=== PATIENT | female | born 1965 | race Caucasian/White ===

== ENCOUNTER 2020-04-25 12:09 | Outpatient (REF) | payer MEDICARE, MEDICAID, SELFPAY ==
[2020-04-25 15:55] LABS: CT PCR NOT DETECTED (Not Detect.); NG PCR NOT DETECTED (Not Detect.)
[2020-04-26 09:39] LABS: HIV AB/AG Nonreactive (Nonreactive); HIV Num 1 0.05 S/CO (0.00-0.99)
== END 2020-04-25 12:10 | disposition home or self-care (01) ==
LOC: HO.HMGCLDS 12:09
PROVIDERS: Visit Provider Urology
DX: R30.0 Dysuria (principal); Z11.3 Encounter for screening for infections with a predominantly sexual mode of transmission
CPT/HCPCS: 87389; 87491; 87591

== ENCOUNTER 2020-10-18 13:38 | Outpatient (REF) | payer MEDICARE, MEDICAID, SELFPAY ==
[2020-10-18 17:02] LABS: Alanine Aminotransferase 13 U/L (0-31); Albumin Level 4.7 g/dL (3.5-5.0); Alkaline Phosphatase 106 U/L (39-117); Aspartate Amino Transferase 14 U/L (5-31); Bilirubin Direct < 0.2 mg/dL (0.0-0.5); Bilirubin Total 0.5 mg/dL (0.0-1.0); Total Protein 7.2 g/dL (6.5-8.0)
== END 2020-10-18 13:39 | disposition home or self-care (01) ==
LOC: HO.HMGCLDS 13:38
PROVIDERS: PCP Physician Assistant; Visit Provider Dermatology
DX: L20.84 Intrinsic (allergic) eczema (principal); L82.1 Other seborrheic keratosis; B35.1 Tinea unguium
CPT/HCPCS: 36415; 80076

== ENCOUNTER 2020-10-31 12:54 | Outpatient (REF) | payer MEDICARE, MEDICAID, SELFPAY ==
[2020-10-31 14:14] LABS: MANUAL DIFF FLAG NO
[2020-10-31 14:25] LABS: Basophils Percent Auto 0.2 % (0-2); Eosinophils Absolute Auto 0.2 X10*3/uL (0.0-0.4); Eosinophils Percent Auto 1.1 % (0-4); Hematocrit 41.8 % (37-47); Hemoglobin 13.8 g/dl (12.0-16.0); Imm Gran Abs Auto 0.06 X10*3/uL (0.00-0.03); Imm Gran Pct Auto 0.5 % (0.0-0.4); Lymphocytes Absolute Auto 3.1 X10*3/uL (1.2-4.9); Lymphocytes Percent Auto 23.6 % (20-40); Mean Corpuscular Hemoglobin 32.5 pg (27.0-33.0); Mean Corpuscular Volume 98.6 fL (80-98); Mean Platelet Volume 9.4 fL (9.4-12.3); Monocytes Absolute Auto 0.7 X10*3/uL (0.1-1.2); Monocytes Percent Auto 5.5 % (2-11); Neutrophils Absolute Auto 9.2 X10*3/uL (2.0-8.3); Neutrophils Percent Auto 69.1 % (45-73); Platelet Count 323 X10*3/uL (160-400); Red Blood Count 4.24 X10*6/uL (4.20-5.50); Red Cell Distribution Width 12.2 % (11.0-16.0); White Blood Count 13.3 X10*3/uL (4.8-10.8)
[2020-10-31 14:30] LABS: Alanine Aminotransferase 13 U/L (0-31); Aspartate Amino Transferase 15 U/L (5-31)
== END 2020-10-31 12:55 | disposition home or self-care (01) ==
LOC: HO.HMGCLDS 12:54
PROVIDERS: PCP Physician Assistant; Visit Provider Dermatology
DX: B35.1 Tinea unguium (principal); Z79.899 Other long term (current) drug therapy
CPT/HCPCS: 36415; 84450; 84460; 85025

== ENCOUNTER 2021-01-29 09:45 | Outpatient (REF) | payer MEDICARE, MEDICAID, SELFPAY | END 2021-01-29 09:46 | disposition home or self-care (01) | LOC: HO.LAB 09:45 | PROVIDERS: PCP Physician Assistant; Visit Provider Internal Medicine | DX: Z20.822 Contact with and (suspected) exposure to COVID-19 (principal) | CPT/HCPCS: C9803; U0003; U0005 ==

== ENCOUNTER 2021-03-28 12:34 | Outpatient (REF) | payer MEDICARE, MEDICAID, SELFPAY ==
[2021-03-28 14:15] LABS: Anion Gap 17 (12-20); Blood Urea Nitrogen 18 mg/dL (9-16); Calcium 10.3 mg/dL (8.4-10.2); Carbon Dioxide 22 mmol/L (22-29); Chloride 107 mmol/L (96-108); Estimated Glomerular Filt Rate 56; Potassium 4.8 mmol/L (3.3-5.1); Sodium 141 mmol/L (135-145)
== END 2021-03-28 12:35 | disposition home or self-care (01) ==
LOC: HO.HMGCLDS 12:34
PROVIDERS: PCP Physician Assistant; Visit Provider Internal Medicine
DX: Z13.89 Encounter for screening for other disorder (principal)
CPT/HCPCS: 36415; 80051; 82310; 82565; 84520

== ENCOUNTER 2021-07-10 07:46 | Outpatient (REF) | payer MEDICARE, MEDICAID, SELFPAY ==
[2021-07-10 09:53] LABS: Binax Internal Control QC Valid; Binax Now Covid-19 Ag Negative (Negative)
[2021-07-11 07:42] LABS: HBsAGNum1 0.25 S/CO (0.00-0.99); Hepatitis B Surface Antigen Negative (Negative); ~HepC Num1 0.06 S/CO (0.00-0.79); ~Hepatitis C Antibody Nonreactive (Nonreactive)
[2021-07-12 20:17] LABS: TS Negative Control Passed; TS Panel A 0; TS Panel B 0; TS Positive Control Passed; TSpotTB Negative (Negative)
== END 2021-07-10 07:47 | disposition home or self-care (01) ==
LOC: HO.HMGCLDS 07:46
PROVIDERS: Absent Provider Nurse Practitioner Family; PCP Physician Assistant; Visit Provider Dermatology
DX: R05.9 Cough, unspecified (principal); R52 Pain, unspecified; R43.2 Parageusia; L30.1 Dyshidrosis [pompholyx]; B35.1 Tinea unguium
CPT/HCPCS: 36415; 86481; 86803; 87340

== ENCOUNTER 2022-11-29 16:51 | Emergency (ER) | payer MEDICARE, MEDICAID, SELFPAY ==
[2022-11-29 17:20] VITALS: BP 109/80; PULSE 100; RESP 18; TEMP 36.8; O2SAT 99; BMI 29.0
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
--- NOTE | 2022-11-29 17:29 | PC.NURSE ---
eval and dc by pit
== END 2022-11-29 17:34 | disposition home or self-care (01) ==
LOC: HO.ED 17:32
PROVIDERS: Emergency Provider Emergency Medicine; PCP Physician Assistant Medical
DX: T25.011A Burn of unspecified degree of right ankle, initial encounter (principal); T23.052A Burn of unspecified degree of left palm, initial encounter; T23.051A Burn of unspecified degree of right palm, initial encounter; T20.00XA Burn of unspecified degree of head, face, and neck, unspecified site, initial encounter; X08.8XXA Exposure to other specified smoke, fire and flames, initial encounter; Y93.9 Activity, unspecified; Y92.9 Unspecified place or not applicable; Y99.9 Unspecified external cause status
CPT/HCPCS: 99282

== ENCOUNTER 2024-03-25 13:19 | Emergency (ER) | payer OTHER, MEDICAID, SELFPAY ==
--- NOTE | ~2024-03-25 | CT_ITS ---
EXAMINATION: CT HEAD WITHOUT CONTRAST CT CERVICAL SPINE WITHOUT CONTRAST CLINICAL INFORMATION: Trauma. Fall. Pain. COMPARISON: None. TECHNIQUE: Imaging was performed from the skull base to vertex without intravenous administration of contrast. In addition, helical noncontrast CT imaging was acquired through the cervical spine and source images were reviewed along with axial reconstructions and sagittal and coronal MPRs. [This CT examination was performed using dose optimization techniques as appropriate, variously including the following: *Automated exposure control *Adjustment of mA and/or kV according to patient size (this includes techniques or standardized protocols for targeted exams where dose is matched to indication/reason for exam; i.e. extremities or head) *Use of iterative reconstruction technique] DLP: 975 mGy-cm FINDINGS: HEAD: No intracranial mass, hemorrhage, or midline shift is visualized. The ventricles and sulci are proportional. No extra-axial collections are identified. The paranasal sinuses and mastoid air cells are well aerated. CERVICAL SPINE: There is no evidence of acute cervical spine fracture. Vertebral bodies remain normal in height. Cervical vertebrae have normal alignment. There is multilevel degenerative spondylosis of the cervical spine with disc height narrowing and endplate spurs and facet joint arthrosis. Nonspecific 8mm osteosclerotic lesion in the posterior right C3 vertebrae without cortical bone destruction. No pre- or paravertebral soft tissue abnormality is identified. Limited assessment of the lung apices is unremarkable. CT/CT cervical spine wo IV con IMPRESSION: 1. No acute intracranial pathology. 2. No CT evidence of acute cervical spine fracture or traumatic subluxation. 3. Nonspecific 8 mm osteosclerotic lesion in the posterior right C3 vertebrae without cortical bone destruction. Electronically signed by: Torsten Cordova MD 03/25/2024 03:41 PM EDT
--- NOTE | ~2024-03-25 | CT_ITS ---
EXAMINATION: CT HEAD WITHOUT CONTRAST CT CERVICAL SPINE WITHOUT CONTRAST CLINICAL INFORMATION: Trauma. Fall. Pain. COMPARISON: None. TECHNIQUE: Imaging was performed from the skull base to vertex without intravenous administration of contrast. In addition, helical noncontrast CT imaging was acquired through the cervical spine and source images were reviewed along with axial reconstructions and sagittal and coronal MPRs. [This CT examination was performed using dose optimization techniques as appropriate, variously including the following: *Automated exposure control *Adjustment of mA and/or kV according to patient size (this includes techniques or standardized protocols for targeted exams where dose is matched to indication/reason for exam; i.e. extremities or head) *Use of iterative reconstruction technique] DLP: 975 mGy-cm FINDINGS: HEAD: No intracranial mass, hemorrhage, or midline shift is visualized. The ventricles and sulci are proportional. No extra-axial collections are identified. The paranasal sinuses and mastoid air cells are well aerated. CERVICAL SPINE: There is no evidence of acute cervical spine fracture. Vertebral bodies remain normal in height. Cervical vertebrae have normal alignment. There is multilevel degenerative spondylosis of the cervical spine with disc height narrowing and endplate spurs and facet joint arthrosis. Nonspecific 8mm osteosclerotic lesion in the posterior right C3 vertebrae without cortical bone destruction. No pre- or paravertebral soft tissue abnormality is identified. Limited assessment of the lung apices is unremarkable. CT/CT head/brain wo IV con IMPRESSION: 1. No acute intracranial pathology. 2. No CT evidence of acute cervical spine fracture or traumatic subluxation. 3. Nonspecific 8 mm osteosclerotic lesion in the posterior right C3 vertebrae without cortical bone destruction. Electronically signed by: Torsten Cordova MD 03/25/2024 03:41 PM EDT
[2024-03-25 13:47] VITALS: BP 126/86; PULSE 106; RESP 16; TEMP 36.9; O2SAT 96; BMI 28.8
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
[2024-03-25 14:07] VITALS: BP 130/64; PULSE 92; RESP 19; TEMP 37.4; O2SAT 94
[2024-03-25] MEDS: Ondansetron ODT 4 MG TAB.RAPDIS TRANSLINGU (14:41)
[2024-03-25 14:44] LABS: MANUAL DIFF FLAG NO
[2024-03-25 14:48] LABS: Basophils Absolute Auto 0.1 X10*3/uL (0.0-0.2); Basophils Percent Auto 0.7 % (0-2); Eosinophils Absolute Auto 0.1 X10*3/uL (0.0-0.4); Eosinophils Percent Auto 0.7 % (0-4); Hematocrit 39.1 % (37.0-47.0); Hemoglobin 13.4 g/dl (12.0-16.0); Imm Gran Abs Auto 0.02 X10*3/uL (0.00-0.03); Imm Gran Pct Auto 0.2 % (0.0-0.4); Lymphocytes Absolute Auto 2.7 X10*3/uL (1.2-4.9); Lymphocytes Percent Auto 30.2 % (20-40); Mean Corpuscular HGB Conc 34.3 g/dl (31.0-35.0); Mean Corpuscular Hemoglobin 34.8 pg (27.0-33.0); Mean Corpuscular Volume 101.6 fL (80.0-98.0); Mean Platelet Volume 8.3 fL (9.4-12.3); Monocytes Absolute Auto 0.5 X10*3/uL (0.1-1.2); Monocytes Percent Auto 5.7 % (2-11); Neutrophils Absolute Auto 5.5 x10*3/uL (2.0-8.3); Neutrophils Percent Auto 62.5 % (45-73); Platelet Count 252 X10*3/uL (160-400); Red Blood Count 3.85 X10*6/uL (4.20-5.50); Red Cell Distribution Width 12.7 % (11.0-16.0); White Blood Count 8.8 X10*3/uL (4.8-10.8)
[2024-03-25 14:57] LABS: INTERNATIONAL NORM RATIO 0.8 (0.9-1.1); Prothrombin Time 8.9 SEC (10.9-12.4)
[2024-03-25 15:08] LABS: Alanine Aminotransferase 16 U/L (0-31); Albumin Level 4.2 g/dL (3.5-5.0); Alkaline Phosphatase 99 U/L (39-117); Anion Gap 15 (12-20); Aspartate Amino Transferase 23 U/L (5-31); Bilirubin Total 0.2 mg/dL (0.0-1.0); Blood Urea Nitrogen 27 mg/dL (9-16); Calcium 9.6 mg/dL (8.4-10.2); Carbon Dioxide 25 mmol/L (22-29); Chloride 105 mmol/L (96-108); Creatinine Clr Calc Pharmacy 71.4; Estimated Glomerular Filt Rate > 60; Glucose Random 85 mg/dL (60-115); Lipase 29 U/L (8-78); Potassium 4.2 mmol/L (3.3-5.1); Sodium 141 mmol/L (135-145); Total Protein 7.2 g/dL (6.5-8.0)
[2024-03-25 16:13] VITALS: BP 130/64; PULSE 92; RESP 19; TEMP 37.4; O2SAT 94
[2024-03-25 16:23] VITALS: BP 130/64; PULSE 92; RESP 19; TEMP 37.4; O2SAT 94
== END 2024-03-25 16:24 | disposition home or self-care (01) ==
PROVIDERS: Physician Assistant; Emergency Provider Emergency Medicine; PCP Physician Assistant
DX: S09.90XA Unspecified injury of head, initial encounter (principal); R51.9 Headache, unspecified; M54.2 Cervicalgia; R10.2 Pelvic and perineal pain; W01.10XA Fall on same level from slipping, tripping and stumbling with subsequent striking against unspecified object, initial encounter; Y93.01 Activity, walking, marching and hiking; Y92.002 Bathroom of unspecified non-institutional (private) residence as the place of occurrence of the external cause; Y99.8 Other external cause status; Z79.899 Other long term (current) drug therapy
CPT/HCPCS: 36415; 70450; 72125; 80053; 83690; 85025; 85610; 85730; 99283; 99284

== ENCOUNTER 2024-06-07 05:16 | Inpatient (IN) | payer MEDICARE, SELFPAY ==
--- NOTE | 2024-06-07 | ECG_ITS ---
Test Reason : withdrawal Blood Pressure : / mmHG Vent. Rate : 094 BPM Atrial Rate : 094 BPM P-R Int : 164 ms QRS Dur : 086 ms QT Int : 374 ms P-R-T Axes : 069 062 067 degrees QTc Int : 467 ms Normal sinus rhythm Normal ECG When compared with ECG of 04-NOV-2016 15:20, No significant change was found Referred By: Generic ED Physician Electronically Signed By:ANITA RICE MD
--- NOTE | ~2024-06-07 | CT_ITS ---
EXAMINATION: CT ABDOMEN AND PELVIS WITHOUT CONTRAST CLINICAL INFORMATION: Abdominal pain COMPARISON: None available. TECHNIQUE: Multidetector volumetric imaging was performed from the superior aspect of the liver through the pubic symphysis. Sagittal and coronal reformatted images were obtained on the technologist's workstation. This CT examination was performed using dose optimization techniques as appropriate, variously including the following: *Automated exposure control *Adjustment of mA and/or kV according to patient size (this includes techniques or standardized protocols for targeted exams where dose is matched to indication/reason for exam; i.e. extremities or head) *Use of iterative reconstruction technique DLP: 565 mGy-cm FINDINGS: LUNG BASES: The visualized lung bases are unremarkable. LIVER, GALLBLADDER, AND BILIARY TREE: The liver is normal in size, shape, and attenuation. No focal hepatic lesion or biliary ductal dilatation is present. The gallbladder is surgically absent. PANCREAS: Unremarkable. SPLEEN: Unremarkable. ADRENAL GLANDS: 1.4 cm low-density mass in the left adrenal gland. KIDNEYS AND URETERS: The kidneys are normal in size. Punctate calyceal stones in the left kidney. No hydronephrosis. No hydroureter. BLADDER: Unremarkable. GASTROINTESTINAL TRACT: The small and large bowel are unremarkable. The appendix is unremarkable. ABDOMINAL WALL: No significant hernia is appreciated. LYMPH NODES: Normal. VASCULAR: Unremarkable. PELVIC VISCERA: Unremarkable. OSSEOUS STRUCTURES: Age indeterminate superior endplate deformity at L2. Facet arthropathy most pronounced in the lower lumbar spine. CT/CT abdomen pelvis wo IV con IMPRESSION: 1. No acute findings in the abdomen or pelvis. 2. Age indeterminate superior endplate deformity at L2. Correlate for point tenderness. 3. There is a 1.4 cm low-density mass in the left adrenal gland. Recommend further evaluation with adrenal protocol CT or MRI. Fleischner guidelines were followed. Electronically signed by: Dung Baig MD 06/07/2024 11:49 AM [facility]
[2024-06-07 05:23] VITALS: BP 140/88; PULSE 110; O2SAT 97
[2024-06-07 05:32] VITALS: BP 135/91; PULSE 100; RESP 20; TEMP 36.8; O2SAT 95
[2024-06-07 05:44] VITALS: BMI 27.4
[2024-06-07 05:48] LABS: MANUAL DIFF FLAG NO
[2024-06-07 05:52] LABS: Basophils Percent Auto 0.4 % (0-2); Eosinophils Percent Auto 0.4 % (0-4); Hematocrit 39.6 % (37.0-47.0); Hemoglobin 14.1 g/dl (12.0-16.0); Imm Gran Abs Auto 0.02 X10*3/uL (0.00-0.03); Imm Gran Pct Auto 0.3 % (0.0-0.4); Lymphocytes Absolute Auto 1.7 X10*3/uL (1.2-4.9); Mean Corpuscular HGB Conc 35.6 g/dl (31.0-35.0); Mean Corpuscular Hemoglobin 34.6 pg (27.0-33.0); Mean Corpuscular Volume 97.3 fL (80.0-98.0); Mean Platelet Volume 8.5 fL (9.4-12.3); Monocytes Absolute Auto 0.4 X10*3/uL (0.1-1.2); Monocytes Percent Auto 5.9 % (2-11); Neutrophils Absolute Auto 5.1 x10*3/uL (2.0-8.3); Platelet Count 205 X10*3/uL (160-400); Red Blood Count 4.07 X10*6/uL (4.20-5.50); Red Cell Distribution Width 12.4 % (11.0-16.0); White Blood Count 7.3 X10*3/uL (4.8-10.8)
[2024-06-07 06:06] LABS: Alanine Aminotransferase 52 U/L (0-31); Albumin Level 4.1 g/dL (3.5-5.0); Alkaline Phosphatase 90 U/L (39-117); Anion Gap 20 (12-20); Aspartate Amino Transferase 81 U/L (5-31); Bilirubin Total 0.7 mg/dL (0.0-1.0); Blood Urea Nitrogen 18 mg/dL (9-16); Calcium 8.7 mg/dL (8.4-10.2); Carbon Dioxide 21 mmol/L (22-29); Chloride 102 mmol/L (96-108); Creatinine Clr Calc Pharmacy 61.5; Estimated Glomerular Filt Rate 51; Glucose Random 103 mg/dL (60-115); INTERNATIONAL NORM RATIO 0.9 (0.9-1.1); Lipase 29 U/L (8-78); Magnesium 1.7 mg/dL (1.6-2.6); Potassium 3.3 mmol/L (3.3-5.1); Prothrombin Time 10.3 SEC (10.9-12.4); Sodium 140 mmol/L (135-145); Total Protein 6.9 g/dL (6.5-8.0)
[2024-06-07 06:14] LABS: Troponin-I High Sensitivity 16.7 ng/L (<3.5-17.0)
[2024-06-07] MEDS: Thiamine HCL 100 MG TABLET PO (06:24)
[2024-06-07] MEDS: LORazepam 2 MG/ML VIAL IVPUSH (06:24)
[2024-06-07] MEDS: ondansetron HCL 4 MG/2 ML VIAL IVPUSH (06:24)
[2024-06-07] MEDS: Famotidine/PF 20 MG/2 ML VIAL IVPUSH (06:24)
[2024-06-07] MEDS: 0.9 % Sodium Chloride 1,000 ML 999 ML IV (06:26)
[2024-06-07 06:31] LABS: Ethanol 139 mg/dL
--- NOTE | 2024-06-07 06:35 | PC.NURSE ---
pt up to bedside commode for diarrhea episode.
--- NOTE | 2024-06-07 06:37 | ED.GENADULT ---
HPI - General Adult General Chief complaint: ETOH/Substance Use Stated complaint: detox Time Seen by Provider: 06/07/24 06:37 Source: patient and EMS Mode of arrival: EMS Limitations: no limitations History of Present Illness ED Provider: Anastasia Draper PA-C HPI narrative: Patient is a 58 year old assigned female at with a history of alcohol abuse and recent cholecystectomy presenting to the emergency department today with nausea, vomiting, diarrhea, increased anxiousness, and chest tightness secondary to alcohol withdrawal. Patient states that over the last 7 days she has been attempting to withdrawal from alcohol. Patient states that after having her gallbladder removed she was not informed that she can't drink alcohol and she is currently a daily drinker. Patient states that she is never going to drink again and her symptoms have largely resolved. Patient denies ever having alcohol withdrawal seizures. Patient denies any dizziness, lightheadedness, abdominal pain, fever, chills, blurry vision, double vision, loss of vision, difficulty breathing, shortness of breath, back pain, night sweats, pain with urination, increased urinary frequency, increased urinary urgency, blood in her urine or stool, syncope or a near syncopal episode, recent trauma or falls, bowel incontinence, bladder incontinence, or any other complaints at this time. Onset (ago): day(s) Relieving factors: none Exacerbating factors: none Associated symptoms: chest pain and nausea/vomiting Treatments prior to arrival: none Related Data Home Medications ?Medication ?Instructions ?Recorded ?Confirmed cyanocobalamin (vitamin B-12) 1,000 mcg PO DAILY 07/10/21 1,000 mcg tablet thiamine HCl (vitamin B1) 50 mg 0 mg PO 07/10/21 tablet diazepam 10 mg tablet See Rx Instructions .Route 06/07/24 .COMPLEX PRN Interstitial cystisis lorazepam 2 mg tablet 2 mg PO BID PRN anxiety 06/07/24 tramadol 50 mg tablet 50 mg PO QID 06/07/24 Allergies Allergy/AdvReac Type Severity Reaction Status Date / Time aspirin [ASA] Allergy Mild STOMACH Verified 06/07/24 05:53 UPSET cephalexin Allergy Mild Gastrointestinal Verified 06/07/24 05:53 Upset latex [LATEX] Allergy Mild RASH Verified 06/07/24 05:53 morphine [MORPHINE] Allergy Mild RASH, Verified 06/07/24 05:53 swelling, redness Sulfa (Sulfonamide Allergy Mild RASH, Verified 06/07/24 05:53 Antibiotics) swelling, [SULFA (SULFONAMIDE redness ANTIBIOTICS)] terbinafine Allergy Mild Nausea and Verified 06/07/24 05:53 Vomiting azithromycin Allergy Rash Verified 06/07/24 05:53 clonazepam [From Klonopin] AdvReac Mild Gastrointestinal Verified 06/07/24 05:53 Upset metformin AdvReac Constipatio Verified 06/07/24 05:53 n Latex Allergy Unknown swelling, Uncoded 03/25/24 13:59 redness Review of Systems Constitutional: Constitutional: Reports no additional constitutional complaints, Denies chills, Denies fever(s) and Denies night sweats Eyes: Eyes: Reports no additional eye complaints, Denies blurry vision, Denies change in vision, Denies diplopia, Denies eye discharge, Denies loss of vision and Denies eye pain ENT: Denies dizziness Cardiovascular: Cardiovascular: Reports no additional cardiovascular complaints, Reports chest pain, Denies lightheadedness, Denies Loss of Consciousness and Denies dyspnea Respiratory: Respiratory: Reports no additional respiratory complaints and Denies dyspnea Gastrointestinal: Gastrointestinal: Reports no additional gastrointestinal complaints, Denies abdominal pain, Denies melena, Denies hematochezia, Denies change in bowel habits, Denies change in stool character, Reports diarrhea, Reports nausea and Reports vomiting Genitourinary: Genitourinary: Denies hematuria, Denies urinary frequency, Denies dysuria, Denies urinary incontinence, Denies urinary hesitancy and Denies urinary urgency Musculoskeletal: Musculoskeletal: Reports no additional musculoskeletal complaints, Denies numbness and Denies tingling Neurologic: Denies dizziness, Denies loss of vision, Denies numbness and Denies tingling Psychiatric: Psychiatric: Reports no additional psychiatric complaints Endocrine: Endocrine: Reports no additional endocrine complaints Hematologic/Lymphatic: Hematologic/Lymphatic: Reports no additional hematologic/lymphatic complaints Allergic/Immunologic: Allergic/Immunologic: Reports no additional allergic/immunologic complaints PMFSH Past Medical History Attestation statement: The following information was validated with the patient. Source: old records reviewed and nursing notes reviewed Medical History (Updated 06/07/24 @ 11:01 by TEODORA Ricci) EtOH dependence Social History Social History Alcohol intake: current Alcohol intake frequency: 3 or more drinks per day Alcohol type: hard liquor Patient Tobacco Use Status: Former Tobacco user Use of substances other than those prescribed or required for medical reasons: No Advance Directives: No Advance Directives Information Provided: Yes Do you have a plan to hurt others: No Plan Patient : No Physical Exam ED Vital Signs: Vital Signs - 24 hr 06/07/24 05:32 06/07/24 10:12 Temperature 98.3 F 98.1 F Pulse Rate 100 100 Respiratory Rate 20 20 Blood Pressure 135/91 H 109/77 Pulse Oximetry 95 96 Oxygen Delivery Method Room Air Room Air BMI result Body Mass Index 27.4 Const General: cooperative, no acute distress, alert and awake Nutritional Appearance: well nourished Orientation/consciousness: patient oriented x3 Limitations: no limitations HENMT Head: Yes normal to inspection and Yes atraumatic Ears: hearing grossly normal bilaterally and external ears normal General nose exam: Normal external nose present, no nasal discharge noted and no epistaxis Face and sinus: Yes normal facial exam, No abrasion and No laceration Mouth: Normal oral and palatal mucosa present, no drooling and no muffled voice Eyes General: appearance normal, both eyes and all related structures Periorbital: periorbital findings normal Eyelids: Yes eyelids normal Conjunctivae: conjunctivae normal Pupils: Equal, round and reactive pupils present EOM: EOMs intact bilaterally Neck Neck: Yes normal visual inspection, Yes full ROM and Yes no lymphadenopathy Chest Chest palpation & inspection: normal inspection of the chest Resp Effort & Inspection: normal respiratory effort and able to speak in complete sentences GI Inspection: Yes normal to inspection Neuro General: patient oriented x3 and moves all extremities Cranial nerves: Yes Equal, round and reactive pupils present Cognition (Neuro): normal cognition Extrem General: Yes normal to inspection, Yes full ROM and Yes capillary refill normal Psych Appearance: grossly normal Mental Status: mental status grossly normal Affect: normal affect Attitude: cooperative Thought process: Normal thought process present Thought content: Normal thought content present Insight: Good insight present (Psych) Medications Administered Discontinued Medications Generic Name Dose Route Start Last Admin Trade Name Freq PRN Reason Stop Dose Admin Chlordiazepoxide HCl 100 mg 06/07/24 07:47 06/07/24 07:59 Chlordiazepoxide Hcl 25 Mg Capsule PO 06/07/24 07:48 100 mg ONCE ONE Administration Famotidine 20 mg 06/07/24 06:11 06/07/24 06:24 Famotidine/Pf 20 Mg/2 Ml Vial IVPUSH 06/07/24 06:12 20 mg ONCE ONE Administration Sodium Chloride 1,000 mls @ 999 mls/hr 06/07/24 06:11 06/07/24 07:40 Ns IV 06/07/24 07:11 Infused .Q1H1M ONE Infusion Lactated Ringer's 1,000 mls @ 999 mls/hr 06/07/24 09:30 06/07/24 10:14 Lr IV 06/07/24 10:30 999 mls/hr .Q1H1M JO-ANN Administration Lorazepam 2 mg 06/07/24 06:11 06/07/24 06:24 Lorazepam 2 Mg/Ml Vial IVPUSH 06/07/24 06:12 2 mg ONCE ONE Administration Ondansetron HCl 4 mg 06/07/24 06:11 06/07/24 06:24 Ondansetron Hcl 4 Mg/2 Ml Vial IVPUSH 06/07/24 06:12 4 mg ONCE ONE Administration Phenobarbital Sodium 256 mg 06/07/24 10:00 06/07/24 10:15 Phenobarbital Sodium 130 Mg/Ml Im Once IM 06/07/24 10:01 256 mg ONCE ONE Administration Protocol Thiamine HCl 100 mg 06/07/24 06:12 06/07/24 06:24 Thiamine Hcl 100 Mg Tablet PO 06/07/24 06:13 100 mg ONCE ONE Administration Medical Decision Making Medical Decision Making MDM Narrative: Patient is a 58 year old assigned female at with a history of alcohol abuse and recent cholecystectomy presenting to the emergency department today with nausea, vomiting, diarrhea, increased anxiousness, and chest tightness secondary to alcohol withdrawal. Patient's physical exam was as noted in the physical exam portion of this note. Patient's blood work was unremarkable. Patient's EKG was unremarkable. I explained my physical exam findings as well as all test results to the patient. I answered all questions asked by the patient. Patient received received multiple medications for her withdrawal symptoms including librium and ativan however, the patient's symptoms persisted. Patient was started on phenobarb protocol. I spoke with the hospitalist team who agreed to admission for alcohol withdrawal. Patient verbalized agreement and understanding with this treatment plan and admission. Differential Diagnosis Differential Diagnoses: The differential diagnosis associated with the presentation includes Alcohol withdrawal Alcohol abuse Admission/Observation Consideration of admission/observation: Escalation of care including admission/observation considered Patient admitted. Consult Healthcare Provider Management of the patient was discussed with: Hospitalist (agreed to admission as noted in the MDM Rationale portion of this note.) Lab Data [facility] Lab Attestation statement: I reviewed the patient's lab results. My interpretation of these results are in the MDM Rationale portion of this note. 06/07/24 05:38 06/07/24 05:38 Labs: Lab Results 06/07/24 06/07/24 Range/Units 05:38 07:30 WBC 7.3 (4.8-10.8) X10*3/uL RBC 4.07 L (4.20-5.50) X10*6/uL Hgb 14.1 (12.0-16.0) g/dl Hct 39.6 (37.0-47.0) % MCV 97.3 (80.0-98.0) fL MCH 34.6 H (27.0-33.0) pg MCHC 35.6 H (31.0-35.0) g/dl RDW 12.4 (11.0-16.0) % Plt Count 205 (160-400) X10*3/uL MPV 8.5 L (9.4-12.3) fL Immature Gran % (Auto) 0.3 (0.0-0.4) % Neut % (Auto) 70.0 (45-73) % Lymph % (Auto) 23.0 (20-40) % [place] % (Auto) 5.9 (2-11) % Eos % (Auto) 0.4 (0-4) % Baso % (Auto) 0.4 (0-2) % Lymph # (Auto) 1.7 (1.2-4.9) X10*3/uL [place] # (Auto) 0.4 (0.1-1.2) X10*3/uL Eos # (Auto) 0.0 (0.0-0.4) X10*3/uL Baso # (Auto) 0.0 (0.0-0.2) X10*3/uL Abs Immat Gran (auto) 0.02 (0.00-0.03) X10*3/uL Absolute Neuts (auto) 5.1 (2.0-8.3) x10*3/uL Absolute Nucleated RBC 0.000 (0.0-0.012) X10*3/uL Nucleated RBC % (auto) 0.0 (0.0-0.2) /100WBC Hold Purple Top SEE NOTE PT 10.3 L (10.9-12.4) SEC INR 0.9 (0.9-1.1) Sodium 140 (135-145) mmol/L Potassium 3.3 D (3.3-5.1) mmol/L Chloride 102 (96-108) mmol/L Carbon Dioxide 21 L (22-29) mmol/L Anion Gap 20 (12-20) BUN 18 H (9-16) mg/dL Creatinine 1.09 (0.5-1.4) mg/dL Estim Creat Clear Calc 61.5 Estimated GFR 51 Random Glucose 103 (60-115) mg/dL Calcium 8.7 D (8.4-10.2) mg/dL Magnesium 1.7 (1.6-2.6) mg/dL Total Bilirubin 0.7 (0.0-1.0) mg/dL AST 81 H (5-31) U/L ALT 52 H (0-31) U/L Alkaline Phosphatase 90 (39-117) U/L Troponin I High Sens 16.7 16.5 (<3.5-17.0) ng/L Total Protein 6.9 (6.5-8.0) g/dL Albumin 4.1 (3.5-5.0) g/dL Lipase 29 (8-78) U/L Ethyl Alcohol 139 mg/dL Independent Interpretation I performed an independent interpretation of an: EKG Interpretation: Vent. Rate: 094 BPM Atrial Rate: 094 BPM P-R Int: 164 ms QRS Dur: 086 ms QT Int: 374 ms P-R-T Axes: 069 062 067 degrees QTc Int: 467 ms Normal sinus rhythm Normal ECG When compared with ECG of 04-NOV-2016 15:20, No significant change was found Referred By: Generic ED Physician Electronically Signed By:ERICK KIRKLAND MD Dictated By: Erick Kirkland MD Signed By: Electronically signed by Erick Kirkland MD 06/07/24 [id number] Independent Historian Clinical information obtained from an independent historian. History obtained from or confirmed by: EMS (EMS provided additional history and confirmed the history provided by the patient.) Critical Care Time Critical Care Time Critical Care Time: Yes Total Critical Care Time: 42 Attestation: I spent 42 minutes of Critical Care Time with this patient. This does not include time spent on separately reported billable procedures. Discharge Plan Discharge Clinical Impression: EtOH dependence, Alcohol withdrawal syndrome Patient Disposition: Admitted As Inpatient
--- NOTE | 2024-06-07 07:10 | PC.NURSE ---
Resumed care of pt at 0700. Pt resting in bed quietly, a/ox4, respirations even and unlabored, no increased wob/sob noted, normal sinus on laboratory monitor, HR- 90s. 1L NS running per AUG, plan for consult to addiction medicine. Call soler within reach, all needs met at this time.
[2024-06-07 07:59] LABS: Troponin-I High Sensitivity 16.5 ng/L (<3.5-17.0)
[2024-06-07] MEDS: chlordiazePOXIDE HCl 25 MG CAPSULE 100 MG PO (07:59)
--- NOTE | 2024-06-07 09:57 | MHC.RECOVRN ---
Briefly met with pt in ED17 after consult placed to Addiction Medicine for alcohol use. Pt has presented to the ED reporting alcohol withdrawal, nausea/vomiting/diarrhea, tremors, anxiety, and chest tightness. Pt has been attempting to decrease the amount of alcohol she drinks over the past 7 days. Pt laying in bed, awake, alert, easily engages in conversation, however, reports diarrhea and abdominal discomfort and needed to end interview. Pt did report 1-2 pints [employer] daily. Pt reports cholecystectomy on April 16 and had abstained for a month for surgery. Pt reports she was not informed she could not drink alcohol after her surgery so resumed drinking. Pt reports longest period of abstinence was 2 years, unsure when. Currently, pt visibly uncomfortable and requesting to meet at a later time. Discussed with ED provider, plan for pt to be admitted.
[2024-06-07 10:12] VITALS: BP 109/77; PULSE 100; RESP 20; TEMP 36.7; O2SAT 96
[2024-06-07] MEDS: Lactated Ringers 1,000 ML 999 ML IV (10:14)
[2024-06-07] MEDS: PHENobarbitaL sodium 130 MG/ML IM ONCE 256 MG IM (10:15)
--- NOTE | 2024-06-07 10:29 | PM.IMHP ---
History of Present Illness Date of Service: 06/07/24 Chief Complaint: withdrawal, abd pain 58F PMH severe anxiety, etoh dependence, presented with withdrawal symptoms and abd pain. Patient reports epigastric pain, inability to tolerate p.o.. Was trying to titrate herself off alcohol but has not been able to keep anything down. Started to feel withdrawal symptoms and panic so called EMS. In ED found to have ciwa of 7, elevated transaminases. Review of Systems Review of Systems: Yes all other systems are reviewed and are negative [facility] Medical History (Updated 06/07/24 @ 10:31 by Anthony Hsu MD) EtOH dependence Social History Alcohol intake: current Alcohol intake frequency: 3 or more drinks per day Alcohol type: hard liquor Patient Tobacco Use Status: Former Tobacco user Use of substances other than those prescribed or required for medical reasons: No Advance Directives: No Advance Directives Information Provided: Yes Do you have a plan to hurt others: No Plan Patient : No Meds Allergies Allergy/AdvReac Type Severity Reaction Status Date / Time aspirin [ASA] Allergy Mild STOMACH Verified 06/07/24 05:53 UPSET cephalexin Allergy Mild Gastrointestinal Verified 06/07/24 05:53 Upset latex [LATEX] Allergy Mild RASH Verified 06/07/24 05:53 morphine [MORPHINE] Allergy Mild RASH, Verified 06/07/24 05:53 swelling, redness Sulfa (Sulfonamide Allergy Mild RASH, Verified 06/07/24 05:53 Antibiotics) swelling, [SULFA (SULFONAMIDE redness ANTIBIOTICS)] terbinafine Allergy Mild Nausea and Verified 06/07/24 05:53 Vomiting azithromycin Allergy Rash Verified 06/07/24 05:53 clonazepam [From Klonopin] AdvReac Mild Gastrointestinal Verified 06/07/24 05:53 Upset metformin AdvReac Constipatio Verified 06/07/24 05:53 n Latex Allergy Unknown swelling, Uncoded 03/25/24 13:59 redness Active Medications: Current Medications Lactated Ringer's (Lr) 1,000 mls @ 999 mls/hr IV .Q1H1M JO-ANN Stop: 06/07/24 10:30 Last Admin: 06/07/24 10:14 Dose: 999 mls/hr Pharmacy Consult (Consult Rx Etoh Phenob Im/Po) 1 each MISCELLANE ONCE PRN; Protocol PRN Reason: Consult order Phenobarbital (Phenobarbital 15 Mg Tablet) 45 mg PO BID JO-ANN; Protocol Stop: 06/09/24 21:01 Phenobarbital (Phenobarbital 30 Mg Tablet) 30 mg PO BID JO-ANN; Protocol Stop: 06/11/24 21:01 Phenobarbital (Phenobarbital 30 Mg Tablet) 30 mg PO DAILY JO-ANN; Protocol Stop: 06/13/24 09:01 Phenobarbital Sodium (Phenobarbital Sodium 130 Mg/Ml Vial Im Q3hx2) 192 mg IM Q3H JO-ANN; Protocol Stop: 06/07/24 16:01 Home Medications ?Medication ?Instructions ?Recorded ?Confirmed ?Last Taken ?Type cyanocobalamin (vitamin B-12) 1,000 mcg PO DAILY 07/10/21 Unknown History 1,000 mcg tablet folic acid 1 mg tablet 1 mg PO DAILY 07/10/21 Unknown History thiamine HCl (vitamin B1) 50 mg 0 mg PO 07/10/21 Unknown History tablet atorvastatin 10 mg tablet 10 mg PO BEDTIME 06/07/24 Unknown History diazepam 10 mg tablet See Rx Instructions .Route 06/07/24 Unknown History .COMPLEX PRN Interstitial cystisis lorazepam 2 mg tablet 2 mg PO BID PRN anxiety 06/07/24 Unknown History metformin 500 mg tablet,extended 500 mg PO QPM 06/07/24 Unknown History release 24 hr ondansetron HCl 4 mg tablet 4 mg PO Q8H 06/07/24 Unknown History pantoprazole 40 mg tablet,delayed 40 mg PO BID 06/07/24 Unknown History release scopolamine base 1 mg over 3 days 1 patch topical Q48H 06/07/24 Unknown History transdermal patch tramadol 50 mg tablet 50 mg PO QID 06/07/24 Unknown History Physical Exam Vital Signs and Narrative: Vital Signs: Last Vital Signs Temp 98.1 F 06/07/24 10:12 Pulse 100 06/07/24 10:12 Resp 20 06/07/24 10:12 BP 109/77 06/07/24 10:12 Pulse Ox 96 06/07/24 10:12 O2 Del Method Room Air 06/07/24 10:12 BMI result Body Mass Index 27.4 General: AO X 3, tremulous Resp: CTA bilateral, no accessory muscles used CVS: S1,S2,RRR GI: soft, non tender, non distended Neuro: motor grossly intact, alert Results Labs 12/09/24 05:38 06/07/24 05:38 Labs: Laboratory Results - last 24 hr 06/07/24 06/07/24 05:38 07:30 MCV 97.3 MCH 34.6 H MCHC 35.6 H RDW 12.4 Plt Count 205 MPV 8.5 L Immature Gran % (Auto) 0.3 Neut % (Auto) 70.0 Lymph % (Auto) 23.0 [place] % (Auto) 5.9 Eos % (Auto) 0.4 Baso % (Auto) 0.4 Lymph # (Auto) 1.7 [place] # (Auto) 0.4 Eos # (Auto) 0.0 Baso # (Auto) 0.0 Abs Immat Gran (auto) 0.02 Absolute Neuts (auto) 5.1 Absolute Nucleated RBC 0.000 Nucleated RBC % (auto) 0.0 Hold Purple Top SEE NOTE PT 10.3 L INR 0.9 Anion Gap 20 Estim Creat Clear Calc 61.5 Estimated GFR 51 Random Glucose 103 Calcium 8.7 D Magnesium 1.7 Total Bilirubin 0.7 AST 81 H ALT 52 H Alkaline Phosphatase 90 Troponin I High Sens 16.7 16.5 Total Protein 6.9 Albumin 4.1 Lipase 29 Ethyl Alcohol 139 Assessment and Plan (1) EtOH dependence: Status: Acute Plan 58F PMH severe anxiety, etoh dependence, presented with withdrawal symptoms and abd pain Alcohol dependence with withdrawal Phenobarbital, CIWA Addiction eval Abdominal pain Suspect alcoholic gastritis Continue IV PPI Check CT abdomen DVT prophylaxis with Lovenox Full Code Patient with severe withdrawal symptoms therefore expected require at least 2 midnights inpatient Quality Stroke Does the patient have a stroke diagnosis?: No VTE Prior VTE?: No VTE Risk Level:: Medical - moderate - high VTE Device Contraindication: Treatment Not Indicated VTE Drug Contraindication: N/A - Med Ordered
--- NOTE | 2024-06-07 11:06 | PHA.MEDREC ---
Addendum entered by Mario Jones 06/07/24 11:20: reviewed Original Note: Pharmacy Consult ? Medication Reconciliation Pharmacy has completed the medication reconciliation. Spoke to patient to confirm med list. Patent had a list of medications with her. Patient states she is no longer taking Atorvastatin 10 mg (gave her red spots all over body and itchy), Metformin 500 mg (made her very constipated), Zofran 4 mg, Pantoprazole 40 mg , Scopolamine patch ( never started, didn't go on vacation) and Vitamin B1 50 mg. patient has some vitamin on her list that are non formulary I left off med rec Vitamin K2 Gummies, Elderbarry gummies, Turmeric 500 mg, Vitamin E 450 mg , Odorless Garlic extract 1000 mg
[2024-06-07] MEDS: Enoxaparin Sodium 40 MG/0.4 ML SYRINGE SUBCUT (11:37)
[2024-06-07] MEDS: Pantoprazole Sodium 40 MG/10 ML VIAL IVPUSH (11:37)
[2024-06-07] MEDS: PHENobarbitaL sodium 130 MG/ML VIAL IM Q3Hx2 192 MG IM ×2 (13:27→17:24)
[2024-06-07 18:09] VITALS: BP 120/89; PULSE 98; RESP 18; TEMP 36.9; O2SAT 99
[2024-06-07] MEDS: 0.9 % Sodium Chloride Flush 3 ML SYRINGE IVFLUSH ×2 (18:11→21:05)
[2024-06-07 20:00] VITALS: BP 138/77; PULSE 73; RESP 14; TEMP 36.6; O2SAT 97
[2024-06-07] MEDS: traMADoL HCL 50 MG TABLET PO (21:01)
[2024-06-07] MEDS: Melatonin 3 MG TABLET 6 MG PO (21:01)
[2024-06-07] MEDS: Loperamide HCl 2 MG CAPSULE 4 MG PO (21:03)
[2024-06-08] VITALS (8 sets, daily range): BP systolic 112–154; BP diastolic 68–89; PULSE 61–90; RESP 14–20; TEMP 36–37.3; O2SAT 94–98
[2024-06-08] MEDS: Pantoprazole Sodium 40 MG/10 ML VIAL IVPUSH (06:27)
[2024-06-08 07:52] LABS: Hematocrit 35.5 % (37.0-47.0); Hemoglobin 12.1 g/dl (12.0-16.0); Mean Corpuscular HGB Conc 34.1 g/dl (31.0-35.0); Mean Corpuscular Hemoglobin 33.8 pg (27.0-33.0); Mean Corpuscular Volume 99.2 fL (80.0-98.0); Mean Platelet Volume 9.3 fL (9.4-12.3); Platelet Count 152 X10*3/uL (160-400); Red Blood Count 3.58 X10*6/uL (4.20-5.50); Red Cell Distribution Width 12.2 % (11.0-16.0); White Blood Count 6.9 X10*3/uL (4.8-10.8)
[2024-06-08 08:33] LABS: Anion Gap 14 (12-20); Blood Urea Nitrogen 19 mg/dL (9-16); Calcium 8.7 mg/dL (8.4-10.2); Carbon Dioxide 26 mmol/L (22-29); Chloride 103 mmol/L (96-108); Creatinine Clr Calc Pharmacy 88.2; Estimated Glomerular Filt Rate > 60; Glucose Random 100 mg/dL (60-115); Magnesium 1.5 mg/dL (1.6-2.6); Potassium 3.1 mmol/L (3.3-5.1); Sodium 140 mmol/L (135-145)
[2024-06-08] MEDS: Cholecalciferol (Vitamin D3) 25 MCG TABLET 50 MCG PO (09:44)
[2024-06-08] MEDS: PHENobarbitaL 15 MG TABLET 45 MG PO ×2 (09:44→19:31)
[2024-06-08] MEDS: traMADoL HCL 50 MG TABLET PO ×4 (09:45→19:32)
[2024-06-08] MEDS: 0.9 % Sodium Chloride Flush 3 ML SYRINGE IVFLUSH ×3 (09:45→19:32)
[2024-06-08] MEDS: Multivitamin TABLET 1 TAB PO (09:45)
[2024-06-08] MEDS: Magnesium Oxide 400 MG TABLET PO (09:45)
[2024-06-08] MEDS: Cyanocobalamin (Vitamin B-12) 1,000 MCG TABLET 1000 MCG PO (09:45)
--- NOTE | 2024-06-08 09:56 | MHC.RECOVRN ---
AUDIT-C Brief Intervention Pt had positive screen for unhealthy alcohol use on admission, subsequently met with t/w to discuss alcohol use and recovery supports/options. This mortgage loan underwriter met with patient to discuss current alcohol use and concerns related to increased risk of alcohol related problems.? Pt reports 1-2 pints [employer] daily since choleycystectomy in March 2024. Discussed how alcohol use has impacted health, including negative impact on mental health and overall physical wellbeing. Withdrawal History: denies history of withdrawal seizures Treatment History: denies, has been to AA but does not find it helpful Supports:? strong family support including daughter Discussed risk reduction strategies including drinking below the recommended limit. Provided pt with written resources including information on inpatient and outpatient treatment, HETAL, harm reduction, and recovery coaching. Pt plans to review resources and discuss HETAL with PCP. Pt provided with t/w contact information if questions or concerns arise. Denies other questions or concerns at this time.?
[2024-06-08] MEDS: Loperamide HCl 2 MG CAPSULE 4 MG PO (10:38)
[2024-06-08] MEDS: Potassium Chloride ER 20 MEQ TAB.ER.PRT 40 MEQ PO (10:39)
[2024-06-08] MEDS: Enoxaparin Sodium 40 MG/0.4 ML SYRINGE SUBCUT (10:39)
[2024-06-08] MEDS: Magnesium Sulfate/D5W 1 GM/100 ML PIGGYBACK IV (10:47)
[2024-06-08 12:54] LABS: CDiff Gene PCR NEGATIVE (Negative)
--- NOTE | 2024-06-08 12:58 | P.PNIM_ITS ---
Subjective Subjective Date of Service: 06/08/24 Interval History: withdrawal, abd pain hypokalemia,hypomagnesemia Review of Systems anxious abd pain improving Physical Exam 2 Vital Signs: Vital Signs: Last Vital Signs Temp 98.7 F 06/08/24 11:52 Pulse 90 06/08/24 11:52 Resp 20 06/08/24 11:52 BP 127/81 06/08/24 11:52 Pulse Ox 98 06/08/24 11:52 O2 Del Method Room Air 06/08/24 11:52 BMI result Body Mass Index 27.4 Appearance: Alert.? Oriented X3.anxious cvs: rrr, [id number] . res: clear to auscultation . abd: no rebound or guarding ,nt, bs present. ext pulses present , no cyanosis . neuro: axo3 , nonfocal. Objective Data Active Medications Acetaminophen (Acetaminophen 325 Mg Tablet) 650 mg PO Q6H PRN PRN Reason: Pain, Mild (Pain Scale 1-3), fever or headache Calcium Carbonate (Calcium Carbonate 750 Mg Tab.Chew) 750 mg PO Q4H PRN PRN Reason: Heartburn Cyanocobalamin (Cyanocobalamin (Vitamin B-12) 1,000 Mcg Tablet) 1,000 mcg PO DAILY [facility] Last Admin: 06/08/24 09:45 Dose: 1,000 mcg Documented By: BLAKE Diazepam (Diazepam 5 Mg Tablet) 10 mg VAGINAL DAILY PRN PRN Reason: Interstitial cystisis Enoxaparin Sodium (Enoxaparin Sodium 40 Mg/0.4 Ml Syringe) 40 mg SUBCUT Q24H [facility] Last Admin: 06/08/24 10:39 Dose: 40 mg Documented By: GRADY Loperamide HCl (Loperamide Hcl 2 Mg Capsule) 4 mg PO Q6H PRN PRN Reason: Diarrhea Last Admin: 06/08/24 10:38 Dose: 4 mg Documented By: GRADY Magnesium Hydroxide (Milk Of Magnesia 30 Ml Oral.Susp) 30 ml PO DAILY PRN PRN Reason: Constipation Magnesium Oxide (Magnesium Oxide 400 Mg Tablet) 400 mg PO DAILY [facility] Last Admin: 06/08/24 09:45 Dose: 400 mg Documented By: BLAKE Melatonin (Melatonin 3 Mg Tablet) 6 mg PO BEDTIME PRN PRN Reason: Insomnia Last Admin: 06/07/24 21:01 Dose: 6 mg Documented By: MATILDE Multivitamins/Vitamin C (Multivitamin Tablet) 1 tab PO DAILY [facility] Last Admin: 06/08/24 09:45 Dose: 1 tab Documented By: BLAKE Pantoprazole Sodium (Pantoprazole Sodium 40 Mg/10 Ml Vial) 40 mg IVPUSH DAILY@0630 [facility] Last Admin: 06/08/24 06:27 Dose: 40 mg Documented By: MATILDE Pharmacy Consult (Consult Rx Etoh Phenob Im/Po) 1 each MISCELLANE ONCE PRN; Protocol PRN Reason: Consult order Phenobarbital (Phenobarbital 15 Mg Tablet) 45 mg PO BID [facility]; Protocol Stop: 06/09/24 21:01 Last Admin: 06/08/24 09:44 Dose: 45 mg Documented By: BLAKE Phenobarbital (Phenobarbital 30 Mg Tablet) 30 mg PO BID [facility]; Protocol Stop: 06/11/24 21:01 Phenobarbital (Phenobarbital 30 Mg Tablet) 30 mg PO DAILY [facility]; Protocol Stop: 06/13/24 09:01 Sodium Chloride (0.9 % Sodium Chloride Flush 3 Ml Syringe) 3 ml IVFLUSH QSHIFT [facility] Last Admin: 06/08/24 09:45 Dose: 3 ml Documented By: BLAKE Tramadol HCl (Tramadol Hcl 50 Mg Tablet) 50 mg PO QID [facility] Last Admin: 06/08/24 09:45 Dose: 50 mg Documented By: BLAKE Vitamin D (Cholecalciferol (Vitamin D3) 25 Mcg Tablet) 50 mcg PO DAILY [facility] Last Admin: 06/08/24 09:44 Dose: 50 mcg Documented By: BLAKE Labs 06/08/24 07:21 06/08/24 07:21 Labs: Laboratory Results - last 24 hr 06/08/24 06/08/24 07:21 10:32 MCV 99.2 H MCH 33.8 H MCHC 34.1 RDW 12.2 Plt Count 152 L D MPV 9.3 L Absolute Nucleated RBC 0.000 Nucleated RBC % (auto) 0.0 Anion Gap 14 Estim Creat Clear Calc 88.2 Estimated GFR > 60 Random Glucose 100 Calcium 8.7 Magnesium 1.5 L C. difficile Tox B Gene NEGATIVE Assessment and Plan (1) Alcohol withdrawal syndrome: Status: Acute Plan 58F PMH severe anxiety, etoh dependence, presented with withdrawal symptoms and abd pain Alcohol dependence with withdrawal Phenobarbital, CIWA Addiction eval Abdominal pain Suspect alcoholic gastritis Continue IV PPI CT abdomen-No acute findings in the abdomen or pelvis. hypokalemia,hypomagnesemia : added po and iv replacements DVT prophylaxis with Lovenox Full Code Patient with severe withdrawal symptoms : moniter on phenobarbital,also need close monitering renal function/electrolytes. Quality Stroke Does the patient have a stroke diagnosis?: No VTE Prior VTE?: No VTE Risk Level:: Medical - moderate - high VTE Device Contraindication: Treatment Not Indicated VTE Drug Contraindication: N/A - Med Ordered
--- NOTE | 2024-06-08 15:05 | MHC.CM.PN ---
IMM 06/08. Pt self-care, lives alone at home. Pts daughter/HCP will transport her home at discharge. PCP: Jordan ARAIZA
[2024-06-08] MEDS: Melatonin 3 MG TABLET 6 MG PO (22:30)
[2024-06-09] MEDS: diphenhydrAMINE HCL 25 MG CAPSULE 50 MG PO (03:11)
[2024-06-09 03:22] VITALS: BP 125/93; PULSE 69; RESP 16; TEMP 36.3; O2SAT 97
[2024-06-09] MEDS: Pantoprazole Sodium 40 MG/10 ML VIAL IVPUSH (06:27)
[2024-06-09 07:27] VITALS: BP 137/82; PULSE 58; RESP 18; TEMP 36.4; O2SAT 96
[2024-06-09 08:21] LABS: Anion Gap 15 (12-20); Blood Urea Nitrogen 17 mg/dL (9-16); Calcium 9.7 mg/dL (8.4-10.2); Carbon Dioxide 26 mmol/L (22-29); Chloride 105 mmol/L (96-108); Creatinine Clr Calc Pharmacy 93.1; Estimated Glomerular Filt Rate > 60; Glucose Random 103 mg/dL (60-115); Magnesium 1.8 mg/dL (1.6-2.6); Potassium 3.8 mmol/L (3.3-5.1); Sodium 142 mmol/L (135-145)
[2024-06-09] MEDS: Magnesium Oxide 400 MG TABLET PO (08:37)
[2024-06-09] MEDS: Multivitamin TABLET 1 TAB PO (08:38)
[2024-06-09] MEDS: Cyanocobalamin (Vitamin B-12) 1,000 MCG TABLET 1000 MCG PO (08:38)
[2024-06-09] MEDS: Cholecalciferol (Vitamin D3) 25 MCG TABLET 50 MCG PO (08:38)
[2024-06-09] MEDS: PHENobarbitaL 15 MG TABLET 45 MG PO (08:38)
[2024-06-09] MEDS: PHENobarbitaL 30 MG TABLET 90 MG PO (08:38)
[2024-06-09] MEDS: 0.9 % Sodium Chloride Flush 3 ML SYRINGE IVFLUSH (08:39)
[2024-06-09] MEDS: traMADoL HCL 50 MG TABLET PO (08:39)
--- NOTE | 2024-06-09 10:13 | MHC.CM.PN ---
Patient has been medically cleared for dc to home today, self care.Last IMM addressed yesterday.
--- NOTE | 2024-06-09 10:19 | P.DS_ITS ---
DS: Providers Provider Date of Service: 06/09/24 Date of admission: 06/07/24 10:28 Date of discharge: 06/09/24 Primary care physician: TEODORA Sewell Consults: 06/07/24 06:42 Addiction Medicine Stat Consulting Provider: Addiction Covering Reason for consultation: alcohol abuse Attending physician on discharge: Theresa Sanford Discharging clinician: Theresa Sanford DS: Diagnosis Discharge Diagnosis (1) Alcohol withdrawal syndrome: Status: Acute DS: Summary Hospital Course Hospital Course: HPI:58F PMH severe anxiety, etoh dependence, presented with withdrawal symptoms and abd pain. Patient reports epigastric pain, inability to tolerate p.o.. Was trying to titrate herself off alcohol but has not been able to keep anything down. Started to feel withdrawal symptoms and panic so called EMS. In ED found to have ciwa of 7, elevated transaminases. Hospital course: alcohol withdrawals -started on phenobarbital protocol,ciwa -seems improved with phenobarbital.added prn clonidine. abd pain likely sec to alcoholic gastritis -improved with ppi. ct abd negative . switched to po ppi. mild elevates lft's likely due to alcohol use. hypokalemia and hypomagnesemia -likely sec to dec po intake and alcohol use - strongly advised to abstain from alocohol.given limited potassium supply . moniter bmp and magnesium levels outpatient in [address] abd incidental finding:Age indeterminate superior endplate deformity at L2.no point tenderness. There is a 1.4 cm low-density mass in the left adrenal gland. Recommend further evaluation with adrenal protocol CT or MRI outpatient. above is discussed with patient she prefers to do further workup outpatient with pcp. plan: Patient was strongly advised to abstain from alcohol, recovery team given her information also. potassium 8 meq po dialy 3 days supply give, continue home magnesium. moniter bmp and lft's outpatient. omeprazole 20 mg po daily further workup for above incidental ct abd finding as above is outpatient. Above management discussed with the patient detail length she understand and in agreement with the above plan, time spent 40 minute. Time Attestation Total time managing care of this patient today: 40 mintues. Discharge Coordination Time (in mins): 40 min Quality: Safe Use of Opioids Does Pt have an Active Cancer Diagnosis on the Problem List?: No Quality: Stroke Does the patient have a stroke diagnosis?: No Physical Exam Vital Signs: Vital Signs: Last Vital Signs Temp 97.6 F 06/09/24 07:27 Pulse 58 06/09/24 07:27 Resp 18 06/09/24 07:27 BP 137/82 06/09/24 07:27 Pulse Ox 96 06/09/24 07:27 O2 Del Method Room Air 06/09/24 07:27 BMI result Body Mass Index 27.4 Appearance: Alert.? Oriented X3.anxious cvs: rrr, [id number] . res: clear to auscultation . abd: no rebound or guarding ,nt, bs present. ext pulses present , no cyanosis . neuro: axo3 , nonfocal. DS: Data Data Completed and Pending Labs on day of discharge: Laboratory Results - last 24 hr 06/08/24 06/09/24 10:32 07:55 Sodium 142 Potassium 3.8 D Chloride 105 Carbon Dioxide 26 Anion Gap 15 BUN 17 H Creatinine 0.72 Estim Creat Clear Calc 93.1 Estimated GFR > 60 Random Glucose 103 Calcium 9.7 D Magnesium 1.8 C. difficile Tox B Gene NEGATIVE Imaging Chest x-ray: Radiologist's impression: ITS Impressions Abdomen/Pelvis CT 06/07/24 10:38 IMPRESSION: 1. No acute findings in the abdomen or pelvis. 2. Age indeterminate superior endplate deformity at L2. Correlate for point tenderness. 3. There is a 1.4 cm low-density mass in the left adrenal gland. Recommend further evaluation with adrenal protocol CT or MRI. Fleischner guidelines were followed. Electronically signed by: Dung Baig MD 06/07/2024 11:49 AM [facility] [place] Discharge Anticipated Discharge Date/Time: 06/09/24 09:57 Patient Disposition: Home, Self-Care Discharge Diagnosis: alcohol withdrawals ,hypokalemia, possible left adrenal mass Referrals: Jordan Kay PA [Primary Care Provider] - 1 Week Discharge Medications: New clonidine HCl 0.1 mg tablet 0.05 mg PO BID PRN (Reason: anxiety) Qty: 20 0RF omeprazole 20 mg capsule,delayed release(DR/EC) 20 mg PO DAILY Qty: 30 0RF potassium chloride 8 mEq capsule, extended release 8 meq PO DAILY Qty: 3 0RF Continued tramadol 50 mg tablet 50 mg PO QID lorazepam 2 mg tablet 2 mg PO BID PRN (Reason: anxiety) diazepam 10 mg tablet See Rx Instructions .ROUTE .COMPLEX PRN (Reason: Interstitial cystisis) Rx Instructions: PLACE 1 TABLET INTRA-VAGINALLY ONCE DAILY NEEDED FOR INTERSTITIAL CYSTISIS folic acid 400 mcg Tablet 0.4 mg PO DAILY niacin 500 mg Tablet 500 mg PO DAILY magnesium 250 mg Tablet 500 mg PO DAILY cholecalciferol (vitamin D3) [Vitamin D3] 50 mcg (2,000 unit) Tablet 50 mcg PO DAILY Centrum Adult 50 Plus 80 mcg Tablet,Chewable 1 tab PO DAILY cyanocobalamin (vitamin B-12) 1,000 mcg tablet 1,000 mcg PO DAILY Discharge Orders: Discharge Order (Routine); Ordered 06/09/24 Ordered By: Theresa Sanford Diet: Advance to usual diet Activity on Discharge: As tolerated Stand Alone Forms: Patient Portal Discharge page Print Language: Kiswahili Care Plan Goals: alcohol withdrawals ,hypokalemia,hypomagnesemia Health Concerns: alcohol withdrawals -seems improved with phenobarbital.added prn clonidine. hypokalemia and hypomagnesemia -likely sec to dec po intake and alcohol use - strongly advised to abstain from alocohol.given limited potassium supply . moniter bmp and magnesium levels outpatient in 1 week with pcp. Age indeterminate superior endplate deformity at L2.no point tenderness. There is a 1.4 cm low-density mass in the left adrenal gland. Recommend further evaluation with adrenal protocol CT or MRI outpatient. Plan of Treatment: as above. Assessment: as above. Discharge Date/Time: 06/09/24 11:00
[2024-06-09 10:39] LABS: Adenovirus F 40/41 Not Detected (Not Detect.); Astrovirus Not Detected (Not Detect.); Campylobacter Not Detected (Not Detect.); Cryptosporidium Not Detected (Not Detect.); Cyclospora cayetanensis Not Detected (Not Detect.); E. coli EAEC Not Detected (Not Detect.); E. coli EPEC Not Detected (Not Detect.); E. coli ETEC Not Detected (Not Detect.); E. coli STEC Not Detected (Not Detect.); Entamoeba histolytica Not Detected (Not Detect.); Giardia lamblia Not Detected (Not Detect.); Norovirus GI/GII Not Detected (Not Detect.); Plesiomonas shigelloides Not Detected (Not Detect.); Rotavirus A Not Detected (Not Detect.); Salmonella Not Detected (Not Detect.); Sapovirus Not Detected (Not Detect.); Shigella sp./EIEC Not Detected (Not Detect.); Vibrio Not Detected (Not Detect.); Vibrio Cholerae Not Detected (Not Detect.); Yersinia enterocolitica Not Detected (Not Detect.)
== END 2024-06-09 11:00 | disposition home or self-care (01) | DRG 392 ==
LOC: HO.ED 06:43 → HO.EDOVER 10:33 → HO.IMC 19:13
PROVIDERS: Internal Medicine; Physician Assistant Medical; Admitting Provider Internal Medicine; Emergency Provider Emergency Medicine; PCP Physician Assistant; Visit Provider Internal Medicine
DX: K29.20 Alcoholic gastritis without bleeding (principal); F10.239 Alcohol dependence with withdrawal, unspecified; F17.210 Nicotine dependence, cigarettes, uncomplicated; Y90.6 Blood alcohol level of 120-199 mg/100 ml; E87.6 Hypokalemia; E83.42 Hypomagnesemia; Z71.6 Tobacco abuse counseling; Z71.41 Alcohol abuse counseling and surveillance of alcoholic; Z79.899 Other long term (current) drug therapy
CPT/HCPCS: 36415; 74176; 80048; 80053; 80307; 83690; 83735; 84484; 85025; 85027; 85610; 87493; 87507; 93005; 99285; J1650; J2060; J2405; J2470; J2560; J3475; J7120

== ENCOUNTER → 2024-06-07 05:55 | Outpatient (BNV) | payer OTHER, SELFPAY | PROVIDERS: Emergency Provider Emergency Medicine; PCP Physician Assistant; Visit Provider Internal Medicine Cardiovascular Disease | DX: F10.130 Alcohol abuse with withdrawal, uncomplicated (principal) | CPT/HCPCS: 93010 ==

== ENCOUNTER → 2024-06-07 10:28 | Outpatient (BNV) | payer OTHER, SELFPAY | PROVIDERS: Admitting Provider Internal Medicine; Emergency Provider Emergency Medicine; PCP Physician Assistant; Visit Provider Internal Medicine | DX: R10.13 Epigastric pain (principal); F10.230 Alcohol dependence with withdrawal, uncomplicated | CPT/HCPCS: 99223; 99232; 99239 ==

== ENCOUNTER 2024-06-23 15:05 | Emergency (ER) | payer MEDICARE, SELFPAY ==
--- NOTE | ~2024-06-23 | CT_ITS ---
EXAMINATION: CT HEAD WITHOUT CONTRAST CT FACIAL BONES WITHOUT CONTRAST CT CERVICAL SPINE WITHOUT CONTRAST CLINICAL INFORMATION: Fall COMPARISON: CT head and cervical spine 03/25/2024. TECHNIQUE: Contiguous axial imaging was performed from the skull base to vertex without intravenous administration of contrast. Contiguous axial imaging of the facial bones and cervical spine was also performed without intravenous administration of contrast. Coronal and sagittal reformats were obtained at the acquisition workstation. DLP: 1319 mGy-cm FINDINGS: Head: There is no evidence of acute intracranial hemorrhage or edematous territorial infarction. Higgins-white matter differentiation is preserved. Proportional prominence of the ventricles and cortical sulci. No significant chronic microangiopathy. No abnormal mass effect or midline shift. No acute extra-axial fluid collections. Prominence of extra-axial spaces along the frontoparietal convexities. No displaced calvarial fractures. Small right parietal scalp hematoma.The mastoid air cells are clear. Facial bones: Remote deformities of the nasal bones. Nasal septum is mildly deviated to the right. No displaced acute maxillofacial fractures. Mild mucosal thickening involving the ethmoid air cells and the left compartment of sphenoid sinus. The remaining paranasal sinuses appear clear. The orbital rim appears intact. The extraocular muscles, globes and optic nerves are intact bilaterally. Bilateral temporomandibular joints are intact. Streak artifacts from dental fillings. No acute soft tissue abnormality. Cervical Spine: No acute fracture involving the cervical spine. The atlantooccipital and atlantoaxial articulations remain well aligned. Straightening of the normal cervical lordosis. The cervical vertebral bodies demonstrate normal height. Similar mild retrolisthesis of C5 over C6. Multilevel spondylosis with endplate osteophytes, intervertebral disc space narrowing and endplate sclerosis most pronounced at C5-C6. At C5-C6, there is disc osteophyte complex with uncovertebral hypertrophy and facet arthropathy resulting in moderate spinal canal stenosis, moderate to severe right and severe left foraminal stenosis. Multilevel facet arthropathy. Stable sclerotic lesion at right aspect of C3 vertebral body. There is no prevertebral soft tissue swelling. The thyroid gland and remaining cervical soft tissues are within normal limits. The lung apices demonstrate biapical scarring CT/CT cervical spine wo IV con IMPRESSION: 1. No acute intracranial pathology. Small right parietal scalp hematoma. 2. Remote deformities of the nasal bones. No acute displaced maxillofacial fractures. 3. No acute fracture involving the cervical spine. Multilevel cervical spondylosis, most pronounced at C5-C6. Stable sclerotic lesion along the right aspect of C3 vertebral body. Electronically signed by: Hunter Schneider MD 06/23/2024 06:17 PM CAMILLE BARRETO
[2024-06-23 15:16] VITALS: BP 124/75; PULSE 94; RESP 18; TEMP 36.3; O2SAT 95; BMI 27.7
--- NOTE | 2024-06-23 15:19 | ED.GENADULT ---
HPI - General Adult General Chief complaint: Fall Stated complaint: fall to face/etoh Time Seen by Provider: 06/23/24 15:27 Source: patient and family Mode of arrival: ambulatory Limitations: other (Intoxicated) History of Present Illness ED Provider: TEODORA Mckeon HPI narrative: This is a 58-year-old female history of alcohol abuse, alcohol withdrawal syndrome presenting to the emergency department status post fall, she reports she had 10 shots, 10 beers, and tripped, falling onto her couch she did have a head strike and she did lose consciousness. Since then has been having blurred vision and headaches. No preceding symptoms to fall. She reports after the fall she is having severe neck pain. After the fall she did ambulate into her daughter's car to come to the hospital with assistance. She reports severe midline neck pain. She is not interested in rehab or speaking to care team. Denies pain elsewhere. She reports she drinks about 750 ml of hard liquor daily. She denies chest pain, shortness of breath, fevers, chills, nausea, vomiting, abdominal pain. Not on thinners Related Data Home Medications ?Medication ?Instructions ?Recorded ?Confirmed cyanocobalamin (vitamin B-12) 1,000 mcg PO DAILY 07/10/21 06/07/24 1,000 mcg tablet cholecalciferol (vitamin D3) 50 50 mcg PO DAILY 06/07/24 06/07/24 mcg (2,000 unit) tablet (Vitamin D3) diazepam 10 mg tablet See Rx Instructions .Route 06/07/24 06/07/24 .COMPLEX PRN Interstitial cystisis folic acid 400 mcg tablet 0.4 mg PO DAILY 06/07/24 06/07/24 lorazepam 2 mg tablet 2 mg PO BID PRN anxiety 06/07/24 06/07/24 magnesium 250 mg tablet 500 mg PO DAILY 06/07/24 06/07/24 multivitamin with minerals-folic 1 tab PO DAILY 06/07/24 06/07/24 acid 80 mcg chewable tablet (Centrum Adult 50 Plus) niacin 500 mg tablet 500 mg PO DAILY 06/07/24 06/07/24 tramadol 50 mg tablet 50 mg PO QID 06/07/24 06/07/24 Previous Rx's ?Medication ?Instructions ?Recorded clonidine HCl 0.1 mg tablet 0.05 mg (1/2 x 0.1 mg) PO BID PRN 06/09/24 anxiety #20 tabs omeprazole 20 mg capsule,delayed 20 mg PO DAILY #30 caps 06/09/24 release potassium chloride 8 mEq 8 meq PO DAILY #3 caps 06/09/24 capsule,extended release acetaminophen 325 mg tablet 650 mg (2 x 325 mg) PO Q6H PRN 06/23/24 (Tylenol) fever or pain #30 tabs lidocaine 5 % topical patch 1 patch topical DAILY PRN pain #15 06/23/24 ea Allergies Allergy/AdvReac Type Severity Reaction Status Date / Time aspirin [ASA] Allergy Mild STOMACH Verified 06/23/24 15:19 UPSET cephalexin Allergy Mild Gastrointestinal Verified 06/23/24 15:19 Upset latex [LATEX] Allergy Mild RASH Verified 06/23/24 15:19 morphine [MORPHINE] Allergy Mild RASH, Verified 06/23/24 15:19 swelling, redness Sulfa (Sulfonamide Allergy Mild RASH, Verified 06/23/24 15:19 Antibiotics) swelling, [SULFA (SULFONAMIDE redness ANTIBIOTICS)] terbinafine Allergy Mild Nausea and Verified 06/23/24 15:19 Vomiting azithromycin Allergy Rash Verified 06/23/24 15:19 clonazepam [From Klonopin] AdvReac Mild Gastrointestinal Verified 06/23/24 15:19 Upset metformin AdvReac Constipatio Verified 06/23/24 15:19 n Latex Allergy Unknown swelling, Uncoded 06/23/24 15:19 redness Review of Systems Review of Systems: Yes all other systems are reviewed and are negative PMFSH Past Medical History Attestation statement: The following information was validated with the patient. Source: old records reviewed and nursing notes reviewed Medical History EtOH dependence Social History Social History Household Members: None Housing: Apartment Housing Other:: multi family home on third floor Do you presently have visiting nurse or other home services: No Alcohol intake: current Alcohol intake frequency: 3 or more drinks per day Alcohol type: beer and hard liquor Comment: Pt refusing assistance ambulating to BR. Steady on observation Patient Tobacco Use Status: Current everyday Tobacco user Tobacco use type: Cigarette Cigarette Packs Per Day: 0.25 Cigarettes Per Day: 5.0 Years Smoked: 20 Smoked in Last 30 Days: Yes Second Hand Smoke Exposure: Yes Use of substances other than those prescribed or required for medical reasons: No Advance Directives: No Advance Directives Information Provided: No Do you have a plan to hurt others: No Plan Patient : No service: No Physical Exam ED Vital Signs: Vital Signs - 24 hr 06/23/24 15:16 06/23/24 16:11 06/23/24 16:11 Temperature 97.3 F 98.3 F 97.3 F Pulse Rate 94 90 94 Respiratory Rate 18 16 18 Blood Pressure 124/75 123/91 H 124/75 Pulse Oximetry 95 95 95 Oxygen Delivery Method Room Air Room Air 06/23/24 16:23 Temperature Pulse Rate Respiratory Rate 16 Blood Pressure Pulse Oximetry Oxygen Delivery Method BMI result Body Mass Index 27.7 vss Appearance: Alert.? Oriented X3.? No acute distress.? Head: Normocephalic, atraumatic, no step-offs or deformities. Evident deformity to nose, left nares with dried blood and ecchymosis. No signs of nasal/septal hematoma Eyes: Pupils equal, round and reactive to light.? Extraocular movements intact and pain-free. Neck: Normal inspection.? Midline tenderness around C3-C4. In cervical collar. CVS: Normal heart rate and rhythm.? Pulses normal.? Respiratory: No respiratory distress.? Breath sounds normal.? Abdomen: Soft and nontender.? Skin: Skin warm and dry.? Normal skin color.? Normal skin turgor.? Extremities: No lower extremity edema.? No calf ttp. 5/5 strength to bilateral upper and lower extremities. Normal hand corrugator helper bilaterally. Normal [id number], [id number]. Back: No midline tenderness, no C-spine tenderness, full range of motion, no CVA tenderness bilaterally Neuro: Oriented X 3.? No motor deficit.? No sensory deficit. CN 2-12 intact Course Course Course Narrative: RME: 58-year-old female history of alcohol abuse presents to ED for fall after drinking. Patient states neck pain and facial pain. Positive for left facial tenderness on palpation and cervical spine tenderness. Patient to be brought to the main ED. labs imaging ordered Reevaluation(s) Reevaluation #1: CBC unremarkable, elevated MCV likely secondary to chronic alcohol abuse. Chemistry with no acute findings needing intervention. Troponin negative. Coags normal. Ethanol 295 consistent with acute alcohol intoxication. CT head no acute intracranial pathology small right parietal scalp hematoma. Remote deformities of nasal bone. No acute displaced maxillofacial fractures. No acute fractures involving the cervical spine multilevel cervical spondylosis most pronounced 5 through 6, stable sclerotic lesion along the right aspect of C3 vertebral body will have her follow up with PCP in regards to this. Will discharge patient home with strict return precautions educated her on post concussive syndrome. Educated patient on diagnosis and treatment plan, answered all question, patient verbalizes understanding. At this time patient will be discharged home, advised to return with new or worsening symptoms. Educated on worrisome signs and symptoms and when to return. At this time I feel comfortable discharge home. Time: 18:26 Medications Administered Discontinued Medications Generic Name Dose Route Start Last Admin Trade Name Tonja PRN Reason Stop Dose Admin Fentanyl 50 mcg 06/23/24 16:09 06/23/24 16:23 Fentanyl Citrate/Pf 100 Mcg/2 Ml Vial IVPUSH 06/23/24 16:10 50 mcg ONCE ONE Administration Protocol Ketorolac Tromethamine 30 mg 06/23/24 18:22 06/23/24 18:47 Ketorolac Tromethamine 15 Mg/Ml Vial IM 06/23/24 18:23 30 mg ONCE ONE Administration Medical Decision Making Medical Decision Making [facility] Narrative: 58-year-old female presents status post fall with headache, neck pain status post drinking. Physical exam she does have a deformity noted to her nose particularly the left side of the nares appears deformed, with ecchymosis and blood within the nares. No signs of trauma to chest, abdomen or pelvis. She does have midline neck pain around C3-C4 and she is in a cervical collar for precaution. Will rule out traumatic injury to head, neck, facial bones. Fall likely mechanical. Unlikely ACS, PE. Will rule out intracranial hemorrhage, metabolic derangements. There is no signs of trauma to chest, abdomen or pelvis. Plan labs, imaging Differential Diagnosis Differential Diagnoses: The differential diagnosis associated with the presentation includes (Will rule out traumatic injury to head, neck, facial bones. Fall likely mechanical. Unlikely ACS, PE. Will rule out intracranial hemorrhage, metabolic derangements.) Admission/Observation Consideration of admission/observation: Escalation of care including admission/observation considered (Possible) Lab Data [facility] Lab Attestation statement: I reviewed the patient's lab results. 06/23/24 15:54 06/23/24 15:54 Labs: Lab Results 06/23/24 Range/Units 15:54 WBC 8.5 (4.8-10.8) X10*3/uL RBC 3.75 L (4.20-5.50) X10*6/uL Hgb 13.0 (12.0-16.0) g/dl Hct 37.6 (37.0-47.0) % MCV 100.3 H (80.0-98.0) fL MCH 34.7 H (27.0-33.0) pg MCHC 34.6 (31.0-35.0) g/dl RDW 12.7 (11.0-16.0) % Plt Count 349 D (160-400) X10*3/uL MPV 8.3 L (9.4-12.3) fL Immature Gran % (Auto) 0.4 (0.0-0.4) % Neut % (Auto) 60.4 (45-73) % Lymph % (Auto) 32.7 (20-40) % [place] % (Auto) 5.2 (2-11) % Eos % (Auto) 0.5 (0-4) % Baso % (Auto) 0.8 (0-2) % Lymph # (Auto) 2.8 (1.2-4.9) X10*3/uL [place] # (Auto) 0.4 (0.1-1.2) X10*3/uL Eos # (Auto) 0.0 (0.0-0.4) X10*3/uL Baso # (Auto) 0.1 (0.0-0.2) X10*3/uL Abs Immat Gran (auto) 0.03 (0.00-0.03) X10*3/uL Absolute Neuts (auto) 5.2 (2.0-8.3) x10*3/uL Absolute Nucleated RBC 0.000 (0.0-0.012) X10*3/uL Nucleated RBC % (auto) 0.0 (0.0-0.2) /100WBC PT 9.7 L (10.9-12.4) SEC INR 0.8 L (0.9-1.1) APTT 24.3 L (26.0-36.8) SEC Sodium 141 (135-145) mmol/L Potassium 4.1 (3.3-5.1) mmol/L Chloride 103 (96-108) mmol/L Carbon Dioxide 26 (22-29) mmol/L Anion Gap 16 (12-20) BUN 20 H (9-16) mg/dL Creatinine 0.77 (0.5-1.4) mg/dL Estim Creat Clear Calc 84.7 Estimated GFR > 60 Random Glucose 107 (60-115) mg/dL Calcium 8.9 D (8.4-10.2) mg/dL Total Bilirubin 0.1 (0.0-1.0) mg/dL AST 48 H (5-31) U/L ALT 39 H (0-31) U/L Alkaline Phosphatase 97 (39-117) U/L Troponin I High Sens < 2.7 D (<3.5-17.0) ng/L Total Protein 7.2 (6.5-8.0) g/dL Albumin 4.3 (3.5-5.0) g/dL Ethyl Alcohol 295 mg/dL Independent Interpretation I performed an independent interpretation of an: EKG and Plain X-Ray Radiology Impression Discussion of test interpretation with radiology: I have reviewed the radiologist's reading. Independent Historian Clinical information obtained from an independent historian. History obtained from or confirmed by: Other (daughter) External Record Review External record reviewed: Inpatient record, Office record, Outpatient record, Prior outpatient labs, Prior outpatient radiology, Primary care record and Outside ED record Chronic Conditions Patient?s care impacted by: Other (see hpi ) Critical Care Time Critical Care Time Critical Care Time: Yes Total Critical Care Time: 35 Attestation: I attest to this time spent taking care of the patient, obtaining history, physical, reviewing labs, imaging, treatment of patients condition +/- specialist/hospitalist consult Discharge Plan Discharge Clinical Impression: EtOH dependence, Concussion with loss of consciousness, Alcohol intoxication, Neck pain Patient Disposition: Home, Self-Care Instructions: Concussion (ED), Alcohol Intoxication (ED), Abuse of Alcohol (DC), Alcohol Withdrawal (ED), Post Concussion Syndrome (ED), Alcohol Dependence (ED), Neck Pain (ED) Additional Instructions: Take your medications as prescribed. If you were prescribed antibiotics today, it is important that you take your medication to their entirety, do not skip any doses, do not finish them early. Follow-up with your primary care provider this week. Return to the emergency department with new or worsening symptoms. Such as fevers, chills, chest pain, shortness of breath, nausea, vomiting, dizziness, headache, vision changes, lethargy In case of emergency call 911 CT/CT cervical spine wo IV con IMPRESSION: 1. No acute intracranial pathology. Small right parietal scalp hematoma. 2. Remote deformities of the nasal bones. No acute displaced maxillofacial fractures. 3. No acute fracture involving the cervical spine. Multilevel cervical spondylosis, most pronounced at C5-C6. Stable sclerotic lesion along the right aspect of C3 vertebral body. Sclerotic lesion noted on C3, please follow-up with your PCP in regards to this he may need referral to a specialist. Prescriptions: New acetaminophen [Tylenol] 325 mg tablet 650 mg PO Q6H PRN (Reason: fever or pain) Qty: 30 0RF lidocaine 5 % adhesive patch,medicated 1 patch topical DAILY PRN (Reason: pain) Qty: 15 0RF Rx Instructions: leave on most painful area for up to 12 hrs No Action tramadol 50 mg tablet 50 mg PO QID lorazepam 2 mg tablet 2 mg PO BID PRN (Reason: anxiety) diazepam 10 mg tablet See Rx Instructions .ROUTE .COMPLEX PRN (Reason: Interstitial cystisis) Rx Instructions: PLACE 1 TABLET INTRA-VAGINALLY ONCE DAILY NEEDED FOR INTERSTITIAL CYSTISIS folic acid 400 mcg Tablet 0.4 mg PO DAILY niacin 500 mg Tablet 500 mg PO DAILY magnesium 250 mg Tablet 500 mg PO DAILY cholecalciferol (vitamin D3) [Vitamin D3] 50 mcg (2,000 unit) Tablet 50 mcg PO DAILY Centrum Adult 50 Plus 80 mcg Tablet,Chewable 1 tab PO DAILY clonidine HCl 0.1 mg tablet 0.05 mg PO BID PRN (Reason: anxiety) Qty: 20 0RF omeprazole 20 mg capsule,delayed release(DR/EC) 20 mg PO DAILY Qty: 30 0RF potassium chloride 8 mEq capsule, extended release 8 meq PO DAILY Qty: 3 0RF cyanocobalamin (vitamin B-12) 1,000 mcg tablet 1,000 mcg PO DAILY Referrals: Jordan Kay PA [Primary Care Provider] - 2 days Stand Alone Forms: Work/School Release Print Language: Romansh
[2024-06-23 15:57] LABS: MANUAL DIFF FLAG NO
[2024-06-23 16:03] LABS: Basophils Absolute Auto 0.1 X10*3/uL (0.0-0.2); Basophils Percent Auto 0.8 % (0-2); Eosinophils Percent Auto 0.5 % (0-4); Hematocrit 37.6 % (37.0-47.0); Imm Gran Abs Auto 0.03 X10*3/uL (0.00-0.03); Imm Gran Pct Auto 0.4 % (0.0-0.4); Lymphocytes Absolute Auto 2.8 X10*3/uL (1.2-4.9); Lymphocytes Percent Auto 32.7 % (20-40); Mean Corpuscular HGB Conc 34.6 g/dl (31.0-35.0); Mean Corpuscular Hemoglobin 34.7 pg (27.0-33.0); Mean Corpuscular Volume 100.3 fL (80.0-98.0); Mean Platelet Volume 8.3 fL (9.4-12.3); Monocytes Absolute Auto 0.4 X10*3/uL (0.1-1.2); Monocytes Percent Auto 5.2 % (2-11); Neutrophils Absolute Auto 5.2 x10*3/uL (2.0-8.3); Neutrophils Percent Auto 60.4 % (45-73); Platelet Count 349 X10*3/uL (160-400); Red Blood Count 3.75 X10*6/uL (4.20-5.50); Red Cell Distribution Width 12.7 % (11.0-16.0); White Blood Count 8.5 X10*3/uL (4.8-10.8)
[2024-06-23 16:08] LABS: INTERNATIONAL NORM RATIO 0.8 (0.9-1.1); Prothrombin Time 9.7 SEC (10.9-12.4)
[2024-06-23 16:10] LABS: Partial Thromboplastin Time 24.3 SEC (26.0-36.8)
[2024-06-23 16:11] VITALS: BP 123/91; BP 124/75; PULSE 90; PULSE 94; RESP 16; RESP 18; TEMP 36.3; TEMP 36.8; O2SAT 95
--- NOTE | 2024-06-23 16:15 | ECG_ITS ---
Test Reason : fall Blood Pressure : / mmHG Vent. Rate : 088 BPM Atrial Rate : 088 BPM P-R Int : 178 ms QRS Dur : 094 ms QT Int : 372 ms P-R-T Axes : 064 050 059 degrees QTc Int : 450 ms Normal sinus rhythm Normal ECG When compared with ECG of 07-JUN-2024 05:55, No significant change was found Referred By: Braden Mckeon Electronically Signed By:Ankit Mason
[2024-06-23 16:21] LABS: Alanine Aminotransferase 39 U/L (0-31); Albumin Level 4.3 g/dL (3.5-5.0); Anion Gap 16 (12-20); Aspartate Amino Transferase 48 U/L (5-31); Bilirubin Total 0.1 mg/dL (0.0-1.0); Blood Urea Nitrogen 20 mg/dL (9-16); Calcium 8.9 mg/dL (8.4-10.2); Carbon Dioxide 26 mmol/L (22-29); Chloride 103 mmol/L (96-108); Creatinine Clr Calc Pharmacy 84.7; Estimated Glomerular Filt Rate > 60; Ethanol 295 mg/dL; Glucose Random 107 mg/dL (60-115); Potassium 4.1 mmol/L (3.3-5.1); Sodium 141 mmol/L (135-145); Total Protein 7.2 g/dL (6.5-8.0)
[2024-06-23 16:23] VITALS: RESP 16
[2024-06-23] MEDS: fentaNYL citrate/PF 100 MCG/2 ML VIAL 50 MCG IVPUSH (16:23)
[2024-06-23 16:49] LABS: Alkaline Phosphatase 97 U/L (39-117)
[2024-06-23 17:42] LABS: Troponin-I High Sensitivity < 2.7 ng/L (<3.5-17.0)
[2024-06-23] MEDS: Ketorolac Tromethamine 15 MG/ML VIAL 30 MG IM (18:47)
[2024-06-23 19:02] VITALS: BP 123/80; PULSE 104; RESP 16; TEMP 36.7; O2SAT 100
== END 2024-06-23 19:03 | disposition home or self-care (01) ==
PROVIDERS: Physician Assistant; Emergency Provider Emergency Medicine; PCP Physician Assistant
DX: F10.229 Alcohol dependence with intoxication, unspecified (principal); Y90.8 Blood alcohol level of 240 mg/100 ml or more; S06.0XAA Concussion with loss of consciousness status unknown, initial encounter; W01.190A Fall on same level from slipping, tripping and stumbling with subsequent striking against furniture, initial encounter; M54.2 Cervicalgia; R79.1 Abnormal coagulation profile; H53.8 Other visual disturbances; R51.9 Headache, unspecified; F17.210 Nicotine dependence, cigarettes, uncomplicated; Y93.9 Activity, unspecified; Y99.9 Unspecified external cause status; Y92.009 Unspecified place in unspecified non-institutional (private) residence as the place of occurrence of the external cause; Z79.899 Other long term (current) drug therapy
CPT/HCPCS: 36415; 70450; 70486; 72125; 80053; 80307; 84484; 85025; 85610; 85730; 93005; 96372; 96374; 99285; J1885; J3010

== ENCOUNTER → 2024-06-23 16:15 | Outpatient (BNV) | payer MEDICARE, SELFPAY | PROVIDERS: Emergency Provider Emergency Medicine; PCP Physician Assistant; Visit Provider Internal Medicine Cardiovascular Disease | DX: F10.130 Alcohol abuse with withdrawal, uncomplicated (principal) | CPT/HCPCS: 93010 ==

== ENCOUNTER 2024-06-25 06:54 | Emergency (ER) | payer MEDICARE, SELFPAY ==
--- NOTE | 2024-06-25 07:12 | ECG_ITS ---
Test Reason : ETOH Blood Pressure : / mmHG Vent. Rate : 091 BPM Atrial Rate : 091 BPM P-R Int : 166 ms QRS Dur : 084 ms QT Int : 370 ms P-R-T Axes : 067 052 064 degrees QTc Int : 455 ms Normal sinus rhythm Normal ECG When compared with ECG of 23-JUN-2024 16:25, No significant change was found Referred By: Generic ED Physician Electronically Signed By:ANITA RICE MD
[2024-06-25 07:13] VITALS: BP 147/97; PULSE 94; RESP 18; TEMP 36.7; O2SAT 95; BMI 28.4
--- NOTE | 2024-06-25 07:27 | ED_ITS ---
HPI - General Adult General Chief complaint: General Medical Stated complaint: ETOH withdrawl & concussion since as Day Time Seen by Provider: 06/25/24 07:19 Source: patient and EMS Limitations: no limitations History of Present Illness HPI narrative: This is a 58 years old patient with history of alcohol abuse presented to the emergency department with a chief complaint of alcohol withdrawal syndrome she states she not had any drink since . She was seen in the ED on she underwent head CT C-spine and facial CT all negative she was intoxicated that day. Onset (ago): day(s) (1) Radiation: non-radiation Severity: mild Relieving factors: none Exacerbating factors: none Associated symptoms: confusion and chest pain Related Data Home Medications ?Medication ?Instructions ?Recorded ?Confirmed cyanocobalamin (vitamin B-12) 1,000 mcg PO DAILY 07/10/21 06/07/24 1,000 mcg tablet cholecalciferol (vitamin D3) 50 50 mcg PO DAILY 06/07/24 06/07/24 mcg (2,000 unit) tablet (Vitamin D3) diazepam 10 mg tablet See Rx Instructions .Route 06/07/24 06/07/24 .COMPLEX PRN Interstitial cystisis folic acid 400 mcg tablet 0.4 mg PO DAILY 06/07/24 06/07/24 lorazepam 2 mg tablet 2 mg PO BID PRN anxiety 06/07/24 06/07/24 magnesium 250 mg tablet 500 mg PO DAILY 06/07/24 06/07/24 multivitamin with minerals-folic 1 tab PO DAILY 06/07/24 06/07/24 acid 80 mcg chewable tablet (Centrum Adult 50 Plus) niacin 500 mg tablet 500 mg PO DAILY 06/07/24 06/07/24 tramadol 50 mg tablet 50 mg PO QID 06/07/24 06/07/24 Previous Rx's ?Medication ?Instructions ?Recorded clonidine HCl 0.1 mg tablet 0.05 mg (1/2 x 0.1 mg) PO BID PRN 06/09/24 anxiety #20 tabs omeprazole 20 mg capsule,delayed 20 mg PO DAILY #30 caps 06/09/24 release potassium chloride 8 mEq 8 meq PO DAILY #3 caps 06/09/24 capsule,extended release acetaminophen 325 mg tablet 650 mg (2 x 325 mg) PO Q6H PRN 06/23/24 (Tylenol) fever or pain #30 tabs lidocaine 5 % topical patch 1 patch topical DAILY PRN pain #15 06/23/24 ea chlordiazepoxide HCl 25 mg capsule 25 mg PO BID PRN anxiety #10 caps 06/25/24 Allergies Allergy/AdvReac Type Severity Reaction Status Date / Time aspirin [ASA] Allergy Mild STOMACH Verified 06/25/24 07:15 UPSET cephalexin Allergy Mild Gastrointestinal Verified 06/25/24 07:15 Upset latex [LATEX] Allergy Mild RASH Verified 06/25/24 07:15 morphine [MORPHINE] Allergy Mild RASH, Verified 06/25/24 07:15 swelling, redness Sulfa (Sulfonamide Allergy Mild RASH, Verified 06/25/24 07:15 Antibiotics) swelling, [SULFA (SULFONAMIDE redness ANTIBIOTICS)] terbinafine Allergy Mild Nausea and Verified 06/25/24 07:15 Vomiting azithromycin Allergy Rash Verified 06/25/24 07:15 clonazepam [From Klonopin] AdvReac Mild Gastrointestinal Verified 06/25/24 07:15 Upset metformin AdvReac Constipatio Verified 06/25/24 07:15 n Latex Allergy Unknown swelling, Uncoded 06/23/24 15:19 redness Review of Systems 2 Constitutional: Constitutional: Reports no additional constitutional complaints Gastrointestinal: Gastrointestinal: Reports diarrhea Integumentary/Breasts: Skin/Breast: Reports system reviewed and no additional complaints, except as docu [facility] Past Medical History Attestation statement: The following information was validated with the patient. [facility] Narrative: Alcohol abuse , anxiety, depression Medical History EtOH dependence Social History Social History Household Members: None Housing: Apartment Housing Other:: multi family home on third floor Do you presently have visiting nurse or other home services: No Alcohol intake: current Alcohol intake frequency: 3 or more drinks per day Alcohol type: hard liquor Comment: Pt refusing assistance ambulating to BR. Steady on observation Patient Tobacco Use Status: Current everyday Tobacco user Tobacco use type: Cigarette Cigarette Packs Per Day: 0.25 Cigarettes Per Day: 5.0 Years Smoked: 20 Second Hand Smoke Exposure: Yes Advance Directives: No Advance Directives Information Provided: Yes Do you have a plan to hurt others: No Plan service: No Physical Exam ED Vital Signs: Vital Signs - 24 hr 06/25/24 07:13 06/25/24 08:28 06/25/24 10:13 Temperature 98.0 F 98.0 F 97.6 F Pulse Rate 94 84 94 Respiratory Rate 18 18 20 Blood Pressure 147/97 H 130/86 151/81 H Pulse Oximetry 95 98 96 Oxygen Delivery Method Room Air Room Air Room Air 06/25/24 13:58 Temperature 97.9 F Pulse Rate 98 Respiratory Rate 16 Blood Pressure 142/92 H Pulse Oximetry 99 Oxygen Delivery Method Room Air BMI result Body Mass Index 28.4 Anxious appearing Const General: cooperative and no acute distress Nutritional Appearance: average body habitus Orientation/consciousness: patient oriented x3 Limitations: no limitations HENMT Head: Yes normal to inspection General nose exam: Normal external nose present Face and sinus: Yes normal facial exam Mouth: Normal oral and palatal mucosa present Throat: Yes posterior oropharynx normal Neck Neck: Yes normal visual inspection, Yes full ROM and Yes no lymphadenopathy Chest Chest palpation & inspection: normal inspection of the chest Resp Effort & Inspection: normal respiratory effort and able to speak in complete sentences Auscultation: clear to auscultation bilaterally Cardio Jugular venous distension: no JVD Rate: regular rate Rhythm: regular rhythm GI Inspection: Yes normal to inspection Percussion: Yes normal to percussion Skin General skin exam: no rashes or lesions noted, elasticity normal and turgor normal Lesions: no lesions Rashes: no rashes Wounds: no wounds Neuro General: patient oriented x3 Extrem General: Yes normal to inspection, Yes full ROM and Yes capillary refill normal Course Reevaluation(s) Reevaluation #1: Seen by care team patient refused detox at this point we will discharge her home she is feeling much better no vomiting vital signs stable Time: 13:40 Medications Administered Discontinued Medications Generic Name Dose Route Start Last Admin Trade Name Freq PRN Reason Stop Dose Admin Chlordiazepoxide HCl 50 mg 06/25/24 10:09 06/25/24 10:16 Chlordiazepoxide Hcl 25 Mg Capsule PO 06/25/24 10:10 50 mg ONCE ONE Administration Sodium Chloride 1,000 mls @ 999 mls/hr 06/25/24 07:30 06/25/24 09:40 Ns IVCONT 06/25/24 08:30 Infused .Q1H1M JO-ANN Infusion Lorazepam 1 mg 06/25/24 07:24 06/25/24 07:58 Lorazepam 2 Mg/Ml Vial IVPUSH 06/25/24 07:25 1 mg ONCE ONE Administration Medical Decision Making Medical Decision Making [facility] Narrative: Patient presented complaining of alcohol withdrawal symptoms we will place an IV administer IV fluid benzodiazepine Differential Diagnosis Differential Diagnoses: The differential diagnosis associated with the presentation includes Alcohol withdrawal/dehydration/hypokalemia hypomagnesemia Admission/Observation Consideration of admission/observation: Escalation of care including admission/observation considered Consult Healthcare Provider Management of the patient was discussed with: Behavioral Health Provider Lab Data [facility] Lab Attestation statement: I reviewed the patient's lab results. 06/25/24 07:46 06/25/24 07:46 Labs: Lab Results 06/25/24 06/25/24 Range/Units 07:46 08:46 WBC 9.0 (4.8-10.8) X10*3/uL RBC 3.72 L (4.20-5.50) X10*6/uL Hgb 12.7 (12.0-16.0) g/dl Hct 36.7 L (37.0-47.0) % MCV 98.7 H (80.0-98.0) fL MCH 34.1 H (27.0-33.0) pg MCHC 34.6 (31.0-35.0) g/dl RDW 12.3 (11.0-16.0) % Plt Count 293 (160-400) X10*3/uL MPV 8.4 L (9.4-12.3) fL Immature Gran % (Auto) 0.2 (0.0-0.4) % Neut % (Auto) 73.7 H (45-73) % Lymph % (Auto) 19.2 L (20-40) % [place] % (Auto) 6.3 (2-11) % Eos % (Auto) 0.2 (0-4) % Baso % (Auto) 0.4 (0-2) % Lymph # (Auto) 1.7 (1.2-4.9) X10*3/uL [place] # (Auto) 0.6 (0.1-1.2) X10*3/uL Eos # (Auto) 0.0 (0.0-0.4) X10*3/uL Baso # (Auto) 0.0 (0.0-0.2) X10*3/uL Abs Immat Gran (auto) 0.02 (0.00-0.03) X10*3/uL Absolute Neuts (auto) 6.6 (2.0-8.3) x10*3/uL Absolute Nucleated RBC 0.000 (0.0-0.012) X10*3/uL Nucleated RBC % (auto) 0.0 (0.0-0.2) /100WBC Sodium 139 (135-145) mmol/L Potassium 3.8 (3.3-5.1) mmol/L Chloride 100 (96-108) mmol/L Carbon Dioxide 26 (22-29) mmol/L Anion Gap 17 (12-20) BUN 14 (9-16) mg/dL Creatinine 0.73 (0.5-1.4) mg/dL Estim Creat Clear Calc 90.4 Estimated GFR > 60 Random Glucose 112 (60-115) mg/dL Calcium 9.4 (8.4-10.2) mg/dL Magnesium 1.8 (1.6-2.6) mg/dL Total Bilirubin 0.5 (0.0-1.0) mg/dL AST 33 H (5-31) U/L ALT 31 (0-31) U/L Alkaline Phosphatase 106 (39-117) U/L Troponin I High Sens 3.2 (<3.5-17.0) ng/L Total Protein 7.2 (6.5-8.0) g/dL Albumin 4.4 (3.5-5.0) g/dL Urine Color Yellow Urine Appearance Clear Urine pH 6.5 (5.0-9.0) Ur Specific [place] 1.010 (1.005-1.025) Urine Protein Trace (Neg-Trace) mg/dL Urine Glucose (UA) Negative (Negative) mg/dL Urine Ketones Negative (Negative) mg/dL Urine Blood Small (1+) H (Negative) Urine Nitrite Negative (Negative) Ur Leukocyte Esterase Negative (Negative) Urine RBC 6-10 H (0-2) /HPF Urine WBC 0-5 (0-5) /HPF Ur Squamous Epith Cells 0-2 (0-2) /HPF Urine Bacteria None Seen (None Seen) Hyaline Casts 0-2 (0-2) /LPF Ethyl Alcohol < 10 mg/dL Independent Interpretation I performed an independent interpretation of an: EKG Interpretation: Sinus rhythm rate [address]-T changes no ischemic External Record Review External record reviewed: Inpatient record Chronic Conditions Patient?s care impacted by: Other (alcoholism) Discharge Plan Discharge Clinical Impression: Alcohol withdrawal syndrome Qualifiers: Complication of substance-induced condition: uncomplicated Qualified Code(s): F 10930 - Alcohol use, unspecified with withdrawal, uncomplicated Patient Disposition: Home, Self-Care Instructions: Abuse of Alcohol (DC) Prescriptions: New chlordiazepoxide HCl 25 mg capsule 25 mg PO BID PRN (Reason: anxiety) Qty: 10 0RF No Action tramadol 50 mg tablet 50 mg PO QID lorazepam 2 mg tablet 2 mg PO BID PRN (Reason: anxiety) diazepam 10 mg tablet See Rx Instructions .ROUTE .COMPLEX PRN (Reason: Interstitial cystisis) Rx Instructions: PLACE 1 TABLET INTRA-VAGINALLY ONCE DAILY NEEDED FOR INTERSTITIAL CYSTISIS folic acid 400 mcg Tablet 0.4 mg PO DAILY niacin 500 mg Tablet 500 mg PO DAILY magnesium 250 mg Tablet 500 mg PO DAILY cholecalciferol (vitamin D3) [Vitamin D3] 50 mcg (2,000 unit) Tablet 50 mcg PO DAILY Centrum Adult 50 Plus 80 mcg Tablet,Chewable 1 tab PO DAILY clonidine HCl 0.1 mg tablet 0.05 mg PO BID PRN (Reason: anxiety) Qty: 20 0RF omeprazole 20 mg capsule,delayed release(DR/EC) 20 mg PO DAILY Qty: 30 0RF potassium chloride 8 mEq capsule, extended release 8 meq PO DAILY Qty: 3 0RF acetaminophen [Tylenol] 325 mg tablet 650 mg PO Q6H PRN (Reason: fever or pain) Qty: 30 0RF lidocaine 5 % adhesive patch,medicated 1 patch topical DAILY PRN (Reason: pain) Qty: 15 0RF Rx Instructions: leave on most painful area for up to 12 hrs cyanocobalamin (vitamin B-12) 1,000 mcg tablet 1,000 mcg PO DAILY Referrals: Joradn Kay PA [Primary Care Provider] - 3 days Interventions: ED Discharge Assessment Last Done: 06/25/24 13:58 Discharge Date/Time: 06/25/24 13:59 Print Language: Luxembourgish
[2024-06-25 07:50] LABS: MANUAL DIFF FLAG NO
[2024-06-25 07:54] LABS: Basophils Percent Auto 0.4 % (0-2); Eosinophils Percent Auto 0.2 % (0-4); Hematocrit 36.7 % (37.0-47.0); Hemoglobin 12.7 g/dl (12.0-16.0); Imm Gran Abs Auto 0.02 X10*3/uL (0.00-0.03); Imm Gran Pct Auto 0.2 % (0.0-0.4); Lymphocytes Absolute Auto 1.7 X10*3/uL (1.2-4.9); Lymphocytes Percent Auto 19.2 % (20-40); Mean Corpuscular HGB Conc 34.6 g/dl (31.0-35.0); Mean Corpuscular Hemoglobin 34.1 pg (27.0-33.0); Mean Corpuscular Volume 98.7 fL (80.0-98.0); Mean Platelet Volume 8.4 fL (9.4-12.3); Monocytes Absolute Auto 0.6 X10*3/uL (0.1-1.2); Monocytes Percent Auto 6.3 % (2-11); Neutrophils Absolute Auto 6.6 x10*3/uL (2.0-8.3); Neutrophils Percent Auto 73.7 % (45-73); Platelet Count 293 X10*3/uL (160-400); Red Blood Count 3.72 X10*6/uL (4.20-5.50); Red Cell Distribution Width 12.3 % (11.0-16.0)
[2024-06-25] MEDS: 0.9 % Sodium Chloride 1,000 ML 999 ML IVCONT (07:56)
[2024-06-25] MEDS: LORazepam 2 MG/ML VIAL 1 MG IVPUSH (07:58)
[2024-06-25 08:08] LABS: Alanine Aminotransferase 31 U/L (0-31); Albumin Level 4.4 g/dL (3.5-5.0); Alkaline Phosphatase 106 U/L (39-117); Anion Gap 17 (12-20); Aspartate Amino Transferase 33 U/L (5-31); Bilirubin Total 0.5 mg/dL (0.0-1.0); Blood Urea Nitrogen 14 mg/dL (9-16); Calcium 9.4 mg/dL (8.4-10.2); Carbon Dioxide 26 mmol/L (22-29); Chloride 100 mmol/L (96-108); Creatinine Clr Calc Pharmacy 90.4; Estimated Glomerular Filt Rate > 60; Ethanol < 10 mg/dL; Glucose Random 112 mg/dL (60-115); Magnesium 1.8 mg/dL (1.6-2.6); Potassium 3.8 mmol/L (3.3-5.1); Sodium 139 mmol/L (135-145); Total Protein 7.2 g/dL (6.5-8.0)
[2024-06-25 08:15] LABS: Troponin-I High Sensitivity 3.2 ng/L (<3.5-17.0)
[2024-06-25 08:28] VITALS: BP 130/86; PULSE 84; RESP 18; TEMP 36.7; O2SAT 98
[2024-06-25 09:02] LABS: Appearance Urine Clear; Color Urine Yellow; Glucose Urine UA Negative (Negative); Leukocyte Esterase Urine Negative (Negative); Nitrite Urine Negative (Negative); PH 6.5 (5.0-9.0); UMIC TRIGGER UACC YES; Urine Blood Small (1+) (Negative); Urine Ketones Negative (Negative); Urine Protein Trace mg/dL (Neg-Trace)
[2024-06-25 09:07] LABS: Bacteria Urine None Seen (None Seen); Hyaline Casts Urine 0-2 /LPF (0-2); Squamous Epithelial Cell Urine 0-2 /HPF (0-2); WBC Urine 0-5 /HPF (0-5)
--- NOTE | 2024-06-25 09:41 | PC.NURSE ---
ambulating independently to the bathroom, IV fluids have infused. requesting more medications for alcohol withdrawal, currently scoring low on CIWA. remains alert and oriented. awaiting recovery team. requesting to be admitted for alcohol withdrawal.
[2024-06-25 10:13] VITALS: BP 151/81; PULSE 94; RESP 20; TEMP 36.4; O2SAT 96
[2024-06-25] MEDS: chlordiazePOXIDE HCl 25 MG CAPSULE 50 MG PO (10:16)
--- NOTE | 2024-06-25 12:38 | MHC.RECOVSUP ---
Garnetter Note Patient seen in ED Consult requested for?ATS referral Current substance use reported by patient: ETOH? Plan:? Patient declined ATS referral, said she has no time to go to detox, she has appointments.
[2024-06-25 13:58] VITALS: BP 142/92; PULSE 98; RESP 16; TEMP 36.6; O2SAT 99
== END 2024-06-25 13:59 | disposition home or self-care (01) ==
PROVIDERS: Emergency Provider Emergency Medicine; PCP Physician Assistant
DX: F10.239 Alcohol dependence with withdrawal, unspecified (principal); R07.89 Other chest pain; R41.0 Disorientation, unspecified; F17.210 Nicotine dependence, cigarettes, uncomplicated; R11.0 Nausea; Z79.899 Other long term (current) drug therapy; Z51.81 Encounter for therapeutic drug level monitoring; Z71.41 Alcohol abuse counseling and surveillance of alcoholic
CPT/HCPCS: 36415; 80053; 80307; 81001; 81003; 83735; 84484; 85025; 93005; 96361; 96374; 99284; 99285; J2060

== ENCOUNTER → 2024-06-25 07:12 | Outpatient (BNV) | payer MEDICARE, SELFPAY | PROVIDERS: Emergency Provider Emergency Medicine; PCP Physician Assistant; Visit Provider Internal Medicine Cardiovascular Disease | DX: F10.130 Alcohol abuse with withdrawal, uncomplicated (principal) | CPT/HCPCS: 93010 ==

== ENCOUNTER 2024-09-01 00:54 | Emergency (ER) | payer MEDICARE, MEDICAID, SELFPAY ==
[2024-09-01 01:01] VITALS: BP 105/73; PULSE 95; RESP 21; TEMP 36.6; O2SAT 95
[2024-09-01 01:02] VITALS: BP 105/73; BP 134/84; PULSE 94; PULSE 95; RESP 20; TEMP 36.6; O2SAT 94; O2SAT 97; BMI 29.0
--- NOTE | 2024-09-01 01:10 | ECG_ITS ---
Test Reason : DYSPNEA Blood Pressure : */* mmHG Vent. Rate : 93 BPM Atrial Rate : 93 BPM P-R Int : 160 ms QRS Dur : 92 ms QT Int : 372 ms P-R-T Axes : 56 27 56 degrees QTcB Int : 462 ms Normal sinus rhythm Possible Left atrial enlargement Cannot rule out Anterior infarct , age undetermined Abnormal ECG When compared with ECG of 25-Jun-2024 07:17, Minimal criteria for Anterior infarct are now Present T wave inversion now evident in Anterior leads Referred By: Ivette Gill Electronically Signed By: ANITA RICE MD
--- NOTE | 2024-09-01 01:34 | ED.ALCOHOL ---
HPI - Alcohol General Chief Complaint: ETOH/Substance Use Stated Complaint: ETOH Time Seen by Provider: 09/01/24 01:33 Source: patient and EMS Mode of arrival: EMS Limitations: other (Intoxicated) History of Present Illness ED Provider: Dr. Ivette Gill HPI narrative: Patient comes to the emergency room via ambulance. Patient states that she drank 4-1/2 pt today. Patient admits that she drinks alcohol heavily daily. Patient states that she drank alcohol about 1/2 hour prior to arriving to the emergency room. Patient requesting detox Related Data Home Medications ?Medication ?Instructions ?Recorded ?Confirmed cyanocobalamin (vitamin B-12) 1,000 mcg PO DAILY 07/10/21 06/07/24 1,000 mcg tablet cholecalciferol (vitamin D3) 50 50 mcg PO DAILY 06/07/24 06/07/24 mcg (2,000 unit) tablet (Vitamin D3) diazepam 10 mg tablet See Rx Instructions .Route 06/07/24 06/07/24 .COMPLEX PRN Interstitial cystisis folic acid 400 mcg tablet 0.4 mg PO DAILY 06/07/24 06/07/24 lorazepam 2 mg tablet 2 mg PO BID PRN anxiety 06/07/24 06/07/24 magnesium 250 mg tablet 500 mg PO DAILY 06/07/24 06/07/24 multivitamin with minerals-folic 1 tab PO DAILY 06/07/24 06/07/24 acid 80 mcg chewable tablet (Centrum Adult 50 Plus) niacin 500 mg tablet 500 mg PO DAILY 06/07/24 06/07/24 tramadol 50 mg tablet 50 mg PO QID 06/07/24 06/07/24 Previous Rx's ?Medication ?Instructions ?Recorded clonidine HCl 0.1 mg tablet 0.05 mg (1/2 x 0.1 mg) PO BID PRN 06/09/24 anxiety #20 tabs omeprazole 20 mg capsule,delayed 20 mg PO DAILY #30 caps 06/09/24 release potassium chloride 8 mEq 8 meq PO DAILY #3 caps 06/09/24 capsule,extended release acetaminophen 325 mg tablet 650 mg (2 x 325 mg) PO Q6H PRN 06/23/24 (Tylenol) fever or pain #30 tabs lidocaine 5 % topical patch 1 patch topical DAILY PRN pain #15 06/23/24 ea chlordiazepoxide HCl 25 mg capsule 25 mg PO BID PRN anxiety #10 caps 06/25/24 Allergies Allergy/AdvReac Type Severity Reaction Status Date / Time aspirin [ASA] Allergy Mild STOMACH Verified 09/01/24 01:15 UPSET cephalexin Allergy Mild Gastrointestinal Verified 06/25/24 07:15 Upset latex [LATEX] Allergy Mild RASH Verified 06/25/24 07:15 morphine [MORPHINE] Allergy Mild RASH, Verified 06/25/24 07:15 swelling, redness Sulfa (Sulfonamide Allergy Mild RASH, Verified 06/25/24 07:15 Antibiotics) swelling, [SULFA (SULFONAMIDE redness ANTIBIOTICS)] terbinafine Allergy Mild Nausea and Verified 06/25/24 07:15 Vomiting azithromycin Allergy Rash Verified 06/25/24 07:15 clonazepam [From Klonopin] AdvReac Mild Gastrointestinal Verified 06/25/24 07:15 Upset metformin AdvReac Constipatio Verified 06/25/24 07:15 n Latex Allergy Unknown swelling, Uncoded 06/23/24 15:19 redness Review of Systems Review of Systems: Constitutional : No Weight loss, No Fever, No Chills, No Night Sweats, No Fatigue, No Malaise ENT/Mouth : No Hearing loss, No Ear Pain, No Nasal Congestion, No Sinus Pain, No Hoarseness, No sore throat, No Rhinorrhea, No Swallowing Difficulty Eyes: No Eye Pain, No Swelling, No Redness, No Foreign Body, No Discharge, No Vision Changes Cardiovascular : No Chest Pain, No SOB, No Dyspnea on Exertion, No Orthopnea, No Edema, No Palpitations Respiratory : No Cough, No Sputum, No Wheezing, No Smoke Exposure, No Dyspnea Gastrointestinal : No Nausea, No Vomiting, No Diarrhea, No Constipation, No abdominal Pain, No Hematochezia, No Melena Genitourinary : no irregular bleeding, No Dysuria, No Urinary Frequency, No Hematuria, No Urinary Incontinence, No Urgency, No Flank Pain, No Urinary Flow Changes, No Hesitancy Musculoskeletal : No joint pain, No Myalgias, No Joint Swelling Skin : No Skin Lesions, No rash Neuro : No Weakness, No Numbness, No Paresthesias, No Loss of Consciousness, No Dizziness, No Headache Psych : No Anxiety/Panic, No Depression, No SI/HI/AH/VH, patient admits to alcohol abuse Heme/Lymph: No Bruising, No Bleeding,No Lymphadenopathy Endocrine : No Polyuria, No Polydipsia, No Temperature Intolerance [facility] Past Medical History Medical History EtOH dependence Social History Social History Household Members: None Housing: Apartment Housing Other:: multi family home on third floor Do you presently have visiting nurse or other home services: No Alcohol intake: current Alcohol intake frequency: 3 or more drinks per day Alcohol type: hard liquor Comment: Pt refusing assistance ambulating to BR. Steady on observation Patient Tobacco Use Status: Current everyday Tobacco user Tobacco use type: Cigarette Cigarette Packs Per Day: 0.25 Cigarettes Per Day: 5.0 Years Smoked: 20 Second Hand Smoke Exposure: Yes Advance Directives: No Advance Directives Information Provided: Yes Do you have a plan to hurt others: No Plan service: No Physical Exam ED Vital Signs: Vital Signs - 24 hr 09/01/24 01:01 09/01/24 01:02 09/01/24 03:33 Temperature 97.9 F 97.8 F 98.3 F Pulse Rate 95 95 96 Respiratory Rate 21 H 20 21 H Blood Pressure 105/73 105/73 111/72 Pulse Oximetry 95 94 92 Oxygen Delivery Method Room Air Room Air Room Air 09/01/24 06:43 Temperature Pulse Rate 100 Respiratory Rate 17 Blood Pressure 104/58 L Pulse Oximetry 93 Oxygen Delivery Method Room Air BMI result Body Mass Index 29.0 Const Other: Appearance: Alert. Oriented X3. No acute distress. Eyes: Pupils equal, round and reactive to light. ENT: Pharynx normal. Neck: Normal inspection. Neck supple. No lymph nodes noted. No crepitus CVS: Normal heart rate and rhythm. Pulses normal. Normal S1 and S2 Respiratory: No respiratory distress. Breath sounds normal. No Wheezing. No rales Abdomen: Soft and nontender. No rigidity. No distention. Skin: Skin warm and dry. Normal skin color. Normal skin turgor. Extremities: No lower extremity edema. No Lacerations. No Rash Neuro: Oriented X 3. No motor deficit. No sensory deficit. Moving all extremities. No slurred speech. CN 2 through 12 grossly intact Psych: calm, cooperative, tearful cheerful Course Course Course Narrative: Patient very anxious, given 2 mg p.o. Ativan patient's labs pending Medical Decision Making Medical Decision Making MDM Narrative: Patient complaining of nausea gave him p.o. Zofran Significant abnormality in patient's hematology and chemistry, patient has chronically small amount of blood in the urine, no UTI.. Toxicology positive for benzodiazepines, THC in alcohol Consult with recovery team pending Differential Diagnosis Differential Diagnoses: The differential diagnosis associated with the presentation includes (Alcohol abuse, alcohol intoxication, depression) Admission/Observation Consideration of admission/observation: Escalation of care including admission/observation considered (Patient waiting to be seen by the care team to determine disposition, patient requesting detox) Lab Data [facility] Lab Attestation statement: I reviewed the patient's lab results. 09/01/24 01:53 09/01/24 01:53 Labs: Lab Results 09/01/24 09/01/24 Range/Units 01:53 03:15 WBC 8.3 (4.8-10.8) X10*3/uL RBC 4.00 L (4.20-5.50) X10*6/uL Hgb 13.7 (12.0-16.0) g/dl Hct 39.0 (37.0-47.0) % MCV 97.5 (80.0-98.0) fL MCH 34.3 H (27.0-33.0) pg MCHC 35.1 H (31.0-35.0) g/dl RDW 13.0 (11.0-16.0) % Plt Count 242 (160-400) X10*3/uL MPV 8.5 L (9.4-12.3) fL Immature Gran % (Auto) 0.2 (0.0-0.4) % Neut % (Auto) 66.7 (45-73) % Lymph % (Auto) 25.5 (20-40) % [place] % (Auto) 7.0 (2-11) % Eos % (Auto) 0.1 (0-4) % Baso % (Auto) 0.5 (0-2) % Lymph # (Auto) 2.1 (1.2-4.9) X10*3/uL [place] # (Auto) 0.6 (0.1-1.2) X10*3/uL Eos # (Auto) 0.0 (0.0-0.4) X10*3/uL Baso # (Auto) 0.0 (0.0-0.2) X10*3/uL Abs Immat Gran (auto) 0.02 (0.00-0.03) X10*3/uL Absolute Neuts (auto) 5.5 (2.0-8.3) x10*3/uL Absolute Nucleated RBC 0.000 (0.0-0.012) X10*3/uL Nucleated RBC % (auto) 0.0 (0.0-0.2) /100WBC Sodium 141 (135-145) mmol/L Potassium 3.9 (3.3-5.1) mmol/L Chloride 105 (96-108) mmol/L Carbon Dioxide 21 L (22-29) mmol/L Anion Gap 19 (12-20) BUN 27 H (9-16) mg/dL Creatinine 0.75 (0.5-1.4) mg/dL Estim Creat Clear Calc 88.7 Estimated GFR > 60 Random Glucose 97 (60-115) mg/dL Calcium 8.9 (8.4-10.2) mg/dL Magnesium 1.9 (1.6-2.6) mg/dL Total Bilirubin 0.7 (0.0-1.0) mg/dL Direct Bilirubin 0.2 (0.0-0.5) mg/dL AST 49 H (5-31) U/L ALT 32 H (0-31) U/L Alkaline Phosphatase 95 (39-117) U/L Total Protein 7.4 (6.5-8.0) g/dL Albumin 4.3 (3.5-5.0) g/dL Urine Color Yellow Urine Appearance Clear Urine pH 6.0 (5.0-9.0) Ur Specific [place] 1.020 (1.005-1.025) Urine Protein 30 (1+) H (Neg-Trace) mg/dL Urine Glucose (UA) Negative (Negative) mg/dL Urine Ketones Negative (Negative) mg/dL Urine Blood Moderate (2+) H (Negative) Urine Nitrite Negative (Negative) Ur Leukocyte Esterase Negative (Negative) Urine RBC 3-5 H (0-2) /HPF Urine WBC 0-5 (0-5) /HPF Ur Squamous Epith Cells 3-5 (0-2) /HPF Urine Bacteria None Seen (None Seen) Hyaline Casts 3-5 (0-2) /LPF Urine Opiates Screen Not Detected (Not Detect) Ur Buprenorphine Scrn Not Detected (Not Detect) ng/mL Ur Oxycodone Screen Not Detected (Not Detect) ng/mL Urine Methadone Screen Not Detected (Not Detect) ng/mL Urine Fentanyl Screen Not Detected (Not Detect) Ur Barbiturates Screen Not Detected (Not Detect) Ur Phencyclidine Scrn Not Detected (Not Detect) Ur Amphetamines Screen Not Detected (Not Detect) U Benzodiazepines Scrn POSITIVE H (Not Detect) Urine Cocaine Screen Not Detected (Not Detect) U Marijuana (THC) Screen POSITIVE H (Not Detect) Ethyl Alcohol 261 mg/dL Medications Administered Discontinued Medications Generic Name Dose Route Start Last Admin Trade Name Freq PRN Reason Stop Dose Admin Lorazepam 2 mg 09/01/24 01:40 09/01/24 02:37 Lorazepam 1 Mg Tablet PO 09/01/24 01:41 2 mg ONCE ONE Administration Ondansetron HCl 4 mg 09/01/24 01:42 09/01/24 02:37 Ondansetron Odt 4 Mg Tab.Rapdis TRANSLINGU 09/01/24 01:43 4 mg ONCE ONE Administration Critical Care Time Critical Care Time Critical Care Time: Yes Total Critical Care Time: 35 Attestation: I have personally provided critical care time. Time includes review of lab data, radiology results, discussion with consultants, and monitoring for potential decompensation. Intervention performed as documented. Discharge Plan Discharge Clinical Impression: EtOH dependence Patient Disposition: Still a Patient Instructions: Abuse of Alcohol (ED), Alcohol Dependence (ED) Additional Instructions: Please follow-up with your primary care physician tomorrow. If you have any worsening or new symptoms, please return to the emergency room or call 911 Prescriptions: No Action tramadol 50 mg tablet 50 mg PO QID lorazepam 2 mg tablet 2 mg PO BID PRN (Reason: anxiety) diazepam 10 mg tablet See Rx Instructions .ROUTE .COMPLEX PRN (Reason: Interstitial cystisis) Rx Instructions: PLACE 1 TABLET INTRA-VAGINALLY ONCE DAILY NEEDED FOR INTERSTITIAL CYSTISIS folic acid 400 mcg Tablet 0.4 mg PO DAILY niacin 500 mg Tablet 500 mg PO DAILY magnesium 250 mg Tablet 500 mg PO DAILY cholecalciferol (vitamin D3) [Vitamin D3] 50 mcg (2,000 unit) Tablet 50 mcg PO DAILY Centrum Adult 50 Plus 80 mcg Tablet,Chewable 1 tab PO DAILY clonidine HCl 0.1 mg tablet 0.05 mg PO BID PRN (Reason: anxiety) Qty: 20 0RF omeprazole 20 mg capsule,delayed release(DR/EC) 20 mg PO DAILY Qty: 30 0RF potassium chloride 8 mEq capsule, extended release 8 meq PO DAILY Qty: 3 0RF acetaminophen [Tylenol] 325 mg tablet 650 mg PO Q6H PRN (Reason: fever or pain) Qty: 30 0RF lidocaine 5 % adhesive patch,medicated 1 patch topical DAILY PRN (Reason: pain) Qty: 15 0RF Rx Instructions: leave on most painful area for up to 12 hrs chlordiazepoxide HCl 25 mg capsule 25 mg PO BID PRN (Reason: anxiety) Qty: 10 0RF cyanocobalamin (vitamin B-12) 1,000 mcg tablet 1,000 mcg PO DAILY Print Language: Martiniquais
[2024-09-01 01:57] LABS: MANUAL DIFF FLAG NO
[2024-09-01 02:05] LABS: Basophils Percent Auto 0.5 % (0-2); Eosinophils Percent Auto 0.1 % (0-4); Hemoglobin 13.7 g/dl (12.0-16.0); Imm Gran Abs Auto 0.02 X10*3/uL (0.00-0.03); Imm Gran Pct Auto 0.2 % (0.0-0.4); Lymphocytes Absolute Auto 2.1 X10*3/uL (1.2-4.9); Lymphocytes Percent Auto 25.5 % (20-40); Mean Corpuscular HGB Conc 35.1 g/dl (31.0-35.0); Mean Corpuscular Hemoglobin 34.3 pg (27.0-33.0); Mean Corpuscular Volume 97.5 fL (80.0-98.0); Mean Platelet Volume 8.5 fL (9.4-12.3); Monocytes Absolute Auto 0.6 X10*3/uL (0.1-1.2); Neutrophils Absolute Auto 5.5 x10*3/uL (2.0-8.3); Neutrophils Percent Auto 66.7 % (45-73); Platelet Count 242 X10*3/uL (160-400); White Blood Count 8.3 X10*3/uL (4.8-10.8)
[2024-09-01 02:12] LABS: Ethanol 261 mg/dL
[2024-09-01 02:21] LABS: Alanine Aminotransferase 32 U/L (0-31); Albumin Level 4.3 g/dL (3.5-5.0); Alkaline Phosphatase 95 U/L (39-117); Anion Gap 19 (12-20); Aspartate Amino Transferase 49 U/L (5-31); Bilirubin Direct 0.2 mg/dL (0.0-0.5); Bilirubin Total 0.7 mg/dL (0.0-1.0); Blood Urea Nitrogen 27 mg/dL (9-16); Calcium 8.9 mg/dL (8.4-10.2); Carbon Dioxide 21 mmol/L (22-29); Chloride 105 mmol/L (96-108); Creatinine Clr Calc Pharmacy 88.7; Estimated Glomerular Filt Rate > 60; Glucose Random 97 mg/dL (60-115); Magnesium 1.9 mg/dL (1.6-2.6); Potassium 3.9 mmol/L (3.3-5.1); Sodium 141 mmol/L (135-145); Total Protein 7.4 g/dL (6.5-8.0)
[2024-09-01] MEDS: Ondansetron ODT 4 MG TAB.RAPDIS TRANSLINGU (02:37)
[2024-09-01] MEDS: LORazepam 1 MG TABLET 2 MG PO (02:37)
[2024-09-01 03:20] LABS: Appearance Urine Clear; Color Urine Yellow; Glucose Urine UA Negative (Negative); Leukocyte Esterase Urine Negative (Negative); Nitrite Urine Negative (Negative); UMIC TRIGGER UACC YES; Urine Blood Moderate (2+) (Negative); Urine Ketones Negative (Negative); Urine Protein 30 (1+) mg/dL (Neg-Trace)
[2024-09-01 03:29] LABS: Bacteria Urine None Seen (None Seen); WBC Urine 0-5 /HPF (0-5)
[2024-09-01 03:31] LABS: Amphetamine Screen Urine Not Detected (Not Detect); Barbiturates, Urine Not Detected (Not Detect); Benzodiazepines Screen Urine POSITIVE (Not Detect); Buprenorphine Scr Not Detected (Not Detect); Cannabinoid Screen Urine POSITIVE (Not Detect); Cocaine Screen Urine Not Detected (Not Detect); Fentanyl, urine Not Detected (Not Detect); Methadone Screen, Urine Not Detected (Not Detect); Opiate Screen Urine Not Detected (Not Detect); Oxycodone Screen Urine Not Detected (Not Detect); Phencyclidine Screen Urine Not Detected (Not Detect)
[2024-09-01 03:33] VITALS: BP 111/72; PULSE 96; RESP 21; TEMP 36.8; O2SAT 92
[2024-09-01 06:43] VITALS: BP 104/58; PULSE 100; RESP 17; O2SAT 93
--- NOTE | 2024-09-01 07:03 | PC.NURSE ---
Pt reported having some Increased heart pain . Provider made aware and no further testing was ordered.
[2024-09-01] MEDS: chlordiazePOXIDE HCl 25 MG CAPSULE 100 MG PO (09:27)
--- NOTE | 2024-09-01 09:34 | MHC.CARE ---
CARE team met with patient per ED provider request as no recovery service available today in ED. Patient was given multiple community resources and currently declined detox. Patient reported she is seeking medication assistance for withdrawals. CARE team referred patient to [facility] [place] and requested education be provided to patient and treatment explored with patient. ED provider notified.
[2024-09-01 09:38] VITALS: BP 115/65; PULSE 98; RESP 17; TEMP 36.3; O2SAT 95
== END 2024-09-01 09:39 | disposition home or self-care (01) ==
PROVIDERS: Emergency Provider Emergency Medicine; PCP Physician Assistant
DX: F10.229 Alcohol dependence with intoxication, unspecified (principal); Y90.8 Blood alcohol level of 240 mg/100 ml or more
CPT/HCPCS: 36415; 80048; 80076; 80307; 81001; 83735; 85025; 93005; 99283; 99284

== ENCOUNTER → 2024-09-01 01:10 | Outpatient (BNV) | payer MEDICARE, MEDICAID, SELFPAY | PROVIDERS: Emergency Provider Emergency Medicine; PCP Physician Assistant; Visit Provider Internal Medicine Cardiovascular Disease | DX: R94.31 Abnormal electrocardiogram [ECG] [EKG] (principal); R06.00 Dyspnea, unspecified | CPT/HCPCS: 93010 ==

== ENCOUNTER 2025-01-24 09:32 | Inpatient (IN) | payer MEDICARE, MEDICAID, SELFPAY ==
--- NOTE | ~2025-01-24 | CT_ITS ---
EXAMINATION: CT ABDOMEN AND PELVIS WITHOUT AND WITH CONTRAST CLINICAL INFORMATION: Abdominal pain, ethanol use disorder, COMPARISON: June 07, 2024 TECHNIQUE: Multidetector volumetric imaging was performed of the abdomen and pelvis before and after the IV administration of 80 mL of Omnipaque 300 intravenous contrast. Sagittal and coronal reformatted images were obtained on the technologist's workstation. This CT examination was performed using dose optimization techniques as appropriate, variously including the following: *Automated exposure control *Adjustment of mA and/or kV according to patient size (this includes techniques or standardized protocols for targeted exams where dose is matched to indication/reason for exam; i.e. extremities or head) *Use of iterative reconstruction technique FINDINGS: LUNG BASES: The visualized lung bases are unremarkable. LIVER, GALLBLADDER, AND BILIARY TREE: The liver is normal in size, shape, and attenuation. No focal hepatic lesion or biliary ductal dilatation is present. Gallbladder surgically absent. There are clips in the gallbladder fossa. Extrahepatic bile duct is mildly prominent PANCREAS: Unremarkable SPLEEN: Unremarkable ADRENAL GLANDS: 13 mm left adrenal nodule measured -10 Hounsfield units on precontrast with the benign lipid rich adrenal adenoma. Right adrenal gland is unremarkable. KIDNEYS AND URETERS: There are at least 3 punctate calcifications in the left kidneys are present small nonobstructing stones. BLADDER: Decompressed and not well demonstrated. GASTROINTESTINAL TRACT: There are scattered high density material within the proximal small bowel on pre and post contrast images consistent with ingested flocculent material rather than extravasated contrast. No intraluminal contrast extravasation is clearly evident. The distal duodenum and proximal jejunum are borderline dilated with air-fluid levels in a similar plane. There is a gradual transition to decompressed small bowel. There is also moderate gas in the colon, mostly in the nondependent colon. A normal appendix is identified. ABDOMINAL WALL: No significant hernia is appreciated. LYMPH NODES: Normal VASCULAR: Mild multifocal vascular calcifications are present. PELVIC VISCERA: Uterus surgically absent. Adnexa are unremarkable. There is no ascites. OSSEOUS STRUCTURES: Moderate chronic superior endplate fracture of L2 is stable. CT/CT gi bleed abd pel wo/w IVcon IMPRESSION: Distal duodenum and proximal jejunum are borderline dilated with air-fluid levels all within a single plain. There is a gradual transition to more decompressed bowel most consistent with a paralytic ileus. There is flocculent high density material within the small bowel lumen that mild to moderately limits the examination. No definite intraluminal contrast extravasation was evident. There is a lipid rich adrenal adenoma on the left, benign Fleischner guidelines were followed. Electronically signed by: Kp Jennings MD 01/24/2025 03:07 PM EDT RP
[2025-01-24 09:49] VITALS: BP 135/80; PULSE 94; RESP 18; TEMP 36.2; O2SAT 98; BMI 27.4
[2025-01-24 10:10] LABS: MANUAL DIFF FLAG NO
[2025-01-24 10:13] LABS: Hematocrit 41.2 % (37.0-47.0); Hemoglobin 13.9 g/dl (12.0-16.0); Imm Gran Abs Auto 0.02 X10*3/uL (0.00-0.03); Imm Gran Pct Auto 0.2 % (0.0-0.4); Lymphocytes Absolute Auto 2.3 X10*3/uL (1.2-4.9); Mean Corpuscular HGB Conc 33.7 g/dl (31.0-35.0); Mean Corpuscular Hemoglobin 32.7 pg (27.0-33.0); Mean Corpuscular Volume 96.9 fL (80.0-98.0); NRBC Abs Auto 0.000 X10*3/uL (0.0-0.012); NRBC Pct Auto 0.0 /100WBC (0.0-0.2); Platelet Count 271 X10*3/uL (160-400); Red Blood Count 4.25 X10*6/uL (4.20-5.50); White Blood Count 8.7 X10*3/uL (4.8-10.8)
[2025-01-24 10:38] LABS: Alanine Aminotransferase 16 U/L (0-31); Albumin Level 4.8 g/dL (3.5-5.0); Alkaline Phosphatase 104 U/L (39-117); Anion Gap 14 (12-20); Aspartate Amino Transferase 22 U/L (5-31); Blood Urea Nitrogen 23 mg/dL (9-16); Calcium 9.9 mg/dL (8.4-10.2); Carbon Dioxide 29 mmol/L (22-29); Chloride 103 mmol/L (96-108); Creatinine Clr Calc Pharmacy 72.8; Estimated Glomerular Filt Rate > 60; Potassium 5.5 mmol/L (3.3-5.1); Sodium 140 mmol/L (135-145); Total Protein 7.9 g/dL (6.5-8.0)
--- NOTE | 2025-01-24 11:09 | ED.GENADULT ---
HPI - General Adult General Chief complaint: Abdominal Pain Stated complaint: black stools Time Seen by Provider: 01/24/25 11:08 Source: patient Mode of arrival: ambulatory Limitations: no limitations History of Present Illness ED Provider: Tino Sorto PA-C HPI narrative: 59-year-old female with medical history of alcohol use disorder in remission, chronic interstitial cystitis, IBS, presents to the ED today due to 4 weeks of abdominal pain and bloating. Patient reports diffuse dull abdominal pain, bloating, increased flatulence over the past 4 weeks that is worse after meals. Patient states 1 week after onset of abdominal pain she began to experience watery diarrhea that has now evolved into a solid dark tarry stool. Patient states last bowel movement was this morning, has been passing flatus. Patient states she called her PCP office who encouraged her come to the ED for further evaluation due to the dark tarry stools. Patient states she has been eating multiple small meals a day to control the pain and abdominal bloating after eating with intermittent nausea. Patient reports the abdominal pain is intermittently epigastric, that travels with an intermittent burning sensation to her chest. Denies shortness of breath, vomiting, dizziness, lightheadedness, urinary symptoms MD complaint: abd pain with dark stool Related Data Home Medications ?Medication ?Instructions ?Recorded ?Confirmed cyanocobalamin (vitamin B-12) 1,000 mcg PO DAILY 07/10/21 06/07/24 1,000 mcg tablet cholecalciferol (vitamin D3) 50 50 mcg PO DAILY 06/07/24 06/07/24 mcg (2,000 unit) tablet (Vitamin D3) diazepam 10 mg tablet See Rx Instructions .Route 06/07/24 06/07/24 .COMPLEX PRN Interstitial cystisis folic acid 400 mcg tablet 0.4 mg PO DAILY 06/07/24 06/07/24 lorazepam 2 mg tablet 2 mg PO BID PRN anxiety 06/07/24 06/07/24 magnesium 250 mg tablet 500 mg PO DAILY 06/07/24 06/07/24 multivitamin with minerals-folic 1 tab PO DAILY 06/07/24 06/07/24 acid 80 mcg chewable tablet (Centrum Adult 50 Plus) niacin 500 mg tablet 500 mg PO DAILY 06/07/24 06/07/24 tramadol 50 mg tablet 50 mg PO QID 06/07/24 06/07/24 bupropion HCl 150 mg tablet,12 hr 150 mg PO 01/24/25 sustained-release ezetimibe 10 mg tablet 10 mg PO DAILY 01/24/25 Previous Rx's ?Medication ?Instructions ?Recorded clonidine HCl 0.1 mg tablet 0.05 mg (1/2 x 0.1 mg) PO BID PRN 06/09/24 anxiety #20 tabs omeprazole 20 mg capsule,delayed 20 mg PO DAILY #30 caps 06/09/24 release potassium chloride 8 mEq 8 meq PO DAILY #3 caps 06/09/24 capsule,extended release acetaminophen 325 mg tablet 650 mg (2 x 325 mg) PO Q6H PRN 06/23/24 (Tylenol) fever or pain #30 tabs lidocaine 5 % topical patch 1 patch topical DAILY PRN pain #15 06/23/24 ea chlordiazepoxide HCl 25 mg capsule 25 mg PO BID PRN anxiety #10 caps 06/25/24 Allergies Allergy/AdvReac Type Severity Reaction Status Date / Time aspirin (ASA) Allergy Mild STOMACH Verified 01/24/25 09:50 UPSET cephalexin Allergy Mild Gastrointestinal Verified 01/24/25 09:50 Upset latex (LATEX) Allergy Mild RASH Verified 01/24/25 09:50 morphine (MORPHINE) Allergy Mild RASH, Verified 01/24/25 09:50 swelling, redness Sulfa (Sulfonamide Allergy Mild RASH, Verified 01/24/25 09:50 Antibiotics) (SULFA swelling, (SULFONAMIDE ANTIBIOTICS)) redness terbinafine Allergy Mild Nausea and Verified 01/24/25 09:50 Vomiting azithromycin Allergy Rash Verified 01/24/25 09:50 clonazepam (From Klonopin) AdvReac Mild Gastrointestinal Verified 01/24/25 09:50 Upset metformin AdvReac Constipatio Verified 01/24/25 09:50 n Latex Allergy Unknown swelling, Uncoded 01/24/25 09:50 redness Review of Systems Review of Systems: CONST: Negative for fever, body aches and chills. HENT: Negative for neck pain/stiffness, headache, congestion, sore throat, swelling. EYES: Negative for discharge/pain or vision changes. RESP: Negative for cough/hemoptysis and shortness of breath. CV: Negative chest pain, difficulty breathing, palpitations. ABD: Negative vomiting. POS abd pain, nausea : Negative increase frequency, dysuria, blood in urine or stool. POS dark, tarry stool MUSC: Negative for muscle aches, edema. SKIN: Negative rash, lesions/sores. NEURO: Negative headache, dizziness, weakness. Yes all other systems are reviewed and are negative [facility], [facility] Past Medical History Attestation statement: The following information was validated with the patient. Source: old records reviewed and nursing notes reviewed Medical History EtOH dependence Social History Social History Household Members: None Housing: Apartment Housing Other:: multi family home on third floor Do you presently have visiting nurse or other home services: No Alcohol intake: current Alcohol intake frequency: other Alcohol type: hard liquor Comment: Pt refusing assistance ambulating to BR. Steady on observation Patient Tobacco Use Status: Current everyday Tobacco user Tobacco use type: Cigarette Cigarette Packs Per Day: 0.25 Cigarettes Per Day: 5.0 Years Smoked: 20 Second Hand Smoke Exposure: Yes Substance Use Type: Marijuana Advance Directives: No Advance Directives Information Provided: Yes service: No Physical Exam ED Vital Signs: Vital Signs - 24 hr 01/24/25 09:49 01/24/25 11:45 01/24/25 14:30 Temperature 97.1 F 97.2 F 98.1 F Pulse Rate 94 82 79 Respiratory Rate 18 18 18 Blood Pressure 135/80 117/68 134/81 Pulse Oximetry 98 99 95 Oxygen Delivery Method Room Air Room Air Room Air 01/24/25 16:10 Temperature 98.1 F Pulse Rate 72 Respiratory Rate 18 Blood Pressure 149/82 H Pulse Oximetry 95 Oxygen Delivery Method Room Air BMI result Body Mass Index 27.4 GENERAL APPEARANCE: ?AxOx3, generally well-appearing, no acute distress. HEENT: ?NC, AT. MMM. EOMI, clear conjunctiva, oropharynx clear. NECK: ?Supple without lymphadenopathy.? No stiffness or restricted ROM. HEART:? Normal rate and regular rhythm, normal S1/S2, no m/r/g LUNGS:? CTAB, moving air well. No crackles or wheezes are heard. ABDOMEN: ?Soft, no rigidity, no guarding, diffusely tender throughout abdomen, normoactive bowel sounds in all 4 quadrants, no overlying skin changes, no Lamb's/Turners ecchymosis BACK: Mild L sided CVAT to percussion, no obvious deformity. EXTREMITIES: ?Without cyanosis, clubbing or edema. NEUROLOGICAL: ?Grossly nonfocal. Alert and oriented, moving all 4 extremities. Observed to ambulate with normal gait. Skin: ?Warm and dry without any rash. Medications Administered Discontinued Medications Generic Name Dose Route Start Last Admin Trade Name Edgarq PRN Reason Stop Dose Admin Diazepam 5 mg 01/24/25 16:16 01/24/25 16:20 Diazepam 10 Mg/2 Ml Cartridge IVPUSH 01/24/25 16:17 5 mg STAT STA Administration Hydromorphone HCl 0.5 mg 01/24/25 12:35 01/24/25 13:02 Hydromorphone Hcl 0.5 Mg/0.5 Ml Syringe IVPUSH 01/24/25 12:36 0.5 mg ONCE ONE Administration Protocol Hydromorphone HCl 0.5 mg 01/24/25 15:57 01/24/25 16:19 Hydromorphone Hcl 0.5 Mg/0.5 Ml Syringe IVPUSH 01/24/25 15:58 0.5 mg ONCE ONE Administration Protocol Lactated Ringer's 1,000 mls @ 999 mls/hr 01/24/25 11:13 01/24/25 14:35 Lr IV 01/24/25 12:13 Infused .Q1H1M ONE Infusion Ondansetron HCl 4 mg 01/24/25 09:54 01/24/25 10:14 Ondansetron Odt 4 Mg Tab.Rapdis TRANSLINGU 01/24/25 09:55 4 mg ONCE ONE Administration Sodium Zirconium Cyclosilicate 10 gm 01/24/25 11:13 01/24/25 13:03 Sodium Zirconium Cyclosilicate 10 Gm Powd.Pack PO 01/24/25 11:14 10 gm ONCE ONE Administration Medical Decision Making Medical Decision Making MDM Narrative: 59-year-old female with medical history of alcohol use disorder in remission, chronic interstitial cystitis, IBS, presents to the ED today due to 4 weeks of abdominal pain and bloating. Patient reports diffuse dull abdominal pain, bloating, increased flatulence over the past 4 weeks that is worse after meals. Patient states 1 week after onset of abdominal pain she began to experience watery diarrhea that has now evolved into a solid dark tarry stool. Patient states last bowel movement was this morning, has been passing flatus. Patient states she called her PCP office who encouraged her come to the ED for further evaluation due to the dark tarry stools. Patient states she has been eating multiple small meals a day to control the pain and abdominal bloating after eating with intermittent nausea. Patient reports the abdominal pain is intermittently epigastric, that travels with an intermittent burning sensation to her chest. VSS, normotensive at 117/68, pulse rate 82 beats per minute, oral temperature 97.2?, 99% on room air. Physical exam reveals abdomen soft, no rigidity, no guarding, diffusely tender throughout abdomen, normoactive bowel sounds in all 4 quadrants, no overlying skin changes, no Lamb's/Turners ecchymosis. Occult blood stool at bedside negative when solution applied, no gross blood, clots, visualized on residual stool after exam. EKG reveals normal sinus rhythm with sinus arrhythmia, no ST elevation/depression, T-wave abnormalities initial troponin undetectable <2.7- less likely ACS Labs reveal hyperkalemia 5.5, H and H stable 13.9/41.2, all other labs WNL. UA without evidence of infection, does reveal 3-5 urine RBCs. We will obtain CT abdomen with and without contrast for GI bleed protocol, evaluation of acute abdomen, observe for nephrolithiasis. Patient reporting pain 8/10, with allergy of morphine will medicate with 0.5mg of IV dilaudid Course 13:17- patient received 0.5 mg IV Dilaudid for pain management, IV fluids, 10 g Lokelma to address hyperkalemia. Awaiting CT abdomen results. Differential Diagnosis Differential Diagnoses: The differential diagnosis associated with the presentation includes ACS PUD perforated ulcer gastritis nephrolithiasis Admission/Observation Consideration of admission/observation: Escalation of care including admission/observation considered Lab Data MDM Lab Attestation statement: I reviewed the patient's lab results. 01/24/25 10:04 01/24/25 10:04 Labs: Lab Results 01/24/25 01/24/25 01/24/25 Range/Units 10:04 11:30 12:28 WBC 8.7 (4.8-10.8) X10*3/uL RBC 4.25 (4.20-5.50) X10*6/uL Hgb 13.9 (12.0-16.0) g/dl Hct 41.2 (37.0-47.0) % MCV 96.9 (80.0-98.0) fL MCH 32.7 (27.0-33.0) pg MCHC 33.7 (31.0-35.0) g/dl RDW 14.2 (11.0-16.0) % Plt Count 271 (160-400) X10*3/uL MPV 8.6 L (9.4-12.3) fL Immature Gran % (Auto) 0.2 (0.0-0.4) % Neut % (Auto) 65.8 (45-73) % Lymph % (Auto) 25.9 (20-40) % Bond % (Auto) 6.5 (2-11) % Eos % (Auto) 1.0 (0-4) % Baso % (Auto) 0.6 (0-2) % Lymph # (Auto) 2.3 (1.2-4.9) X10*3/uL Bond # (Auto) 0.6 (0.1-1.2) X10*3/uL Eos # (Auto) 0.1 (0.0-0.4) X10*3/uL Baso # (Auto) 0.1 (0.0-0.2) X10*3/uL Abs Immat Gran (auto) 0.02 (0.00-0.03) X10*3/uL Absolute Neuts (auto) 5.8 (2.0-8.3) x10*3/uL Absolute Nucleated RBC 0.000 (0.0-0.012) X10*3/uL Nucleated RBC % (auto) 0.0 (0.0-0.2) /100WBC Sodium 140 (135-145) mmol/L Potassium 5.5 H D (3.3-5.1) mmol/L Chloride 103 (96-108) mmol/L Carbon Dioxide 29 (22-29) mmol/L Anion Gap 14 (12-20) BUN 23 H (9-16) mg/dL Creatinine 0.88 (0.5-1.4) mg/dL Estim Creat Clear Calc 72.8 Estimated GFR > 60 Random Glucose 111 (60-115) mg/dL Calcium 9.9 D (8.4-10.2) mg/dL Total Bilirubin 0.3 (0.0-1.0) mg/dL Direct Bilirubin 0.1 (0.0-0.5) mg/dL AST 22 (5-31) U/L ALT 16 (0-31) U/L Alkaline Phosphatase 104 (39-117) U/L Troponin I High Sens < 2.7 (<3.5-17.0) ng/L Total Protein 7.9 (6.5-8.0) g/dL Albumin 4.8 (3.5-5.0) g/dL Urine Color Yellow Urine Appearance Clear Urine pH 6.5 (5.0-9.0) Ur Specific [place] 1.010 (1.005-1.025) Urine Protein Negative (Neg-Trace) mg/dL Urine Glucose (UA) Negative (Negative) mg/dL Urine Ketones Negative (Negative) mg/dL Urine Blood Trace H (Negative) Urine Nitrite Negative (Negative) Ur Leukocyte Esterase Negative (Negative) Urine RBC 3-5 H (0-2) /HPF Urine WBC 0-5 (0-5) /HPF Ur Squamous Epith Cells 0-2 (0-2) /HPF Urine Bacteria None Seen (None Seen) Hyaline Casts 0-2 (0-2) /LPF Stool Occult Blood Cancelled 01/24/25 Range/Units 17:26 WBC (4.8-10.8) X10*3/uL RBC (4.20-5.50) X10*6/uL Hgb (12.0-16.0) g/dl Hct (37.0-47.0) % MCV (80.0-98.0) fL MCH (27.0-33.0) pg MCHC (31.0-35.0) g/dl RDW (11.0-16.0) % Plt Count (160-400) X10*3/uL MPV (9.4-12.3) fL Immature Gran % (Auto) (0.0-0.4) % Neut % (Auto) (45-73) % Lymph % (Auto) (20-40) % Bond % (Auto) (2-11) % Eos % (Auto) (0-4) % Baso % (Auto) (0-2) % Lymph # (Auto) (1.2-4.9) X10*3/uL Bond # (Auto) (0.1-1.2) X10*3/uL Eos # (Auto) (0.0-0.4) X10*3/uL Baso # (Auto) (0.0-0.2) X10*3/uL Abs Immat Gran (auto) (0.00-0.03) X10*3/uL Absolute Neuts (auto) (2.0-8.3) x10*3/uL Absolute Nucleated RBC (0.0-0.012) X10*3/uL Nucleated RBC % (auto) (0.0-0.2) /100WBC Sodium (135-145) mmol/L Potassium (3.3-5.1) mmol/L Chloride (96-108) mmol/L Carbon Dioxide (22-29) mmol/L Anion Gap (12-20) BUN (9-16) mg/dL Creatinine (0.5-1.4) mg/dL Estim Creat Clear Calc Estimated GFR Random Glucose (60-115) mg/dL Calcium (8.4-10.2) mg/dL Total Bilirubin (0.0-1.0) mg/dL Direct Bilirubin (0.0-0.5) mg/dL AST (5-31) U/L ALT (0-31) U/L Alkaline Phosphatase (39-117) U/L Troponin I High Sens (<3.5-17.0) ng/L Total Protein (6.5-8.0) g/dL Albumin (3.5-5.0) g/dL Urine Color Urine Appearance Urine pH (5.0-9.0) Ur Specific [place] (1.005-1.025) Urine Protein (Neg-Trace) mg/dL Urine Glucose (UA) (Negative) mg/dL Urine Ketones (Negative) mg/dL Urine Blood (Negative) Urine Nitrite (Negative) Ur Leukocyte Esterase (Negative) Urine RBC (0-2) /HPF Urine WBC (0-5) /HPF Ur Squamous Epith Cells (0-2) /HPF Urine Bacteria (None Seen) Hyaline Casts (0-2) /LPF Stool Occult Blood NEGATIVE Independent Interpretation I performed an independent interpretation of an: EKG Interpretation: I personally interpreted the EKG which shows normal sinus rhythm with sinus arrhythmia, without ST elevation/depression or T-wave abnormalities Vent. Rate : 72 BPM Atrial Rate : 72 BPM P-R Int : 190 ms QRS Dur : 88 ms QT Int : 410 ms P-R-T Axes : 66 59 72 degrees QTcB Int : 448 ms Normal sinus rhythm with sinus arrhythmia Normal ECG When compared with ECG of 01-Sep-2024 01:10, Minimal criteria for Anterior infarct are no longer Present T wave inversion no longer evident in Anterior leads Radiology Impression Discussion of test interpretation with radiology: I have reviewed the radiologist's reading. Radiologist Impression: CT abdomen/pelvis External Record Review External record reviewed: Inpatient record, Office record and Outpatient record Chronic Conditions Patient?s care impacted by: Other (IBS, alcohol use disorder in remission) Critical Care Time Critical Care Time Total Critical Care Time: 63 Attestation: I personally provided 63 minutes of critical care time for this patient, exclusive of separately billable procedures and time spent by other providers. This time was required for the management of bowel ileus, hyperkalemia, and included initial evaluation of frequent reassessments, review and interpretation of diagnostic studies, coordination and communication with consultants and nursing staff, ongoing documentation and complex medical decision-making. Discharge Plan Discharge Clinical Impression: Ileus, Acute hyperkalemia Patient Disposition: Admitted As Inpatient Print Language: Sinhala
--- NOTE | 2025-01-24 11:13 | ECG_ITS ---
Test Reason : abdominal pain Blood Pressure : */* mmHG Vent. Rate : 72 BPM Atrial Rate : 72 BPM P-R Int : 190 ms QRS Dur : 88 ms QT Int : 410 ms P-R-T Axes : 66 59 72 degrees QTcB Int : 448 ms Normal sinus rhythm with sinus arrhythmia Normal ECG When compared with ECG of 01-Sep-2024 01:10, Minimal criteria for Anterior infarct are no longer Present T wave inversion no longer evident in Anterior leads Referred By: Macario Jiménez Electronically Signed By: ANITA RICE MD
--- NOTE | 2025-01-24 11:17 | MHC.EDTECH ---
Addendum entered by Lori Lipscomb 01/24/25 11:18: I charted on 15 instead of 14 Original Note: Patient was repositioned and changed
[2025-01-24 11:45] VITALS: BP 117/68; PULSE 82; RESP 18; TEMP 36.2; O2SAT 99
[2025-01-24 11:59] LABS: Troponin-I High Sensitivity < 2.7 ng/L (<3.5-17.0)
[2025-01-24 12:03] LABS: Appearance Urine Clear; Glucose Urine UA Negative (Negative); PH 6.5 (5.0-9.0); Specific Gravity - Urine 1.010 (1.005-1.025); UMIC TRIGGER UACC YES
--- OUTSIDE RECORDS SUMMARY | 2025-01-24 12:49 | XMS_ITS | Clinical Summary ---
Author Organization [facility] Address [address] [place] [phone] Phone Care Team Providers Care Knitting Teacher Name Role Phone Jordan Kay Primary Care Provider [phone] Social History Tobacco Use Types Packs/Day Years Used Date Smoking Tobacco: Every Day Smokeless Tobacco: Never Comments Unknown Sex and Gender Information Value Date Recorded Sex Assigned at Female 07/05/2024 12:30 PM EST Legal Sex Female 9:04 PM EST Gender Identity Female 07/05/2024 12:30 PM EST Sexual Orientation Straight 07/05/2024 12 :30 PM EST Obstetrics History Plan of Treatment Health Maintenance Due Date Last Done Comments Breast Cancer Screening 1965 Hepatitis A Vaccines (1 of 2 - Risk 2-dose series) 10/04/1982 Zoster Vaccines (1 of 2) 10/04/1982 Cervical Cancer Screening: Pap Smear 10/04/1984 Pneumococcal Vaccine: 50+ Years (3 of 3 - PCV) 02/10/2017 02/11/2016, 01/30/2010 COVID-19 Vaccine (3 - Pfizer risk series) 11/02/2021 2021, 09/06/2021 Colorectal Cancer Screening: Colonoscopy 06/01/2022 HIV Screening 06/01/2022 Medicare Annual Wellness Visit 06/01/2022 Social Influencers of Health Screening 06/01/2022 Hepatitis B Vaccines (1 of 3 - Risk 3-dose series) 2023 RSV Immunization Adult Patients (1 - Risk 60-74 years 1-dose series) 2023 Depression Screening 06/30/2024 Hypertension/CHF/CAD Annual BMP Blood Test 07/05/2024 12/28/2022 Influenza Vaccine (#1) 2025 DTaP,Tdap,and Td Vaccines (4 - Td or Tdap) 02/02/2027 02/02/2017, 09/14/2015, 08/13/2005 Cholesterol Screening (Lipid Panel) 12/24/2029 12/24/2024, 12/24/2024, 11/10/2023, Additional history exists Hepatitis C Screening Completed 03/14/2021, 018 HIB Vaccines Aged Out No longer eligi ble based on patient's age to complete this topic HPV Vaccines Aged Out No longer eligi ble based on patient's age to complete this topic IPV Vaccines Aged Out No longer eligi ble based on patient's age to complete this topic MMR Vaccines Aged Out No longer eligi ble based on patient's age to complete this topic Meningococcal ACWY Vaccine Aged Out N o longer eligible based on patient's age to complete this topic Meningococcal B Vaccine Aged Out No l onger eligible based on patient's age to complete this topic RSV Immunization Patients Under 20 months Aged Out No longer eligible based on patient's age to complete this topic Varicella Vaccines Aged Out No longer eligible based on patient's age to complete this topic Insurance MEDICARE MEDICAID - [place] Care Teams Knitting Teacher Relationship Specialty Start Date End Date Jordan Kay PA [address] [place] [phone] PCP - General Internal Medicine 05/25/19
--- OUTSIDE RECORDS SUMMARY | 2025-01-24 12:49 | XMS_ITS | Data Portability ---
Author Organization TEODORA Cardona [facility] Address [address] [place] [address] Assessment No assessment recorded. Plan of Treatment Reminders Order Date Submit Date Provider Last Modified By Organization Details Last Modified Time Details Appointments None recorded. Lab rapid flu (A+B) 2022 023 [place] [id number] _[facility], [address] [place] [address], [phone], 3 12:14:20 rapid SARS CoV 2 Ag, QL IA, respiratory specimen 2022 023 [email or web address] [facility], [address] [place] [address], [phone], 12:14:20 Referral None recorded. Procedures None recorded. Surgeries None recorded. Imaging None recorded. Medication Orders None recorded. Patient TargetsNo targets recorded. Patient Instructions Encounter Date Encounter Id Patient Instructions Last Modified By Organization Details Last Modified Time 07/16/2022 [id number] diarrhea: care instructions [email or web address] Not available 07/16/2022 12:14:20 gastroenteritis: care instructions [email or web address] Not available 07/16/2022 12:14:20 Reason for Referral None Reported. Results Created Date Observation Date Name Description Value Unit Range Abnormal Flag Note LastModifiedBy Organization Detail LastModifiedTime 07/16/19 23 07/16/2022 rapid flu (A+B) Unknown Analyte Normal = Negati ve Not Available [facility] [address] [place] [address], [phone], 07/16/2022 11:41:04 07/16/19 23 07/16/2022 rapid flu (A+B) Unknown Analyte Normal = Negati ve Not Available [address] [address] [place], [address], 07/16/2022 11:41:04 07/16/19 23 07/16/2022 rapid flu (A+B) Unknown Analyte negati ve Not Available [address], [place], [address], 07/16/2022 11:41:04 07/16/19 23 07/16/2022 rapid flu (A+B) Unknown Analyte negati ve Not Available [address] [place] [address], [phone], 07/16/2022 11:41:04 07/16/19 23 07/16/2022 rapid SARS CoV 2 Ag, QL IA, respi rator y speci men Unknown Analyte Normal =Negat agus Not Available [address] [place] [address], [place], [phone], 07/16/2022 11:41:21 07/16/19 23 07/16/2022 rapid SARS CoV 2 Ag, QL IA, respi rator y speci men Unknown Analyte negati ve Not Available [address] [place] [address] [place], [phone], 07/16/2022 11:41:21 Result Notes None recorded. Problems Name Problem SNOMED Code Status Onset Date Resolution Date Notes Provider Name and Address Organization Details Recorded Time Anxiety 15970033 Active 2022 MARIJA lowe PA - [facility] 11:31:24 Chronic interstitial cystitis 353502813 Active 2022 MARIJA lowe PA - [facility] 11:32:02 Problem Notes None recorded. Procedures Surgical History Date Name Laterality Status Provider Name and Address Organization Details Recorded Time excision of bilateral breasts completed MARIJA PRAVEEN PA - [facility] 07/16/2022 11:34:38 hysterectomy completed MARIJA CHINGTEAU PA - [facility] 07/16/2022 11:35:00 Colonoscopy & polypectomy completed MARIJA PRAVEEN PA - [facility] 07/16/2022 11:35:40 Imaging Results None recorded. Procedure Notes None recorded. Medical Equipment None Reported. Allergies Allergen ID Allergen Name Allergen Category Reaction Reaction Severity Criticality Documentation Date Start Date Code Code System Note Provider Name and Address Organization Details Recorded Time 917443 latex environme nt,medica tion rash Not available Not available 07/16/2022 34955 91 RxNorm MARIJA PRAVEEN null, PA - [facility] 3 11:54:38 059096 azithromy lorena medicatio n Not available Not available Not available 07/16/2022 04060 RxNorm MARIJA PRAVEEN null, PA - [facility] 3 11:55:24 126221 aspirin medicatio n Not available Not available Not available 07/16/2022 1191 RxNorm MARIJA PRAVEEN null, PA - [facility] 3 11:55:32 663609 cephalexi n medicatio n Not available Not available Not available 07/16/2022 2231 RxNorm MARIJA PRAVEEN null, PA - [facility] 3 11:55:44 896146 morphine medicatio n rash Not available Not available 07/16/2022 7052 RxNorm MARIJA PRAVEEN null, PA - [facility] 3 11:55:57 650073 naltrexon e medicatio n Not available Not available Not available 07/16/2022 7243 RxNorm MARIJA PRAVEEN null, PA - [facility] 3 11:56:12 659080 Substance with sulfonami de structure and antibacte rial mechanism of action (substanc e) medicatio n swelling Not available Not available 07/16/2022 76402 8003 SNOMED MARIJA PRAVEEN null, PA - [facility] 3 11:56:27 833416 terbinafi ne medicatio n Not available Not available Not available 07/16/2022 67955 RxNorm MARIJA PRAVEEN null, PA - [facility] 3 11:56:41 517448 methotrex ate medicatio n vomiting Not available Not available 07/16/2022 6851 RxNorm MARIJA PRAVEEN null, PA - [facility] 3 11:57:07 508274 oxycodone medicatio n other Not available Not available 07/16/2022 7804 RxNorm MARIJA PRAVEEN null, PA - [facility] 3 11:57:24 Medications Name Sig Start Date Stop Date Status Note LastModified by Organization Details LastModified Time celecoxib 200 mg capsule TAKE 1 CAPSULE BY MOUTH TWICE A DAY active Not Available Not Available No t Available Anti-Diarrh eal (loperamide ) 2 mg tablet TAKE 1 TABLET BY MOUTH 4 TIMES DAILY NEEDED FOR DIARRHEA. 07/16 completed Not Available Not Available Not Available ibuprofen 800 mg tablet TAKE 1 TABLET BY MOUTH 3 (THREE) TIMES DAILY NEEDED FOR FEVER, HEADACHES OR PAIN 07/16 completed Not Available Not Available Not Available promethazin e 12.5 mg tablet TAKE 1 TABLET BY MOUTH EVERY 6 (SIX) HOURS NEEDED FOR NAUSEA OR NAUSEA/VO MITING 07/16 completed Not Available Not Available Not Available cyanocobala min (vit B-12) 1,000 mcg tablet TAKE 1 TABLET BY MOUTH EVERY DAY 07/16 completed Not Available Not Available Not Available thiamine HCl (vitamin B1) 100 mg tablet TAKE 1 TABLET BY MOUTH EVERY DAY 07/16 completed Not Available Not Available Not Available peg-electro lyte solution 420 gram oral solution PLEASE SEE ATTACHED FOR DETAILED DIRECTION S 07/16 completed Not Available Not Available Not Available tramadol 50 mg tablet TAKE 1 TABLET BY MOUTH EVERY 6 HOURS NEW INS NEW YEAR REQS 1ST FILL 7 DAYS active Not Available Not Available No t Available ondansetron 8 mg disintegrat ing tablet TAKE 1 TABLET BY MOUTH 2 (TWO) TIMES DAILY NEEDED FOR NAUSEA 07/16 completed Not Available Not Available Not Available methotrexat e sodium 2.5 mg tablet TAKE 4 TABLETS ON FRIDAY OF EACH WEEK. 07/16 completed Not Available Not Available Not Available topiramate 25 mg sprinkle capsule TAKE 3 CAPSULES BY MOUTH EVERY DAY active Not Available Not Available No t Available lorazepam 2 mg tablet TAKE 1 TABLET BY MOUTH TWICE A DAY NEEDED FOR ANXIETY active Not Available Not Available No t Available calcitriol 0.5 mcg capsule TAKE 1 CAPSULE BY MOUTH ONCE DAILY active Not Available Not Available No t Available betamethaso ne, augmented 0.05 % topical ointment APPLY TWICE DAILY TO AFFECTED AREA ON FEET NEEDED 07/16 completed Not Available Not Available Not Available Tussin DM 10 mg-100 mg/5 mL oral liquid TAKE 5 ML BY MOUTH EVERY 4 TO 6 (FOUR TO SIX) HOURS NEEDED FOR COUGH OR CONGESTIO N 07/16 completed Not Available Not Available Not Available lorazepam 1 mg tablet TAKE 1 TO 2 TABLETS BY MOUTH TWICE A DAY active Not Available Not Available No t Available diazepam 10 mg tablet TAKE 1 TABLET INTRA-VAG INALLY EVERY DAY NEEDED active Not Available Not Available No t Available ondansetron 4 mg disintegrat ing tablet TAKE 1 TABLET BY MOUTH EVERY 8 HOURS NEEDED FOR NAUSEA AND VOMITING 07/16 completed Not Available Not Available Not Available topiramate 100 mg tablet TAKE 1 TABLET BY MOUTH TWICE A DAY active Not Available Not Available No t Available doxycycline hyclate 100 mg tablet TAKE 1 TABLET BY MOUTH TWICE A DAY 07/16 completed Not Available Not Available Not Available thiamine HCl (vitamin B1) 50 mg tablet TAKE 1 TABLET BY MOUTH TWICE A DAY 07/16 completed Not Available Not Available Not Available Ventolin HFA 90 mcg/actuati on aerosol inhaler INHALE 2 PUFFS INTO THE LUNGS EVERY 4 HOURS NEEDED FOR SHORTNESS OF BREATH OR WHEEZING 07/16 completed Not Available Not Available Not Available acamprosate 333 mg tablet,carmel yed release TAKE 2 TABLETS BY MOUTH THREE TIMES A DAY 07/16 completed Not Available Not Available Not Available Vitamin B-1 (mononitrat e) 100 mg tablet TAKE 1 TABLET BY MOUTH EVERY DAY active Not Available Not Available No t Available Dupixent 300 mg/2 mL subcutaneou s pen injector Inject by subcutane ous route. active Not Available Not Available No t Available Spectravite Women 50 Plus 8 mg iron-400 mcg-50 mcg tablet TAKE 1 TABLET BY MOUTH EVERY DAY active Not Available Not Available No t Available vitamin B12 2,500 mcg-folic acid 400 mcg disintegrat ing tablet Take by oral route. active Not Available Not Available No t Available Vitals Date Recorded Oxygen saturation Oxygen saturation in Arterial blood by Pulse oximetry Heart rate Respiratory rate Body temperature Body weight Body mass index (BMI) Body height Systolic And Diastolic Provider Name and Address Organization Details Last Updated DateTime 3 96 % 96 % 105 /min 16 /min 97.9 [degF] 58939.5 1 g 30.5 kg/m2 170.18 cm 120/82 mm[Hg] MARIJA MORTON PA - [facility] 3 11:39:27 Social History None recorded. Functional Status Question Answer Note LastModified by Organization D etails LastModified Time Do you or have you ever used any other forms of tobacco or nicotine? No Information not available 07/16/2022 Are you currently employed? Yes Information not available 07/16/2022 Mental Status None recorded. Family History Nothing Reported. Medical History No medical history recorded. Gynecological HistoryNo gynecological history recorded. Obstetrics History GPAL:G 0 P 0 0 0 0 Immunizations Vaccine Type Date Status Note Provider Nam e and Address Organization Details Recorded Time COVID-19, mRNA, LNP-S, PF, 30 mcg/0.3 mL dose, rajendra-sucrose 2021 completed MARIJA MORTON null, PA - [facility] 07/16/2022 11:27:45 COVID-19, mRNA, LNP-S, PF, 30 mcg/0.3 mL dose, rajendra-sucrose 09/06/2021 completed MARIJA MORTON null, PA - [facility] 07/16/2022 11:27:46 Past Encounters Encounter ID Performer Location Encounter Start Date Encounter Closed Date Diagnosis/Indication Diagnosis SNOMED-CT Code Diagnosis ICD10 Code Diagnosis Note [id number] [place] [address] [address] 07/16/2022 09:56:52 07/16/2022 12:20:36 Viral gastroenteritis 290908909 A08.4 improving Health Concerns Section Related Observation LastModified by Organization Detai ls LastModified Time None Recorded Concern Status LastModified by Organization Details LastModified Time None Recorded Advance Directives Directive None Recorded Payers Insurance Date Sequence Insurance Name Policy Number Policy Barrios Covered Member ID Barrios Member ID Guarantor Name 09/16/2022 2 [place] [facility] Yoselin Gonzalez [id number] Yoselin Gonzalez 09/16/2022 1 [place] [employer] Yoselin Gonzalez [id number] Yoselin Gonzalez OBGyn Episode No OBEpisode recorded.
--- OUTSIDE RECORDS SUMMARY | 2025-01-24 12:49 | XMS_ITS | Clinical Summary ---
Author Organization [facility] Address [address] [facility] [place] [address] Care Team Providers Care Anesthesiologist/Physician Name Role Phone Jordan Kay Primary Care Provider [phone] Source Comments PLEASE NOTE, if this patient is a minor, it may be UNLAWFUL to discuss sensitive information that is contained in these records (such as FAMILY PLANNING, MENTAL HEALTH or SUBSTANCE ABUSE) with the minor patient's parent or other person without the patient's specific authorization.[facility] Allergies Active Allergy Reactions Criticality Noted Date Comments Aspirin Other (See Comments) 05/20/2019 Upset stomach Atorvastatin Hives 12/25/2023 Azithromycin 02/13/2021 Cephalexin Rash,Nausea Only High 05/20/2019 Ezetimibe Nausea and Vomiting 01/06/2025 Latex Rash High 05/20/2019 Methotrexate 01/15/2024 Other Reaction(s): vomiting Morphine Hives High 09/19/2017 Naltrexone Other (See Comments) 05/20/2019 Feels ill Sulfa (Sulfonamide Antibiotics) Swelling High 05/20/2019 Sulfur Hives High 09/19/2017 Terbinafine Nausea Only 04/06/2021 Feel sick Medications albuterol sulfate 90 mcg/actuation inhalerIndications :bronchospasm prevention Inhale 2 Puffs into the lungs every 4 (four) hours as needed for shortness of breath or wheezing Indications: bronchospasm prevention 18 g 12/15/19 22 Active cyanocobalamin, vitamin B-12, 1,000 mcg tabletIndications: Malnutrition, unspecified type (CMS & HHS-HCC) TAKE 1 TABLET BY MOUTH EVERY DAY 90 Tablet 1 02/13/20 22 Active topiramate (TOPAMAX) 100 mg tablet Take 100 mg by mouth 09/22/19 22 Active methotrexate sodium 2.5 mg tablet 02/12/20 22 Active DUPIXENT PEN 300 mg/2 mL pnij 02/21/20 22 Active pantoprazole (PROTONIX) 20 mg EC tablet Take 20 mg by mouth 03/24/20 21 Active VITAMIN B-1, MONONITRATE, 100 mg tabIndications:Mal nutrition, unspecified type (CMS & HHS-HCC) TAKE 1 TABLET BY MOUTH EVERY DAY 30 Tablet 2 03/11/20 22 Active traMADoL (ULTRAM) 50 mg tablet Take 50 mg by mouth every 6 (six) hours 03/14/20 22 Active SPECTRAVITE WOMEN 50 PLUS 8 mg iron-400 mcg-300 mcg tabIndications:COV ID-19,Interstitial cystitis (chronic) without hematuria TAKE 1 TABLET BY MOUTH EVERY DAY 90 Tablet 2 11/01/19 23 Active calcitrioL (ROCALTROL) 0.5 mcg capsuleIndications :Vitamin D deficiency TAKE 1 CAPSULE BY MOUTH ONCE DAILY 90 Capsule 2 01/02/20 23 Active dicyclomine (BENTYL) 20 mg tablet Take 20 mg by mouth 12/29/19 23 Active hydrOXYzine pamoate (VISTARIL) 50 mg capsule 12/30/19 23 Active cloNIDine (CATAPRES) 0.1 mg tablet 01/21/20 23 Active traZODone (DESYREL) 50 mg tablet 01/01/20 23 Active cyclobenzaprine (FLEXERIL) 10 mg tablet 01/14/20 23 Active risankizumab-rzaa (SKYRIZI) 150 mg/mL pnij Inject into the skin 03/26/20 23 Active TAZORAC 0.05 % crea APPLY TO AFFECTED AREAS TWICE DAILY, MAY REPEAT NEEDED 02/21/20 23 Active naloxone (NARCAN) 4 mg/actuation nasal spray Place 1 [place] into the nostril(s) as needed for opioid reversal (Overdose) 1 Each 04/29/20 23 Active nicotine (NICOTROL) 10 mg inhaler Inhale 1 Puff into the lungs as needed for smoking cessation (every 2 hours as needed) for up to 21 days 168 Each 1 05/01/20 23 Active clotrimazole-betam ethasone (LOTRISONE) 1-0.05 % creamIndications:S eborrheic dermatitis APPLY TOPICALLY TWICE A DAY 15 g 2 09/01/19 24 Active semaglutide (OZEMPIC) 0.25 mg or 0.5 mg (2 mg/3 mL) pen injectorIndication s:Obesity without serious comorbidity, unspecified classification, unspecified obesity type,Prediabetes Inject 0.25 mg into the skin once a week Week 1 through week 4 : 0.25 mg once weekly. Week 5 through week 8: 0.5 mg once weekly. Week 9 through week 12: 1 mg once weekly. Week 13 through week 16: 1.7 mg once weekly. 6 mL 1 09/16/19 24 Active metFORMIN XR (GLUCOPHAGE-XR) 500 mg 24 hr tabletIndications: Prediabetes Take 1 Tablet by mouth once daily with dinner 90 Tablet 1 09/19/19 24 Active blood sugar diagnostic (BLOOD GLUCOSE TEST) stripsIndications: Class 1 obesity Use to test blood sugar once daily. (OneTouch Ultra) 100 Each 3 10/08/19 24 Active lancets 33 gaugeIndications:C lass 1 obesity Use to test blood sugar once daily. (OneTouch Delica 33G) 100 Each 10/08/19 24 Active alcohol swabsIndications:C lass 1 obesity Use to test blood sugar once daily. 100 Each 10/08/19 24 Active blood-glucose meter (ONETOUCH ULTRA2 METER) monitoring kitIndications:Cla ss 1 obesity USE TO TEST BLOOD SUGAR ONCE DAILY. 1 Each 10/10/19 24 Active LORazepam (ATIVAN) 2 mg tabletIndications: Anxiety TAKE 1 TABLET BY MOUTH TWICE A DAY NEEDED FOR ANXIETY 60 Tablet 3 01/13/20 24 Active thiamine mononitrate (VITAMIN B-1, MONONITRATE,) tablet Take 1 Tablet by mouth once daily Active tirzepatide, weight loss, (ZEPBOUND) 2.5 mg/0.5 mL pnijIndications:Ob esity without serious comorbidity, unspecified classification, unspecified obesity type,Prediabetes INJECT 2.5 MG INTO THE SKIN ONCE A WEEK *NOT COVERED* 2 mL 1 01/20/20 24 Active ELDERBERRY Take 350 mg by mouth 02/19/20 24 Active garlic 1,000 mg cap 0 Refills, Maintenance, 02/19/24 13:16:00 EDT, Partial fill upon patient request if the prescription is for a schedule II opioid drug. 02/19/20 24 Active Y1-QI-C1-copper-Zn -Baikal-jenn 250 mg-500 mcg- 4.5 mg-1.4 mg tab Take by mouth 02/19/20 24 Active cholecalciferol (VITAMIN D3) 50 mcg (2,000 unit) capsule Take 50 mcg by mouth 02/19/20 24 Active cyanocobalamin/fol ic acid (VITAMIN P37-HEEFT ACID) 2,500-400 mcg TbDi Take by oral route. Active LORazepam (ATIVAN) 2 mg tabletIndications: Anxiety,Alcohol withdrawal syndrome without complication ([facility]) TAKE 1 TABLET BY MOUTH TWICE A DAY NEEDED FOR ANXIETY 60 Tablet 04/05/20 24 Active scopolamine (TRANSDERM-SCOP) 1 mg over [address] 1 PATCH ONTO THE SKIN EVERY THIRD DAY (EVERY 72 HOURS) 10 Patch 1 06/11/20 24 Active ondansetron ODT (ZOFRAN-ODT) 4 mg disintegrating tablet Take 1 Tablet by mouth every 8 (eight) hours as needed for nausea 21 Tablet 08/25/19 25 Active LORazepam (ATIVAN) 2 mg tabletIndications: Anxiety TAKE 1 TABLET BY MOUTH TWICE A DAY NEEDED FOR ANXIETY 60 Tablet 1 10/05/19 25 Active buPROPion SR (WELLBUTRIN SR) 150 mg 12 hr tabletIndications: Encounter for smoking cessation counseling TAKE 1 TABLET BY MOUHT ONCE DAILY FOR 3 DAYS THEN INCREASE TO 1 TABLET 2 TIMES DAILY. 180 Tablet 3 11/16/19 25 Active diazePAM (VALIUM) 10 mg tabletIndications: Chronic interstitial cystitis INSERT 1 TABLET VAGINALLY ONCE DAILY NEEDED FOR INTERSTITIAL CYSTISIS. 30 Tablet 2 11/24/19 25 Active LORazepam (ATIVAN) 2 mg tabletIndications: Anxiety TAKE 1 TABLET BY MOUTH TWICE A DAY NEEDED FOR ANXIETY. 60 Tablet 1 11/24/19 25 Active ezetimibe (ZETIA) 10 mg tabletIndications: Hyperlipidemia, unspecified hyperlipidemia type Take 1 Tablet by mouth once daily. 90 Tablet 1 12/31/19 25 025 Discontin ued(Cance lled) Active Problems Problem Noted Date Diagnosed Date Rheumatoid arthritis ([facility]) 03/30/2024 Prediabetes 03/30/2024 Psoriasis with arthropathy ([facility]) 03/30 Generalized anxiety disorder 10/29/2023 Alcohol use disorder 10/29/2023 H/O: hysterectomy 01/27/2023 History of bladder suspension procedure 01/28/20 23 Class 1 obesity 05/14/2022 History of cystopexy 05/14/2022 Migraine 05/14/2022 Premenstrual tension syndrome 05/14/2022 Status post hysterectomy 05/14/2022 Tubular adenoma of colon 2021 Overview (03/20/2022): repeat screening colonoscopy in 2024 repeat screening colonoscopy in 2024 Anxiety 08/13/2021 Disease due to severe acute respiratory syndrome coronavirus 2 (SARS-CoV-2) 08/03/2021 Overview (08/28/2021): Problem added by Discern Expert Absence of breast 07/28/2021 Atypical lobular hyperplasia (ALH) of breast IBS (irritable bowel syndrome) 07/28/2021 Alcohol abuse 03/14/2021 Aching headache 05/25/2019 Atypical mole syndrome 05/25/2019 Hypertension secondary to EtOH abuse 06/19/2018 History of breast cancer 06/19/2018 Overview (06/19/2018): Followed by Dr. Ko Elizalde History of prolonged Q-T interval on ECG 018 Overview (06/19/2018): Avoid QT prolonging drugs Fatty liver 04/18/2018 Overview (05/20/2019): Fatty liver on abd CT 05/10/19 noted, decreased from prior examination 04/18/18. Alcohol withdrawal syndrome without complication (CMS & HHS-HCC) 09/19/2017 Overview (01/30/2018): Admitted to [facility] 01/21/18-01/23/18 for alcohol withdrawal. Alcohol-induced chronic pancreatitis (CMS & HHS- HCC) 09/19/2017 Interstitial cystitis 09/19/2017 Resolved Problems Problem Noted Date Diagnosed Date Resolved Date Rhinitis 05/14/2022 06/13/2022 Drug-seeking behavior 06/19/20182021 Encounters Date Type Department Care Team Description 12/30/2024 11:00 AM EDT Office Visit [address] [address] Paz Rose NP from Last 3 Months Immunizations Immunization Administration Dates Next Due PFIZER COVID VACCINE, PURPLE CAP, 12+ 2021 ,09/06/2021 PNEUMOCOCCAL POLYSACCHARIDE PPV23 (Pneumovax 23) 02/11/2016,01/30/2010 TDAP 02/02/2017,09/14/2015 Td (adult) unspecified 08/13/2005 Social History Tobacco Use Types Packs/Day Years Used Date Smoking Tobacco: Some Days Cigarettes Smokeless Tobacco: Never Tobacco Cessation:Ready to Q uit: Yes; Counseling Given: Not Answered Comments:stop 3 weeks ago Alcohol Use Standard Drinks/Week Comments Not Currently 0 (1 standard drink = 0.6 oz pur e alcohol) Social Connections Answer Date Recorded Connectedness 1 09/11/2023 Financial Resource Strain Answer Date R ecorded Financial Resource Strain 1 2023 Stress Answer Date Recorded Stress 1 09/11/2023 Food Insecurity Answer Date Recorded Food 1 09/11/2023 Transportation Needs Answer Date Record ed Transportation 1 09/11/2023 Housing Stability Answer Date Recorded Housing 1 09/11/2023 Safety and Environment Answer Date Mehdi rded Safety 1 09/11/2023 Utilities Answer Date Recorded Utilities 1 09/11/2023 Employment Answer Date Recorded Employment 0 02/19/2019 Comments No Sex and Gender Information Value Date Recorded Sex Assigned at Female 09/19/2017 8:30 AM PDT Legal Sex Female 6:27 AM PST Gender Identity Female 09/19/2017 8:30 AM PDT Sexual Orientation Straight 09/19/2017 8: 30 AM PDT Last Filed Vital Signs Vital Sign Reading Time Taken Comments Blood Pressure 116/81 12/30/2024 10:37 AM EDT Pulse 93 12/30/2024 10:37 AM EDT Temperature 36.8 C (98.3 F) 12/30/2024 10:37 AM EDT Respiratory Rate 16 12/30/2024 10:37 AM EDT Oxygen Saturation 96% 06/28/2024 11:19 AM EST Inhaled Oxygen Concentration - - Weight 80.4 kg (177 lb 3.2 oz) 12/30/2024 10:37 AM EDT Height 170.2 cm (5' 7 ) 06/28/2024 11:19 AM EST Body Mass Index 27.75 06/28/2024 11:19 AM EST Plan of Treatment Health Maintenance Due Date Last Done Comments Medicare Annual Wellness Visit 10/04/1981 Imm-Zoster, Recombinant (1 of 2) 10/04/1982 CT Colonography 10/04/2008 Fecal DNA 10/04/2008 Flexible Sigmoidoscopy 10/04/2008 Imm-Pneumococcal 50+ (3 of 3 - PCV) 02/10/2017 02/11/2016, 01/30/2010 FIT/gFOBT 02/13/2019 02/13/2018, 01/28, 02/02/2018 Sws-WFEIJ-05 (3 - Pfizer ris k series) 11/02/2021 2021, 09/06/2021 Urine Drug Screen 03/14/2022 03/14/2021, , 03/14/2021, Additional history exists Diabetes Screening 02/17/2025 02/18/2024, 0 11/10/2023, 11/10/2023, Additional history exists Tobacco Cessation Counseling (#1) 11/15/2025 08/25/2024, 03/20/2022, 03/08/2021, Additional history exists Anxiety Screening 12/30/2025 12/30/2024 Colonoscopy 10/02/2026 10/02/2021, 10/02/2021 Colorectal Cancer Screening 10/02/2026 Imm-DTaP/Tdap/Td (4 - Td or Tdap) 02/02/2027 02/02/2017, 01/02/2017, 09/14/2015, Additional history exists Lipid Screening 12/25/2027 12/24/2024, 10/28, 04/06/2021, Additional history exists Breast Cancer Screening (Mammogram) Discontinued 02/02/2018 HIV Screening Completed 03/14/2021, 11/28/2017 Hepatitis C Screening Completed 03/14/2021, 018 Alcohol and Drug Screen Completed 12/31/19, 09/11/2023, 04/29/2023, Additional history exists Depression Annual Screen Completed 12/30/2024 Imm-Influenza Discontinued Goals Goal Patient Goal Type Associated Problems Recent Progress Patient-Stated? Author Blood Pressure < 130/80 Blood Pressure Hypertension secondary to EtOH abuse 116/81(2024 10:37 AM EDT) No Warren Downs, PharmD Procedures Procedure Name Priority Date/Time Associated Diagnosis Comments LIPID PANEL Routine 12/24/2024 8:38 AM EDT Alcohol-induced chronic pancreatitis (CMS & HHS-HCC) Alcohol withdrawal syndrome without complication (CMS & HHS-HCC) Fatty liver Class 1 obesity Prediabetes HEPATIC FUNCTION PANEL Routine 12/24/2024 8:38 AM EDT Alcohol-induced chronic pancreatitis (CMS & HHS-HCC) Alcohol withdrawal syndrome without complication (CMS & HHS-HCC) Fatty liver Class 1 obesity Prediabetes REFERRAL SCANNED DOCUMENT 10/29/2024 3:00 AM EDT HEMOGLOBIN GLYCOSYLATED A1C Routine 02/18/2024 11:41 AM EDT Blood sugar increased REFERRAL FOR COLONOSCOPY Routine 10/02/2021 3:00 AM EDT Blood in stool Encounter for colorectal cancer screening DRUG MONITORING, OPIATES EXPANDED, QUANTITATIVE, URINE Routine 03/14/2021 12:21 PM EDT Alcohol withdrawal syndrome without complication (HCC-CMS) HIV 1/2 AG & AB W/RFLX (4TH GEN) Routine 03/14/2021 11:51 AM EDT Alcohol abuse HEPATITIS C AB W/RFLX HCV RNA, QT, RT PCR Routine 03/14/2021 11:51 AM EDT Alcohol abuse FECAL OCCULT BLOOD HEMOCCULT X3, RUDDY LYNNE (POCT) Routine 02/13/2018 4:42 PM EDT Routine adult health maintenance from Last 3 Months or Most Recently Relevant to Health Maintenance Results * HEPATIC FUNCTION PANEL Routine (12/24/2024 8:38 AM EDT) Pathologist [facility] PROTEIN, TOTAL 7.2 6.1 - 8.1 g/dL [facility] ALBUMIN 4.5 3.6 - 5.1 g/dL [facility] GLOBULIN 2.7 1.9 - 3.7 g/dL (calc) [facility] ALBUMIN/GLOBULIN RATIO 1.7 1.0 - 2.5 (calc) [facility] BILIRUBIN, TOTAL 0.4 0.2 - 1.2 mg/dL [facility] BILIRUBIN, DIRECT 0.1 0.0 - 0.2 mg/dL [facility] BILIRUBIN, INDIRECT 0.3 0.2 - 1.2 mg/dL (calc) [facility] ALKALINE PHOSPHATASE 88 37 - 153 U/L [facility] AST 14 10 - 35 U/L [facility] ALT 13 6 - 29 U/L [facility] Blood Blood / Unknown 12/24/2024 8 :38 AM EDT 12/24/2024 8:38 AM EDT Jordan ARAIZA LAB - BLOOD DRAW Edited Result - Final [facility] [address] [address], [employer] [address] [address] * (ABNORMAL) LIPID PANEL Routine (12/24/2024 8:38 AM EDT) CHOLESTEROL, TOTAL 266(H) <200 mg/dL [facility] HDL CHOLESTEROL 72 > OR = 50 mg/dL [facility] TRIGLYCERIDES 190(H) <150 mg/dL [facility] LDL-CHOLESTEROL 159(H) 99 mg/dL (calc) [facility] Comment: Reference range: <100 Desirable range <100 mg/dL for primary prevention; <70 mg/dL for patients with CHD or diabetic patients with > or = 2 CHD risk factors. LDL-C is now calculated using the [place] calculation, which is a validated novel method providing better accuracy than the Friedewald equation in the estimation of LDL-C. Xander GIBBONS et al. RICKIE. 2013;310(19): 7640-7546 (http://education.SpongeFish.LOOKSIMA/faq/YCQ601) CHOL/HDLC RATIO 3.7 <5.0 (calc) [facility] NON-HDL CHOLESTEROL 194(H) <130 mg/dL (calc) [facility] Comment: For patients with diabetes plus 1 major ASCVD risk factor, treating to a non-HDL-C goal of <100 mg/dL (LDL-C of <70 mg/dL) is considered a therapeutic option. Blood Blood / Unknown 12/24/2024 8 :38 AM EDT 12/24/2024 8:38 AM EDT us Jordan ARAIZA LAB - BLOOD DRAW Final Result [employer] [address] [place] [id number], [facility] [address] [place] [phone] * REFERRAL SCANNED DOCUMENT (10/29/2024 3:00 AM EDT) 10/29/2024 3:00 AM EDT us Jordan ARAIZA SCAN REFERRAL Final Result * HEMOGLOBIN GLYCOSYLATED A1C (02/18/2024 11:41 AM EDT) HEMOGLOBIN A1C 5.5 <5.7 % of total Hgb [facility] Comment: For the purpose of screening for the presence of diabetes: <5.7% Consistent with the absence of diabetes 5.7-6.4% Consistent with increased risk for diabetes (prediabetes) > or =6.5% Consistent with diabetes This assay result is consistent with a decreased risk of diabetes. Currently, no consensus exists regarding use of hemoglobin A1c for diagnosis of diabetes in children. According to [place] Diabetes Association (ADA) guidelines, hemoglobin A1c <7.0% represents optimal control in non- diabetic patients. Different metrics may apply to specific patient populations. Standards of Medical Care in Diabetes(ADA). Blood Blood / Unknown 02/18/2024 1 1:41 AM EDT 02/18/2024 11:42 AM EDT us Jordan ARAIZA LAB - BLOOD DRAW Final Result Performing Organization Address [facility] Co de Phone Number [facility] [address] [address], [employer] [address] [address] * REFERRAL FOR COLONOSCOPY (10/02/2021 3:00 AM EDT) 10/02/2021 3:00 AM EDT Jordan ARAIZA REFERRAL Edited Result - Final * DRUG MONITORING, OPIATES EXPANDED, QUANTITATIVE, URINE (03/14/2021 12:21 PM EDT) Pathologist [facility] CODEINE NEGATIVE <50 [facility] [place] [employer] HYDROCODONE NEGATIVE <50 [facility] HYDROMORPHONE NEGATIVE <50 [facility] MORPHINE NEGATIVE <50 [employer] [facility] NORHYDROCODONE NEGATIVE <50 [facility] [place] [employer] Comments See Note [facility] Comment:See LDT Notes NOROXYCODONE NEGATIVE <50 [facility] OXYCODONE NEGATIVE <50 [facility] OXYMORPHONE NEGATIVE <50 [facility] Oxycodone Comments See Note Q [facility] [employer] Comment:See LDT Notes Urine Urine specimen / Unknown 03/14/2021 12:21 PM EDT 03/14/2021 10:37 PM EDT Katia Lemus APRN LAB URINE AMBULATORY Final Res ult Performing Organization Address [facility]/ZIP Co de Phone Number [phone] [facility] [address] [address], [employer] [address] [address] * HEPATITIS C AB W/RFLX HCV RNA, QT, RT PCR (03/14/2021 11:51 AM EDT) HEPATITIS C ANTIBODY NON-REACT EMERITA NON-REACT EMERITA [employer] [facility] SIGNAL TO CUT-OFF 0.01 <1.00 [facility] Comment: HCV antibody was non-reactive. There is no laboratory evidence of HCV infection. In most cases, no further action is required. However, if recent HCV exposure is suspected, a test for HCV RNA (test code 39729) is suggested. For additional information please refer to http://Voxa.ITN/faq/KMB85x7 (This link is being provided for informational/ educational purposes only.) Blood Blood / Unknown 03/14/2021 1 1:51 AM EDT 03/14/2021 11:52 AM EDT Katia Lemus APRN LAB - BLOOD DRAW Final Result Performing Organization Address City/[facility]/ZIP Co de Phone Number [facility] [address] [address], [facility] [address] [address] * HIV 1/2 AG & AB W/RFLX (4TH GEN) (03/14/2021 11:51 AM EDT) [facility] HIV AG/AB, 4TH GEN NON-REAC TIVE NON-REAC TIVE [facility] Comment: HIV-1 antigen and HIV-1/HIV-2 antibodies were not detected. There is no laboratory evidence of HIV infection. PLEASE NOTE: This information has been disclosed to you from records whose confidentiality may be protected by state law. If your state requires such protection, then the state law prohibits you from making any further disclosure of the information without the specific written consent of the person to whom it pertains, or as otherwise permitted by law. A general authorization for the release of medical or other information is NOT sufficient for this purpose. For additional information please refer to http://Voxa.Kenandy.LOOKSIMA/faq/WWQ297 (This link is being provided for informational/ educational purposes only.) The performance of this assay has not been clinically validated in patients less than 2 years old. Blood Blood / Unknown 03/14/2021 1 1:51 AM EDT 03/14/2021 11:52 AM EDT Katia Lemus HOP [facility]ORTER LAB - BLOOD DRAW Final Result [facility] [address] [facility] [address] [place] [address], [facility] [place] [facility] [address] [address] * STOOL OCCULT BLOOD (POCT) (02/13/2018 4:42 PM EDT) FECAL OCCULT BLOOD NEGATIVE NEGATIVE [facility] POCT FECAL OCCULT BLOOD #2 NEGATIVE NEGATIVE [facility]CT FECAL OCCULT BLOOD #3 NEGATIVE NEGATIVE [facility] POCT Stool specimen (specimen) Stool specimen / Unknown 02/13/2018 4:42 PM EDT Jordan ARAIZA LAB - BLOOD DRAW Final Result [facility] POCT from Last 3 Months or Most Recently Relevant to Health Maintenance Insurance [place]IC[place] - [place] Care Teams Anesthesiologist/Physician Relationship Specialty Start Date End Date Jordan Kay PA [address] [place] [address] PCP - General Internal Medicine 08/19/17
[2025-01-24] MEDS: Lactated Ringers 1,000 ML 999 ML IV (13:02)
[2025-01-24 14:30] VITALS: BP 134/81; PULSE 79; RESP 18; TEMP 36.7; O2SAT 95
[2025-01-24 16:10] VITALS: BP 149/82; PULSE 72; RESP 18; TEMP 36.7; O2SAT 95
[2025-01-24] MEDS: diazePAM 10 MG/2 ML CARTRIDGE 5 MG IVPUSH (16:20)
--- NOTE | 2025-01-24 17:16 | PM.IMHP ---
History of Present Illness Date of Service: 01/24/25 Chief Complaint: Abdominal pain This has a 59-year-old female with pertinent history of alcohol use disorder in remission, chronic interstitial cystitis, irritable bowel syndrome, mood disorder, mixed hyperlipidemia, gastroesophageal reflux disease who presents to the emergency department for evaluation of abdominal pain. The patient states she has had epigastric abdominal pain for the last 4 weeks which has been progressive, worse after p.o. intake, nonradiating. She also developed associated black stools, 2 episodes a day. Patient called her PCP's office who advised the patient to come to the ER. Does report intermittent nausea and symptoms of gastroesophageal reflux disease. No fever, chills, chest pain, palpitations, shortness of breath, changes in urinary or bowel habits. In the emergency department, imaging concerning for ileus. Review of Systems Constitutional: Constitutional: Reports fatigue and Reports malaise Cardiovascular: Cardiovascular: Reports no additional cardiovascular complaints Respiratory: Respiratory: Reports no additional respiratory complaints Gastrointestinal: Gastrointestinal: Reports abdominal pain Genitourinary: Genitourinary: Reports no additional female genitourinary complaints Endocrine: Endocrine: Reports fatigue [facility] Medical History EtOH dependence Pertinent family history: No family history of early CAD Social History Household Members: None Housing: Apartment Housing Other:: multi family home on third floor Do you presently have visiting nurse or other home services: No Alcohol intake: current Alcohol intake frequency: other Alcohol type: hard liquor Comment: Pt refusing assistance ambulating to BR. Steady on observation Patient Tobacco Use Status: Current everyday Tobacco user Tobacco use type: Cigarette Cigarette Packs Per Day: 0.25 Cigarettes Per Day: 5.0 Years Smoked: 20 Second Hand Smoke Exposure: Yes Substance Use Type: Marijuana Advance Directives: No Advance Directives Information Provided: Yes service: No Meds Allergies Allergy/AdvReac Type Severity Reaction Status Date / Time aspirin (ASA) Allergy Mild STOMACH Verified 01/24/25 09:50 UPSET cephalexin Allergy Mild Gastrointestinal Verified 01/24/25 09:50 Upset latex (LATEX) Allergy Mild RASH Verified 01/24/25 09:50 morphine (MORPHINE) Allergy Mild RASH, Verified 01/24/25 09:50 swelling, redness Sulfa (Sulfonamide Allergy Mild RASH, Verified 01/24/25 09:50 Antibiotics) (SULFA swelling, (SULFONAMIDE ANTIBIOTICS)) redness terbinafine Allergy Mild Nausea and Verified 01/24/25 09:50 Vomiting azithromycin Allergy Rash Verified 01/24/25 09:50 clonazepam (From Klonopin) AdvReac Mild Gastrointestinal Verified 01/24/25 09:50 Upset metformin AdvReac Constipatio Verified 01/24/25 09:50 n Latex Allergy Unknown swelling, Uncoded 01/24/25 09:50 redness Home Medications ?Medication ?Instructions ?Recorded ?Confirmed ?Last Taken ?Type cyanocobalamin (vitamin B-12) 1,000 mcg PO DAILY 07/10/21 06/07/24 06/06/24 History 1,000 mcg tablet cholecalciferol (vitamin D3) 50 50 mcg PO DAILY 06/07/24 06/07/24 Unknown History mcg (2,000 unit) tablet (Vitamin D3) diazepam 10 mg tablet See Rx Instructions .Route 06/07/24 06/07/24 06/06/24 History .COMPLEX PRN Interstitial cystisis folic acid 400 mcg tablet 0.4 mg PO DAILY 06/07/24 06/07/24 Unknown History lorazepam 2 mg tablet 2 mg PO BID PRN anxiety 06/07/24 06/07/24 06/06/24 History magnesium 250 mg tablet 500 mg PO DAILY 06/07/24 06/07/24 Unknown History multivitamin with minerals-folic 1 tab PO DAILY 06/07/24 06/07/24 Unknown History acid 80 mcg chewable tablet (Centrum Adult 50 Plus) niacin 500 mg tablet 500 mg PO DAILY 06/07/24 06/07/24 Unknown History tramadol 50 mg tablet 50 mg PO QID 06/07/24 06/07/24 06/06/24 History bupropion HCl 150 mg tablet,12 hr 150 mg PO 01/24/25 Unknown History sustained-release ezetimibe 10 mg tablet 10 mg PO DAILY 01/24/25 Unknown History Physical Exam Vital Signs and Narrative: Vital Signs: Last Vital Signs Temp 98.1 F 01/24/25 16:10 Pulse 72 01/24/25 16:10 Resp 18 01/24/25 16:10 BP 149/82 H 01/24/25 16:10 Pulse Ox 95 01/24/25 16:10 O2 Del Method Room Air 01/24/25 16:10 BMI result Body Mass Index 27.4 Middle-aged female lying in bed in no distress Neck supple, no JVD Regular rate and rhythm, S1-S2 heard Regular breath sounds bilaterally, no wheezing or crackles appreciated Abdomen with mild epigastric tenderness, no guarding, no rigidity Patient is awake, alert and oriented to self, place, time and person ; no focal motor deficit Psych: Normal mood No pedal edema Results Labs 01/24/25 10:04 01/24/25 10:04 Labs: Laboratory Results - last 24 hr 01/24/25 01/24/25 01/24/25 10:04 11:30 12:28 MCV 96.9 MCH 32.7 MCHC 33.7 RDW 14.2 Plt Count 271 MPV 8.6 L Immature Gran % (Auto) 0.2 Neut % (Auto) 65.8 Lymph % (Auto) 25.9 [place] % (Auto) 6.5 Eos % (Auto) 1.0 Baso % (Auto) 0.6 Lymph # (Auto) 2.3 [place] # (Auto) 0.6 Eos # (Auto) 0.1 Baso # (Auto) 0.1 Abs Immat Gran (auto) 0.02 Absolute Neuts (auto) 5.8 Absolute Nucleated RBC 0.000 Nucleated RBC % (auto) 0.0 Anion Gap 14 Estim Creat Clear Calc 72.8 Estimated GFR > 60 Random Glucose 111 Calcium 9.9 D Total Bilirubin 0.3 Direct Bilirubin 0.1 AST 22 ALT 16 Alkaline Phosphatase 104 Total Protein 7.9 Albumin 4.8 Urine Color Yellow Urine Appearance Clear Urine pH 6.5 Ur Specific [place] 1.010 Urine Protein Negative Urine Glucose (UA) Negative Urine Ketones Negative Urine Blood Trace H Urine Nitrite Negative Ur Leukocyte Esterase Negative Urine RBC 3-5 H Urine WBC 0-5 Ur Squamous Epith Cells 0-2 Urine Bacteria None Seen Hyaline Casts 0-2 Stool Occult Blood Cancelled Imaging Radiologist's Impressions: Impressions Abdomen/Pelvis CT 01/24/25 13:10 IMPRESSION: Distal duodenum and proximal jejunum are borderline dilated with air-fluid levels all within a single plain. There is a gradual transition to more decompressed bowel most consistent with a paralytic ileus. There is flocculent high density material within the small bowel lumen that mild to moderately limits the examination. No definite intraluminal contrast extravasation was evident. There is a lipid rich adrenal adenoma on the left, benign Fleischner guidelines were followed. Electronically signed by: Kp Jennings MD 01/24/2025 03:07 PM EDT RP Assessment and Plan (1) Abdominal pain: Status: Acute Plan This has a 59-year-old female with pertinent history of alcohol use disorder in remission, chronic interstitial cystitis, irritable bowel syndrome, mood disorder, mixed hyperlipidemia, gastroesophageal reflux disease who presents to the emergency department for evaluation of abdominal pain. #. Abdominal pain with dark stools: Will admit patient and keep her NPO. Initiated IV Protonix. Gastroenterology consult. H&H stable. #. Ileus: NPO for bowel rest. Continue IV crystalloid resuscitation. Check magnesium. Encourage early ambulation and reduced opiates. Not actively vomiting #. Alcohol use disorder: In remission #. Mood disorder: Continue home mood stabilizers once med rec is complete Med rec pending DVT prophylaxis: SCDs Full code Admit as inpatient and will require two night minimum hospital stay for evaluation of abdominal pain with dark stools, management of ileus (as above), which is not possible in a lesser acute setting. Quality Stroke Does the patient have a stroke diagnosis?: No VTE Prior VTE?: No VTE Risk Level:: Medical - moderate - high VTE Device Contraindication: Treatment Not Indicated VTE Drug Contraindication: N/A - Med Ordered
[2025-01-24 17:33] LABS: OBS Int Ctl Valid YES; OBS1 NEGATIVE (NEGATIVE)
[2025-01-24] MEDS: Lactated Ringers 1,000 ML 100 ML IVCONT (18:42)
[2025-01-24 19:00] LABS: Magnesium 2.0 mg/dL (1.6-2.6)
[2025-01-24 19:14] VITALS: BP 140/87; PULSE 77; RESP 16; TEMP 36.6; O2SAT 96
--- NOTE | 2025-01-24 20:19 | PHA.MEDREC ---
Addendum entered by Ines Manzanares [facility] 01/24/25 21:11: REVIEWED BY PHARMACIST Original Note: Pharmacy Consult ? Medication Reconciliation Pharmacy has completed the medication reconciliation. Spoke with pt and she was able to confirm her medications. Pt confirmed she no longer takes the Ezetimibe, stating when she started it a few weeks ago pt took one dose and got violently sick from it.
--- NOTE | 2025-01-24 20:43 | PM.CNGS ---
History of Present Illness Consult details Consult date: 01/24/25 Narrative: 59-year-old female with pertinent history of alcohol use disorder in remission, chronic interstitial cystitis, irritable bowel syndrome, mood disorder, mixed hyperlipidemia, gastroesophageal reflux disease who presents to the emergency department for evaluation of abdominal pain. The patient states she has had epigastric abdominal pain for the last 4 weeks which has been progressive, worse after p.o. intake, nonradiating. She also developed associated black stools, 2 episodes a day. Patient called her PCP's office who advised the patient to come to the ER. Does report intermittent nausea and symptoms of gastroesophageal reflux disease. No fever, chills, chest pain, palpitations, shortness of breath, changes in urinary or bowel habits. Patient has had her gallbladder removed couple years ago although she says that the pain that she is having feels a little bit like her gallbladder. She denies drinking saying that she quit drinking alcohol a little while ago. She complains that her abdomen is more bloated than normal. She has been burping a little bit. She denies taking any aspirin or NSAIDs but does say that she was taking Tylenol for arthritis which may have some type of NSAID adjuvant. She says she has never had black tarry stool before. Apparently here in the emergency room guaiac of the stools were negative. H&H is stable. Review of Systems Review of Systems: Yes all other systems are reviewed and are negative PMFSH Past Medical History Medical History EtOH dependence Social History Social History Household Members: None Housing: Apartment Housing Other:: multi family home on third floor Do you presently have visiting nurse or other home services: No Alcohol intake: current Alcohol intake frequency: other Alcohol type: hard liquor Comment: Pt refusing assistance ambulating to BR. Steady on observation Patient Tobacco Use Status: Current everyday Tobacco user Tobacco use type: Cigarette Cigarette Packs Per Day: 0.25 Cigarettes Per Day: 5.0 Years Smoked: 20 Second Hand Smoke Exposure: Yes Substance Use Type: Marijuana Advance Directives: No Advance Directives Information Provided: Yes service: No Meds Allergies Allergy/AdvReac Type Severity Reaction Status Date / Time aspirin (ASA) Allergy Mild STOMACH Verified 01/24/25 09:50 UPSET cephalexin Allergy Mild Gastrointestinal Verified 01/24/25 09:50 Upset latex (LATEX) Allergy Mild RASH Verified 01/24/25 09:50 morphine (MORPHINE) Allergy Mild RASH, Verified 01/24/25 09:50 swelling, redness Sulfa (Sulfonamide Allergy Mild RASH, Verified 01/24/25 09:50 Antibiotics) (SULFA swelling, (SULFONAMIDE ANTIBIOTICS)) redness terbinafine Allergy Mild Nausea and Verified 01/24/25 09:50 Vomiting azithromycin Allergy Rash Verified 01/24/25 09:50 clonazepam (From Klonopin) AdvReac Mild Gastrointestinal Verified 01/24/25 09:50 Upset metformin AdvReac Constipatio Verified 01/24/25 09:50 n Latex Allergy Unknown swelling, Uncoded 01/24/25 09:50 redness Active Medications: Current Medications Acetaminophen (Acetaminophen 325 Mg Tablet) 650 mg PO Q6H PRN PRN Reason: Pain, Mild 1-3,fever,headache Calcium Carbonate (Calcium Carbonate 750 Mg Tab.Chew) 750 mg PO Q4H PRN PRN Reason: Heartburn Lactated Ringer's (Lr) 1,000 mls @ 100 mls/hr IVCONT .Q10H [facility] Stop: 01/25/25 04:29 Last Admin: 01/24/25 18:42 Dose: 100 mls/hr Magnesium Hydroxide (Milk Of Magnesia 30 Ml Oral.Susp) 30 ml PO DAILY PRN PRN Reason: Constipation Melatonin (Melatonin 3 Mg Tablet) 6 mg PO BEDTIME PRN PRN Reason: Insomnia Ondansetron HCl (Ondansetron Hcl 4 Mg/2 Ml Vial) 4 mg IVPUSH Q8H PRN PRN Reason: Nausea and Vomiting Pantoprazole Sodium (Pantoprazole Sodium 40 Mg/10 Ml Vial) 40 mg IVPUSH BID@0630,1630 [facility] Sodium Chloride (0.9 % Sodium Chloride Flush 3 Ml Syringe) 3 ml IVFLUSH QSHIFT [facility] Home Medications ?Medication ?Instructions ?Recorded ?Confirmed ?Last Taken ?Type cyanocobalamin (vitamin B-12) 1,000 mcg PO DAILY 07/10/21 01/24/25 01/24/25 History 1,000 mcg tablet cholecalciferol (vitamin D3) 50 50 mcg PO DAILY 06/07/24 01/24/25 01/24/25 History mcg (2,000 unit) tablet (Vitamin D3) diazepam 10 mg tablet See Rx Instructions .Route 06/07/24 01/24/25 01/24/25 History .COMPLEX PRN Interstitial cystisis folic acid 400 mcg tablet 0.4 mg PO DAILY 06/07/24 01/24/25 01/24/25 History lorazepam 2 mg tablet 2 mg PO BID PRN anxiety 06/07/24 01/24/25 01/24/25 History tramadol 50 mg tablet 50 mg PO QID 06/07/24 01/24/25 01/24/25 History acetaminophen 650 mg 650 mg PO Q8H PRN Pain 01/24/25 01/24/25 Unknown History tablet,extended release calcitriol 0.5 mcg capsule 0.5 mcg PO DAILY 01/24/25 01/24/25 01/24/25 History lysine 1,000 mg tablet 1,000 mg PO DAILY 01/24/25 01/24/25 01/24/25 History magnesium citrate,mag oxide 250 mg 500 mg PO DAILY 01/24/25 01/24/25 01/24/25 History capsule melatonin 10 mg tablet 10 mg PO BEDTIME 01/24/25 01/24/25 01/23/25 History multivit,Ca,min-iron 8 mg-folic 1 tab PO DAILY 01/24/25 01/24/25 01/24/25 History acid 200 mcg-lycopene 600 mcg tablet (Men's Daily Multivitamin) vitamin E (dl, acetate) 450 mg 450 mg PO DAILY 01/24/25 01/24/25 01/24/25 History (1,000 unit) capsule zinc acetate 50 mg (zinc) capsule 50 mg PO DAILY 01/24/25 01/24/25 01/24/25 History Physical Exam Vital Signs: Vital Signs: Last Vital Signs Temp 97.8 F 01/24/25 19:14 Pulse 77 01/24/25 19:14 Resp 16 01/24/25 19:14 BP 140/87 H 01/24/25 19:14 Pulse Ox 96 01/24/25 19:14 O2 Del Method Room Air 01/24/25 19:14 BMI result Body Mass Index 27.4 Const: General: cooperative, healthy appearing, comfortable and no acute distress Orientation/consciousness: patient oriented x3 Resp: Effort & Inspection: normal respiratory effort Auscultation: clear to auscultation bilaterally Cardio: Rate: regular rate Rhythm: regular rhythm GI: Other: Abdomen is soft distended a little tender in the epigastric to left lower quadrant with some mild guarding no rebound no peritoneal signs normal bowel sounds no hernias noted Inspection: Yes normal to inspection Skin: Other: Nonicteric Neuro: General: patient oriented x3 Results Labs 01/24/25 10:04 01/24/25 10:04 Labs: Abnormal lab results 01/24/25 01/24/25 Range/Units 10:04 11:30 MPV 8.6 L (9.4-12.3) fL Potassium 5.5 H D (3.3-5.1) mmol/L BUN 23 H (9-16) mg/dL Urine Blood Trace H (Negative) Urine RBC 3-5 H (0-2) /HPF Short CBC 01/24/25 Range/Units 10:04 WBC 8.7 (4.8-10.8) X10*3/uL Hgb 13.9 (12.0-16.0) g/dl Hct 41.2 (37.0-47.0) % Plt Count 271 (160-400) X10*3/uL BMP 01/24/25 10:04 Sodium 140 Potassium 5.5 H D Chloride 103 Carbon Dioxide 29 BUN 23 H Creatinine 0.88 Calcium 9.9 D Liver Function 01/24/25 Range/Units 10:04 Total Bilirubin 0.3 (0.0-1.0) mg/dL Direct Bilirubin 0.1 (0.0-0.5) mg/dL AST 22 (5-31) U/L ALT 16 (0-31) U/L Alkaline Phosphatase 104 (39-117) U/L Albumin 4.8 (3.5-5.0) g/dL Urine 01/24/25 Range/Units 11:30 Urine Color Yellow Urine Appearance Clear Urine pH 6.5 (5.0-9.0) Ur Specific [place] 1.010 (1.005-1.025) Urine Protein Negative (Neg-Trace) mg/dL Urine Glucose (UA) Negative (Negative) mg/dL All other labs normal. Imaging Abdomen CT scan report/results: report reviewed and image reviewed CT scan - pelvis: report reviewed and image reviewed Additional studies: Patient: Yoselin Gonzalez MR#: [id number] : 1965 Acct:[id number] Age/Sex: 59 / F ADM Date: 01/24/25 Loc: HO.ED Attending Dr: Ordering Physician: Macario Jiménez PA-C Date of Service: 01/24/25 Procedure(s): CT gi bleed abd pel wo/w IVcon Accession Number(s): [id number] cc: Macario Jiménez PA-C; EUN LAMBERT Report Number: [id number]: Total DLP = 1870.00 mGy-cm EXAMINATION: CT ABDOMEN AND PELVIS WITHOUT AND WITH CONTRAST CLINICAL INFORMATION: Abdominal pain, ethanol use disorder, COMPARISON: June 07, 2024 TECHNIQUE: Multidetector volumetric imaging was performed of the abdomen and pelvis before and after the IV administration of 80 mL of Omnipaque 300 intravenous contrast. Sagittal and coronal reformatted images were obtained on the technologist's workstation. This CT examination was performed using dose optimization techniques as appropriate, variously including the following: *Automated exposure control *Adjustment of mA and/or kV according to patient size (this includes techniques or standardized protocols for targeted exams where dose is matched to indication/reason for exam; i.e. extremities or head) *Use of iterative reconstruction technique FINDINGS: LUNG BASES: The visualized lung bases are unremarkable. LIVER, GALLBLADDER, AND BILIARY TREE: The liver is normal in size, shape, and attenuation. No focal hepatic lesion or biliary ductal dilatation is present. Gallbladder surgically absent. There are clips in the gallbladder fossa. Extrahepatic bile duct is mildly prominent PANCREAS: Unremarkable SPLEEN: Unremarkable ADRENAL GLANDS: 13 mm left adrenal nodule measured -10 Hounsfield units on precontrast with the benign lipid rich adrenal adenoma. Right adrenal gland is unremarkable. KIDNEYS AND URETERS: There are at least 3 punctate calcifications in the left kidneys are present small nonobstructing stones. BLADDER: Decompressed and not well demonstrated. GASTROINTESTINAL TRACT: There are scattered high density material within the proximal small bowel on pre and post contrast images consistent with ingested flocculent material rather than extravasated contrast. No intraluminal contrast extravasation is clearly evident. The distal duodenum and proximal jejunum are borderline dilated with air-fluid levels in a similar plane. There is a gradual transition to decompressed small bowel. There is also moderate gas in the colon, mostly in the nondependent colon. A normal appendix is identified. ABDOMINAL WALL: No significant hernia is appreciated. LYMPH NODES: Normal VASCULAR: Mild multifocal vascular calcifications are present. PELVIC VISCERA: Uterus surgically absent. Adnexa are unremarkable. There is no ascites. OSSEOUS STRUCTURES: Moderate chronic superior endplate fracture of L2 is stable. CT/CT gi bleed abd pel wo/w IVcon IMPRESSION: Distal duodenum and proximal jejunum are borderline dilated with air-fluid levels all within a single plain. There is a gradual transition to more decompressed bowel most consistent with a paralytic ileus. There is flocculent high density material within the small bowel lumen that mild to moderately limits the examination. No definite intraluminal contrast extravasation was evident. There is a lipid rich adrenal adenoma on the left, benign Fleischner guidelines were followed. Electronically signed by: Kp Jennings MD 01/24/2025 03:07 PM EDT RP Dictated By: Kp Jennings MD Signed By: <Electronically signed by Kp Jennings MD in OV> 01/24/25 1507 DD/ 1310 TD/TT: 01/24/25 1434 Technology Training Associate: Assessment and Plan (1) Ileus: Status: Acute Plan 59-year-old female with abdominal pain now with some abdominal distention and black tarry stools question etiology labs have been stable. At this point no evidence of any intra-abdominal pathology requiring surgery. Rule out upper and lower GI bleed. Medical team admitting and following labs. We will follow with you Procedures Date of Service Date of Service: 01/24/25
[2025-01-24 21:12] VITALS: BP 134/94; PULSE 66; RESP 18; TEMP 36.1; O2SAT 98
[2025-01-24 21:37] VITALS: BMI 29.7
[2025-01-25 04:00] VITALS: BP 121/72; PULSE 76; RESP 18; TEMP 36.7; O2SAT 96
[2025-01-25] MEDS: Lactated Ringers 1,000 ML 80 ML IVCONT ×2 (05:36→17:31)
[2025-01-25 06:03] LABS: MANUAL DIFF FLAG NO
[2025-01-25 06:16] LABS: Hematocrit 38.6 % (37.0-47.0); Hemoglobin 12.7 g/dl (12.0-16.0); Imm Gran Abs Auto 0.01 X10*3/uL (0.00-0.03); Imm Gran Pct Auto 0.2 % (0.0-0.4); Lymphocytes Absolute Auto 1.5 X10*3/uL (1.2-4.9); Mean Corpuscular HGB Conc 32.9 g/dl (31.0-35.0); Mean Corpuscular Hemoglobin 31.9 pg (27.0-33.0); Mean Corpuscular Volume 97.0 fL (80.0-98.0); NRBC Abs Auto 0.000 X10*3/uL (0.0-0.012); NRBC Pct Auto 0.0 /100WBC (0.0-0.2); Platelet Count 234 X10*3/uL (160-400); Red Blood Count 3.98 X10*6/uL (4.20-5.50); White Blood Count 6.6 X10*3/uL (4.8-10.8)
[2025-01-25 06:33] LABS: Anion Gap 12 (12-20); Blood Urea Nitrogen 14 mg/dL (9-16); Calcium 9.0 mg/dL (8.4-10.2); Carbon Dioxide 28 mmol/L (22-29); Chloride 106 mmol/L (96-108); Creatinine Clr Calc Pharmacy 93.8; Estimated Glomerular Filt Rate > 60; Potassium 3.9 mmol/L (3.3-5.1); Sodium 142 mmol/L (135-145)
[2025-01-25 06:42] VITALS: BP 133/83; PULSE 75; RESP 16; TEMP 36.6; O2SAT 98
--- NOTE | 2025-01-25 10:16 | P.PNIM_ITS ---
Subjective Subjective Date of Service: 01/25/25 Interval History: No more episodes of black stools overnight. Minimal abdominal discomfort Constitutional Constitutional: Reports fatigue and Reports malaise Cardiovascular Cardiovascular: Reports no additional cardiovascular complaints Respiratory Respiratory: Reports no additional respiratory complaints Gastrointestinal Gastrointestinal: Reports abdominal pain Endocrine Endocrine: Reports fatigue Physical Exam 2 Vital Signs: Vital Signs: Last Vital Signs Temp 98 F 01/25/25 06:42 Pulse 75 01/25/25 06:42 Resp 16 01/25/25 06:42 BP 133/83 01/25/25 06:42 Pulse Ox 98 01/25/25 06:42 O2 Del Method Room Air 01/25/25 06:42 BMI result Body Mass Index 29.7 Middle-aged female lying in bed in no distress Neck supple, no JVD Regular rate and rhythm, S1-S2 heard Regular breath sounds bilaterally, no wheezing or crackles appreciated Abdomen with mild epigastric tenderness, no guarding, no rigidity Patient is awake, alert and oriented to self, place, time and person ; no focal motor deficit Psych: Normal mood No pedal edema Objective Data Active Medications Acetaminophen (Acetaminophen 325 Mg Tablet) 650 mg PO Q6H PRN PRN Reason: Pain, Mild 1-3,fever,headache Calcium Carbonate (Calcium Carbonate 750 Mg Tab.Chew) 750 mg PO Q4H PRN PRN Reason: Heartburn Hydromorphone HCl (Hydromorphone Hcl 0.5 Mg/0.5 Ml Syringe) 0.5 mg IVPUSH Q4H PRN; Protocol PRN Reason: Pain, Severe (Pain Scale 7-10) Last Admin: 01/25/25 09:03 Dose: 0.5 mg Documented By: CARLOS Lactated Ringer's (Lr) 1,000 mls @ 80 mls/hr IVCONT .[id number] JO-ANN Last Admin: 01/25/25 05:36 Dose: 80 mls/hr Documented By: VENKAT Lorazepam (Lorazepam 1 Mg Tablet) 2 mg PO BID PRN PRN Reason: Anxiety Last Admin: 01/25/25 04:02 Dose: 2 mg Documented By: VENKAT Comments: per pt takes 1st dose of medication at 5AM Magnesium Hydroxide (Milk Of Magnesia 30 Ml Oral.Susp) 30 ml PO DAILY PRN PRN Reason: Constipation Melatonin (Melatonin 3 Mg Tablet) 6 mg PO BEDTIME PRN PRN Reason: Insomnia Ondansetron HCl (Ondansetron Hcl 4 Mg/2 Ml Vial) 4 mg IVPUSH Q8H PRN PRN Reason: Nausea and Vomiting Last Admin: 01/25/25 04:09 Dose: 4 mg Documented By: VENKAT Pantoprazole Sodium (Pantoprazole Sodium 40 Mg/10 Ml Vial) 40 mg IVPUSH BID@0630,1630 [facility] Last Admin: 01/25/25 05:45 Dose: 40 mg Documented By: VENKAT Sodium Chloride (0.9 % Sodium Chloride Flush 3 Ml Syringe) 3 ml IVFLUSH QSHIFT [facility] Last Admin: 01/25/25 07:13 Dose: Not Given Documented By: CARLOS Non-Admin Reason: IV Running Tramadol HCl (Tramadol Hcl 50 Mg Tablet) 50 mg PO QID [facility] Last Admin: 01/25/25 04:03 Dose: 50 mg Documented By: VENKAT Comments: per pt takes 1st dose of medication at 5AM Labs 01/25/25 05:36 01/25/25 05:36 Labs: Laboratory Results - last 24 hr 01/24/25 01/24/25 01/24/25 10:04 11:30 12:28 MCV MCH MCHC RDW Plt Count MPV Immature Gran % (Auto) Neut % (Auto) Lymph % (Auto) [place] % (Auto) Eos % (Auto) Baso % (Auto) Lymph # (Auto) [place] # (Auto) Eos # (Auto) Baso # (Auto) Abs Immat Gran (auto) Absolute Neuts (auto) Absolute Nucleated RBC Nucleated RBC % (auto) Anion Gap 14 Estim Creat Clear Calc 72.8 Estimated GFR > 60 Random Glucose 111 Calcium 9.9 D Magnesium 2.0 Total Bilirubin 0.3 Direct Bilirubin 0.1 AST 22 ALT 16 Alkaline Phosphatase 104 Total Protein 7.9 Albumin 4.8 Urine Color Yellow Urine Appearance Clear Urine pH 6.5 Ur Specific [place] 1.010 Urine Protein Negative Urine Glucose (UA) Negative Urine Ketones Negative Urine Blood Trace H Urine Nitrite Negative Ur Leukocyte Esterase Negative Urine RBC 3-5 H Urine WBC 0-5 Ur Squamous Epith Cells 0-2 Urine Bacteria None Seen Hyaline Casts 0-2 Stool Occult Blood Cancelled 01/24/25 01/25/25 17:26 05:36 MCV 97.0 MCH 31.9 MCHC 32.9 RDW 14.2 Plt Count 234 MPV 8.8 L Immature Gran % (Auto) 0.2 Neut % (Auto) 67.3 Lymph % (Auto) 21.9 [place] % (Auto) 8.3 Eos % (Auto) 1.8 Baso % (Auto) 0.5 Lymph # (Auto) 1.5 [place] # (Auto) 0.6 Eos # (Auto) 0.1 Baso # (Auto) 0.0 Abs Immat Gran (auto) 0.01 Absolute Neuts (auto) 4.5 Absolute Nucleated RBC 0.000 Nucleated RBC % (auto) 0.0 Anion Gap 12 Estim Creat Clear Calc 93.8 Estimated GFR > 60 Random Glucose 99 Calcium 9.0 D Magnesium Total Bilirubin Direct Bilirubin AST ALT Alkaline Phosphatase Total Protein Albumin Urine Color Urine Appearance Urine pH Ur Specific [place] Urine Protein Urine Glucose (UA) Urine Ketones Urine Blood Urine Nitrite Ur Leukocyte Esterase Urine RBC Urine WBC Ur Squamous Epith Cells Urine Bacteria Hyaline Casts Stool Occult Blood NEGATIVE Assessment and Plan (1) Abdominal pain: Status: Acute (2) Ileus: Status: Acute Plan This has a 59-year-old female with pertinent history of alcohol use disorder in remission, chronic interstitial cystitis, irritable bowel syndrome, mood disorder, mixed hyperlipidemia, gastroesophageal reflux disease who presents to the emergency department for evaluation of abdominal pain. #. Abdominal pain with dark stools: NPO. Initiated IV Protonix. Gastroenterology consult pending. H&H stable. #. Ileus: NPO for bowel rest. Continue IV crystalloid resuscitation. Check magnesium. Encourage early ambulation and reduced opiates. General surgery on board #. Alcohol use disorder: In remission #. Mood disorder: Continue home mood stabilizers once she is no longer NPO DVT prophylaxis: SCDs Full code Reason for continued hospitalization: evaluation of abdominal pain with dark stools, management of ileus Quality Stroke Does the patient have a stroke diagnosis?: No VTE Prior VTE?: No VTE Risk Level:: Medical - moderate - high VTE Device Contraindication: Treatment Not Indicated VTE Drug Contraindication: N/A - Med Ordered
--- NOTE | 2025-01-25 12:49 | PM.PNGS ---
Subjective Subjective Date of Service: 01/25/25 <Fuad Aviles PA-C - Last Filed: 01/25/25 14:19> 01/25/25 <Codie Ho MD - Last Filed: 01/25/25 19:06> Interval history: patient continues to have pain in the upper abdomen. has continued dark stools. Gi consult pending . Still feels bloated. passing gas and stools <Fuad Aviles PA-C - Last Filed: 01/25/25 14:19> Physical Exam Vital Signs: Vital Signs: Last Vital Signs Temp 98 F 01/25/25 06:42 Pulse 75 01/25/25 06:42 Resp 16 01/25/25 06:42 BP 133/83 01/25/25 06:42 Pulse Ox 98 01/25/25 06:42 O2 Del Method Room Air 01/25/25 06:42 BMI result Body Mass Index 29.7 <Fuad Aviles PA-C - Last Filed: 01/25/25 14:19> Const: General: comfortable and no acute distress <Fuad Aviles PA-C - Last Filed: 01/25/25 14:19> Orientation/consciousness: patient oriented x3 <Fuad Aviles PA-C - Last Filed: 01/25/25 14:19> GI: Inspection: Yes normal to inspection and No distended <Fuad Aviles PA-C - Last Filed: 01/25/25 14:19> Palpation (GI): Soft to palpation, Tenderness to palpation present (GI) (epigastric) in the epigastrum, in the LUQ and in the RUQ, no guarding and not rigid <Fuad Aviles PA-C - Last Filed: 01/25/25 14:19> Neuro: General: patient oriented x3 <LINN Boyer Last Filed: 01/25/25 14:19> Objective Data Active Medications Acetaminophen (Acetaminophen 325 Mg Tablet) 650 mg PO Q6H PRN PRN Reason: Pain, Mild 1-3,fever,headache Calcium Carbonate (Calcium Carbonate 750 Mg Tab.Chew) 750 mg PO Q4H PRN PRN Reason: Heartburn Hydromorphone HCl (Hydromorphone Hcl 0.5 Mg/0.5 Ml Syringe) 0.5 mg IVPUSH Q4H PRN; Protocol PRN Reason: Pain, Severe (Pain Scale 7-10) Last Admin: 01/25/25 09:03 Dose: 0.5 mg Documented By: CARLOS Lactated Ringer's (Lr) 1,000 mls @ 80 mls/hr IVCONT .[id number] [facility] Last Admin: 01/25/25 05:36 Dose: 80 mls/hr Documented By: VENKAT Lorazepam (Lorazepam 1 Mg Tablet) 2 mg PO BID PRN PRN Reason: Anxiety Last Admin: 01/25/25 04:02 Dose: 2 mg Documented By: VENKAT Comments: per pt takes 1st dose of medication at 5AM Magnesium Hydroxide (Milk Of Magnesia 30 Ml Oral.Susp) 30 ml PO DAILY PRN PRN Reason: Constipation Melatonin (Melatonin 3 Mg Tablet) 6 mg PO BEDTIME PRN PRN Reason: Insomnia Ondansetron HCl (Ondansetron Hcl 4 Mg/2 Ml Vial) 4 mg IVPUSH Q8H PRN PRN Reason: Nausea and Vomiting Last Admin: 01/25/25 04:09 Dose: 4 mg Documented By: VENKAT Pantoprazole Sodium (Pantoprazole Sodium 40 Mg/10 Ml Vial) 40 mg IVPUSH BID@0630,1630 [facility] Last Admin: 01/25/25 05:45 Dose: 40 mg Documented By: VENKAT Sodium Chloride (0.9 % Sodium Chloride Flush 3 Ml Syringe) 3 ml IVFLUSH QSHIFT [facility] Last Admin: 01/25/25 07:13 Dose: Not Given Documented By: CARLOS Non-Admin Reason: IV Running Tramadol HCl (Tramadol Hcl 50 Mg Tablet) 50 mg PO QID [facility] Last Admin: 01/25/25 04:03 Dose: 50 mg Documented By: VENKAT Comments: per pt takes 1st dose of medication at 5AM <Fuad Aviles PA-C - Last Filed: 01/25/25 14:19> Labs CBC & Chem 7: 01/25/25 05:36 01/25/25 05:36 <Fuad Aviles PA-C - Last Filed: 01/25/25 14:19> Labs: Laboratory Results - last 24 hr 01/24/25 01/24/25 01/24/25 10:04 12:28 17:26 MCV MCH MCHC RDW Plt Count MPV Immature Gran % (Auto) Neut % (Auto) Lymph % (Auto) [place] % (Auto) Eos % (Auto) Baso % (Auto) Lymph # (Auto) [place] # (Auto) Eos # (Auto) Baso # (Auto) Abs Immat Gran (auto) Absolute Neuts (auto) Absolute Nucleated RBC Nucleated RBC % (auto) Anion Gap Estim Creat Clear Calc Estimated GFR Random Glucose Calcium Magnesium 2.0 Stool Occult Blood Cancelled NEGATIVE 01/25/25 05:36 MCV 97.0 MCH 31.9 MCHC 32.9 RDW 14.2 Plt Count 234 MPV 8.8 L Immature Gran % (Auto) 0.2 Neut % (Auto) 67.3 Lymph % (Auto) 21.9 [place] % (Auto) 8.3 Eos % (Auto) 1.8 Baso % (Auto) 0.5 Lymph # (Auto) 1.5 [place] # (Auto) 0.6 Eos # (Auto) 0.1 Baso # (Auto) 0.0 Abs Immat Gran (auto) 0.01 Absolute Neuts (auto) 4.5 Absolute Nucleated RBC 0.000 Nucleated RBC % (auto) 0.0 Anion Gap 12 Estim Creat Clear Calc 93.8 Estimated GFR > 60 Random Glucose 99 Calcium 9.0 D Magnesium Stool Occult Blood <Fuad Aviles PA-C - Last Filed: 01/25/25 14:19> Procedures Date of Service Date of Service: 01/25/25 <Fuad Aviles PA-C - Last Filed: 01/25/25 14:19> 01/25/25 <Codie Ho MD - Last Filed: 01/25/25 19:06> Progress Note: A&P Assessment and plan (1) Ileus: Status: Acute <Fuad Aviles PA-C - Last Filed: 01/25/25 14:19> (2) Abdominal pain: Status: Acute <Fuad Aviles PA-C - Last Filed: 01/25/25 14:19> Assessment and Plan: 59 year old female admitted for upper GI bleed, illeus. H&H currently stable, Gi consult pending. Patient has continued upper abdominal pain, mild nausea. Passing dark stools. Still feels bloated. She is currently non obstructed, passing gas and stool. No current plan for surgical intervention. Would expect patient to have upper endoscopy this admission. would keep NPO for now until GI consult ambulation as tolerated. serial abdominal exams will continue to follow during this admission <Fuad Aviles PA-C - Last Filed: 01/25/25 14:19> 59 year old female admitted for upper GI bleed, illeus. H&H currently stable, Gi consult pending. Patient has continued upper abdominal pain, mild nausea. Passing dark stools. Still feels bloated. She is currently non obstructed, passing gas and stool. No current plan for surgical intervention. Would expect patient to have upper endoscopy this admission. would keep NPO for now until GI consult ambulation as tolerated. serial abdominal exams will continue to follow during this admission Patient is seen and examined independently still complaining of some crampy abdominal pain but passing gas abdomen is soft not as tender there is no evidence of any obstruction would advance her diet H&H is stable. GI to see and determine whether they may want to carry the upper EGD at least during this admission. <Codie Ho MD - Last Filed: 01/25/25 19:06> Time Spent With Patient Time: Total time managing care of this patient today ____ minutes. <Fuad Aviles PA-C - Last Filed: 01/25/25 14:19> Quality Stroke Does the patient have a stroke diagnosis?: No <Fuad Aviles PA-C - Last Filed: 01/25/25 14:19> VTE Prior VTE?: No <Fuad Aviles PA-C - Last Filed: 01/25/25 14:19> VTE Risk Level:: Medical - moderate - high <Fuad Aviles PA-C - Last Filed: 01/25/25 14:19> VTE Device Contraindication: Treatment Not Indicated <Fuad Aviles PA-C - Last Filed: 01/25/25 14:19> VTE Drug Contraindication: N/A - Med Ordered <Fuad Aviles PA-C - Last Filed: 01/25/25 14:19>
[2025-01-25 16:00] VITALS: BP 123/94; PULSE 81; RESP 18; TEMP 36.2; O2SAT 95
--- NOTE | 2025-01-25 16:12 | MHC.CM.PN ---
IMM delivered. Patient lives in an apartment alone. Functionally independent. Denies use of services or DME. PCP Edmond ARAIZA @ [facility] Reports she has an HCP naming her daughter, Lilian, as HCA. Copy requested. DP: Goal is home, self care, family transport. CM will continue to follow.
[2025-01-25 19:38] VITALS: BP 141/77; PULSE 87; RESP 20; TEMP 36.4; O2SAT 96
[2025-01-25] MEDS: 0.9 % Sodium Chloride Flush 3 ML SYRINGE IVFLUSH (20:19)
[2025-01-26] VITALS (14 sets, daily range): BP systolic 115–158; BP diastolic 58–90; PULSE 65–94; RESP 12–18; TEMP 36.2–37.1; O2SAT 93–98; BMI 28.2
[2025-01-26] MEDS: Milk of Magnesia 30 ML ORAL.SUSP PO ×2 (00:09→23:09)
--- NOTE | 2025-01-26 03:02 | CONS_ITS ---
DATE OF SERVICE: 01/25/2025 REFERRING PHYSICIAN: Dr. Woodard REASON FOR CONSULTATION: Abdominal pain. HISTORY OF PRESENT ILLNESS: The patient is a pleasant 59-year-old woman who was admitted to the hospital after presenting to the emergency department with complaints of abdominal pain. She describes symptoms over a 4-week period prior to admission when she developed a gastroenteritis type picture and when she had nausea, vomiting, and diarrhea and she has had crampy abdominal pain, bloating and black stools that have been sticky, but not frankly melenic. She was advised to come to the emergency department for evaluation after talking to her primary care doctor and underwent laboratory testing and imaging, which are reviewed. On admission, her hematocrit was 41 and has remained stable at 38 today. Chemistries are reviewed and have basically been stable. Hemoccult testing was negative for occult blood and imaging including CT scanning of the abdomen and pelvis showed changes consistent with paralytic ileus. There was borderline dilation of the distal duodenum and proximal jejunum, but no evidence of bowel obstruction. She denies any prior history of peptic ulcer disease. She does not use NSAIDs and does not drink alcohol to excess. She does smoke. She reports previously undergoing both upper endoscopy and colonoscopy with the GI provider in [place]. She has a history of colon polyps and is scheduled for colonoscopy in May of this year. She believes her upper endoscopy showed no significant findings, but was unsure of the date. PAST MEDICAL HISTORY: 1. Alcohol abuse in the past. 2. Interstitial cystitis. 3. Irritable bowel syndrome. 4. Mood disorder. 5. Hyperlipidemia. 6. Gastroesophageal reflux disease. She takes Tums p.r.n. for this and is not on a PPI regularly. CURRENT MEDICATIONS: List is reviewed in the chart. ALLERGIES: THERE ARE MULTIPLE MEDICATION ALLERGIES THAT ARE REVIEWED. FAMILY HISTORY: This is negative for GI malignancy. SOCIAL HISTORY: She does smoke. She denies alcohol use because of a history of dependence and does not use intravenous drugs, but does use marijuana regularly. REVIEW OF SYSTEMS: SKIN: No pruritus. HEENT: Negative. CARDIOPULMONARY: No shortness of breath or chest pain. GASTROINTESTINAL: As above. GENITOURINARY: Negative. NEUROPSYCHIATRIC: Negative. PHYSICAL EXAMINATION: GENERAL: Shows a pleasant female, lying comfortably in bed. She complains of abdominal pain, but appears quite comfortable. VITAL SIGNS: Reviewed in the electronic medical record and are stable. SKIN: Anicteric. HEENT: Shows no scleral icterus. NECK: Without lymphadenopathy or thyromegaly. LUNGS: Clear. HEART: Shows a regular rate and rhythm. S1, S2. No murmur. ABDOMEN: Soft. There is some mild epigastric tenderness to palpation, but no guarding or rebound. Bowel sounds are present. No organomegaly is noted. EXTREMITIES: Without edema. Laboratory data including imaging studies and chemistries as well as other testing are reviewed. IMPRESSION: Abdominal pain, some of her symptoms could be related to the ileus described on the CT scan. She also has irritable bowel syndrome and I have prescribed dicyclomine 20 mg 4 times daily to see if this helps any of her symptoms. She will undergo upper endoscopy tomorrow for further evaluation and she does not take anything that would cause dark stools such as iron or Pepto-Bismol and does not appear to be actively GI bleeding as evidence by her stable hematocrit. She is aware of risks and benefits and agrees to proceed. I agree with treating her with pantoprazole intravenously for the time being. She can have clear liquids today and n.p.o. after midnight for her procedure. Thanks for asking me to see her. I will follow her in the hospital with you. MD REJI Henson/RABIA / [id number] MTDD
[2025-01-26] MEDS: Lactated Ringers 1,000 ML 80 ML IVCONT (06:08)
[2025-01-26 06:28] LABS: MANUAL DIFF FLAG NO
[2025-01-26 06:36] LABS: Hematocrit 39.3 % (37.0-47.0); Hemoglobin 13.6 g/dl (12.0-16.0); Imm Gran Abs Auto 0.02 X10*3/uL (0.00-0.03); Imm Gran Pct Auto 0.3 % (0.0-0.4); Lymphocytes Absolute Auto 1.5 X10*3/uL (1.2-4.9); Mean Corpuscular HGB Conc 34.6 g/dl (31.0-35.0); Mean Corpuscular Hemoglobin 33.0 pg (27.0-33.0); Mean Corpuscular Volume 95.4 fL (80.0-98.0); NRBC Abs Auto 0.000 X10*3/uL (0.0-0.012); NRBC Pct Auto 0.0 /100WBC (0.0-0.2); Platelet Count 233 X10*3/uL (160-400); Red Blood Count 4.12 X10*6/uL (4.20-5.50); White Blood Count 6.5 X10*3/uL (4.8-10.8)
--- NOTE | 2025-01-26 08:06 | P.PNGS_ITS ---
Subjective Subjective Date of Service: 01/26/25 <Fuad Aviles PA-C - Last Filed: 01/26/25 10:16> 01/26/25 <Luis A Wood MD - Last Filed: 01/26/25 14:05> Patient reports: no new complaints <LINN Boyer Last Filed: 01/26/25 10:16> Interval history: no acute changes from yesterday. Mostly left abdominal pain well controlled with meds, but as they wear off she feels more pain and bloating, continues to pass gas, no BM. patient having upper EGD this afternoon <Fuad Aviles PA-C - Last Filed: 01/26/25 10:16> Physical Exam 2 Vital Signs: Vital Signs: Last Vital Signs Temp 97.9 F 01/26/25 06:54 Pulse 74 01/26/25 06:54 Resp 16 01/26/25 06:54 BP 118/58 L 01/26/25 06:54 Pulse Ox 95 01/26/25 06:54 O2 Del Method Room Air 01/26/25 06:54 BMI result Body Mass Index 29.7 <Fuad Aviles PA-C - Last Filed: 01/26/25 10:16> Const: General: comfortable and no acute distress <LINN Boyer Last Filed: 01/26/25 10:16> Orientation/consciousness: patient oriented x3 <Fuad Aviles PA-C - Last Filed: 01/26/25 10:16> Resp: Effort & Inspection: normal respiratory effort and able to speak in complete sentences <Fuad Aviles PA-C - Last Filed: 01/26/25 10:16> GI: Inspection: Yes distended (mild) <LINN Boyer Last Filed: 01/26/25 10:16> Palpation (GI): Soft to palpation, not firm, Tenderness to palpation present (GI) in the LLQ, no guarding and not rigid <LINN Boyer Last Filed: 01/26/25 10:16> Percussion: Yes normal to percussion <LINN Boyer Last Filed: 01/26/25 10:16> Neuro: General: patient oriented x3 <Fuad Aviles PA-C - Last Filed: 01/26/25 10:16> Objective Data Active Medications Acetaminophen (Acetaminophen 325 Mg Tablet) 650 mg PO Q6H PRN PRN Reason: Pain, Mild 1-3,fever,headache Calcium Carbonate (Calcium Carbonate 750 Mg Tab.Chew) 750 mg PO Q4H PRN PRN Reason: Heartburn Dicyclomine HCl (Dicyclomine Hcl 10 Mg Capsule) 20 mg PO QIDACHS REPLACED BY [facility] Last Admin: 01/25/25 20:18 Dose: 20 mg Documented By: JEANNIE Hydromorphone HCl (Hydromorphone Hcl 0.5 Mg/0.5 Ml Syringe) 0.5 mg IVPUSH Q4H PRN; Protocol PRN Reason: Pain, Severe (Pain Scale 7-10) Last Admin: 01/26/25 06:07 Dose: 0.5 mg Documented By: KEN Lactated Ringer's (Lr) 1,000 mls @ 80 mls/hr IVCONT .[id number] REPLACED BY [facility] Last Admin: 01/26/25 06:08 Dose: 80 mls/hr Documented By: KEN Lorazepam (Lorazepam 1 Mg Tablet) 2 mg PO BID PRN PRN Reason: Anxiety Last Admin: 01/26/25 06:06 Dose: 2 mg Documented By: KEN Magnesium Hydroxide (Milk Of Magnesia 30 Ml Oral.Susp) 30 ml PO DAILY PRN PRN Reason: Constipation Last Admin: 01/26/25 00:09 Dose: 30 ml Documented By: KEN Melatonin (Melatonin 3 Mg Tablet) 6 mg PO BEDTIME PRN PRN Reason: Insomnia Ondansetron HCl (Ondansetron Hcl 4 Mg/2 Ml Vial) 4 mg IVPUSH Q8H PRN PRN Reason: Nausea and Vomiting Last Admin: 01/25/25 04:09 Dose: 4 mg Documented By: VENKAT Pantoprazole Sodium (Pantoprazole Sodium 40 Mg/10 Ml Vial) 40 mg IVPUSH BID@0630,1630 REPLACED BY [facility] Last Admin: 01/26/25 06:07 Dose: 40 mg Documented By: KEN Sodium Chloride (0.9 % Sodium Chloride Flush 3 Ml Syringe) 3 ml IVFLUSH QSHIFT REPLACED BY [facility] Last Admin: 01/25/25 20:19 Dose: 3 ml Documented By: JEANNIE Tramadol HCl (Tramadol Hcl 50 Mg Tablet) 50 mg PO QID JO-ANN Last Admin: 01/25/25 20:18 Dose: 50 mg Documented By: JEANNIE <Fuad Aviles PA-C - Last Filed: 01/26/25 10:16> Labs CBC & Chem 7: 01/26/25 05:58 01/25/25 05:36 <Fuad Aviles PA-C - Last Filed: 01/26/25 10:16> Labs: Laboratory Results - last 24 hr 01/26/25 05:58 MCV 95.4 MCH 33.0 MCHC 34.6 RDW 13.9 Plt Count 233 MPV 9.0 L Immature Gran % (Auto) 0.3 Neut % (Auto) 67.0 Lymph % (Auto) 23.6 [place] % (Auto) 8.3 Eos % (Auto) 0.6 Baso % (Auto) 0.2 Lymph # (Auto) 1.5 [place] # (Auto) 0.5 Eos # (Auto) 0.0 Baso # (Auto) 0.0 Abs Immat Gran (auto) 0.02 Absolute Neuts (auto) 4.4 Absolute Nucleated RBC 0.000 Nucleated RBC % (auto) 0.0 <Fuad Aviles PA-C - Last Filed: 01/26/25 10:16> Procedures Date of Service Date of Service: 01/26/25 <Fuad Aviles PA-C - Last Filed: 01/26/25 10:16> 01/26/25 <Luis A Wood MD - Last Filed: 01/26/25 14:05> Progress Note: A&P Assessment and plan (1) Ileus: Status: Acute <Fuad Aviles PA-C - Last Filed: 01/26/25 10:16> (2) Abdominal pain: Status: Acute <Fuad Aviles PA-C - Last Filed: 01/26/25 10:16> Assessment and Plan: 59 year old female admitted for upper GI bleed, illeus. H&H currently stable, Gi consult pending. Patient has continued upper abdominal pain, mild nausea. Has not passed more stools. Still feels bloated. She is currently non obstructed, passing gas. No current plan for surgical intervention. Patient having EDG this afternoon Diet as tolerated after EGD ambulation as tolerated. serial abdominal exams will continue to follow during this admission <Fuad Aviles PA-C - Last Filed: 01/26/25 10:16> 59 year old female admitted for upper GI bleed, illeus. H&H currently stable, Gi consult pending. Patient has continued upper abdominal pain, mild nausea. Has not passed more stools. Still feels bloated. She is currently non obstructed, passing gas. No current plan for surgical intervention. Patient having EDG this afternoon Diet as tolerated after EGD ambulation as tolerated. serial abdominal exams will continue to follow during this admission Hemodynamically stable and H/H stable Awaiting EGD Agree with the above assessment and plan. <Luis A Wood MD - Last Filed: 01/26/25 14:05> Time Spent With Patient Time: Total time managing care of this patient today ____ minutes. <Fuad Aviles PA-C - Last Filed: 01/26/25 10:16> Quality Stroke Does the patient have a stroke diagnosis?: No <Fuad Aviles PA-C - Last Filed: 01/26/25 10:16> VTE Prior VTE?: No <Fuad Aviles PA-C - Last Filed: 01/26/25 10:16> VTE Risk Level:: Medical - moderate - high <Fuad Aviles PA-C - Last Filed: 01/26/25 10:16> VTE Device Contraindication: Treatment Not Indicated <Fuad Aviles PA-C - Last Filed: 01/26/25 10:16> VTE Drug Contraindication: N/A - Med Ordered <Fuad Aviles PA-C - Last Filed: 01/26/25 10:16>
--- NOTE | 2025-01-26 08:21 | HO.ANESPROP2 ---
HPI - Anesthesia Eval Consult details Narrative: 59 yr old female for upper endoscopy. No recent illness No CP/SOB with moderate exercise Follows reguarly with PCP [place] [facility], last visit 12/2024 On tramadolqid for interstitial cystiis s/p right TKR at [facility] 09/[place]- anesthesia went well PMF Active Problems Active Problems: All Active Problems Abdominal pain (Acute) Acute hyperkalemia (Acute) Ileus (Acute) Alcohol withdrawal syndrome (Acute) EtOH dependence (Acute) Past Medical History Medical History EtOH dependence Family History Family history of problems with anesthesia: No Surgical History History of Problems with Anesthesia: No Social History Social History Household Members: None Housing: House Housing Other:: multi family home on third floor Do you presently have visiting nurse or other home services: No Alcohol intake: current Alcohol intake frequency: other Alcohol type: hard liquor Comment: Pt refusing assistance ambulating to BR. Steady on observation Patient Tobacco Use Status: Current everyday Tobacco user Tobacco use type: Cigarette Cigarette Packs Per Day: 0.25 Cigarettes Per Day: 6 Years Smoked: 20 Second Hand Smoke Exposure: No Substance Use Type: Marijuana service: No Meds Allergies Allergy/AdvReac Type Severity Reaction Status Date / Time aspirin (ASA) Allergy Mild STOMACH Verified 01/24/25 09:50 UPSET cephalexin Allergy Mild Gastrointestinal Verified 01/24/25 09:50 Upset latex (LATEX) Allergy Mild RASH Verified 01/24/25 09:50 morphine (MORPHINE) Allergy Mild RASH, Verified 01/24/25 09:50 swelling, redness Sulfa (Sulfonamide Allergy Mild RASH, Verified 01/24/25 09:50 Antibiotics) (SULFA swelling, (SULFONAMIDE ANTIBIOTICS)) redness terbinafine Allergy Mild Nausea and Verified 01/24/25 09:50 Vomiting azithromycin Allergy Rash Verified 01/24/25 09:50 clonazepam (From Klonopin) AdvReac Mild Gastrointestinal Verified 01/24/25 09:50 Upset metformin AdvReac Constipatio Verified 01/24/25 09:50 n Latex Allergy Unknown swelling, Uncoded 01/24/25 09:50 redness Active Medications: Current Medications Acetaminophen (Acetaminophen 325 Mg Tablet) 650 mg PO Q6H PRN PRN Reason: Pain, Mild 1-3,fever,headache Calcium Carbonate (Calcium Carbonate 750 Mg Tab.Chew) 750 mg PO Q4H PRN PRN Reason: Heartburn Dicyclomine HCl (Dicyclomine Hcl 10 Mg Capsule) 20 mg PO QIDACHS [facility] Last Admin: 01/25/25 20:18 Dose: 20 mg Hydromorphone HCl (Hydromorphone Hcl 0.5 Mg/0.5 Ml Syringe) 0.5 mg IVPUSH Q4H PRN; Protocol PRN Reason: Pain, Severe (Pain Scale 7-10) Last Admin: 01/26/25 06:07 Dose: 0.5 mg Lactated Ringer's (Lr) 1,000 mls @ 80 mls/hr IVCONT .[id number] [facility] Last Admin: 01/26/25 06:08 Dose: 80 mls/hr Lorazepam (Lorazepam 1 Mg Tablet) 2 mg PO BID PRN PRN Reason: Anxiety Last Admin: 01/26/25 06:06 Dose: 2 mg Magnesium Hydroxide (Milk Of Magnesia 30 Ml Oral.Susp) 30 ml PO DAILY PRN PRN Reason: Constipation Last Admin: 01/26/25 00:09 Dose: 30 ml Melatonin (Melatonin 3 Mg Tablet) 6 mg PO BEDTIME PRN PRN Reason: Insomnia Ondansetron HCl (Ondansetron Hcl 4 Mg/2 Ml Vial) 4 mg IVPUSH Q8H PRN PRN Reason: Nausea and Vomiting Last Admin: 01/25/25 04:09 Dose: 4 mg Pantoprazole Sodium (Pantoprazole Sodium 40 Mg/10 Ml Vial) 40 mg IVPUSH BID@0630,1630 [facility] Last Admin: 01/26/25 06:07 Dose: 40 mg Sodium Chloride (0.9 % Sodium Chloride Flush 3 Ml Syringe) 3 ml IVFLUSH QSHIFT [facility] Last Admin: 01/25/25 20:19 Dose: 3 ml Tramadol HCl (Tramadol Hcl 50 Mg Tablet) 50 mg PO QID [facility] Last Admin: 01/25/25 20:18 Dose: 50 mg Home Medications ?Medication ?Instructions ?Recorded ?Confirmed ?Last Taken ?Type cyanocobalamin (vitamin B-12) 1,000 mcg PO DAILY 07/10/21 01/24/25 01/24/25 History 1,000 mcg tablet cholecalciferol (vitamin D3) 50 50 mcg PO DAILY 06/07/24 01/24/25 01/24/25 History mcg (2,000 unit) tablet (Vitamin D3) diazepam 10 mg tablet See Rx Instructions .Route 06/07/24 01/24/25 01/24/25 History .COMPLEX PRN Interstitial cystisis folic acid 400 mcg tablet 0.4 mg PO DAILY 06/07/24 01/24/25 01/24/25 History lorazepam 2 mg tablet 2 mg PO BID PRN anxiety 06/07/24 01/24/25 01/24/25 History tramadol 50 mg tablet 50 mg PO QID 06/07/24 01/24/25 01/24/25 History acetaminophen 650 mg 650 mg PO Q8H PRN Pain 01/24/25 01/24/25 Unknown History tablet,extended release calcitriol 0.5 mcg capsule 0.5 mcg PO DAILY 01/24/25 01/24/25 01/24/25 History lysine 1,000 mg tablet 1,000 mg PO DAILY 01/24/25 01/24/25 01/24/25 History magnesium citrate,mag oxide 250 mg 500 mg PO DAILY 01/24/25 01/24/25 01/24/25 History capsule melatonin 10 mg tablet 10 mg PO BEDTIME 01/24/25 01/24/25 01/23/25 History multivit,Ca,min-iron 8 mg-folic 1 tab PO DAILY 01/24/25 01/24/25 01/24/25 History acid 200 mcg-lycopene 600 mcg tablet (Men's Daily Multivitamin) vitamin E (dl, acetate) 450 mg 450 mg PO DAILY 01/24/25 01/24/25 01/24/25 History (1,000 unit) capsule zinc acetate 50 mg (zinc) capsule 50 mg PO DAILY 01/24/25 01/24/25 01/24/25 History Exam Height,Weight and Vital Signs: Height 5 ft 7 in Weight 86.1 kg Last Vital Signs Temp 97.9 F 01/26/25 06:54 Pulse 74 01/26/25 06:54 Resp 16 01/26/25 06:54 BP 118/58 L 01/26/25 06:54 Pulse Ox 95 01/26/25 06:54 O2 Del Method Room Air 01/26/25 06:54 Pertinent Lab Results Pertinent Lab Results: Laboratory Tests 01/24/25 01/24/25 01/24/25 10:04 11:30 12:28 WBC 8.7 RBC 4.25 Hgb 13.9 Hct 41.2 MCV 96.9 MCH 32.7 MCHC 33.7 RDW 14.2 Plt Count 271 MPV 8.6 L Immature Gran % (Auto) 0.2 Neut % (Auto) 65.8 Lymph % (Auto) 25.9 [place] % (Auto) 6.5 Eos % (Auto) 1.0 Baso % (Auto) 0.6 Lymph # (Auto) 2.3 [place] # (Auto) 0.6 Eos # (Auto) 0.1 Baso # (Auto) 0.1 Abs Immat Gran (auto) 0.02 Absolute Neuts (auto) 5.8 Absolute Nucleated RBC 0.000 Nucleated RBC % (auto) 0.0 Sodium 140 Potassium 5.5 H D Chloride 103 Carbon Dioxide 29 Anion Gap 14 BUN 23 H Creatinine 0.88 Estim Creat Clear Calc 72.8 Estimated GFR > 60 Random Glucose 111 Calcium 9.9 D Magnesium 2.0 Total Bilirubin 0.3 Direct Bilirubin 0.1 AST 22 ALT 16 Alkaline Phosphatase 104 Troponin I High Sens < 2.7 Total Protein 7.9 Albumin 4.8 Urine Color Yellow Urine Appearance Clear Urine pH 6.5 Ur Specific [place] 1.010 Urine Protein Negative Urine Glucose (UA) Negative Urine Ketones Negative Urine Blood Trace H Urine Nitrite Negative Ur Leukocyte Esterase Negative Urine RBC 3-5 H Urine WBC 0-5 Ur Squamous Epith Cells 0-2 Urine Bacteria None Seen Hyaline Casts 0-2 Stool Occult Blood Cancelled 01/24/25 01/25/25 01/26/25 17:26 05:36 05:58 WBC 6.6 6.5 RBC 3.98 L 4.12 L Hgb 12.7 13.6 Hct 38.6 39.3 MCV 97.0 95.4 MCH 31.9 33.0 MCHC 32.9 34.6 RDW 14.2 13.9 Plt Count 234 233 MPV 8.8 L 9.0 L Immature Gran % (Auto) 0.2 0.3 Neut % (Auto) 67.3 67.0 Lymph % (Auto) 21.9 23.6 [place] % (Auto) 8.3 8.3 Eos % (Auto) 1.8 0.6 Baso % (Auto) 0.5 0.2 Lymph # (Auto) 1.5 1.5 [place] # (Auto) 0.6 0.5 Eos # (Auto) 0.1 0.0 Baso # (Auto) 0.0 0.0 Abs Immat Gran (auto) 0.01 0.02 Absolute Neuts (auto) 4.5 4.4 Absolute Nucleated RBC 0.000 0.000 Nucleated RBC % (auto) 0.0 0.0 Sodium 142 Potassium 3.9 D Chloride 106 Carbon Dioxide 28 Anion Gap 12 BUN 14 Creatinine 0.71 Estim Creat Clear Calc 93.8 Estimated GFR > 60 Random Glucose 99 Calcium 9.0 D Magnesium Total Bilirubin Direct Bilirubin AST ALT Alkaline Phosphatase Troponin I High Sens Total Protein Albumin Urine Color Urine Appearance Urine pH Ur Specific [place] Urine Protein Urine Glucose (UA) Urine Ketones Urine Blood Urine Nitrite Ur Leukocyte Esterase Urine RBC Urine WBC Ur Squamous Epith Cells Urine Bacteria Hyaline Casts Stool Occult Blood NEGATIVE Narrative Narrative: EKG 12/2024 Vent. Rate : 72 BPM Atrial Rate : 72 BPM P-R Int : 190 ms QRS Dur : 88 ms QT Int : 410 ms P-R-T Axes : 66 59 72 degrees QTcB Int : 448 ms Normal sinus rhythm with sinus arrhythmia Normal ECG When compared with ECG of 01-Sep-2024 01:10, Minimal criteria for Anterior infarct are no longer Present T wave inversion no longer evident in Anterior leads Airway Neck ROM: Full Loose/Missing/Broken Teeth: No and Lower (left molar implant) Heart: RRR Lungs: CTAB Assessment and Plan Final Anesthetic Review Family History of Problems with Anesthesia: No History of Problems with Anesthesia: No
--- NOTE | 2025-01-26 09:54 | HO.PM.IMPN ---
Subjective Subjective Date of Service: 01/26/25 Interval History: No significant nursing events overnight. Patient without additional black-colored stools. EGD this afternoon. Constitutional Constitutional: Reports fatigue and Reports malaise Cardiovascular Cardiovascular: Reports no additional cardiovascular complaints Respiratory Respiratory: Reports no additional respiratory complaints Gastrointestinal Gastrointestinal: Reports abdominal pain Endocrine Endocrine: Reports fatigue Physical Exam Exam: Exam: Middle-aged female lying in bed in no distress Neck supple, no JVD Regular rate and rhythm, S1-S2 heard Regular breath sounds bilaterally, no wheezing or crackles appreciated Abdomen with mild epigastric tenderness, no guarding, no rigidity Patient is awake, alert and oriented to self, place, time and person ; no focal motor deficit Psych: Normal mood No pedal edema Vital Signs: Vital Signs: Last Vital Signs Temp 97.9 F 01/26/25 06:54 Pulse 74 01/26/25 06:54 Resp 16 01/26/25 06:54 BP 118/58 L 01/26/25 06:54 Pulse Ox 95 01/26/25 06:54 O2 Del Method Room Air 01/26/25 06:54 BMI result Body Mass Index 29.7 Objective Data Active Medications Acetaminophen (Acetaminophen 325 Mg Tablet) 650 mg PO Q6H PRN PRN Reason: Pain, Mild 1-3,fever,headache Calcium Carbonate (Calcium Carbonate 750 Mg Tab.Chew) 750 mg PO Q4H PRN PRN Reason: Heartburn Dicyclomine HCl (Dicyclomine Hcl 10 Mg Capsule) 20 mg PO QIDACHS [facility] Last Admin: 01/26/25 09:02 Dose: 20 mg Documented By: EARLINE Hydromorphone HCl (Hydromorphone Hcl 0.5 Mg/0.5 Ml Syringe) 0.5 mg IVPUSH Q4H PRN; Protocol PRN Reason: Pain, Severe (Pain Scale 7-10) Last Admin: 01/26/25 06:07 Dose: 0.5 mg Documented By: KEN Lactated Ringer's (Lr) 1,000 mls @ 80 mls/hr IVCONT .[id number] [facility] Last Admin: 01/26/25 06:08 Dose: 80 mls/hr Documented By: KEN Lorazepam (Lorazepam 1 Mg Tablet) 2 mg PO BID PRN PRN Reason: Anxiety Last Admin: 01/26/25 06:06 Dose: 2 mg Documented By: KEN Magnesium Hydroxide (Milk Of Magnesia 30 Ml Oral.Susp) 30 ml PO DAILY PRN PRN Reason: Constipation Last Admin: 01/26/25 00:09 Dose: 30 ml Documented By: KEN Melatonin (Melatonin 3 Mg Tablet) 6 mg PO BEDTIME PRN PRN Reason: Insomnia Ondansetron HCl (Ondansetron Hcl 4 Mg/2 Ml Vial) 4 mg IVPUSH Q8H PRN PRN Reason: Nausea and Vomiting Last Admin: 01/25/25 04:09 Dose: 4 mg Documented By: VENKAT Pantoprazole Sodium (Pantoprazole Sodium 40 Mg/10 Ml Vial) 40 mg IVPUSH BID@0630,1630 [facility] Last Admin: 01/26/25 06:07 Dose: 40 mg Documented By: KEN Sodium Chloride (0.9 % Sodium Chloride Flush 3 Ml Syringe) 3 ml IVFLUSH QSHIFT [facility] Last Admin: 01/26/25 09:05 Dose: Not Given Documented By: EARLINE Non-Admin Reason: IV Running Tramadol HCl (Tramadol Hcl 50 Mg Tablet) 50 mg PO QID [facility] Last Admin: 01/26/25 09:02 Dose: 50 mg Documented By: EARLINE Labs 01/26/25 05:58 01/25/25 05:36 Labs: Laboratory Results - last 24 hr 01/26/25 05:58 MCV 95.4 MCH 33.0 MCHC 34.6 RDW 13.9 Plt Count 233 MPV 9.0 L Immature Gran % (Auto) 0.3 Neut % (Auto) 67.0 Lymph % (Auto) 23.6 [place] % (Auto) 8.3 Eos % (Auto) 0.6 Baso % (Auto) 0.2 Lymph # (Auto) 1.5 [place] # (Auto) 0.5 Eos # (Auto) 0.0 Baso # (Auto) 0.0 Abs Immat Gran (auto) 0.02 Absolute Neuts (auto) 4.4 Absolute Nucleated RBC 0.000 Nucleated RBC % (auto) 0.0 Assessment and Plan (1) Abdominal pain: Status: Acute (2) Ileus: Status: Acute Plan This has a 59-year-old female with pertinent history of alcohol use disorder in remission, chronic interstitial cystitis, irritable bowel syndrome, mood disorder, mixed hyperlipidemia, gastroesophageal reflux disease who presents to the emergency department for evaluation of abdominal pain. #. Abdominal pain with dark stools: NPO. Initiated IV Protonix. Plan for EGD this afternoon. H&H stable. #. Ileus: NPO for bowel rest. Continue IV crystalloid resuscitation. Encourage early ambulation and reduced opiates. General surgery on board #. Alcohol use disorder: In remission #. Mood disorder: Continue home mood stabilizers once she is no longer NPO DVT prophylaxis: SCDs Full code Reason for continued hospitalization: evaluation of abdominal pain with dark stools, management of ileus, EGD this afternoon Quality Stroke Does the patient have a stroke diagnosis?: No VTE Prior VTE?: No VTE Risk Level:: Medical - moderate - high VTE Device Contraindication: Treatment Not Indicated VTE Drug Contraindication: N/A - Med Ordered
--- NOTE | 2025-01-26 10:28 | MHC.CM.PN ---
Patient not medically cleared for this time, awaiting EGD. Anticipate home self care. CM will continue to follow.
--- NOTE | 2025-01-26 11:57 | PC.NURSE ---
Patient off unit for procedure
[2025-01-26] MEDS: Lactated Ringers 1,000 ML 100 ML IVCONT (13:13)
--- NOTE | 2025-01-26 13:14 | HO.ANESPROP2 ---
[facility] Active Problems Active Problems: All Active Problems (Updated 01/24/25 @ 18:13 by Kwame Woodard MD) Abdominal pain (Acute) Acute hyperkalemia (Acute) Ileus (Acute) Alcohol withdrawal syndrome (Acute) EtOH dependence (Acute) Past Medical History Medical History EtOH dependence Functional capacity: independent ambulation Family History Family history of problems with anesthesia: No Surgical History History of Problems with Anesthesia: No Social History Social History Household Members: None Household Members Other:: lives alone Housing: House Housing Other:: multi family home on third floor Are you a primary caretaker grounds to a significant other at home: No Do you presently have visiting nurse or other home services: No Alcohol intake: current Alcohol intake frequency: other Alcohol type: hard liquor Comment: Pt refusing assistance ambulating to BR. Steady on observation Patient Tobacco Use Status: Current everyday Tobacco user Tobacco use type: Cigarette Cigarette Packs Per Day: 0.25 Cigarettes Per Day: 7 Years Smoked: 20 Second Hand Smoke Exposure: No Substance Use Type: Marijuana service: No Meds Allergies Allergy/AdvReac Type Severity Reaction Status Date / Time aspirin (ASA) Allergy Mild STOMACH Verified 01/24/25 09:50 UPSET cephalexin Allergy Mild Gastrointestinal Verified 01/24/25 09:50 Upset latex (LATEX) Allergy Mild RASH Verified 01/24/25 09:50 morphine (MORPHINE) Allergy Mild RASH, Verified 01/24/25 09:50 swelling, redness Sulfa (Sulfonamide Allergy Mild RASH, Verified 01/24/25 09:50 Antibiotics) (SULFA swelling, (SULFONAMIDE ANTIBIOTICS)) redness terbinafine Allergy Mild Nausea and Verified 01/24/25 09:50 Vomiting azithromycin Allergy Rash Verified 01/24/25 09:50 clonazepam (From Klonopin) AdvReac Mild Gastrointestinal Verified 01/24/25 09:50 Upset metformin AdvReac Constipatio Verified 01/24/25 09:50 n Latex Allergy Unknown swelling, Uncoded 01/24/25 09:50 redness Active Medications: Current Medications Acetaminophen (Acetaminophen 325 Mg Tablet) 650 mg PO Q6H PRN PRN Reason: Pain, Mild 1-3,fever,headache Calcium Carbonate (Calcium Carbonate 750 Mg Tab.Chew) 750 mg PO Q4H PRN PRN Reason: Heartburn Dicyclomine HCl (Dicyclomine Hcl 10 Mg Capsule) 20 mg PO QIDACHS [facility] Last Admin: 01/26/25 12:47 Dose: Not Given Hydromorphone HCl (Hydromorphone Hcl 0.5 Mg/0.5 Ml Syringe) 0.5 mg IVPUSH Q4H PRN; Protocol PRN Reason: Pain, Severe (Pain Scale 7-10) Last Admin: 01/26/25 10:08 Dose: 0.5 mg Lactated Ringer's (Lr) 1,000 mls @ 80 mls/hr IVCONT .[id number] [facility] Last Infusion: 01/26/25 11:56 Dose: Infused Lactated Ringer's (Lr) 1,000 mls @ 100 mls/hr IVCONT .Q10H [facility] Last Admin: 01/26/25 13:13 Dose: 100 mls/hr Lorazepam (Lorazepam 1 Mg Tablet) 2 mg PO BID PRN PRN Reason: Anxiety Last Admin: 01/26/25 06:06 Dose: 2 mg Magnesium Hydroxide (Milk Of Magnesia 30 Ml Oral.Susp) 30 ml PO DAILY PRN PRN Reason: Constipation Last Admin: 01/26/25 00:09 Dose: 30 ml Melatonin (Melatonin 3 Mg Tablet) 6 mg PO BEDTIME PRN PRN Reason: Insomnia Ondansetron HCl (Ondansetron Hcl 4 Mg/2 Ml Vial) 4 mg IVPUSH Q8H PRN PRN Reason: Nausea and Vomiting Last Admin: 01/26/25 10:14 Dose: 4 mg Pantoprazole Sodium (Pantoprazole Sodium 40 Mg/10 Ml Vial) 40 mg IVPUSH BID@0630,1630 [facility] Last Admin: 01/26/25 06:07 Dose: 40 mg Sodium Chloride (0.9 % Sodium Chloride Flush 3 Ml Syringe) 3 ml IVFLUSH QSHIFT [facility] Last Admin: 01/26/25 09:05 Dose: Not Given Tramadol HCl (Tramadol Hcl 50 Mg Tablet) 50 mg PO QID [facility] Last Admin: 01/26/25 09:02 Dose: 50 mg Home Medications ?Medication ?Instructions ?Recorded ?Confirmed ?Last Taken ?Type cyanocobalamin (vitamin B-12) 1,000 mcg PO DAILY 07/10/21 01/24/25 01/24/25 History 1,000 mcg tablet cholecalciferol (vitamin D3) 50 50 mcg PO DAILY 06/07/24 01/24/25 01/24/25 History mcg (2,000 unit) tablet (Vitamin D3) diazepam 10 mg tablet See Rx Instructions .Route 06/07/24 01/24/25 01/24/25 History .COMPLEX PRN Interstitial cystisis folic acid 400 mcg tablet 0.4 mg PO DAILY 06/07/24 01/24/25 01/24/25 History lorazepam 2 mg tablet 2 mg PO BID PRN anxiety 06/07/24 01/24/25 01/24/25 History tramadol 50 mg tablet 50 mg PO QID 06/07/24 01/24/25 01/24/25 History acetaminophen 650 mg 650 mg PO Q8H PRN Pain 01/24/25 01/24/25 Unknown History tablet,extended release calcitriol 0.5 mcg capsule 0.5 mcg PO DAILY 01/24/25 01/24/25 01/24/25 History lysine 1,000 mg tablet 1,000 mg PO DAILY 01/24/25 01/24/25 01/24/25 History magnesium citrate,mag oxide 250 mg 500 mg PO DAILY 01/24/25 01/24/25 01/24/25 History capsule melatonin 10 mg tablet 10 mg PO BEDTIME 01/24/25 01/24/25 01/23/25 History multivit,Ca,min-iron 8 mg-folic 1 tab PO DAILY 01/24/25 01/24/25 01/24/25 History acid 200 mcg-lycopene 600 mcg tablet (Men's Daily Multivitamin) vitamin E (dl, acetate) 450 mg 450 mg PO DAILY 01/24/25 01/24/25 01/24/25 History (1,000 unit) capsule zinc acetate 50 mg (zinc) capsule 50 mg PO DAILY 01/24/25 01/24/25 01/24/25 History Exam Height,Weight and Vital Signs: Height 5 ft 7 in Weight 81.647 kg Last Vital Signs Temp 98.8 F 01/26/25 13:08 Pulse 65 01/26/25 13:08 Resp 16 01/26/25 13:08 BP 124/85 01/26/25 13:08 Pulse Ox 96 01/26/25 13:08 O2 Del Method Room Air 01/26/25 13:08 Pertinent Lab Results Pertinent Lab Results: Laboratory Tests 01/24/25 01/24/25 01/24/25 10:04 11:30 12:28 WBC 8.7 RBC 4.25 Hgb 13.9 Hct 41.2 MCV 96.9 MCH 32.7 MCHC 33.7 RDW 14.2 Plt Count 271 MPV 8.6 L Immature Gran % (Auto) 0.2 Neut % (Auto) 65.8 Lymph % (Auto) 25.9 [place] % (Auto) 6.5 Eos % (Auto) 1.0 Baso % (Auto) 0.6 Lymph # (Auto) 2.3 [place] # (Auto) 0.6 Eos # (Auto) 0.1 Baso # (Auto) 0.1 Abs Immat Gran (auto) 0.02 Absolute Neuts (auto) 5.8 Absolute Nucleated RBC 0.000 Nucleated RBC % (auto) 0.0 Sodium 140 Potassium 5.5 H D Chloride 103 Carbon Dioxide 29 Anion Gap 14 BUN 23 H Creatinine 0.88 Estim Creat Clear Calc 72.8 Estimated GFR > 60 Random Glucose 111 Calcium 9.9 D Magnesium 2.0 Total Bilirubin 0.3 Direct Bilirubin 0.1 AST 22 ALT 16 Alkaline Phosphatase 104 Troponin I High Sens < 2.7 Total Protein 7.9 Albumin 4.8 Urine Color Yellow Urine Appearance Clear Urine pH 6.5 Ur Specific [place] 1.010 Urine Protein Negative Urine Glucose (UA) Negative Urine Ketones Negative Urine Blood Trace H Urine Nitrite Negative Ur Leukocyte Esterase Negative Urine RBC 3-5 H Urine WBC 0-5 Ur Squamous Epith Cells 0-2 Urine Bacteria None Seen Hyaline Casts 0-2 Stool Occult Blood Cancelled 01/24/25 01/25/25 01/26/25 17:26 05:36 05:58 WBC 6.6 6.5 RBC 3.98 L 4.12 L Hgb 12.7 13.6 Hct 38.6 39.3 MCV 97.0 95.4 MCH 31.9 33.0 MCHC 32.9 34.6 RDW 14.2 13.9 Plt Count 234 233 MPV 8.8 L 9.0 L Immature Gran % (Auto) 0.2 0.3 Neut % (Auto) 67.3 67.0 Lymph % (Auto) 21.9 23.6 [place] % (Auto) 8.3 8.3 Eos % (Auto) 1.8 0.6 Baso % (Auto) 0.5 0.2 Lymph # (Auto) 1.5 1.5 [place] # (Auto) 0.6 0.5 Eos # (Auto) 0.1 0.0 Baso # (Auto) 0.0 0.0 Abs Immat Gran (auto) 0.01 0.02 Absolute Neuts (auto) 4.5 4.4 Absolute Nucleated RBC 0.000 0.000 Nucleated RBC % (auto) 0.0 0.0 Sodium 142 Potassium 3.9 D Chloride 106 Carbon Dioxide 28 Anion Gap 12 BUN 14 Creatinine 0.71 Estim Creat Clear Calc 93.8 Estimated GFR > 60 Random Glucose 99 Calcium 9.0 D Magnesium Total Bilirubin Direct Bilirubin AST ALT Alkaline Phosphatase Troponin I High Sens Total Protein Albumin Urine Color Urine Appearance Urine pH Ur Specific [place] Urine Protein Urine Glucose (UA) Urine Ketones Urine Blood Urine Nitrite Ur Leukocyte Esterase Urine RBC Urine WBC Ur Squamous Epith Cells Urine Bacteria Hyaline Casts Stool Occult Blood NEGATIVE Airway Mallampati Class: II TM Dist: >3cm Neck ROM: Full Heart: RRR Lungs: CTA Assessment and Plan Assessment Anesthesia Assessment: Anesthesia Plan Discussed Final Anesthetic Review Family History of Problems with Anesthesia: No History of Problems with Anesthesia: No NPO: Yes ASA Class: II Final Preanesthetic Review: Meds/Allgs Chart Reviewed, Consent Obtained/Reviewed and Anes Risks/Benef Reviewed Patient Risk: Low Procedure Risk: Low Anesthetic Plan Anesthetic Plan: MAC: Disposition: Standard PACU
--- NOTE | 2025-01-26 14:15 | P.EN_ITS ---
Event Note Date of Service: 01/26/25 Event Note: EGD is normal Biopsies taken continue duniayl f/u for outpat colon with [facility] as planned. Time Spent With Patient Time: Total time managing care of this patient today ____ minutes.
--- NOTE | 2025-01-26 14:16 | PM.OP ---
Brief Operative Note Date of Service: 01/26/25 Pre-op diagnosis: abd pain Post-op diagnosis: same Surgeon: Joe Wilkerson MD Anesthesia: MAC Was an Rapid Transit Operator used for this Procedure?: No Estimated blood loss (mL): 4 Pathology: other Condition: stable
--- NOTE | 2025-01-26 14:17 | HO.POSTANES ---
Post Anesthesia Evaluation Post Anesthesia Evaluation Date of Service: 01/26/25 Vital Signs: Vital Signs Temp Pulse Resp BP Pulse Ox O2 Del Method 01/26/25 13:08 98.8 F 65 16 124/85 96 Room Air 01/26/25 10:08 12 01/26/25 06:54 97.9 F 74 16 118/58 L 95 Room Air 01/26/25 06:08 77 18 137/71 01/26/25 03:26 98.4 F 72 18 124/75 94 Room Air Anesthesia: Monitored Mental Status: Awake Pain Control: Satisfactory Nausea/Vomiting: None Hydration: Adequate Anesthesia-Related Issues: No Anes. Related Issues
--- NOTE | 2025-01-26 14:50 | PC.NURSE ---
Patient returned from Procedure.
[2025-01-26] MEDS: 0.9 % Sodium Chloride Flush 3 ML SYRINGE IVFLUSH ×2 (16:41→23:11)
--- NOTE | 2025-01-26 22:12 | PC.NURSE ---
Assumed care of patient at 1915. A&Ox4. Patient resting comfortably in bed. VSS. No signs or symptoms of distress noted. Patient verbalizing needs. Bed in low position. Call soler within reach. Evening medications and PRN pain management discussed. Verbalized understanding. Care transferred to oncoming JOAQUÍN Dia. Safe-start shift assessment completed.
--- NOTE | 2025-01-27 01:14 | OP_ITS ---
DATE OF SERVICE: 01/26/2025 SURGEON: Joe Wilkerson MD INDICATIONS: Abdominal pain. PREOPERATIVE DIAGNOSIS: POSTOPERATIVE DIAGNOSIS: PROCEDURE PERFORMED: Upper endoscopy with biopsy. ESTIMATED BLOOD LOSS: COMPLICATIONS: ANESTHESIA: Monitored anesthesia care. ASSISTANTS: SPECIMENS: DESCRIPTION OF PROCEDURE: History and physical performed. The risks and benefits of the procedure were explained to the patient. Informed consent was obtained. The patient was placed in the left lateral decubitus position. The Olympus video gastroscope was introduced into the esophagus, stomach, and duodenum. Examination was performed. The scope was removed. She tolerated the procedure well and was returned to recovery room in stable condition. FINDINGS: Esophagus: The esophagus was normal. There was no esophagitis. Stomach: Stomach was normal. No ulcer was seen. Duodenum: The bulb and 2nd portion were normal. Biopsies were obtained from the esophagus, stomach, and duodenum. IMPRESSION: Normal upper endoscopy. RECOMMENDATIONS: 1. Follow up the biopsy results. 2. Continue dicyclomine for abdominal symptoms. MD REJI Henson/PARESHL / [id number] MTDD
[2025-01-27 03:23] VITALS: BP 117/70; PULSE 77; RESP 16; TEMP 36.4; O2SAT 94
[2025-01-27 06:16] LABS: MANUAL DIFF FLAG NO
[2025-01-27 06:19] LABS: Hematocrit 36.4 % (37.0-47.0); Hemoglobin 12.5 g/dl (12.0-16.0); Imm Gran Abs Auto 0.02 X10*3/uL (0.00-0.03); Imm Gran Pct Auto 0.3 % (0.0-0.4); Lymphocytes Absolute Auto 2.1 X10*3/uL (1.2-4.9); Mean Corpuscular HGB Conc 34.3 g/dl (31.0-35.0); Mean Corpuscular Hemoglobin 33.2 pg (27.0-33.0); Mean Corpuscular Volume 96.8 fL (80.0-98.0); NRBC Abs Auto 0.000 X10*3/uL (0.0-0.012); NRBC Pct Auto 0.0 /100WBC (0.0-0.2); Platelet Count 209 X10*3/uL (160-400); Red Blood Count 3.76 X10*6/uL (4.20-5.50); White Blood Count 7.8 X10*3/uL (4.8-10.8)
[2025-01-27 07:30] VITALS: BP 126/74; PULSE 74; RESP 18; TEMP 36.4; O2SAT 94
[2025-01-27] MEDS: 0.9 % Sodium Chloride Flush 3 ML SYRINGE IVFLUSH (07:56)
--- NOTE | 2025-01-27 08:01 | PM.DS ---
DS: Providers Provider Date of Service: 01/27/25 Date of admission: 01/24/25 17:15 Date of discharge: 01/27/25 Primary care physician: TEODORA Sewell Consults: 01/24/25 18:12 Consult to Gastroenterology Routine Consulting Provider: Joe Wilkerson Reason for consultation: dark stools, abd pain Consult to General Surgery Routine Consulting Provider: [facility] Reason for consultation: ileus DS: Diagnosis Discharge Diagnosis (1) Ileus: Status: Acute (2) Abdominal pain: Status: Acute DS: Summary Hospital Course Hospital Course: HPI: This has a 59-year-old female with pertinent history of alcohol use disorder in remission, chronic interstitial cystitis, irritable bowel syndrome, mood disorder, mixed hyperlipidemia, gastroesophageal reflux disease who presents to the emergency department for evaluation of abdominal pain. The patient states she has had epigastric abdominal pain for the last 4 weeks which has been progressive, worse after p.o. intake, nonradiating. She also developed associated black stools, 2 episodes a day. Patient called her PCP's office who advised the patient to come to the ER. Does report intermittent nausea and symptoms of gastroesophageal reflux disease. No fever, chills, chest pain, palpitations, shortness of breath, changes in urinary or bowel habits. Hospital course: Ileus: Patient was admitted and kept NPO for bowel rest. Continued IV crystalloid resuscitation. Early ambulation was encouraged. Gastroenterology was consulted for evaluation of abdominal pain with dark stools. H&H remained stable throughout hospital course. EGD with normal upper endoscopy as per GI. Patient was able to tolerate a regular diet and was without further episodes of dark stools prior to discharge. Patient to follow-up with [facility] outpatient for colonoscopy. Patient is hemodynamically stable to be discharged with a prescription of p.o. Bentyl abdominal discomfort Status at Discharge Functional status at discharge: independent ambulation Overall status at discharge: patient is back to baseline Time Attestation Discharge Coordination Time (in mins): Thirty-five Quality: Safe Use of Opioids Does Pt have an Active Cancer Diagnosis on the Problem List?: No Quality: Stroke Does the patient have a stroke diagnosis?: No Physical Exam Exam: Exam: Middle-aged female lying in bed in no distress Neck supple, no JVD Regular rate and rhythm, S1-S2 heard Regular breath sounds bilaterally, no wheezing or crackles appreciated Abdomen with no tenderness, no guarding, no rigidity Patient is awake, alert and oriented to self, place, time and person ; no focal motor deficit Psych: Normal mood No pedal edema Vital Signs: Vital Signs: Last Vital Signs Temp 97.6 F 01/27/25 07:30 Pulse 74 01/27/25 07:30 Resp 18 01/27/25 07:30 BP 126/74 01/27/25 07:30 Pulse Ox 94 01/27/25 07:30 O2 Del Method Room Air 01/27/25 07:30 BMI result Body Mass Index 28.2 DS: Data Data Completed and Pending Completed studies during hospitalization [Text1]: Procedures Detoxification Services for Substance Abuse Treatment (06/07/24) Pending studies at discharge: Pending at discharge 01/26/25 14:02 Surgical [PTH] Routine Labs on day of discharge: Laboratory Results - last 24 hr 01/27/25 06:02 WBC 7.8 RBC 3.76 L Hgb 12.5 Hct 36.4 L MCV 96.8 MCH 33.2 H MCHC 34.3 RDW 13.8 Plt Count 209 MPV 9.0 L Immature Gran % (Auto) 0.3 Neut % (Auto) 63.1 Lymph % (Auto) 26.7 Holmes % (Auto) 8.1 Eos % (Auto) 1.4 Baso % (Auto) 0.4 Lymph # (Auto) 2.1 Holmes # (Auto) 0.6 Eos # (Auto) 0.1 Baso # (Auto) 0.0 Abs Immat Gran (auto) 0.02 Absolute Neuts (auto) 4.9 Absolute Nucleated RBC 0.000 Nucleated RBC % (auto) 0.[address] scan - abdomen: Radiologist's impression: ITS Impressions Abdomen/Pelvis CT 01/24/25 13:10 IMPRESSION: Distal duodenum and proximal jejunum are borderline dilated with air-fluid levels all within a single plain. There is a gradual transition to more decompressed bowel most consistent with a paralytic ileus. There is flocculent high density material within the small bowel lumen that mild to moderately limits the examination. No definite intraluminal contrast extravasation was evident. There is a lipid rich adrenal adenoma on the left, benign Fleischner guidelines were followed. Electronically signed by: Kp [place] MD 01/24/2025 03:07 PM EDT RP Discharge Plan Discharge Anticipated Discharge Date/Time: 01/27/25 07:57 Patient Disposition: Home, Self-Care Discharge Diagnosis: Ileus Referrals: Jordan Kay PA [Primary Care Provider, Medical] - 1 Week Discharge Medications: New dicyclomine 10 mg Capsule 20 mg PO QIDACHS PRN (Reason: Abdominal Pain) Qty: 20 0RF Continued tramadol 50 mg tablet 50 mg PO QID lorazepam 2 mg tablet 2 mg PO BID PRN (Reason: anxiety) diazepam 10 mg tablet See Rx Instructions .ROUTE .COMPLEX PRN (Reason: Interstitial cystisis) Rx Instructions: PLACE 1 TABLET INTRA-VAGINALLY ONCE DAILY NEEDED FOR INTERSTITIAL CYSTISIS folic acid 400 mcg Tablet 0.4 mg PO DAILY cholecalciferol (vitamin D3) [Vitamin D3] 50 mcg (2,000 unit) Tablet 50 mcg PO DAILY zinc acetate 50 mg (zinc) Capsule 50 mg PO DAILY lysine 1,000 mg Tablet 1,000 mg PO DAILY calcitriol 0.5 mcg Capsule 0.5 mcg PO DAILY Men's Daily Multivitamin 8 mg iron- 200 mcg-600 mcg Tablet 1 tab PO DAILY vitamin E (dl, acetate) 450 mg (1,000 unit) Capsule 450 mg PO DAILY melatonin 10 mg Tablet 10 mg PO BEDTIME magnesium citrate,mag oxide 250 mg Capsule 500 mg PO DAILY acetaminophen 650 mg Tablet Extended Release 650 mg PO Q8H PRN (Reason: Pain) cyanocobalamin (vitamin B-12) 1,000 mcg tablet 1,000 mcg PO DAILY Discharge Orders: Discharge Order (Routine); Ordered 01/27/25 Ordered By: Kwame Woodard Diet: Advance to usual diet Activity on Discharge: As tolerated Stand Alone Forms: Patient Portal Discharge page Print Language: Puerto Rican Care Plan Goals: Follow-up with PCP within 1 week Follow-up for outpatient colonoscopy with [facility] as planned Health Concerns: Ileus Gastroesophageal reflux disease Plan of Treatment: [place] sol for abdominal pain Assessment: As above
--- NOTE | 2025-01-27 08:41 | MHC.CM.PN ---
Patient medically cleared for dc home self care. Car in [facility] lot for self transport. RN aware.
--- NOTE | 2025-01-27 14:04 | HO.POSTANES ---
Post Anesthesia Evaluation Post Anesthesia Evaluation Date of Service: 01/27/25 Vital Signs: Vital Signs Temp Pulse Resp BP Pulse Ox O2 Del Method 01/27/25 07:30 97.6 F 74 18 126/74 94 Room Air 01/27/25 03:23 97.5 F 77 16 117/70 94 Room Air Anesthesia: Monitored Mental Status: Awake Pain Control: Satisfactory Nausea/Vomiting: None Hydration: Adequate Anesthesia-Related Issues: No Anes. Related Issues
== END 2025-01-27 09:56 | disposition home or self-care (01) | DRG 390 ==
LOC: HO.ED 18:00 → HO.EDOVER 18:30 → HO.S3 19:09
PROVIDERS: Internal Medicine Gastroenterology; Admitting Provider Student in an Organized Health Care Education/Training Program; Emergency Provider Emergency Medicine; PCP Physician Assistant; Visit Provider Student in an Organized Health Care Education/Training Program
PROC: 0DJ08ZZ Inspection of Upper Intestinal Tract, Via Natural or Artificial Opening Endoscopic (ICD-10-PCS; CPT 43235; principal; 2025-01-26 13:50)
DX: K56.0 Paralytic ileus (principal); F17.210 Nicotine dependence, cigarettes, uncomplicated; E87.5 Hyperkalemia; Z71.6 Tobacco abuse counseling; F10.21 Alcohol dependence, in remission; K58.9 Irritable bowel syndrome, unspecified; F39 Unspecified mood [affective] disorder; Z79.899 Other long term (current) drug therapy
CPT/HCPCS: 36415; 74178; 80048; 80076; 81001; 81003; 82272; 83735; 84484; 85025; 88305; 88313; 88342; 93005; 99285; J1171; J2003; J2405; J2470; J2704; J3360; J7120

== ENCOUNTER → 2025-01-24 11:13 | Outpatient (BNV) | payer MEDICARE, MEDICAID, SELFPAY | PROVIDERS: Emergency Provider Emergency Medicine; PCP Physician Assistant; Visit Provider Internal Medicine Cardiovascular Disease | DX: R10.9 Unspecified abdominal pain (principal) | CPT/HCPCS: 93010 ==

== ENCOUNTER → 2025-01-24 11:31 | Outpatient (BNV) | payer MEDICARE, MEDICAID, SELFPAY | PROVIDERS: Emergency Provider Emergency Medicine; PCP Physician Assistant; Visit Provider Student in an Organized Health Care Education/Training Program | DX: R10.9 Unspecified abdominal pain (principal); K56.7 Ileus, unspecified | CPT/HCPCS: 99223; 99232 ==

== ENCOUNTER → 2025-01-24 12:13 | Outpatient (BNV) | payer MEDICARE, MEDICAID, SELFPAY | PROVIDERS: Emergency Provider Emergency Medicine; PCP Physician Assistant; Visit Provider Radiology Diagnostic Radiology | DX: K56.690 Other partial intestinal obstruction (principal) | CPT/HCPCS: 74178 ==

== ENCOUNTER → 2025-01-24 17:15 | Outpatient (BNV) | payer MEDICARE, MEDICAID, SELFPAY | PROVIDERS: Admitting Provider Student in an Organized Health Care Education/Training Program; Emergency Provider Emergency Medicine; PCP Physician Assistant; Visit Provider Surgery | DX: K56.7 Ileus, unspecified (principal); R10.9 Unspecified abdominal pain | CPT/HCPCS: 99222; 99232 ==

== ENCOUNTER 2025-02-24 16:53 | Emergency (ER) | payer MEDICARE, MEDICAID, SELFPAY ==
--- OUTSIDE RECORDS SUMMARY | 2025-01-26 09:50 | XMS_ITS ---
Author Organization [facility] Address [address] [place] [address] Care Team Providers Care Project Development Engineer Name Role Phone Jordan Payan Primary Care Provider Joe Chowdary Jr Unavailable [phone] REASON FOR VISIT epigastric pain Encounters Encounter Location Date Provider Diagnosis [facility] [facility] Outpatient [address] [place] [id number] 01/26/2025 Joe Wilkerson Jr Plan Of Treatment No Information Progress Notes * YUNG PEREZDOB:1965 (59 yo F)Acc No.[id number]:01/26/2025 EGD/MAC Patient: YUNG ORTIZ Provider: Agustín Wilkerson MD :1965 A ge:59 Y S ex:Female Date:01/26/2025 Address:[address] [place], [place] [phone] Pcp:Sabrina Sewell Subjective: * Chief Complaints: * 1 . Epigastric pain. * Medical History: Objective: * Vitals: Assessment: Plan: * Treatment: * * The named appointment provid er may or may not be the originator of this progress note, and it is not deemed complete until electronically signed by the appointment provider. Sign off status: Pending * Provider: Agustín Wilkerson MD Date: 01/26/2025 Generated for Jeremiahi lois/Melida/eTransmitting on: 02/24/2025 05:45 PM EDT
--- NOTE | ~2025-02-24 | CT_ITS ---
CLINICAL HISTORY: fall, +head strike CT head without contrast Comparison: CT/REG/[place]/SR - CT HEAD WITHOUT IV CONTRAST - 06/23/2024 04:40 PM EST Findings: No intra-axial mass, midline shift, hydrocephalus, or acute hemorrhage. Mild cortical atrophy. No significant white matter disease. There is no sinus or mastoid fluid. Mild mucosal thickening in left sphenoid sinus and posterior right ethmoid air cell. The orbits are unremarkable. No acute skull fracture. Mild hyperostosis frontalis interna bilaterally. IMPRESSION: 1. No acute intracranial findings. This document has been electronically signed by: Paula Castro MD on 02/24/2025 19:20:00
--- NOTE | ~2025-02-24 | XR_ITS ---
CLINICAL HISTORY: fall 2 view chest x-ray Comparison: None provided Findings: Normal size heart. No consolidation, pleural effusion or pneumothorax. Elevated left hemidiaphragm. No acute fracture. IMPRESSION: 1. No acute findings. This document has been electronically signed by: Paula Castro MD on 02/24/2025 18:52:48
--- NOTE | ~2025-02-24 | XR_ITS ---
CLINICAL HISTORY: fall 4 view right knee Comparison: None provided Findings: Previous knee arthroplasty. Prosthesis is intact. No acute fracture. No dislocation. No erosions. No joint effusion. IMPRESSION: 1. No acute findings. 2. Status post TKA. This document has been electronically signed by: Paula Castro MD on 02/24/2025 18:53:54
--- NOTE | ~2025-02-24 | XR_ITS ---
CLINICAL HISTORY: fall 2 view left knee Comparison: None provided Findings: No fractures or dislocations. Early degenerative change in the medial tibiofemoral compartment with small medial marginal osteophyte formation. Small superior patellar enthesophyte. No erosions. No joint effusion. No radiopaque foreign body. IMPRESSION: 1. No acute findings. This document has been electronically signed by: Paula Castro MD on 02/24/2025 20:02:50
--- NOTE | ~2025-02-24 | CT_ITS ---
CLINICAL HISTORY: fall, +head strike CT maxillofacial without contrast Comparison: None provided Findings: No acute fractures. Temporomandibular joints are intact. Mild mucosal thickening in left sphenoid sinus and posterior right ethmoid air cells. Orbits normal. Visualized intracranial contents are within normal limits. No foreign bodies. IMPRESSION: No facial bone fracture. This document has been electronically signed by: Paula Castro MD on 02/24/2025 19:10:42
--- NOTE | ~2025-02-24 | CT_ITS ---
CLINICAL HISTORY: fall, +head strike CT cervical spine without contrast Comparison: None provided Findings: Straightening of the cervical lordosis. No subluxation. Vertebral body height overall maintained. No acute fracture in the cervical spine. Craniocervical junction is intact. 8 mm round sclerotic bone lesion in C3 vertebral body on the right which is nonspecific. No additional bone lesions. Severe degenerative changes at C5-6 with spondylotic disc bulge and moderate foraminal stenosis bilaterally. Mild degenerative changes at C3-4, C4-5 and C6-7 levels. Prevertebral soft tissues within normal limits. Thyroid within normal limits. Mild posterior apical opacities bilaterally may represent scarring. IMPRESSION: 1. No acute findings in the cervical spine. 2. Degenerative changes most significantly involving C5-6 with moderate bilateral foraminal stenosis. 3. Nonspecific 8 mm sclerotic lesion in C3 vertebral body. No additional bone lesions. This document has been electronically signed by: Paula Castro MD on 02/24/2025 19:12:09
[2025-02-24 17:30] VITALS: BP 127/77; PULSE 103; RESP 18; TEMP 36.7; O2SAT 96; BMI 28.4
--- NOTE | 2025-02-24 17:35 | ECG_ITS ---
Test Reason : CP Blood Pressure : */* mmHG Vent. Rate : 103 BPM Atrial Rate : 103 BPM P-R Int : 154 ms QRS Dur : 78 ms QT Int : 350 ms P-R-T Axes : 73 34 62 degrees QTcB Int : 458 ms Sinus tachycardia Otherwise normal ECG When compared with ECG of 24-Jan-2025 11:30, No significant change was found Referred By: Generic ED Physician Electronically Signed By: GO LEWIS
--- OUTSIDE RECORDS SUMMARY | 2025-02-24 17:45 | XMS_ITS | Patient Health Record ---
Author Organization [facility] Address [address] [place] [phone] Care Team Providers Care Patient Financial Advocate Name Role Phone Jordan Payan Primary Care Provider Joe Chowdary Jr Unavailable [phone] Results Component Value Reference Range Notes Pathology Reviewed date:02/09/2025 08:41:50 AM Interpretation: Performing Lab:[facility], [address] [place] [id number] Notes/Report: Reason For Referral No Information Encounters Encounter Location Date Provider Diagnosis [facility] [address] [place] [id number] 01/26/2025 Joe Wilkerson Jr [facility] [address] [facility] [address] [place] [phone] 02/09/2025 Joe Wilkerson Jr Plan Of Treatment No Information Insurance Providers Payer Name Payer Address Payer Phone Subscriber Number Group Number Insured Name Patient Relationship to Insured Coverage Start Date Coverage End Date MEDICARE OF [place] [address] [place] [address] [phone] [id number] YUNG PEREZ Self - patient is the insured MEDICAID OF [facility] [address] [place] [address] [id number] YUNG PEREZ Self - patient is the insured
--- OUTSIDE RECORDS SUMMARY | 2025-02-24 17:45 | XMS_ITS | Clinical Summary ---
Author Organization [facility] Address [address] [place] [phone] Phone Care Team Providers Care Sheeter Helper Name Role Phone Jordan Kay Primary Care Provider [phone] Social History Tobacco Use Types Packs/Day Years [...] Insurance MEDICARE MEDICAID - [place] Care Teams Sheeter Helper Relationship Specialty Start Date End Date Jordan Kay PA [address] [place] [phone] PCP - General Internal Medicine 05/25/19
--- OUTSIDE RECORDS SUMMARY | 2025-02-24 17:45 | XMS_ITS | Encounter Summary ---
Author Organization [facility] Address [address] [address] Care Team Providers Care Investment Executive Name Role Phone Jordan Kay Primary Care Provider [phone] Reason for Visit * Reason Comments MAT Intake Encounter Details Date Type Department Care Team ([facility] Contact Info) Description 08/13/2021 /[facility] [address] [place] [phone] Baudilio Ray [address] [place], [place] [phone] Social History Tobacco Use Types Packs/Day Years Used Date Smoking Tobacco: Former Smokeless Tobacco: Never Comments:stop 3 weeks ago Alcohol Use Standard Drinks/Week Comments Yes 0 (1 standard drink = 0.6 oz pur e alcohol) Social Connections Answer Date Recorded Social Connections and Isolation 2 03/08/2021 Financial Resource Strain Answer Date R ecorded Financial Resource Strain 1 2020 Stress Answer Date Recorded Stress 2 03/08/2021 Food Insecurity Answer Date Recorded Food 2 03/08/2021 Transportation Needs Answer Date Record ed Transportation 1 03/08/2021 Housing Stability Answer Date Recorded Housing 1 03/08/2021 Safety and Environment Answer Date Mehdi rded Safety 1 03/08/2021 Utilities Answer Date Recorded Utilities 1 03/08/2021 Employment Answer Date Recorded Employment 0 02/19/2019 Comments No Sex and Gender Information Value Date Recorded Sex Assigned at Female 09/19/2017 8:30 AM PDT Legal Sex Female 6:27 AM PST Gender Identity Female 09/19/2017 8:30 AM PDT Sexual Orientation Straight 09/19/2017 8: 30 AM PDT COVID-19 Exposure Response Date Recorded In the last 10 days, have yo u been in contact with someone who was confirmed or suspected to have Coronavirus/COVID-19? No / Unsure 08/13/2021 2:06 PM EST documented as of this encounter Plan of Treatment Not on file documented as of this encounter Goals Goal Patient Goal Type Associated Problems Recent Progress Patient-Stated? 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
--- OUTSIDE RECORDS SUMMARY | 2025-02-24 17:45 | XMS_ITS | Clinical Summary ---
Author Organization [facility] Address [address] [facility] [place] [address] Care Team Providers Care Haul Driver Name Role Phone Jordan Kay Primary Care Provider [phone] Source Comments PLEASE NOTE, if this patient [...] DAILY 90 Capsule 2 01/02/20 23 Active hydrOXYzine pamoate (VISTARIL) 50 mg [...] (NARCAN) 4 mg/actuation nasal spray Place 1 [place] into the nostril(s) as needed for opioid [...] sugar once daily. (OneTouch Ultra) 100 Each 10/08/19 24 Active lancets 33 gaugeIndications:C lass 1 obesity Use to test blood sugar once daily. (OneTouch Delica 33G) 100 Each 10/08/19 24 Active alcohol swabsIndications:C lass 1 obesity Use to test blood sugar once daily. 100 Each 10/08/19 24 Active blood-glucose meter (ONETOUCH ULTRA2 METER) monitoring kitIndications:Cla ss 1 obesity USE TO TEST BLOOD SUGAR ONCE DAILY. 1 Each 10/10/19 24 Active thiamine mononitrate (VITAMIN B-1, MONONITRATE,) [...] for a schedule II opioid drug. 02/19/20 Active M4-LK-B6-copper-Zn -Baikal-jenn 250 mg-500 mcg- 4.5 mg-1.4 mg tab Take by mouth 02/19/20 Active cholecalciferol (VITAMIN D3) 50 mcg (2,000 unit) capsule Take 50 mcg by mouth 02/19/20 24 Active cyanocobalamin/fol ic acid (VITAMIN L38-EJIUV ACID) 2,500-400 mcg TbDi Take by oral route. Active scopolamine (TRANSDERM-SCOP) 1 mg over [address] PATCH ONTO THE SKIN EVERY THIRD DAY (EVERY 72 HOURS) 10 Patch 1 06/11/20 24 Active buPROPion SR (WELLBUTRIN SR) 150 mg [...] Active LORazepam (ATIVAN) 2 mg tabletIndications: Anxiety Take 1 Tablet by mouth 2 (two) times a day NEEDED FOR ANXIETY!!. Max Daily Amount: 4 mg 60 Tablet 02/02/20 25 Active dicyclomine (BENTYL) 20 mg tabletIndications: Abdominal pain, unspecified abdominal location Take 1 Tablet by mouth 4 (four) times daily. 28 Tablet 02/04/20 25 Active ondansetron ODT (ZOFRAN-ODT) 4 mg disintegrating tabletIndications: Nausea Take 1 Tablet by mouth every 8 (eight) hours as needed for nausea. 21 Tablet 02/04/20 25 Active simethicone (MYLICON) 80 mg chewable tabletIndications: Abdominal bloating Place 1 Tablet into mouth, chew and swallow every 6 (six) hours as needed for flatulence. 30 Tablet 1 02/04/20 25 Active dicyclomine (BENTYL) 20 mg tablet Take 20 mg by mouth 12/29/19 23 025 Discontin ued(Reord er (E-Cancel Not Sent)) LORazepam (ATIVAN) 2 mg tabletIndications: Anxiety TAKE 1 TABLET BY MOUTH TWICE A DAY NEEDED FOR ANXIETY 60 Tablet 3 01/13/20 24 025 Discontin ued(Dupli jenn (E-Cancel Not Sent)) LORazepam (ATIVAN) 2 mg tabletIndications: Anxiety,Alcohol withdrawal syndrome without complication (CMS & HHS-HCC) TAKE 1 TABLET BY MOUTH TWICE A DAY NEEDED FOR ANXIETY 60 Tablet 04/05/20 24 025 Discontin ued(Dupli jenn (E-Cancel Not Sent)) ondansetron ODT (ZOFRAN-ODT) 4 mg disintegrating tablet Take 1 Tablet by mouth every 8 (eight) hours as needed for nausea 21 Tablet 08/25/19 25 025 Discontin ued(Reord er (E-Cancel Not Sent)) LORazepam (ATIVAN) 2 mg tabletIndications: Anxiety TAKE 1 TABLET BY MOUTH TWICE A DAY NEEDED FOR ANXIETY 60 Tablet 1 10/05/19 25 025 Discontin ued(Dupli jenn (E-Cancel Not Sent)) LORazepam (ATIVAN) 2 mg tabletIndications: Anxiety TAKE 1 TABLET BY MOUTH TWICE A DAY NEEDED FOR ANXIETY. 60 Tablet 1 11/24/19 25 025 Discontin ued(Reord er (E-Cancel Not Sent)) Active Problems Problem Noted Date Diagnosed Date Rheumatoid arthritis ([facility]) 03/30/2024 Prediabetes 03/30/2024 Psoriasis with arthropathy ([facility]) 03/30 Generalized anxiety disorder 10/29/2023 Alcohol use [...] examination 04/18/18. Alcohol withdrawal syndrome without complication ([facility] & HHS-HCC) 09/19/2017 Overview (01/30/2018): Ad[facility] to [facility] 01/21/18-01/23/18 for alcohol withdrawal. Alcohol-induced chronic pancreatitis ([facility]) 09/19/2017 Interstitial cystitis 09/19/2017 Resolved Problems Problem Noted Date Diagnosed Date Resolved Date Rhinitis 05/14/2022 06/13/2022 Drug-seeking behavior 06/19/20182021 Encounters Date Type Department Care Team Description 02/03/2025 9:00 AM EDT Office Visit [address] [id number] Paz Rose NP 12/30/2024 11:00 AM EDT Office Visit [address] [address] Paz Rose NP from Last 3 Months Immunizations Immunization Administration Dates Next Due PFIZER COVID VACCINE, PURPLE CAP, 12+ 2021 ,09/06/2021 PNEUMOCOCCAL POLYSACCHARIDE PPV23 (Pneumovax 23) 02/11/2016,01/30/2010 TDAP 02/02/2017,09/14/2015 Td (adult) unspecified 08/13/2005 Social History Tobacco Use Types Packs/Day Years Used Date Smoking Tobacco: Some Days Cigarettes Smokeless Tobacco: Never Tobacco Cessation:Ready to Q uit: Not Asked; Counseling Given: Not Answered Comments:stop 3 weeks [...] Sign Reading Time Taken Comments Blood Pressure 120/88 02/03/2025 9:00 AM EDT Pulse 97 02/03/2025 9:00 AM EDT Temperature 37 C (98.6 F) 02/03/2025 9:00 AM EDT Respiratory Rate 20 02/03/2025 9:00 AM EDT Oxygen Saturation 98% 02/03/2025 9:00 AM EDT Inhaled Oxygen Concentration - - Weight 83 kg (183 lb) 02/03/2025 9:00 AM EDT Height 170.2 cm (5' 7 ) 02/03/2025 9:00 AM EDT Body Mass Index 28.66 02/03/2025 9:00 AM EDT Plan of Treatment Health Maintenance Due Date Last Done Comments Medicare Annual Wellness Visit 10/04/1981 Imm-Zoster, Recombinant (1 of 2) 10/04/1982 CT Colonography 10/04/2008 Fecal DNA 10/04/2008 Flexible Sigmoidoscopy 10/04/2008 Imm-Pneumococcal 50+ (3 of 3 - PCV) 02/10/2017 02/11/2016, 01/30/2010 FIT/gFOBT 02/13/2019 02/13/2018, 01/28, 02/02/2018 [id number] (3 - Pfizer ris k series) 11/02/2021 [...] 9:00 AM EDT) No Warren Downs, PharmD Procedures Procedure Name Priority Date/Time Associated Diagnosis Comments REFERRAL SCANNED DOCUMENT 01/24/2025 3:00 AM EDT IMAGING SCANNED DOCUMENT 01/24/2025 3:00 AM EDT IMAGING SCANNED DOCUMENT 01/24/2025 3:00 AM EDT LIPID PANEL Routine 12/24/2024 8:38 AM EDT Alcohol-induced chronic pancreatitis (CMS & HHS-HCC) Alcohol withdrawal syndrome without complication (CMS & HHS-HCC) Fatty liver Class 1 obesity Prediabetes HEPATIC FUNCTION PANEL Routine 12/24/2024 8:38 AM EDT Alcohol-induced chronic pancreatitis (CMS & HHS-HCC) Alcohol withdrawal syndrome without complication (CMS & HHS-HCC) Fatty liver Class 1 obesity Prediabetes HEMOGLOBIN GLYCOSYLATED A1C Routine 02/18/2024 11:41 AM [...] Recently Relevant to Health Maintenance Results * REFERRAL SCANNED DOCUMENT (01/24/2025 3:00 AM EDT) 01/24/2025 3:00 AM EDT Jordan Kay PA SCAN REFERRAL Final Result * IMAGING SCANNED DOCUMENT (01/24/2025 3:00 AM EDT) Only the most recent of2 resultswithin the time period is included. 01/24/2025 3:00 AM EDT us Jordan Nortonis PA SCAN IMAGING Final Result * HEPATIC FUNCTION PANEL Routine (12/24/2024 8:38 AM EDT) Pathologist [facility] PROTEIN, TOTAL 7.2 6.1 - 8.1 g/dL [facility] ALBUMIN 4.5 3.6 - 5.1 g/dL [facility] [email or web address] GLOBULIN 2.7 1.9 - 3.7 g/dL (calc) [facility] [place] [email or web address] ALBUMIN/GLOBULIN RATIO 1.7 1.0 - 2.5 (calc) [facility] BILIRUBIN, TOTAL 0.4 0.2 - 1.2 mg/dL [facility] BILIRUBIN, DIRECT 0.1 0.0 - 0.2 mg/dL [facility] BILIRUBIN, INDIRECT 0.3 0.2 - 1.2 mg/dL (calc) [facility] ALKALINE PHOSPHATASE 88 37 - 153 U/L [facility] AST 14 10 - 35 U/L [facility] ALT 13 6 - 29 U/L [facility] Blood Blood / Unknown 12/24/2024 8 :38 AM EDT 12/24/2024 8:38 AM EDT Jordan ARAIZA LAB - BLOOD DRAW Edited Result - Final [facility] [address] [address], [facility] [address] [phone] * (ABNORMAL) LIPID PANEL Routine (12/24/2024 8:38 AM EDT) CHOLESTEROL, TOTAL 266(H) <200 mg/dL [facility] HDL CHOLESTEROL 72 > OR = 50 mg/dL [facility] TRIGLYCERIDES 190(H) <150 mg/dL [facility] LDL-CHOLESTEROL 159(H) 99 mg/dL (calc) [facility] Comment: Reference range: <100 Desirable range <100 mg/dL for primary prevention; <70 mg/dL for patients with CHD or diabetic patients with > or = 2 CHD risk factors. LDL-C is now calculated using the [place] calculation, which is a validated novel method providing better accuracy than the Friedewald equation in the estimation of LDL-C. Xander GIBBONS et al. RICKIE. 2013;310(19): 4083-3400 (http://education.[employer].ecomom/faq/URH405) CHOL/HDLC RATIO 3.7 <5.0 (calc) [facility] NON-HDL CHOLESTEROL 194(H) <130 mg/dL (calc) [facility] Comment: For patients with diabetes plus 1 major ASCVD risk factor, treating to a non-HDL-C goal of <100 mg/dL (LDL-C of <70 mg/dL) is considered a therapeutic option. Blood Blood / Unknown 12/24/2024 8 :38 AM EDT 12/24/2024 8:38 AM EDT us Jordan ARAIZA LAB - BLOOD DRAW Final Result Performing Organization Address [facility] Co de Phone Number [employer] [facility] [address] [place] [address], [facility] [address] [place] [phone] * HEMOGLOBIN GLYCOSYLATED A1C (02/18/2024 11:41 AM EDT) HEMOGLOBIN A1C 5.5 <5.7 % of total Hgb [facility] Comment: For the purpose of screening for the presence of diabetes: <5.7% Consistent with the absence of diabetes 5.7-6.4% Consistent with increased risk for diabetes (prediabetes) > or =6.5% Consistent with diabetes This assay result is consistent with a decreased risk of diabetes. Currently, no consensus exists regarding use of hemoglobin A1c for diagnosis of diabetes in children. According to [place] [employer] (ADA) guidelines, hemoglobin A1c <7.0% represents optimal control in non- diabetic patients. Different metrics may apply to specific patient populations. Standards of Medical Care in Diabetes(ADA). Blood Blood / Unknown 02/18/2024 1 1:41 AM EDT 02/18/2024 11:42 AM EDT us Jordan ARAIZA LAB - BLOOD DRAW Final Result Performing Organization Address [facility] Co de Phone Number [employer] [facility] [address] [address], [place] [address] [address] * REFERRAL FOR COLONOSCOPY (10/02/2021 3:00 AM EDT) 10/02/2021 3:00 AM EDT Jordan ARAIZA REFERRAL Edited Result - Final * DRUG MONITORING, OPIATES EXPANDED, QUANTITATIVE, URINE (03/14/2021 12:21 PM EDT) CODEINE NEGATIVE <50 [facility] HYDROCODONE NEGATIVE <50 [facility] HYDROMORPHONE NEGATIVE <50 [facility] MORPHINE NEGATIVE <50 [facility] NORHYDROCODONE NEGATIVE <50 [facility] Opiates Comments See Note [facility] Comment:See LDT Notes NOROXYCODONE NEGATIVE <50 [facility] OXYCODONE NEGATIVE <50 [facility] OXYMORPHONE NEGATIVE <50 [facility] Oxycodone Comments See Note [facility] [employer] [facility] Comment:See LDT Notes Urine Urine specimen / Unknown 03/14/2021 12:21 PM EDT 03/14/2021 10:37 PM EDT Katia Lemus APRN LAB URINE AMBULATORY Final Res ult [facility] [address] [address], [facility] [address] [address] * HEPATITIS C AB W/RFLX HCV RNA, QT, RT PCR (03/14/2021 11:51 AM EDT) HEPATITIS C ANTIBODY NON-REACT EMERITA NON-REACT EMERITA [facility] SIGNAL TO CUT-OFF 0.01 <1.00 [facility] Comment: HCV antibody was non-reactive. There is no laboratory evidence of HCV infection. In most cases, no further action is required. However, if recent HCV exposure is suspected, a test for HCV RNA (test code 50259) is suggested. For additional information please refer to http://education.[employer]/faq/HWG93o9 (This link is being provided for informational/ educational purposes only.) Blood Blood / Unknown 03/14/2021 1 1:51 AM EDT 03/14/2021 11:52 AM EDT Katia Lemus MICHAEL LAB - BLOOD DRAW Final Result Performing Organization Address City/[facility]/ZIP Co de Phone Number [facility] [address] [address], [facility] [address],[place] [address] * HIV 1/2 AG & AB W/RFLX (4TH GEN) (03/14/2021 11:51 AM EDT) Pathologist [facility] HIV AG/AB, 4TH GEN NON-REAC TIVE NON-REAC TIVE [facility] Comment: HIV-1 antigen and HIV-1/HIV-2 antibodies were [...] purpose. For additional information please refer to http://education.[employer]/faq/ZUV056 (This link is being provided for informational/ educational purposes only.) The performance of this assay has not been clinically validated in patients less than 2 years old. Blood Blood / Unknown 03/14/2021 1 1:51 AM EDT 03/14/2021 11:52 AM EDT Katia Lemus APRN LAB - BLOOD DRAW Final Result [facility] [address] [address], [facility] [address],[place] [address] * STOOL OCCULT BLOOD (POCT) (02/13/2018 4:42 PM EDT) FECAL OCCULT BLOOD NEGATIVE NEGATIVE [facility] POCT FECAL OCCULT BLOOD #2 NEGATIVE NEGATIVE [facility] POCT FECAL OCCULT BLOOD #3 NEGATIVE NEGATIVE [facility] POCT Stool specimen (specimen) Stool specimen / Unknown 02/13/2018 4:42 PM EDT Jordan ARAIZA LAB BODY FLUIDS AND STOOLS AMB ULATORY Final Result [facility] POCT from Last 3 Months or Most Recently Relevant to Health Maintenance Insurance [place] Care Teams Haul Driver Relationship Specialty Start Date End Date Jordan Kay PA [address] [place] [address] PCP - General Internal Medicine 08/19/17
--- OUTSIDE RECORDS SUMMARY | 2025-02-24 17:45 | XMS_ITS | Encounter Summary ---
Author Organization [facility] Address [address] [address] Care Team Providers Care Intelligent Systems Engineer Name Role Phone Jordan Kay Primary Care Provider [phone] Reason for Visit * Reason Comments Crisis Intervention Encounter Details Date Type Department Care Team ([facility] st Contact Info) Description 01/20/2023 / Crisis [facility] [address] [place] [phone] Jodi Taylor [address] [place] [address] Social History Tobacco Use Types Packs/Day Years Used Date Smoking Tobacco: Some Days Cigarettes Smokeless Tobacco: Never Comments:stop 3 weeks ago [...] Orientation Straight 09/19/2017 8: 30 AM PDT documented as of this encounter Miscellaneous Notes * Patient Instructions - Jodi Taylor - 01/20/2023 2:21 PM EDT If you are not able to keep your appointment please call [phone] hours before your appointment to cancel or reschedule. documented in this encounter Plan of Treatment Not on file documented as of this encounter Goals Goal Patient Goal Type Associated Problems Recent Progress Patient-Stated? 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
[2025-02-24 17:49] LABS: Hematocrit 42.0 % (37.0-47.0); Hemoglobin 14.7 g/dl (12.0-16.0); Imm Gran Abs Auto 0.04 X10*3/uL (0.00-0.03); Imm Gran Pct Auto 0.3 % (0.0-0.4); Lymphocytes Absolute Auto 2.4 X10*3/uL (1.2-4.9); MANUAL DIFF FLAG NO; Mean Corpuscular HGB Conc 35.0 g/dl (31.0-35.0); Mean Corpuscular Hemoglobin 33.0 pg (27.0-33.0); Mean Corpuscular Volume 94.2 fL (80.0-98.0); NRBC Abs Auto 0.000 X10*3/uL (0.0-0.012); NRBC Pct Auto 0.0 /100WBC (0.0-0.2); Platelet Count 230 X10*3/uL (160-400); Red Blood Count 4.46 X10*6/uL (4.20-5.50); White Blood Count 11.5 X10*3/uL (4.8-10.8)
[2025-02-24 18:04] LABS: Alanine Aminotransferase 84 U/L (0-31); Albumin Level 4.4 g/dL (3.5-5.0); Alkaline Phosphatase 130 U/L (39-117); Anion Gap 22 (12-20); Aspartate Amino Transferase 101 U/L (5-31); Blood Urea Nitrogen 28 mg/dL (9-16); Calcium 8.5 mg/dL (8.4-10.2); Carbon Dioxide 21 mmol/L (22-29); Chloride 97 mmol/L (96-108); Creatinine Clr Calc Pharmacy 70.7; Estimated Glomerular Filt Rate > 60; Potassium 3.9 mmol/L (3.3-5.1); Sodium 136 mmol/L (135-145); Total Protein 6.9 g/dL (6.5-8.0)
[2025-02-24 19:04] VITALS: BP 112/80; BP 127/77; PULSE 100; PULSE 103; RESP 18; TEMP 36.7; TEMP 37.1; O2SAT 94; O2SAT 96
--- NOTE | 2025-02-24 19:18 | PC.NURSE ---
assumed care of pt, pt CIWA assessed at a 5 after stating she had a last drink hours ago and is nervous about withdrawal. pt here for a fall following a few nips, fell out of bed. provider advised of CIWA score and increasing nausea. daughter at bedside.
--- NOTE | 2025-02-24 19:21 | ED_ITS ---
HPI - Fall General Chief Complaint: Fall Stated Complaint: ETOH w//d leg inj. (fall) Time Seen by Provider: 02/24/25 19:11 Source: patient and family Mode of arrival: ambulatory Limitations: no limitations History of Present Illness ED Provider: Calos ARAIZA HPI Narrative: The patient is a 59-year-old female with history of alcohol dependency with previous alcohol withdrawal seizures, most recently approximately 4 years ago, who presents to the ED for evaluation of bilateral knee pain after she suffered 2 falls over the past 2 nights while actively intoxicated. Patient reports fall yesterday evening occurred while trying to step up into her bathroom, family heard the fall and found her face down in the bathroom. The patient was noted by family today to have bruising to the orbit and brought to the ED for evaluation. The patient denies other substance use. Patient denies associated fever/chills, nausea, vomiting, shortness of breath, or abdominal pain. The patient began reporting chest pain while she was in the ED but states chest pain resolved and denies any chest pain at time of provider interviewed. Related Data Home Medications ?Medication ?Instructions ?Recorded ?Confirmed cyanocobalamin (vitamin B-12) 1,000 mcg PO DAILY 07/1001/24/25 1,000 mcg tablet cholecalciferol (vitamin D3) 50 50 mcg PO DAILY 01/24/25 mcg (2,000 unit) tablet (Vitamin D3) diazepam 10 mg tablet See Rx Instructions .Route 1 08/08/23 01/24/25 .COMPLEX PRN Interstitial cystisis folic acid 400 mcg tablet 0.4 mg PO DAILY 06/07/24 lorazepam 2 mg tablet 2 mg PO BID PRN anxiety 12/03/2301/24/25 tramadol 50 mg tablet 50 mg PO QID 06/07/24 acetaminophen 650 mg 650 mg PO Q8H PRN Pain 01/2401/24/25 tablet,extended release calcitriol 0.5 mcg capsule 0.5 mcg PO DAILY 01/24/25 0 01/24/25 lysine 1,000 mg tablet 1,000 mg PO DAILY 01/24/25 0 01/24/25 magnesium citrate,mag oxide 250 mg 500 mg PO DAILY 01/24/25 capsule melatonin 10 mg tablet 10 mg PO BEDTIME 01/24/25 multivit,Ca,min-iron 8 mg-folic 1 tab PO DAILY 5 01/24/25 acid 200 mcg-lycopene 600 mcg tablet (Men's Daily Multivitamin) vitamin E (dl, acetate) 450 mg 450 mg PO DAILY 5 01/24/25 (1,000 unit) capsule zinc acetate 50 mg (zinc) capsule 50 mg PO DAILY 01/2401/24/25 Previous Rx's ?Medication ?Instructions ?Recorded dicyclomine 20 mg tablet 20 mg PO QID #14 tabs Allergies Allergy/AdvReac Type Severity Reaction Status Date / Time aspirin (ASA) Allergy Mild STOMACH Verified 02/24/25 17:34 UPSET cephalexin Allergy Mild Gastrointestinal Verified 02/24/25 17:34 Upset latex (LATEX) Allergy Mild RASH Verified 02/24/25 17:34 morphine (MORPHINE) Allergy Mild RASH, Verified 02/24/25 17:34 swelling, redness Sulfa (Sulfonamide Allergy Mild RASH, Verified 02/24/25 17:34 Antibiotics) (SULFA swelling, (SULFONAMIDE ANTIBIOTICS)) redness terbinafine Allergy Mild Nausea and Verified 02/24/25 17:34 Vomiting azithromycin Allergy Rash Verified 02/24/25 17:34 clonazepam (From Klonopin) AdvReac Mild Gastrointestinal Verified 02/24/25 17:34 Upset metformin AdvReac Constipatio Verified 02/24/25 17:34 n Latex Allergy Unknown swelling, Uncoded 01/24/25 09:50 redness Review of Systems 2 Review of Systems: Yes all other systems are reviewed and are negative [facility] Past Medical History Medical History EtOH dependence Social History Social History Household Members: None Household Members Other:: lives alone Housing: House Housing Other:: multi family home on third floor Are you a primary career specialist to a significant other at home: No Do you presently have visiting nurse or other home services: No Alcohol intake: current Alcohol intake frequency: other Alcohol type: hard liquor Comment: Pt refusing assistance ambulating to BR. Steady on observation Patient Tobacco Use Status: Current everyday Tobacco user Tobacco use type: Cigarette Cigarette Packs Per Day: 0.25 Cigarettes Per Day: 7 Years Smoked: 20 Second Hand Smoke Exposure: No Use of substances other than those prescribed or required for medical reasons: No Substance Use Type: Marijuana Advance Directives: No Advance Directives Information Provided: No service: No Physical Exam 2 Vital Signs: Vital Signs: Last Vital Signs Temp 98.1 F 02/24/25 19:04 Pulse 103 H 02/24/25 19:04 Resp 18 02/24/25 19:04 BP 127/77 02/24/25 19:04 Pulse Ox 96 02/24/25 19:04 O2 Del Method Room Air 02/24/25 19:04 BMI result Body Mass Index 28.4 CONSTITUTIONAL: The patient appears non-toxic, well nourished and in no acute distress. Vital signs as documented. HEAD: Healing ecchymosis noted to the inferior right orbit, otherwise atraumatic, normocephalic. EYES: EOMs grossly intact, pupils equal, conjunctiva clear, no exudate. ENT: Nares patent, no discharge. Airway patent, no audible stridor, visible mucosa is pink and moist without noted lesions. NECK: Trachea is midline, no obvious masses or gross abnormalities. CHEST: Symmetric movement, normal appearance. LUNGS: LS present and CTAB, no w/r/r. Non-labored work of breathing. CARDIAC: Regular Rhythm, S1/S2 appreciated, no murmurs, rubs or gallops. ABDOMEN: Abdomen soft and non-tender x4 quadrants, no palpable masses or organomegaly. : Deferred. EXTREMITIES: Mild swelling and contusion noted to the right knee, overlying well-healed incision from TKR noted, no opening of incision, no crepitus or bony tenderness. Distal CSM intact. Normal tone, moves all extremities spontaneously without reported pain. No obvious acute injury or deformity noted. NEURO: Alert and oriented x3, CN II-XII appear grossly intact. Cerebellar Functioning grossly intact. No obvious sensory or motor deficits. Speech clear and appropriate. PSYCH: normal affect, appropriate eye contact, fluid speech, with appropriate response to questioning. No reported suicidality or homicidality. SKIN: Warm, dry, color appropriate, normal turgor. No rashes noted. Medical Decision Making Medical Decision Making MDM Narrative: 8:14 PM 02/24/2025 (Caren ARAIZA): The patient is a 59-year-old female with history of alcohol dependency with previous alcohol withdrawal seizures, most recently approximately 4 years ago, who presents to the ED for evaluation of bilateral knee pain after she suffered 2 falls over the past 2 nights while actively intoxicated. The patient was noted by family today to have bruising to the orbit and brought to the ED for evaluation. The patient denies other substance use. Exam reveals swelling and contusion of the left knee which is status post TKR in September of this year, there is also healing ecchymosis noted of the inferior right orbit. Remainder of exam is unremarkable. Laboratory evaluation shows mild leukocytosis of 11.5, no anemia, electrolyte abnormality, or significant GADIEL. The patient's LFTs are consistent with known alcohol dependency, ethanol level is 246. EKG is nonischemic. The patient's CT head, neck, and face are negative for acute intracranial pathology, calvarial fracture, or cervical fracture. Bilateral knee x-rays show no acute fracture or loosening of hardware, chest x-ray is unremarkable. The patient reports feeling anxious, concern for possible withdrawals, however patient's ethanol level at 17:45 is 246, based on metabolic rates current alcohol level is likely approximately 150-175, CIWA is for, no concern for active withdrawal. The patient advises she takes 2 mg of p.o. Ativan twice daily for anxiety, has not had her Ativan this evening, we will give the patient her 2 mg dose of Ativan. And extensive discussion regarding plan of care was held with the patient, patient was offered consultation with crisis for recovery services referrals, was also offered detox services, unfortunately patient declined any consultation or referral. Patient states given her reassuring workup she would prefer to go home, advises her daughter's fiance we will give her a ride home. Patient states she understands the risks of seizure and as a result of acute alcohol cessation. At this time the patient is alert and oriented, states her understanding of the risks of discharge, patient will be discharged to follow up with PCP. Patient has been educated that she can return at any time to the ED for recovery Services consultation or detox. Admission/Observation Consideration of admission/observation: Escalation of care including admission/observation considered Lab Data MDM Lab Attestation statement: I reviewed the patient's lab results. 02/24/25 17:43 02/24/25 17:43 Labs: Lab Results 02/24/25 Range/Units 17:43 WBC 11.5 H (4.8-10.8) X10*3/uL RBC 4.46 (4.20-5.50) X10*6/uL Hgb 14.7 (12.0-16.0) g/dl Hct 42.0 (37.0-47.0) % MCV 94.2 (80.0-98.0) fL MCH 33.0 (27.0-33.0) pg MCHC 35.0 (31.0-35.0) g/dl RDW 14.0 (11.0-16.0) % Plt Count 230 (160-400) X10*3/uL MPV 8.5 L (9.4-12.3) fL Immature Gran % (Auto) 0.3 (0.0-0.4) % Neut % (Auto) 72.1 (45-73) % Lymph % (Auto) 21.0 (20-40) % [place] % (Auto) 6.0 (2-11) % Eos % (Auto) 0.1 (0-4) % Baso % (Auto) 0.5 (0-2) % Lymph # (Auto) 2.4 (1.2-4.9) X10*3/uL [place] # (Auto) 0.7 (0.1-1.2) X10*3/uL Eos # (Auto) 0.0 (0.0-0.4) X10*3/uL Baso # (Auto) 0.1 (0.0-0.2) X10*3/uL Abs Immat Gran (auto) 0.04 H (0.00-0.03) X10*3/uL Absolute Neuts (auto) 8.3 (2.0-8.3) x10*3/uL Absolute Nucleated RBC 0.000 (0.0-0.012) X10*3/uL Nucleated RBC % (auto) 0.0 (0.0-0.2) /100WBC Sodium 136 (135-145) mmol/L Potassium 3.9 (3.3-5.1) mmol/L Chloride 97 (96-108) mmol/L Carbon Dioxide 21 L (22-29) mmol/L Anion Gap 22 H (12-20) BUN 28 H (9-16) mg/dL Creatinine 0.92 (0.5-1.4) mg/dL Estim Creat Clear Calc 70.7 Estimated GFR > 60 Random Glucose 125 H (60-115) mg/dL Calcium 8.5 (8.4-10.2) mg/dL Total Bilirubin 0.7 (0.0-1.0) mg/dL AST 101 H (5-31) U/L ALT 84 H (0-31) U/L Alkaline Phosphatase 130 H (39-117) U/L Total Protein 6.9 (6.5-8.0) g/dL Albumin 4.4 (3.5-5.0) g/dL Ethyl Alcohol 246 mg/dL Independent Interpretation I performed an independent interpretation of an: EKG (EKG shows sinus tachycardia with a rate of 103, no evidence of acute ischemia, no ST elevation, no ectopy. QTC 458. Compared to previous on 01/24/2025 there are no significant morphology changes. ) Radiology Impression Discussion of test interpretation with radiology: I have reviewed the radiologist's reading. Radiologist Impression: CLINICAL HISTORY: fall, +head strike CT cervical spine without contrast Comparison: None provided Findings: Straightening of the cervical lordosis. No subluxation. Vertebral body height overall maintained. No acute fracture in the cervical spine. Craniocervical junction is intact. 8 mm round sclerotic bone lesion in C3 vertebral body on the right which is nonspecific. No additional bone lesions. Severe degenerative changes at C5-6 with spondylotic disc bulge and moderate foraminal stenosis bilaterally. Mild degenerative changes at C3-4, C4-5 and C6-7 levels. Prevertebral soft tissues within normal limits. Thyroid within normal limits. Mild posterior apical opacities bilaterally may represent scarring. IMPRESSION: 1. No acute findings in the cervical spine. 2. Degenerative changes most significantly involving C5-6 with moderate bilateral foraminal stenosis. 3. Nonspecific 8 mm sclerotic lesion in C3 vertebral body. No additional bone lesions. This document has been electronically signed by: Paula Castro MD on 02/24/2025 19:12:09 CT maxillofacial without contrast Comparison: None provided Findings: No acute fractures. Temporomandibular joints are intact. Mild mucosal thickening in left sphenoid sinus and posterior right ethmoid air cells. Orbits normal. Visualized intracranial contents are within normal limits. No foreign bodies. IMPRESSION: No facial bone fracture. This document has been electronically signed by: Paula Castro MD on 02/24/2025 19:10:42 CT head without contrast Comparison: CT/REG/RI/SR - CT HEAD WITHOUT IV CONTRAST - 06/23/2024 04:40 PM EST Findings: No intra-axial mass, midline shift, hydrocephalus, or acute hemorrhage. Mild cortical atrophy. No significant white matter disease. There is no sinus or mastoid fluid. Mild mucosal thickening in left sphenoid sinus and posterior right ethmoid air cell. The orbits are unremarkable. No acute skull fracture. Mild hyperostosis frontalis interna bilaterally. IMPRESSION: 1. No acute intracranial findings. This document has been electronically signed by: Paula Castro MD on 02/24/2025 19:20:00 CLINICAL HISTORY: fall 2 view chest x-ray Comparison: None provided Findings: Normal size heart. No consolidation, pleural effusion or pneumothorax. Elevated left hemidiaphragm. No acute fracture. IMPRESSION: 1. No acute findings. This document has been electronically signed by: Paula Castro MD on 02/24/2025 18:52:48 4 view right knee Comparison: None provided Findings: Previous knee arthroplasty. Prosthesis is intact. No acute fracture. No dislocation. No erosions. No joint effusion. IMPRESSION: 1. No acute findings. 2. Status post TKA. This document has been electronically signed by: Paula Castro MD on 02/24/2025 18:53:54 2 view left knee Comparison: None provided Findings: No fractures or dislocations. Early degenerative change in the medial tibiofemoral compartment with small medial marginal osteophyte formation. Small superior patellar enthesophyte. No erosions. No joint effusion. No radiopaque foreign body. IMPRESSION: 1. No acute findings. This document has been electronically signed by: Paula Castro MD on 02/24/2025 20:02:50 External Record Review External record reviewed: Outpatient record Prescription Management I considered prescription management with: Other Phenobarbitol Discharge Plan Discharge Clinical Impression: Fall Qualifiers: Encounter type: initial encounter Qualified Code(s): W19.XXXA - Unspecified fall, initial encounter EtOH dependence Qualifiers: Substance use status: with intoxication Complication of substance-induced condition: uncomplicated Qualified Code(s): F10.220 - Alcohol dependence with intoxication, uncomplicated Patient Disposition: Home, Self-Care Instructions: Alcohol Dependence (ED), Alcohol Use Disorder (ED), Alcohol Withdrawal (ED), Fall Prevention (ED) Additional Instructions: Thank you for choosing [facility]'s Emergency Department for your care today. Thankfully your EKG, laboratory evaluation, CT head, face, and neck, as well as your chest x-ray and bilateral knee x-rays show no evidence of any acute injury as a result of your falls of the past 2 nights. At this time there is no indication for admission to the hospital or continued ED observation, and it is safe to discharge you home. You have been offered consultation with our substance abuse services for resources and consideration of inpatient detoxification programs, at this time you have declined consultation and detox referral. Please understand that you may return to the ED at any time should you change your mind and wish to seek our assistance with discontinuing your alcohol dependency. Do not drive, or operate machinery while intoxicated, please do not be the sole care provider for children while intoxicated. Please do not stop drinking alcohol all at once (?cold turkey?) as this could put you at increased risk for withdrawal seizures and delirium tremens. Please continue taking all your regularly prescribed medications as directed. Please follow up with your primary care physician for re-evaluation, additional management of your symptoms, and continued preventative care. If you do not have a primary care physician, please call the [facility] at [phone] to establish a new primary care physician. While waiting to establish your new primary care physician, you can call our [facility] at [phone] for non-emergency needs. Please return to the emergency department if you develop a severe or sudden change in your symptoms, a fever over 100.4 that does not improve with Tylenol or Ibuprofen, recurrent vomiting, or any other new or worsening symptoms or concerns. Prescriptions: No Action tramadol 50 mg tablet 50 mg PO QID lorazepam 2 mg tablet 2 mg PO BID PRN (Reason: anxiety) diazepam 10 mg tablet See Rx Instructions .ROUTE .COMPLEX PRN (Reason: Interstitial cystisis) Rx Instructions: PLACE 1 TABLET INTRA-VAGINALLY ONCE DAILY NEEDED FOR INTERSTITIAL CYSTISIS folic acid 400 mcg Tablet 0.4 mg PO DAILY cholecalciferol (vitamin D3) [Vitamin D3] 50 mcg (2,000 unit) Tablet 50 mcg PO DAILY zinc acetate 50 mg (zinc) Capsule 50 mg PO DAILY lysine 1,000 mg Tablet 1,000 mg PO DAILY calcitriol 0.5 mcg Capsule 0.5 mcg PO DAILY Men's Daily Multivitamin 8 mg iron- 200 mcg-600 mcg Tablet 1 tab PO DAILY vitamin E (dl, acetate) 450 mg (1,000 unit) Capsule 450 mg PO DAILY melatonin 10 mg Tablet 10 mg PO BEDTIME magnesium citrate,mag oxide 250 mg Capsule 500 mg PO DAILY acetaminophen 650 mg Tablet Extended Release 650 mg PO Q8H PRN (Reason: Pain) dicyclomine 20 mg tablet 20 mg PO QID Qty: 14 0RF cyanocobalamin (vitamin B-12) 1,000 mcg tablet 1,000 mcg PO DAILY Referrals: Physician,Unknown J [Primary Care Provider, Medical] Clinical Impression: EtOH dependence; Fall Print Language: Kiswahili
[2025-02-24 20:26] VITALS: BP 105/82; PULSE 120; RESP 18; TEMP 36.8; O2SAT 93
--- NOTE | 2025-02-24 20:32 | PC.NURSE ---
pt given d/c instructions, waiting in ED room for daughter to pick her up an speak with provider Calos. Calos agrees, charge account clerk aware.
[2025-02-24 20:55] VITALS: BP 105/82; PULSE 120; RESP 18; TEMP 36.8; O2SAT 93
== END 2025-02-24 20:56 | disposition home or self-care (01) ==
PROVIDERS: Emergency Provider Student in an Organized Health Care Education/Training Program
DX: S00.11XA Contusion of right eyelid and periocular area, initial encounter (principal); F10.129 Alcohol abuse with intoxication, unspecified; Y90.8 Blood alcohol level of 240 mg/100 ml or more; R51.9 Headache, unspecified; M25.561 Pain in right knee; M25.562 Pain in left knee; M54.2 Cervicalgia; R00.0 Tachycardia, unspecified; R07.89 Other chest pain; F17.210 Nicotine dependence, cigarettes, uncomplicated; W01.0XXA Fall on same level from slipping, tripping and stumbling without subsequent striking against object, initial encounter; Y93.9 Activity, unspecified; Y92.9 Unspecified place or not applicable; Y99.8 Other external cause status; Z51.81 Encounter for therapeutic drug level monitoring; Z79.899 Other long term (current) drug therapy
CPT/HCPCS: 36415; 70450; 70486; 71046; 72125; 73560; 73564; 80053; 80307; 85025; 93005; 99284; 99285

== ENCOUNTER → 2025-02-24 17:35 | Outpatient (BNV) | payer MEDICARE, MEDICAID, SELFPAY | PROVIDERS: Visit Provider Specialist | DX: M48.02 Spinal stenosis, cervical region (principal); J32.2 Chronic ethmoidal sinusitis; S09.90XA Unspecified injury of head, initial encounter; Z96.651 Presence of right artificial knee joint; R06.2 Wheezing; M17.12 Unilateral primary osteoarthritis, left knee | CPT/HCPCS: 70450; 70486; 71046; 72125; 73560; 73564 ==

== ENCOUNTER → 2025-02-24 17:35 | Outpatient (BNV) | payer MEDICARE, MEDICAID, SELFPAY | PROVIDERS: Emergency Provider Student in an Organized Health Care Education/Training Program; Visit Provider Internal Medicine | DX: R00.0 Tachycardia, unspecified (principal) | CPT/HCPCS: 93010 ==

== ENCOUNTER 2025-02-26 21:05 | Inpatient (IN) | payer MEDICARE, MEDICAID, SELFPAY ==
--- OUTSIDE RECORDS SUMMARY | 2025-01-26 09:50 | XMS_ITS ---
Author Organization [facility] Address [address] [place] [address] Care Team Providers Care Poultry Farmworker Name Role Phone Jordan Payan Primary Care Provider Joe Chowdary Jr Unavailable REASON FOR VISIT epigastric pain Encounters Encounter Location Date Provider Diagnosis [facility] Outpatient [address] [place] [phone] 01/26/2025 Joe Wilkerson Jr Plan Of Treatment No Information Progress Notes * YUNG PEREZDOB:1965 (59 yo F)Acc No.[id number]:01/26/2025 EGD/MAC Patient: YUNG ORTIZ Provider: Agustín Wilkerson MD :1965 A ge:59 Y S ex:Female Date:01/26/2025 Address:[address] [place], [place] [phone] Pcp:Sabrina Sewell Subjective: * Chief Complaints: * [...] Wilkerson MD Date: 01/26/2025 Generated for Jeremiahi lois/Fagiag/eTransmitting on: 02/26/2025 09:25 PM EDT
--- NOTE | ~2025-02-26 | XR_ITS ---
CLINICAL HISTORY: wheezing 2 view chest x-ray. Comparison: CR - XR CHEST 2V - 02/24/25 18:12 EDT Findings: Normal lung volumes. Lungs are clear. No pneumothorax or pleural effusion. Heart size normal. No passive venous congestion. No midline shift or tracheal deviation. No acute fracture. Impression: 1. No acute cardiopulmonary disease. This document has been electronically signed by: Kris Atwood MD on 02/27/2025 06:51:44
[2025-02-26 21:13] VITALS: BP 137/81; BP 140/100; PULSE 89; PULSE 94; RESP 18; TEMP 37; O2SAT 96; O2SAT 98; BMI 28.7
--- OUTSIDE RECORDS SUMMARY | 2025-02-26 21:26 | XMS_ITS | Patient Health Record ---
Author Organization [facility] Address [address] [place] [phone] Care Team Providers Care Dot Net Developer Name Role Phone Jordan Payan Primary Care Provider Joe Chowdary Jr Unavailable Results Component Value Reference Range Notes Pathology Reviewed date:02/09/2025 08:41:50 AM Interpretation: Performing Lab:[facility], [address] [place] [phone] Notes/Report: Reason For Referral No Information Encounters Encounter Location Date Provider Diagnosis [facility] [place] Outpatient [address] [place] [id number] 01/26/2025 Joe Wilkerson Jr [facility] [address] [place] [phone] 02/09/2025 Joe Wilkerson Jr Plan Of Treatment No Information Insurance Providers Payer Name Payer Address Payer Phone Subscriber Number Group Number Insured Name Patient Relationship to Insured Coverage Start Date Coverage End Date [place] [address] [place] [address] [id number] YUNG PEREZ Self - patient is the insured MEDICAID OF [facility] [address] [place] [address] [id number] YUNG PEREZ Self - patient is the insured
--- OUTSIDE RECORDS SUMMARY | 2025-02-26 21:26 | XMS_ITS | Encounter Summary ---
Author Organization [facility] Address [address] [address] Care Team Providers Care Software Development Leader Name Role Phone Jordan Kay Primary Care Provider [phone] Reason for Visit * Reason Comments Crisis Intervention Encounter Details Date Type Department Care Team ([facility] st Contact Info) Description 01/20/2023 / Crisis [facility] [address] [place] [phone] Jodi Taylor [address] [place] [address] Social History Tobacco Use Types Packs/Day Years [...] documented as of this encounter Care Teams Software Development Leader Relationship Specialty Start Date End Date Jordan Kay PA [address] [place] [address] PCP - General Internal Medicine 08/19/17 documented as of this encounter
--- OUTSIDE RECORDS SUMMARY | 2025-02-26 21:26 | XMS_ITS | Encounter Summary ---
Author Organization [facility] Address [address] [address] Care Team Providers Care Rubber Extrusion Machine Operator Name Role Phone Jordan Kay Primary Care Provider [phone] Reason for Visit * Reason Comments MAT Intake Encounter Details Date Type Department Care Team ([facility] Contact Info) Description 08/13/2021 /[facility] [address] [place] [phone] Baudilio Ray [address] [place], [place] [phone] Social History Tobacco Use Types Packs/Day Years [...] documented as of this encounter Care Teams Rubber Extrusion Machine Operator Relationship Specialty Start Date End Date Jordan Kay PA [address] [place] [address] PCP - General Internal Medicine 08/19/17 documented as of this encounter
--- OUTSIDE RECORDS SUMMARY | 2025-02-26 21:26 | XMS_ITS | Clinical Summary ---
Author Organization [facility] Address [address] [facility] [place] [address] Care Team Providers Care Athletic Turf Worker Name Role Phone Jordan Kay Primary Care Provider [phone] Source Comments PLEASE NOTE, if this patient [...] (NARCAN) 4 mg/actuation nasal spray Place 1 [place] into the nostril(s) as needed for opioid [...] a schedule II opioid drug. 02/19/20 Active Z0-ZN-H2-copper-Zn -Baikal-jenn 250 mg-500 mcg- 4.5 mg-1.4 mg tab Take by mouth 02/19/20 Active cholecalciferol (VITAMIN D3) 50 mcg (2,000 unit) capsule Take 50 mcg by mouth 02/19/20 24 Active cyanocobalamin/fol ic acid (VITAMIN X98-ZUTBO ACID) 2,500-400 mcg TbDi Take by oral [...] Problem Noted Date Diagnosed Date Rheumatoid arthritis (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) 03/30 Generalized anxiety disorder 10/29/2023 Alcohol use [...] examination 04/18/18. Alcohol withdrawal syndrome without complication ([facility]) 09/19/2017 Overview (01/30/2018): Admitted to [facility] 01/21/18-01/23/18 for alcohol withdrawal. 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 Interstitial cystitis 09/19/2017 Resolved Problems Problem Noted Date Diagnosed Date Resolved Date Rhinitis 05/14/2022 06/13/2022 Drug-seeking behavior 06/19/20182021 Encounters Date Type Department Care Team Description 02/03/2025 9:00 AM EDT Office Visit [address] [id number] Paz Rose NP 12/30/2024 11:00 AM EDT Office Visit [address] [address] Paz Rose NP from Last 3 Months [...] 02/11/2016, 01/30/2010 FIT/gFOBT 02/13/2019 02/13/2018, 01/28, 02/02/2018 [id number] (3 - Pfizer ris k series) 11/02/2021 [...] 12/25/2027 12/24/2024, 10/28, 04/06/2021, Additional history exists Syphilis Screening Discontinued 11/28/2017 Breast Cancer Screening (Mammogram) Discontinued 02/02/2018 HIV [...] 4:42 PM EDT Routine adult health maintenance FTA-ABS, SERUM Routine 11/28/2017 12:13 PM EDT Exposure to STD from Last 3 Months or Most Recently Relevant to Health Maintenance Results * REFERRAL SCANNED DOCUMENT (01/24/2025 3:00 AM EDT) 01/24/2025 3:00 AM EDT us Jordan ARAIZA SCAN REFERRAL Final Result * IMAGING SCANNED DOCUMENT (01/24/2025 3:00 AM EDT) Only the most recent of2 resultswithin the time period is included. 01/24/2025 3:00 AM EDT us Jordan ARAIZA SCAN IMAGING Final Result * HEPATIC FUNCTION PANEL Routine (12/24/2024 8:38 AM EDT) [facility] PROTEIN, TOTAL 7.2 6.1 - 8.1 g/dL its learning [facility] ALBUMIN 4.5 3.6 - 5.1 g/dL its learning [facility] GLOBULIN 2.7 1.9 - 3.7 g/dL (calc) its learning [facility] ALBUMIN/GLOBULIN RATIO 1.7 1.0 - 2.5 (calc) its learning [facility] BILIRUBIN, TOTAL 0.4 0.2 - 1.2 mg/dL its learning [facility] BILIRUBIN, DIRECT 0.1 0.0 - 0.2 mg/dL its learning [facility] BILIRUBIN, INDIRECT 0.3 0.2 - 1.2 mg/dL (calc) its learning [facility] ALKALINE PHOSPHATASE 88 37 - 153 U/L its learning [facility] AST 14 10 - 35 U/L its learning [facility] ALT 13 6 - 29 U/L its learning [facility] Blood Blood / Unknown 12/24/2024 8 :38 AM EDT 12/24/2024 8:38 AM EDT Jordan ARAIZA LAB - BLOOD DRAW Edited Result - Final its learning [address] [address], its learning [address] [address] * (ABNORMAL) LIPID PANEL Routine (12/24/2024 8:38 AM EDT) [facility] CHOLESTEROL, TOTAL 266(H) <200 mg/dL its learning [facility] HDL CHOLESTEROL 72 > OR = 50 mg/dL its learning [facility] TRIGLYCERIDES 190(H) <150 mg/dL its learning [facility] LDL-CHOLESTEROL 159(H) 99 mg/dL (calc) its learning [facility] Comment: Reference range: <100 Desirable range <100 mg/dL for primary prevention; <70 mg/dL for patients with CHD or diabetic patients with > or = 2 CHD risk factors. LDL-C is now calculated using the [place] calculation, which is a validated novel method providing better accuracy than the Friedewald equation in the estimation of LDL-C. Xander GIBBONS et al. RICKIE. 2013;310(19): 3679-7170 (http://education.Filmmortal/faq/JFE485) CHOL/HDLC RATIO 3.7 <5.0 (calc) [employer] NON-HDL CHOLESTEROL 194(H) <130 mg/dL (calc) [employer] Comment: For patients with diabetes plus 1 major ASCVD risk factor, treating to a non-HDL-C goal of <100 mg/dL (LDL-C of <70 mg/dL) is considered a therapeutic option. Blood Blood / Unknown 12/24/2024 8 :38 AM EDT 12/24/2024 8:38 AM EDT us Jordan ARAIZA LAB - BLOOD DRAW Final Result Performing Organization Address [facility] de Phone Number [employer] [address] [place] [phone], [employer] [address] [address] * HEMOGLOBIN GLYCOSYLATED A1C (02/18/2024 11:41 AM EDT) HEMOGLOBIN A1C 5.5 <5.7 % of total Hgb [employer] Comment: For the purpose of screening for the presence of diabetes: <5.7% Consistent with the absence of diabetes 5.7-6.4% Consistent with increased risk for diabetes (prediabetes) > or =6.5% Consistent with diabetes This assay result is consistent with a decreased risk of diabetes. Currently, no consensus exists regarding use of hemoglobin A1c for diagnosis of diabetes in children. According to [place] Diabetes Association (ADA) guidelines, hemoglobin A1c <7.0% represents optimal control in non- diabetic patients. Different metrics may apply to specific patient populations. Standards of Medical Care in Diabetes(ADA). Blood Blood / Unknown 02/18/2024 1 1:41 AM EDT 02/18/2024 11:42 AM EDT us Jordan ARAIZA LAB - BLOOD DRAW Final Result Performing Organization Address [facility]/ZIP Co de Phone Number [employer] [address] [place] [address], [employer] [address] [place] [address] * REFERRAL FOR COLONOSCOPY (10/02/2021 3:00 AM EDT) 10/02/2021 3:00 AM EDT Jordan ARAIZA REFERRAL Edited Result - Final * DRUG MONITORING, OPIATES EXPANDED, QUANTITATIVE, URINE (03/14/2021 12:21 PM EDT) CODEINE NEGATIVE <50 [employer] HYDROCODONE NEGATIVE <50 [employer] [facility] HYDROMORPHONE NEGATIVE <50 [employer] MORPHINE NEGATIVE <50 [employer] NORHYDROCODONE NEGATIVE <50 [employer] Opiates Comments See Note [facility]cdexperts Comment:See LDT Notes NOROXYCODONE NEGATIVE <50 [employer] OXYCODONE NEGATIVE <50 [facility] OXYMORPHONE NEGATIVE <50 [facility] Oxycodone Comments See Note Q [facility] [email or web address] Comment:See LDT Notes Urine Urine specimen / Unknown 03/14/2021 12:21 PM EDT 03/14/2021 10:37 PM EDT Katia Lemus APRN LAB URINE AMBULATORY Final Res ult [employer] [address] [address], [employer] [address] [address] * HEPATITIS C AB W/RFLX HCV RNA, QT, RT PCR (03/14/2021 11:51 AM EDT) HEPATITIS C ANTIBODY NON-REACT EMERITA NON-REACT EMERITA [employer] SIGNAL TO CUT-OFF 0.01 <1.00 [employer] Comment: HCV antibody was non-reactive. There is no laboratory evidence of HCV infection. In most cases, no further action is required. However, if recent HCV exposure is suspected, a test for HCV RNA (test code 43352) is suggested. For additional information please refer to http://QuickSolar.Hemoteq.immoture.be/faq/HZF08t3 (This link is being provided for informational/ educational purposes only.) Blood Blood / Unknown 03/14/2021 1 1:51 AM EDT 03/14/2021 11:52 AM EDT Katia Lemus SENIOR TALENT ACQUISITION SPECIALIST LAB - BLOOD DRAW Final Result Performing Organization Address City/[facility]/ZIP Co de Phone Number its learning [facility] [address] [address], its learning [address] [address] * HIV 1/2 AG & AB W/RFLX (4TH GEN) (03/14/2021 11:51 AM EDT) [facility] HIV AG/AB, 4TH GEN NON-REAC TIVE NON-REAC TIVE its learning [facility] Comment: HIV-1 antigen and HIV-1/HIV-2 antibodies [...] purpose. For additional information please refer to http://QuickSolar.Hemoteq.immoture.be/faq/FUV234 (This link is being provided for informational/ educational purposes only.) The performance of this assay has not been clinically validated in patients less than 2 years old. Blood Blood / Unknown 03/14/2021 1 1:51 AM EDT 03/14/2021 11:52 AM EDT Katiajarrell Lemus APRN LAB - BLOOD DRAW Final Result Performing Organization Address [facility]/ZIP Co de Phone Number its learning [facility] [address] [address], [employer] [address] [place] [address] * STOOL OCCULT BLOOD (POCT) (02/13/2018 4:42 [...] Final Result [facility] OFFICE POCT * FTA-ABS, SERUM (11/28/2017 12:13 PM EDT) TREPONEMAL AB NEGATIVE NEGATIVE [facility] 11/28/2017 12:1 3 PM EDT 11/28/2017 1:31 PM EDT Narrative [facility] - 11/28/2017 7:41 PM EDT [employer] [address] [place] [address] PT ID [id number] ORD# [id number] Jordan ARAIZA LAB - BLOOD DRAW Edited Result - Final [facility] [address] [place] [address], from Last 3 Months or Most Recently Relevant to Health Maintenance Insurance [place] - [place] Care Teams Athletic Turf Worker Relationship Specialty Start Date End Date Jordan Kay PA [address] [place] [address] PCP - General Internal Medicine 08/19/17
--- OUTSIDE RECORDS SUMMARY | 2025-02-26 21:26 | XMS_ITS | Clinical Summary ---
Author Organization [facility] Address [address] [place] [phone] Phone Care Team Providers Care Multimedia Developer Name Role Phone Jordan Kay Primary Care Provider [phone] Social History Tobacco Use Types Packs/Day Years [...] Insurance MEDICARE MEDICAID - [place] Care Teams Multimedia Developer Relationship Specialty Start Date End Date Jordan Kay PA [address] [place] [id number] PCP - General Internal Medicine 05/25/19
[2025-02-26 21:35] LABS: Hematocrit 40.3 % (37.0-47.0); Hemoglobin 14.3 g/dl (12.0-16.0); Mean Corpuscular HGB Conc 35.5 g/dl (31.0-35.0); Mean Corpuscular Hemoglobin 33.2 pg (27.0-33.0); Mean Corpuscular Volume 93.5 fL (80.0-98.0); NRBC Abs Auto 0.000 X10*3/uL (0.0-0.012); NRBC Pct Auto 0.0 /100WBC (0.0-0.2); Platelet Count 203 X10*3/uL (160-400); Red Blood Count 4.31 X10*6/uL (4.20-5.50); White Blood Count 5.9 X10*3/uL (4.8-10.8)
--- NOTE | 2025-02-26 21:35 | PC.NURSE ---
pt CIWA score 20, provider Michela made aware, pending new orders
[2025-02-26 22:01] LABS: Alanine Aminotransferase 53 U/L (0-31); Albumin Level 4.3 g/dL (3.5-5.0); Alkaline Phosphatase 156 U/L (39-117); Anion Gap 18 (12-20); Aspartate Amino Transferase 50 U/L (5-31); Blood Urea Nitrogen 29 mg/dL (9-16); Calcium 8.6 mg/dL (8.4-10.2); Carbon Dioxide 27 mmol/L (22-29); Chloride 105 mmol/L (96-108); Creatinine Clr Calc Pharmacy 81.8; Estimated Glomerular Filt Rate > 60; Magnesium 2.0 mg/dL (1.6-2.6); Potassium 3.5 mmol/L (3.3-5.1); Sodium 146 mmol/L (135-145); Total Protein 7.0 g/dL (6.5-8.0)
[2025-02-26] MEDS: PHENobarbitaL sodium 130 MG/ML IM ONCE 293 MG IM (22:01)
--- NOTE | 2025-02-26 22:05 | PC.NURSE ---
pt medicted per MAR
[2025-02-27] VITALS (7 sets, daily range): BP systolic 106–145; BP diastolic 65–83; PULSE 77–99; RESP 17–22; TEMP 36.3–36.9; O2SAT 94–97; BMI 31.6
[2025-02-27] MEDS: PHENobarbitaL sodium 130 MG/ML VIAL IM Q3Hx2 220 MG IM ×2 (01:21→04:00)
--- NOTE | 2025-02-27 03:40 | PC.NURSE ---
pt reporting the arlette to urinte and being unable to void, pt bladder scanned showing 442 ml of urine
--- NOTE | 2025-02-27 03:46 | PC.NURSE ---
pt able to void at this time to be approximately 400 mL of urine in the bedside commode, pt states feeling relief
[2025-02-27 04:10] LABS: Cannabinoid Screen Urine POSITIVE (Not Detect)
--- NOTE | 2025-02-27 05:43 | ED.ALCOHOL ---
HPI - Alcohol General Chief Complaint: ETOH/Substance Use Stated Complaint: ETOH, family states drinking to poison herself Time Seen by Provider: 02/26/25 21:16 Source: patient, family and EMS Mode of arrival: EMS Limitations: altered mental status (Intoxication) History of Present Illness ED Provider: Dr. Alyce Cano HPI narrative: 59-year-old female with history of alcoholism and alcohol withdrawal seizure presenting with alcohol intoxication, thoughts of self-harm. EMS reports they were called to the home by the patient's daughter who were concerned for the patient's wellness. States that she was recently seen in the hospital for alcohol withdrawal but ultimately did not want to be hospitalized for treatment. States she was discharged home to ?wean off of alcohol using the sipping method? and since that time has been drinking continuously. Has gone through at least 2 L of [employer] whiskey. Daughter is concerned that she ?might drink herself to ?. Patient is intoxicated and unable to give much history. States that she does not want to but she does want treatment. Feeling hopeless and helpless at this time. Very tearful. Related Data Home Medications ?Medication ?Instructions ?Recorded ?Confirmed diazepam 10 mg tablet See Rx Instructions .Route 06/07/24 02/27/25 .COMPLEX PRN Interstitial cystisis folic acid 400 mcg tablet 0.4 mg PO DAILY 06/07/24 02/27/25 lorazepam 2 mg tablet 2 mg PO BID PRN anxiety 06/07/24 02/27/25 tramadol 50 mg tablet 50 mg PO Q6H 06/07/24 02/27/25 acetaminophen 650 mg 650 mg PO Q8H PRN Pain 01/24/25 02/27/25 tablet,extended release lysine 1,000 mg tablet 1,000 mg PO DAILY 01/24/25 02/27/25 magnesium citrate,mag oxide 250 mg 500 mg PO BEDTIME 01/24/25 02/27/25 capsule melatonin 10 mg tablet 10 mg PO BEDTIME 01/24/25 02/27/25 multivit,Ca,min-iron 8 mg-folic 1 tab PO DAILY 01/24/25 02/27/25 acid 200 mcg-lycopene 600 mcg tablet (Men's Daily Multivitamin) vitamin E (dl, acetate) 450 mg 450 mg PO DAILY 01/24/25 02/27/25 (1,000 unit) capsule zinc acetate 50 mg (zinc) capsule 50 mg PO DAILY 01/24/25 02/27/25 dicyclomine 20 mg tablet 20 mg PO QID PRN abdominal spasms 02/27/25 02/27/25 docusate sodium 100 mg capsule 100 mg PO DAILY 02/27/25 02/27/25 (Stool Softener) omeprazole 40 mg capsule,delayed 40 mg PO DAILY 02/27/25 02/27/25 release ondansetron 4 mg disintegrating 4 mg PO Q6H PRN Gas 02/27/25 02/27/25 tablet polyethylene glycol 3350 17 17 g PO DAILY 02/27/25 02/27/25 gram/dose oral powder (Miralax) simethicone 80 mg chewable tablet 80 mg PO QID PRN gas 02/27/25 02/27/25 Allergies Allergy/AdvReac Type Severity Reaction Status Date / Time aspirin (ASA) Allergy Mild STOMACH Verified 02/26/25 21:32 UPSET cephalexin Allergy Mild Gastrointestinal Verified 02/26/25 21:32 Upset latex (LATEX) Allergy Mild RASH Verified 02/26/25 21:32 morphine (MORPHINE) Allergy Mild RASH, Verified 02/26/25 21:32 swelling, redness Sulfa (Sulfonamide Allergy Mild RASH, Verified 02/26/25 21:32 Antibiotics) (SULFA swelling, (SULFONAMIDE ANTIBIOTICS)) redness terbinafine Allergy Mild Nausea and Verified 02/26/25 21:32 Vomiting azithromycin Allergy Rash Verified 02/26/25 21:32 clonazepam (From Klonopin) AdvReac Mild Gastrointestinal Verified 02/26/25 21:32 Upset metformin AdvReac Constipatio Verified 02/26/25 21:32 n Latex Allergy Unknown swelling, Uncoded 02/26/25 21:32 redness Review of Systems Review of Systems: as per HPI, full review of systems performed and negative but for the above mentioned pertinent positives and negatives. [facility] Past Medical History Medical History Acute hyperkalemia EtOH dependence Social History Social History Household Members: None Household Members Other:: lives alone Housing: Apartment Housing Other:: multi family home on third floor Are you a primary career development director to a significant other at home: No Do you presently have visiting nurse or other home services: Yes Alcohol intake: current Alcohol intake frequency: 3 or more drinks per day Alcohol type: hard liquor Comment: Pt refusing assistance ambulating to BR. Steady on observation Patient Tobacco Use Status: Current everyday Tobacco user Tobacco use type: Cigarette Cigarette Packs Per Day: 0.25 Cigarettes Per Day: 10 Years Smoked: 20 Second Hand Smoke Exposure: No Substance Use Type: Marijuana service: No Physical Exam ED Exam Exam: GENERAL: Appears intoxicated, GCS 13, eyes open to voice, slurred speech, tearful. SKIN: Normal skin color for ethnicity, warm, dry, no rashes noted. HEENT: Normocephalic, atraumatic, no stridor, posterior oropharynx nonerythematous, dentition intact, EOMI, pupils are pinpoint bilaterally, reactive to light. NECK: Soft, supple, no step-offs, no deformities, no lymphadenopathy. CHEST: Heart regular tachycardia, no murmurs, symmetric chest rise and fall. PULMONARY: Clear to auscultation bilaterally, diminished at the bases, no labored breathing, no wheezes/rhales/rhonchi. ABDOMINAL: Soft, nondistended, positive bowel sounds in all quadrants. : Deferred. MUSCULOSKELETAL: Normal tone, full range of motion, no deformities, no peripheral edema. NEURO: GCS 13, eyes open to voice, slightly slurred speech, CN II through XII intact, equal strength and sensation bilateral upper and lower extremities, no focal neurologic deficits. PSYCHIATRIC: Flat affect, poor eye contact, tearful. Vital Signs: Vital Signs - 24 hr 02/26/25 21:13 02/27/25 00:46 02/27/25 05:06 Temperature 98.6 F 97.8 F Pulse Rate 89 87 98 Respiratory Rate 18 18 20 Blood Pressure 137/81 106/65 120/68 Pulse Oximetry 96 95 94 Oxygen Delivery Method Nasal Cannula Room Air Room Air BMI result Body Mass Index 28.7 Medical Decision Making Medical Decision Making MDM Narrative: Patient presents with request for alcohol detox. Differential diagnosis includes alcohol intoxication, alcohol withdrawal, substance use disorder, decompensated mental illness including depression and anxiety, among many others. We will initiate medical clearance and recovery team/care team consult. She will likely need phenobarbital and admission given her level of dependence. She is high risk for seizure. Differential Diagnosis Differential Diagnoses: The differential diagnosis associated with the presentation includes (as above) Admission/Observation Consideration of admission/observation: Escalation of care including admission/observation considered Consult Healthcare Provider Management of the patient was discussed with: Hospitalist Lab Data MDM Lab Attestation statement: I reviewed the patient's lab results. 03/01/25 06:57 03/01/25 06:57 Labs: Lab Results 02/26/25 02/27/25 Range/Units 21:30 03:51 WBC 5.9 (4.8-10.8) X10*3/uL RBC 4.31 (4.20-5.50) X10*6/uL Hgb 14.3 (12.0-16.0) g/dl Hct 40.3 (37.0-47.0) % MCV 93.5 (80.0-98.0) fL MCH 33.2 H (27.0-33.0) pg MCHC 35.5 H (31.0-35.0) g/dl RDW 14.1 (11.0-16.0) % Plt Count 203 (160-400) X10*3/uL MPV 8.8 L (9.4-12.3) fL Absolute Nucleated RBC 0.000 (0.0-0.012) X10*3/uL Nucleated RBC % (auto) 0.0 (0.0-0.2) /100WBC Sodium 146 H (135-145) mmol/L Potassium 3.5 (3.3-5.1) mmol/L Chloride 105 (96-108) mmol/L Carbon Dioxide 27 (22-29) mmol/L Anion Gap 18 (12-20) BUN 29 H (9-16) mg/dL Creatinine 0.80 (0.5-1.4) mg/dL Estim Creat Clear Calc 81.8 Estimated GFR > 60 Random Glucose 133 H (60-115) mg/dL Calcium 8.6 (8.4-10.2) mg/dL Magnesium 2.0 (1.6-2.6) mg/dL Total Bilirubin 0.2 (0.0-1.0) mg/dL AST 50 H (5-31) U/L ALT 53 H (0-31) U/L Alkaline Phosphatase 156 H (39-117) U/L Total Protein 7.0 (6.5-8.0) g/dL Albumin 4.3 (3.5-5.0) g/dL Urine Opiates Screen Not Detected (Not Detect) Ur Buprenorphine Scrn Not Detected (Not Detect) ng/mL Ur Oxycodone Screen Not Detected (Not Detect) ng/mL Urine Methadone Screen Not Detected (Not Detect) ng/mL Urine Fentanyl Screen Not Detected (Not Detect) Ur Barbiturates Screen POSITIVE H (Not Detect) Ur Phencyclidine Scrn Not Detected (Not Detect) Ur Amphetamines Screen Not Detected (Not Detect) U Benzodiazepines Scrn POSITIVE H (Not Detect) Urine Cocaine Screen Not Detected (Not Detect) U Marijuana (THC) Screen POSITIVE H (Not Detect) Ethyl Alcohol 351 H* mg/dL Independent Interpretation Interpretation: My independent interpretation of the chest x-ray reveals no consolidations, pulmonary edema, pleural effusion, pneumothorax, obvious bony abnormalities. Radiology Impression Discussion of test interpretation with radiology: I have reviewed the radiologist's reading. Independent Historian Clinical information obtained from an independent historian. History obtained from or confirmed by: EMS and Other (daughter) External Record Review External record reviewed: Inpatient record Chronic Conditions Patient?s care impacted by: Other (alcohol use disorder) Social Determinants Patient?s care significantly limited by Social Determinants of Health including: Alcoholism and drug addiction in family and Other Social Determinant of Health Medications Administered Discontinued Medications Generic Name Dose Route Start Last Admin Trade Name Freq PRN Reason Stop Dose Admin Docusate Sodium 100 mg 02/28/25 09:00 03/01/25 09:42 Docusate Sodium 100 Mg Capsule PO Not Given DAILY JO-ANN Enoxaparin Sodium 40 mg 02/27/25 07:00 03/01/25 06:15 Enoxaparin Sodium 40 Mg/0.4 Ml Syringe SUBCUT 40 mg Q24H JO-ANN Administration Folic Acid 1 mg 02/27/25 09:00 03/01/25 09:37 Folic Acid 1 Mg Tablet PO 03/02/25 08:59 1 mg DAILY JO-ANN Administration Hydroxyzine HCl 25 mg 02/27/25 19:07 03/01/25 09:37 Hydroxyzine Hcl 25 Mg Tablet PO 25 mg Q8H PRN Administration Anxiety Loperamide HCl 2 mg 02/27/25 09:42 02/27/25 09:49 Loperamide Hcl 2 Mg Capsule PO 2 mg Q4H PRN Administration Diarrhea Lorazepam 2 mg 02/27/25 05:43 02/27/25 05:50 Lorazepam 1 Mg Tablet PO 02/27/25 05:44 2 mg ONCE ONE Administration Multivitamins/Vitamin C 1 tab 02/27/25 09:00 03/01/25 09:38 Multivitamin Tablet PO 03/02/25 08:59 1 tab DAILY JO-ANN Administration Nicotine 14 mg 02/27/25 09:00 03/01/25 09:38 Nicotine 14 Mg Patch.Td24 TRANSDERMA 14 mg DAILY JO-ANN Administration Omeprazole 40 mg 02/28/25 06:30 03/01/25 06:16 Omeprazole 40 Mg Capsule.Dr PO 40 mg DAILY@0630 JO-ANN Administration Ondansetron HCl 4 mg 02/27/25 06:05 02/27/25 18:40 Ondansetron Hcl 4 Mg/2 Ml Vial IVPUSH 4 mg Q8H PRN Administration Nausea and Vomiting Oxycodone HCl 5 mg 02/27/25 06:05 03/01/25 09:37 Oxycodone Hcl Immed Release 5 Mg Tablet PO 5 mg Q6H PRN Administration Pain, Severe (Pain Scale 7-10) Phenobarbital 45 mg 02/27/25 09:00 02/28/25 20:11 Phenobarbital 15 Mg Tablet PO 02/28/25 21:01 45 mg BID JO-ANN Administration Protocol Phenobarbital 15 mg 03/01/25 09:00 03/01/25 09:38 Phenobarbital 15 Mg Tablet PO 03/02/25 21:01 15 mg BID JO-ANN Administration Protocol Phenobarbital Sodium 293 mg 02/26/25 22:00 02/26/25 22:01 Phenobarbital Sodium 130 Mg/Ml Im Once IM 02/26/25 22:01 293 mg ONCE ONE Administration Protocol Phenobarbital Sodium 220 mg 02/27/25 01:00 02/27/25 04:00 Phenobarbital Sodium 130 Mg/Ml Vial Im Q3hx2 IM 02/27/25 04:01 220 mg Q3H JO-ANN Administration Protocol Polyethylene Glycol 17 gm 02/28/25 09:00 03/01/25 09:42 Polyethylene Glycol 3350 17 Gm Powd.Pack PO Not Given DAILY JO-ANN Sodium Chloride 3 ml 02/27/25 08:00 03/01/25 09:38 0.9 % Sodium Chloride Flush 3 Ml Syringe IVFLUSH 3 ml QSHIFT JO-ANN Administration Thiamine HCl 100 mg 02/27/25 09:00 03/01/25 09:38 Thiamine Hcl 100 Mg Tablet PO 03/02/25 08:59 100 mg DAILY JO-ANN Administration Tramadol HCl 50 mg 02/27/25 06:09 03/01/25 10:47 Tramadol Hcl 50 Mg Tablet PO 50 mg Q6H PRN Administration Pain, Moderate(Pain Scale 4-6) Vitamin E 360 mg 02/28/25 09:00 03/01/25 09:37 Vitamin E (Dl,Tocopheryl Acet) 180 Mg (400 Unit) Capsule PO 360 mg DAILY JO-ANN Administration Zinc Sulfate 220 mg 02/28/25 09:00 03/01/25 09:38 Zinc Sulfate 220 Mg Capsule PO 220 mg DAILY JO-ANN Administration Critical Care Time Critical Care Time Critical Care Time: Yes Total Critical Care Time: 35 Attestation: CRITICAL CARE TIME: 35 minutes of critical care time was spent in direct patient care at the bedside or in the immediate area with this patient. Critical care was necessary to treat or prevent imminent or life-threatening deterioration of the following conditions alcohol withdrawal due to severe alcohol dependence. This patient is high risk for decompensation and/or . This time was spent assessing and managing the patient, interpreting labs and imaging, coordinating care with other medical providers, gathering history from either the patient, their representatives, EMS or chart review, and discussing management with admitting team. Discharge Plan Discharge Clinical Impression: Alcohol withdrawal syndrome Qualifiers: Complication of substance-induced condition: uncomplicated Qualified Code(s): F10.930 - Alcohol use, unspecified with withdrawal, uncomplicated Patient Disposition: Admitted As Inpatient Interventions: Admission Worksheet (ED) Last Done: 02/27/25 16:55 Discharge Date/Time: 02/27/25 16:59
--- NOTE | 2025-02-27 06:13 | PM.IMHP ---
History of Present Illness Date of Service: 02/27/25 Attending physician on admission: Scott Leblanc Chief Complaint: etoh Patient is a 59-year-old female with a past medical history significant for alcohol use disorder, who presented to the ED via EMS due to being found unresponsive. The patient's family reported that she has ?drinking to ?and were concerned alcohol withdrawal. She reports using the sip method for etoh withdrawal and has done this in the past successfully but was feeling unwell prior to EMS arriving. she does not recall any syncopal episodes or being unresponsive at any time and states she was awake when EMS arrived. Per EMS, the patient was found wheezing and unresponsive, placed on 2 L O2 with improvement. Currently she is satting at 94% on room air. CIWA score up to 9, patient was started on phenobarb. She reported fall is the reasoning for her black eye, she was seen on 02/24 for this fall, head CT, C-spine CT, face CT and L knee xray all negative at that time. no further falls reported since. Review of Systems Constitutional: Constitutional: Denies chills, Denies fatigue, Denies fever(s) and Reports headache(s) Eyes: Eyes: Denies change in vision ENT: Reports headache(s), Denies nasal congestion and Denies sore throat Cardiovascular: Cardiovascular: Denies chest pain, Denies rapid heart rate, Denies leg edema, Denies lightheadedness and Denies dyspnea Respiratory: Respiratory: Denies chest congestion, Denies cough, Denies dyspnea and Denies wheezing Gastrointestinal: Gastrointestinal: Denies abdominal pain, Denies nausea and Denies vomiting Genitourinary: Genitourinary: Denies dysuria and Denies urinary urgency Musculoskeletal: Musculoskeletal: Denies myalgias Integumentary/Breasts: Skin/Breast: Denies rash Neurologic: Denies confusion and Reports headache(s) Psychiatric: Psychiatric: Denies confusion Endocrine: Endocrine: Denies fatigue Hematologic/Lymphatic: Hematologic/Lymphatic: Denies easy bleeding and Denies easy bruising Allergic/Immunologic: Allergic/Immunologic: Denies wheezing [facility] Medical History Acute hyperkalemia EtOH dependence Functional capacity: independent ambulation Social History Household Members: None Household Members Other:: lives alone Housing: House Housing Other:: multi family home on third floor Are you a primary home care specialist to a significant other at home: No Do you presently have visiting nurse or other home services: No Alcohol intake: current Alcohol intake frequency: 3 or more drinks per day Alcohol type: hard liquor Comment: Pt refusing assistance ambulating to BR. Steady on observation Patient Tobacco Use Status: Current everyday Tobacco user Tobacco use type: Cigarette Cigarette Packs Per Day: 0.25 Cigarettes Per Day: 7 Years Smoked: 20 Smoked in Last 30 Days: No Second Hand Smoke Exposure: No Use of substances other than those prescribed or required for medical reasons: Yes Substance Use Type: Marijuana Substance Use Frequency: Occasionally Advance Directives: No Advance Directives Information Provided: No Patient : No service: No Narrative: smoking 7 cig/day. currently sipping hard liqiour throughout the day. no reported drug use. Meds Allergies Allergy/AdvReac Type Severity Reaction Status Date / Time aspirin (ASA) Allergy Mild STOMACH Verified 02/26/25 21:32 UPSET cephalexin Allergy Mild Gastrointestinal Verified 02/26/25 21:32 Upset latex (LATEX) Allergy Mild RASH Verified 02/26/25 21:32 morphine (MORPHINE) Allergy Mild RASH, Verified 02/26/25 21:32 swelling, redness Sulfa (Sulfonamide Allergy Mild RASH, Verified 02/26/25 21:32 Antibiotics) (SULFA swelling, (SULFONAMIDE ANTIBIOTICS)) redness terbinafine Allergy Mild Nausea and Verified 02/26/25 21:32 Vomiting azithromycin Allergy Rash Verified 02/26/25 21:32 clonazepam (From Klonopin) AdvReac Mild Gastrointestinal Verified 02/26/25 21:32 Upset metformin AdvReac Constipatio Verified 02/26/25 21:32 n Latex Allergy Unknown swelling, Uncoded 02/26/25 21:32 redness Active Medications: Current Medications Acetaminophen (Acetaminophen 325 Mg Tablet) 650 mg PO Q6H PRN PRN Reason: Pain, Mild 1-3,fever,headache Calcium Carbonate (Calcium Carbonate 750 Mg Tab.Chew) 750 mg PO Q4H PRN PRN Reason: Heartburn Enoxaparin Sodium (Enoxaparin Sodium 40 Mg/0.4 Ml Syringe) 40 mg SUBCUT Q24H JO-ANN Folic Acid (Folic Acid 1 Mg Tablet) 1 mg PO DAILY [facility] Stop: 03/02/25 08:59 Magnesium Hydroxide (Milk Of Magnesia 30 Ml Oral.Susp) 30 ml PO DAILY PRN PRN Reason: Constipation Melatonin (Melatonin 3 Mg Tablet) 6 mg PO BEDTIME PRN PRN Reason: Insomnia Multivitamins/Vitamin C (Multivitamin Tablet) 1 tab PO DAILY [facility] Stop: 03/02/25 08:59 Ondansetron HCl (Ondansetron Hcl 4 Mg/2 Ml Vial) 4 mg IVPUSH Q8H PRN PRN Reason: Nausea and Vomiting Oxycodone HCl (Oxycodone Hcl Immed Release 5 Mg Tablet) 5 mg PO Q6H PRN PRN Reason: Pain, Severe (Pain Scale 7-10) Pharmacy Consult (Consult Rx Etoh Phenob Im/Po) 1 each MISCELLANE ONCE PRN; Protocol PRN Reason: Consult order Phenobarbital (Phenobarbital 15 Mg Tablet) 45 mg PO BID [facility]; Protocol Stop: 02/28/25 21:01 Phenobarbital (Phenobarbital 15 Mg Tablet) 15 mg PO BID [facility]; Protocol Stop: 03/02/25 21:01 Phenobarbital (Phenobarbital 15 Mg Tablet) 15 mg PO DAILY [facility]; Protocol Stop: 03/04/25 09:01 Sodium Chloride (0.9 % Sodium Chloride Flush 3 Ml Syringe) [address] [facility] Thiamine HCl (Thiamine Hcl 100 Mg Tablet) 100 mg PO DAILY [facility] Stop: 03/02/25 08:59 Tramadol HCl (Tramadol Hcl 50 Mg Tablet) 50 mg PO Q6H PRN PRN Reason: Pain, Moderate(Pain Scale 4-6) Home Medications ?Medication ?Instructions ?Recorded ?Confirmed ?Last Taken ?Type cyanocobalamin (vitamin B-12) 1,000 mcg PO DAILY 07/10/21 01/24/25 01/24/25 History 1,000 mcg tablet cholecalciferol (vitamin D3) 50 50 mcg PO DAILY 06/07/24 01/24/25 01/24/25 History mcg (2,000 unit) tablet (Vitamin D3) diazepam 10 mg tablet See Rx Instructions .Route 06/07/24 01/24/25 01/24/25 History .COMPLEX PRN Interstitial cystisis folic acid 400 mcg tablet 0.4 mg PO DAILY 06/07/24 01/24/2501/24/25 History lorazepam 2 mg tablet 2 mg PO BID PRN anxiety 06/07/24 01/24/25 01/24/25 History tramadol 50 mg tablet 50 mg PO QID 06/07/24 01/24/25 01/24/25 History acetaminophen 650 mg 650 mg PO Q8H PRN Pain 01/24/25 01/24/25 Unknown History tablet,extended release calcitriol 0.5 mcg capsule 0.5 mcg PO DAILY 01/24/25 01/24/25 01/24/25 History lysine 1,000 mg tablet 1,000 mg PO DAILY 01/24/25 01/24/25 01/24/25 History magnesium citrate,mag oxide 250 mg 500 mg PO DAILY 01/24/25 01/24/25 01/24/25 History capsule melatonin 10 mg tablet 10 mg PO BEDTIME 01/24/25 01/24/25 01/23/25 History multivit,Ca,min-iron 8 mg-folic 1 tab PO DAILY 01/24/25 01/24/25 01/24/25 History acid 200 mcg-lycopene 600 mcg tablet (Men's Daily Multivitamin) vitamin E (dl, acetate) 450 mg 450 mg PO DAILY 01/24/25 01/24/25 01/24/25 History (1,000 unit) capsule zinc acetate 50 mg (zinc) capsule 50 mg PO DAILY 01/24/25 01/24/25 01/24/25 History Physical Exam Vital Signs and Narrative: Vital Signs: Last Vital Signs Temp 97.8 F 02/27/25 00:46 Pulse 98 02/27/25 05:06 Resp 20 02/27/25 05:06 BP 120/68 02/27/25 05:06 Pulse Ox 94 02/27/25 05:06 O2 Del Method Room Air 02/27/25 05:06 Oxygen Flow Rate 2 02/26/25 21:13 BMI result Body Mass Index 28.7 General: AOx3, no acute distress Resp: CTA bilaterally, no crackles or wheezing CVS: S1, S2, RRR GI: +BS, NT, no distention Skin: Warm, dry Neuro: Cranial nerves II-XII grossly intact bilaterally. Motor grossly intact bilaterally Extremities: No pitting edema Psych: Appropriate affect Const: General: No confusion Orientation/consciousness: No confusion Neuro: General: No confusion Results Labs 02/26/25 21:30 02/26/25 21:30 Labs: Laboratory Results - last 24 hr 02/26/25 02/27/25 21:30 03:51 MCV 93.5 MCH 33.2 H MCHC 35.5 H RDW 14.1 Plt Count 203 MPV 8.8 L Absolute Nucleated RBC 0.000 Nucleated RBC % (auto) 0.0 Anion Gap 18 Estim Creat Clear Calc 81.8 Estimated GFR > 60 Random Glucose 133 H Calcium 8.6 Magnesium 2.0 Total Bilirubin 0.2 AST 50 H ALT 53 H Alkaline Phosphatase 156 H Total Protein 7.0 Albumin 4.3 Urine Opiates Screen Not Detected Ur Buprenorphine Scrn Not Detected Ur Oxycodone Screen Not Detected Urine Methadone Screen Not Detected Urine Fentanyl Screen Not Detected Ur Barbiturates Screen POSITIVE H Ur Phencyclidine Scrn Not Detected Ur Amphetamines Screen Not Detected U Benzodiazepines Scrn POSITIVE H Urine Cocaine Screen Not Detected U Marijuana (THC) Screen POSITIVE H Ethyl Alcohol 351 H* Assessment and Plan (1) Alcohol withdrawal syndrome: Qualifiers: Complication of substance-induced condition: uncomplicated Qualified Code(s): F10.930 - Alcohol use, unspecified with withdrawal, uncomplicated Status: Acute (2) EtOH dependence: Qualifiers: Complication of substance-induced condition: uncomplicated Substance use status: with intoxication Qualified Code(s): F10.220 - Alcohol dependence with intoxication, uncomplicated Status: Acute Plan Patient is a 59-year-old female with a past medical history significant for alcohol use disorder, who presented to the ED via EMS due to being found unresponsive. Alcohol withdrawal/etoh dependence - alcohol level 351 on arrival - CIWA scores every 4 hours - started on phenobarb protocol with CIWA score of 9 - recent fall with head, C-spine, face CT all negative - seizure precautions - B12, folate, thiamine - CXR negative - addiction med and care team consults - monitor on telemetry - LFTs near baseline - monitor CBC and BMP mood disorder - continue home meds tobacco use disorder - NRT - smoking cessation encouraged med rec pending Full code VTE prophylaxis: Lovenox Patient with alcohol withdrawal, requiring admission for at least 2 midnight stay for save medication withdrawal and specialist consultations. Quality Stroke Does the patient have a stroke diagnosis?: No VTE Prior VTE?: No VTE Risk Level:: Medical - moderate - high VTE Device Contraindication: Treatment Not Indicated VTE Drug Contraindication: N/A - Med Ordered
--- NOTE | 2025-02-27 07:44 | PC.NURSE ---
NS flush flush not given as pt does not have IV access as of yet. family and consumer science professor who is US trained is going to attempt US guided IV.
[2025-02-27] MEDS: Nicotine 14 MG PATCH.TD24 TRANSDERMA (07:56)
--- NOTE | 2025-02-27 08:02 | PC.NURSE ---
Addendum entered by Carina Ortiz RN 02/27/25 08:04: pt has scattered ecchymosis throughout her body. Original Note: patient a&ox3, vss, bus monitor nsr, rr equal/non labored-lungs clear, fall and seizure precautions intact, pt denies pain/discomfort, oob with stby assist to commode- last BM today, call soler within reach, plan of care ongoing
--- NOTE | 2025-02-27 09:42 | PC.NURSE ---
patient requesting medication for diarrhea, provider notified, awaiting new orders
--- NOTE | 2025-02-27 10:38 | PM.EVENT ---
Event Note Date of Service: 02/27/25 Event Note: Pt just admitted to the hospital a few hours prior for alcohol detox. Pt seen and evaluated in the ED where she is resting comfortably in bed. Complains of diarrhea that has been ongoing the past few days that pt reports she often gets when she drinks alcohol for a prolonged period of time. Has been drinking 2 pt daily for the past few months. We will give Imodium p.r.n.. Have reviewed assessment and plan as per admitting provider, and agree with current treatment plan. Will continue phenobarb protocol. Time Spent With Patient Time: Total time managing care of this patient today ____ minutes.
--- NOTE | 2025-02-27 10:39 | PHA.MEDREC ---
Addendum entered by Ines Manzanares RPh 02/27/25 10:48: Reviewed by pharmacist Original Note: Pharmacy Consult ? Medication Reconciliation Pharmacy has completed the medication reconciliation.Confirmed medication list with Patient.
[2025-02-27] MEDS: oxyCODONE HCl Immed Release 5 MG TABLET PO (12:02)
--- NOTE | 2025-02-27 12:03 | PC.NURSE ---
patient medicated for 8/10 headache and nausea, ciwa 7- provider notified of pt symptoms, no new orders given at this time
[2025-02-27] MEDS: 0.9 % Sodium Chloride Flush 3 ML SYRINGE IVFLUSH (20:28)
[2025-02-28] VITALS (7 sets, daily range): BP systolic 111–135; BP diastolic 71–88; PULSE 70–97; RESP 16–18; TEMP 36.2–36.7; O2SAT 94–99
--- NOTE | 2025-02-28 07:42 | P.PNIM_ITS ---
Subjective Subjective Date of Service: 02/28/25 Interval History: Patient reports feeling better, is adamant leaving home either today or tomorrow Patient was convinced to stay another day today Patient continues to score high on CIWA and on day 2 of phenobarb protocol in the last day of the taper is on 03/04/2025 Review of Systems Review of Systems: Yes all other systems are reviewed and are negative Physical Exam 2 Exam: Exam: General: AOx3, no acute distress, left orbital contusions (recovering) Resp: CTA bilaterally CVS: S1, S2, RRR GI: +BS, NT, no distention Neuro: No asterexis Psych: Appropriate affect Vital Signs: Vital Signs: Last Vital Signs Temp 97.5 F 02/28/25 07:13 Pulse 70 02/28/25 07:13 Resp 17 02/28/25 07:13 BP 115/73 02/28/25 07:13 Pulse Ox 96 02/28/25 07:13 O2 Del Method Room Air 02/28/25 07:13 Oxygen Flow Rate 2 02/26/25 21:13 BMI result Body Mass Index 31.6 CONSTITUTIONAL: The patient appears non-toxic, well nourished and in no acute distress. Vital signs as documented. HEAD: Healing ecchymosis noted to the inferior right orbit, otherwise atraumatic, normocephalic. EYES: EOMs grossly intact, pupils equal, conjunctiva clear, no exudate. ENT: Nares patent, no discharge. Airway patent, no audible stridor, visible mucosa is pink and moist without noted lesions. NECK: Trachea is midline, no obvious masses or gross abnormalities. CHEST: Symmetric movement, normal appearance. LUNGS: LS present and CTAB, no w/r/r. Non-labored work of breathing. CARDIAC: Regular Rhythm, S1/S2 appreciated, no murmurs, rubs or gallops. ABDOMEN: Abdomen soft and non-tender x4 quadrants, no palpable masses or organomegaly. : Deferred. EXTREMITIES: Mild swelling and contusion noted to the right knee, overlying well-healed incision from TKR noted, no opening of incision, no crepitus or bony tenderness. Distal CSM intact. Normal tone, moves all extremities spontaneously without reported pain. No obvious acute injury or deformity noted. NEURO: Alert and oriented x3, CN II-XII appear grossly intact. Cerebellar Functioning grossly intact. No obvious sensory or motor deficits. Speech clear and appropriate. PSYCH: normal affect, appropriate eye contact, fluid speech, with appropriate response to questioning. No reported suicidality or homicidality. SKIN: Warm, dry, color appropriate, normal turgor. No rashes noted. Objective Data Active Medications Acetaminophen (Acetaminophen 325 Mg Tablet) 650 mg PO Q6H PRN PRN Reason: Pain, Mild 1-3,fever,headache Calcium Carbonate (Calcium Carbonate 750 Mg Tab.Chew) 750 mg PO Q4H PRN PRN Reason: Heartburn Dicyclomine HCl (Dicyclomine Hcl 10 Mg Capsule) 20 mg PO QID PRN PRN Reason: abdominal spasms Docusate Sodium (Docusate Sodium 100 Mg Capsule) 100 mg PO DAILY [facility] Enoxaparin Sodium (Enoxaparin Sodium 40 Mg/0.4 Ml Syringe) 40 mg SUBCUT Q24H [facility] [place] Last Admin: 02/28/25 06:03 Dose: 40 mg Documented By: ANN MARIE Folic Acid (Folic Acid 1 Mg Tablet) 1 mg PO DAILY [facility] [place] Stop: 03/02/25 08:59 Last Admin: 02/27/25 07:56 Dose: 1 mg Documented By: CORINA Hydroxyzine HCl (Hydroxyzine Hcl 25 Mg Tablet) 25 mg PO Q8H PRN PRN Reason: Anxiety Loperamide HCl (Loperamide Hcl 2 Mg Capsule) 2 mg PO Q4H PRN PRN Reason: Diarrhea Last Admin: 02/27/25 09:49 Dose: 2 mg Documented By: CORINA Magnesium Hydroxide (Milk Of Magnesia 30 Ml Oral.Susp) 30 ml PO DAILY PRN PRN Reason: Constipation Melatonin (Melatonin 3 Mg Tablet) 6 mg PO BEDTIME PRN PRN Reason: Insomnia Multivitamins/Vitamin C (Multivitamin Tablet) 1 tab PO DAILY [facility] [place] Stop: 03/02/25 08:59 Last Admin: 02/27/25 07:56 Dose: 1 tab Documented By: CORINA Nicotine (Nicotine 14 Mg Patch.Td24) 14 mg TRANSDERMA DAILY [facility] [place] Last Admin: 02/27/25 07:56 Dose: 14 mg Documented By: CORINA Omeprazole (Omeprazole 40 Mg Capsule.Dr) 40 mg PO DAILY@0630 [facility] [place] Last Admin: 02/28/25 06:03 Dose: 40 mg Documented By: ANN MARIE Ondansetron HCl (Ondansetron Hcl 4 Mg/2 Ml Vial) 4 mg IVPUSH Q8H PRN PRN Reason: Nausea and Vomiting Last Admin: 02/27/25 18:40 Dose: 4 mg Documented By: BENJAMÍN Oxycodone HCl (Oxycodone Hcl Immed Release 5 Mg Tablet) 5 mg PO Q6H PRN PRN Reason: Pain, Severe (Pain Scale 7-10) Last Admin: 02/27/25 12:02 Dose: 5 mg Documented By: CORINA Pharmacy Consult (Consult Rx Etoh Phenob Im/Po) 1 each MISCELLANE ONCE PRN; Protocol PRN Reason: Consult order Phenobarbital (Phenobarbital 15 Mg Tablet) 45 mg PO BID [facility] [place]; Protocol Stop: 02/28/25 21:01 Last Admin: 02/27/25 20:27 Dose: 45 mg Documented By: ANN MARIE Phenobarbital (Phenobarbital 15 Mg Tablet) 15 mg PO BID [facility] [place]; Protocol Stop: 03/02/25 21:01 Phenobarbital (Phenobarbital 15 Mg Tablet) 15 mg PO DAILY [facility] [place]; Protocol Stop: 03/04/25 09:01 Phenobarbital Sodium (Phenobarbital Sodium 65 Mg/Ml Vial) 65 mg IVPUSH TID PRN PRN Reason: Breakthrough alcohol withdrawa Polyethylene Glycol (Polyethylene Glycol 3350 17 Gm Powd.Pack) 17 gm PO DAILY [facility] [place] Simethicone (Simethicone 80 Mg Tab.Chew) 80 mg PO QID PRN PRN Reason: Gas Sodium Chloride (0.9 % Sodium Chloride Flush 3 Ml Syringe) 3 ml IVFLUSH QSHIFT [facility] [place] Last Admin: 02/27/25 20:28 Dose: 3 ml Documented By: ANN MARIE Thiamine HCl (Thiamine Hcl 100 Mg Tablet) 100 mg PO DAILY [facility] [place] Stop: 03/02/25 08:59 Last Admin: 02/27/25 07:56 Dose: 100 mg Documented By: CORINA Tramadol HCl (Tramadol Hcl 50 Mg Tablet) 50 mg PO Q6H PRN PRN Reason: Pain, Moderate(Pain Scale 4-6) Vitamin E (Vitamin E (Dl,Tocopheryl Acet) 180 Mg (400 Unit) Capsule) 360 mg PO DAILY [facility] [place] Zinc Sulfate (Zinc Sulfate 220 Mg Capsule) 220 mg PO DAILY [facility] 02/28/25 06:56 02/28/25 06:56 Assessment and Plan (1) Alcohol withdrawal syndrome: Status: Acute Plan Patient is a 59-year-old female with a past medical history significant for alcohol use disorder, who presented to the ED via EMS due to being found unresponsive. Alcohol withdrawal/etoh dependence currently on phenobarb protocol High risk of leaving AMA and readmission -patient is adamant on leaving AMA, have come her to stay 1 more day - alcohol level 351 on arrival - she is on phenobarb protocol day 2 - scoring high 5-7 on CIWA score still - recent fall with head, C-spine, face CT all negative -maintain seizure precautions - continue B12, folate, thiamine - addiction med and case management consults - monitor on telemetry - check electrolytes and replete p.r.n. to goal mood disorder - continue home meds tobacco use disorder - NRT - smoking cessation encouraged Full code VTE prophylaxis: Lovenox Quality Stroke Does the patient have a stroke diagnosis?: No VTE Prior VTE?: No VTE Risk Level:: Medical - moderate - high VTE Device Contraindication: Treatment Not Indicated VTE Drug Contraindication: N/A - Med Ordered
[2025-02-28 07:44] LABS: Hematocrit 35.9 % (37.0-47.0); Hemoglobin 12.7 g/dl (12.0-16.0); Mean Corpuscular HGB Conc 35.4 g/dl (31.0-35.0); Mean Corpuscular Hemoglobin 33.5 pg (27.0-33.0); Mean Corpuscular Volume 94.7 fL (80.0-98.0); NRBC Abs Auto 0.000 X10*3/uL (0.0-0.012); NRBC Pct Auto 0.0 /100WBC (0.0-0.2); Platelet Count 150 X10*3/uL (160-400); Red Blood Count 3.79 X10*6/uL (4.20-5.50); White Blood Count 5.8 X10*3/uL (4.8-10.8)
[2025-02-28 08:17] LABS: Anion Gap 15 (12-20); Blood Urea Nitrogen 21 mg/dL (9-16); Calcium 8.8 mg/dL (8.4-10.2); Carbon Dioxide 24 mmol/L (22-29); Chloride 106 mmol/L (96-108); Creatinine Clr Calc Pharmacy 102.3; Estimated Glomerular Filt Rate > 60; Potassium 3.6 mmol/L (3.3-5.1); Sodium 141 mmol/L (135-145)
[2025-02-28] MEDS: Nicotine 14 MG PATCH.TD24 TRANSDERMA (08:18)
[2025-02-28] MEDS: Vitamin E (Dl,Tocopheryl Acet) 180 MG (400 UNIT) CAPSULE 360 MG PO (09:02)
--- NOTE | 2025-02-28 12:18 | MHC.CM.PN ---
IMM given 02/28. Pt self-care, lives alone at home. Pts daughter/HCP to transport her home at discharge. DCP: Return home self-care. PCP: Jordan ARAIZA at [facility]
--- NOTE | 2025-02-28 15:29 | MHC.RECOVRN ---
TW met with pt in 477 to offer continued recovery support. Pt states, my daughter thinks she's the mother and I'm the child. She wants me to start taking medication but I already take a bunch of medications. I don't want to take another . TW explained that the decision to utilize [facility] or not was hers alone to make and is respected by [facility] staff. Further [facility] education provided. Pt stated, I just need to get home and take care of some bills then I'm going to make some calls to some of the places you guys ([facility] team) gave me. Pt denies concerns or questions at this time. Tw available for further recovery support if needed.
[2025-02-28] MEDS: oxyCODONE HCl Immed Release 5 MG TABLET PO (19:41)
[2025-02-28] MEDS: 0.9 % Sodium Chloride Flush 3 ML SYRINGE IVFLUSH (20:12)
[2025-03-01 03:33] VITALS: BP 110/68; PULSE 74; RESP 16; TEMP 36.3; O2SAT 94
[2025-03-01] MEDS: oxyCODONE HCl Immed Release 5 MG TABLET PO ×2 (03:35→09:37)
[2025-03-01 07:07] VITALS: BP 122/76; PULSE 84; RESP 18; TEMP 36.3; O2SAT 98
[2025-03-01 07:40] LABS: MANUAL DIFF FLAG NO
[2025-03-01 07:51] LABS: Hematocrit 38.8 % (37.0-47.0); Hemoglobin 13.2 g/dl (12.0-16.0); Imm Gran Abs Auto 0.02 X10*3/uL (0.00-0.03); Imm Gran Pct Auto 0.3 % (0.0-0.4); Lymphocytes Absolute Auto 1.7 X10*3/uL (1.2-4.9); Mean Corpuscular HGB Conc 34.0 g/dl (31.0-35.0); Mean Corpuscular Hemoglobin 33.2 pg (27.0-33.0); Mean Corpuscular Volume 97.5 fL (80.0-98.0); NRBC Abs Auto 0.000 X10*3/uL (0.0-0.012); NRBC Pct Auto 0.0 /100WBC (0.0-0.2); Platelet Count 144 X10*3/uL (160-400); Red Blood Count 3.98 X10*6/uL (4.20-5.50); White Blood Count 7.1 X10*3/uL (4.8-10.8)
[2025-03-01 08:04] LABS: Alanine Aminotransferase 35 U/L (0-31); Albumin Level 4.0 g/dL (3.5-5.0); Alkaline Phosphatase 120 U/L (39-117); Aspartate Amino Transferase 39 U/L (5-31); Blood Urea Nitrogen 29 mg/dL (9-16); Calcium 9.3 mg/dL (8.4-10.2); Creatinine Clr Calc Pharmacy 93.9; Estimated Glomerular Filt Rate > 60; Total Protein 6.8 g/dL (6.5-8.0)
[2025-03-01 08:12] LABS: Anion Gap 15 (12-20); Carbon Dioxide 28 mmol/L (22-29); Chloride 101 mmol/L (96-108); Potassium 4.3 mmol/L (3.3-5.1); Sodium 140 mmol/L (135-145)
[2025-03-01] MEDS: Vitamin E (Dl,Tocopheryl Acet) 180 MG (400 UNIT) CAPSULE 360 MG PO (09:37)
[2025-03-01] MEDS: 0.9 % Sodium Chloride Flush 3 ML SYRINGE IVFLUSH (09:38)
[2025-03-01] MEDS: Nicotine 14 MG PATCH.TD24 TRANSDERMA (09:38)
[2025-03-01 11:01] VITALS: BP 122/72; PULSE 96; RESP 18; TEMP 36.8; O2SAT 99
--- NOTE | 2025-03-01 12:55 | P.DS_ITS ---
DS: Providers Provider Date of Service: 04/06/25 Date of admission: 02/27/25 06:10 Date of discharge: 03/01/25 Primary care physician: Unknown Physician Consults: 02/27/25 06:05 Addiction Medicine Provider Routine Consulting Provider: Addiction Covering Reason for consultation: etoh withdrawal Has provider been notified: No 02/27/25 06:21 Inpt CARE Team Crisis Consult Routine Comment: Reason for consultation: reported drinking to unknown source DS: Diagnosis Discharge Diagnosis (1) Alcohol withdrawal syndrome: Status: Acute DS: Summary Hospital Course Hospital Course: Patient is a 59-year-old female with a past medical history significant for alcohol use disorder, who presented to the ED via EMS due to being found unresponsive. She was noted to be in alcohol withdrawal. And the treatment is as follows: Alcohol withdrawal/etoh dependence currently on phenobarb protocol Patient was treated with phenobarb protocol from 02/27/2025 to 02/28/2025-she still had 3 more days of phenobarb protocol to complete. However patient was insistent on leaving AMA if not discharged. Patient's alcohol level was 351 on arrival, with scoring 3-5 on CIWA. Patient is a high-risk of falls and readmission. Patient reports that she is not tremulous, we will follow up with a counselor 2-3 days and use services that have been provided by Addiction Medicine. I was concerned about sending her with phenobarb p.o. as it can lead to respiratory depression and she has substance use disorder-alcohol, benzos. Patient was insistent on leaving today, daughter is picking her up. Daughter son and a male friend lives nearby and checks in on her regularly. Patient is advised extensively at alcohol cessation, advised to consider inpatient rehab if she is acceptable. Patient advised to come to the ED if she has any withdrawal concerns. Substance use disorder Diarrhea likely secondary to alcohol withdrawal Patient had requested be given opioids to prevent diarrhea. I had offered loperamide, the patient deferred mood disorder - home meds were continued without any changes tobacco use disorder - NRT was ordered - smoking cessation encouraged Time spent discussing smoking cessation with patient: more than 10 minutes Status at Discharge Functional status at discharge: independent ambulation Overall status at discharge: patient is progressing back to baseline Time Attestation Discharge Coordination Time (in mins): 35 Quality: Safe Use of Opioids Does Pt have an Active Cancer Diagnosis on the Problem List?: No Quality: Stroke Does the patient have a stroke diagnosis?: No Physical Exam Exam: Exam: General: AOx3, no acute distress, left orbital contusions (recovering) Resp: CTA bilaterally CVS: S1, S2, RRR GI: +BS, NT, no distention Neuro: No asterexis Psych: Anxious and sad affect affect Vital Signs: Vital Signs: Last Vital Signs Temp 98.3 F 03/01/25 11:01 Pulse 96 03/01/25 11:01 Resp 18 03/01/25 11:01 BP 122/72 03/01/25 11:01 Pulse Ox 99 03/01/25 11:01 O2 Del Method Room Air 03/01/25 11:01 Oxygen Flow Rate 2 02/26/25 21:13 BMI result Body Mass Index 31.6 DS: Data Data Completed and Pending Completed studies during hospitalization [Text1]: Procedures Detoxification Services for Substance Abuse Treatment (06/07/24) Excision of Duodenum, Via Natural or Artificial Opening Endoscopic, Diagnostic (01/24/25) Excision of Esophagus, Via Natural or Artificial Opening Endoscopic, Diagnostic (01/24/25) Excision of Stomach, Pylorus, Via Natural or Artificial Opening Endoscopic, Diagnostic (01/24/25) Labs on day of discharge: Laboratory Results - last 24 hr 03/01/25 06:57 WBC 7.1 RBC 3.98 L Hgb 13.2 Hct 38.8 MCV 97.5 MCH 33.2 H MCHC 34.0 RDW 13.3 Plt Count 144 L MPV 9.8 Immature Gran % (Auto) 0.3 Neut % (Auto) 69.1 Lymph % (Auto) 24.4 Hamilton % (Auto) 4.6 Eos % (Auto) 1.3 Baso % (Auto) 0.3 Lymph # (Auto) 1.7 Hamilton # (Auto) 0.3 Eos # (Auto) 0.1 Baso # (Auto) 0.0 Abs Immat Gran (auto) 0.02 Absolute Neuts (auto) 4.9 Absolute Nucleated RBC 0.000 Nucleated RBC % (auto) 0.0 Sodium 140 Potassium 4.3 Chloride 101 Carbon Dioxide 28 Anion Gap 15 BUN 29 H Creatinine 0.73 Estim Creat Clear Calc 93.9 Estimated GFR > 60 Random Glucose 99 Calcium 9.3 Total Bilirubin 0.6 AST 39 H ALT 35 H Alkaline Phosphatase 120 H Total Protein 6.8 Albumin 4.0 Discharge Plan Discharge Anticipated Discharge Date/Time: 03/01/25 12:01 Patient Disposition: Home, Self-Care Discharge Diagnosis: Alcohol withdrawal requiring phenobarb protocol, incomplete treatment per patient's preference Referrals: Physician,Unknown J [Primary Care Provider, Medical] - 1 Week Discharge Medications: Continued tramadol 50 mg tablet 50 mg PO Q6H lorazepam 2 mg tablet 2 mg PO BID PRN (Reason: anxiety) diazepam 10 mg tablet See Rx Instructions .ROUTE .COMPLEX PRN (Reason: Interstitial cystisis) Rx Instructions: PLACE 1 TABLET INTRA-VAGINALLY ONCE DAILY NEEDED FOR INTERSTITIAL CYSTISIS folic acid 400 mcg Tablet 0.4 mg PO DAILY zinc acetate 50 mg (zinc) Capsule 50 mg PO DAILY lysine 1,000 mg Tablet 1,000 mg PO DAILY Men's Daily Multivitamin 8 mg iron- 200 mcg-600 mcg Tablet 1 tab PO DAILY vitamin E (dl, acetate) 450 mg (1,000 unit) Capsule 450 mg PO DAILY melatonin 10 mg Tablet 10 mg PO BEDTIME magnesium citrate,mag oxide 250 mg Capsule 500 mg PO BEDTIME acetaminophen 650 mg Tablet Extended Release 650 mg PO Q8H PRN (Reason: Pain) omeprazole 40 mg Capsule,Delayed Release(Dr/Ec) 40 mg PO DAILY ondansetron 4 mg Tablet,Disintegrating 4 mg PO Q6H PRN (Reason: Gas) simethicone 80 mg Tablet,Chewable 80 mg PO QID PRN (Reason: gas) docusate sodium [Stool Softener] 100 mg Capsule 100 mg PO DAILY polyethylene glycol 3350 [Miralax] 17 gram/dose Powder 17 g PO DAILY dicyclomine 20 mg tablet 20 mg PO QID PRN (Reason: abdominal spasms) Discharge Orders: Discharge Order (Routine); Ordered 03/01/25 Ordered By: Neema Mcghee Diet: Regular diet Activity on Discharge: As tolerated Stand Alone Forms: Patient Portal Discharge page, Substance Abuse Outpt Detox Print Language: Bulgarian Care Plan Goals: Substance use cessation-alcohol, benzos, nicotine Social support Psychiatric help with her addiction Health Concerns: See above Plan of Treatment: See above Assessment: See above
--- NOTE | 2025-03-01 14:59 | MHC.CM.PN ---
Pt. has been medically cleared to [place], she will go home via private transport, plan is self care.
== END 2025-03-01 15:23 | disposition home or self-care (01) | DRG 897 ==
LOC: HO.ED 21:23 → HO.EDOVER 02-27 06:32 → HO.IMC 02-27 15:06
PROVIDERS: Admitting Provider Physician Assistant; Emergency Provider Emergency Medicine; PCP Physician Assistant; Visit Provider Student in an Organized Health Care Education/Training Program
DX: F10.239 Alcohol dependence with withdrawal, unspecified (principal); F17.210 Nicotine dependence, cigarettes, uncomplicated; F39 Unspecified mood [affective] disorder; Z71.6 Tobacco abuse counseling; Y90.8 Blood alcohol level of 240 mg/100 ml or more; F10.229 Alcohol dependence with intoxication, unspecified; Z79.899 Other long term (current) drug therapy
CPT/HCPCS: 36415; 71046; 80048; 80053; 80307; 83735; 85025; 85027; 97161; 99285; J1650; J2405; J2560; S9485

== ENCOUNTER → 2025-02-27 06:10 | Outpatient (BNV) | payer MEDICARE, MEDICAID, SELFPAY | PROVIDERS: Admitting Provider Physician Assistant; Emergency Provider Emergency Medicine; Visit Provider Student in an Organized Health Care Education/Training Program | DX: F10.220 Alcohol dependence with intoxication, uncomplicated (principal) | CPT/HCPCS: 99222; 99499 ==